=== PATIENT | male | born 1945 | race Caucasian/White ===

== ENCOUNTER 2017-01-24 12:46 | Outpatient (CLI) | payer MEDICARE, OTHER | END 2017-01-24 12:47 | disposition home or self-care (01) | DX: E27.9 Disorder of adrenal gland, unspecified (principal); K86.1 Other chronic pancreatitis; K86.81 Exocrine pancreatic insufficiency ==

== ENCOUNTER 2018-04-06 13:24 | Outpatient (CLI) | payer MEDICARE, OTHER ==
--- NOTE | 2018-04-06 15:23 | XRAY Report ---
Procedure Date: 04/06/2018 Accession Number: [id number] / [id number] Procedure: XRS - Abdomen Acute CPT Code: FULL RESULT: EXAM: Abdomen Acute DATE: 04/06/2018 2:48 PM CLINICAL HISTORY: 4 DAYS OF DIFFUSE ABDPAIN COMPARISON: CT abdomen 01/24/2017. TECHNIQUE: 2 views abdomen and 1 view chest. FINDINGS: CHEST: Lungs/Pleura: No focal opacities. No effusion or pneumothorax. Mediastinum: Within exam limitations, cardiomediastinal contour is normal. ABDOMEN: Bowel Gas Pattern: Within normal limits. No dilated loops or abnormal fluid levels. Free Air: None. Other: None. IMPRESSION: Normal chest. Nonobstructive bowel gas pattern. No definite free air. RADIA
== END 2018-04-06 13:25 | disposition home or self-care (01) ==
LOC: DI.S 13:24
PROVIDERS: ATTEND Family Medicine
DX: R10.84 Generalized abdominal pain (principal)
CPT/HCPCS: 74022

== ENCOUNTER 2018-04-16 11:26 | Outpatient (CLI) | payer MEDICARE, OTHER ==
[2018-04-16] MEDS ORDERED: IOPAMIDOL-300 50 ML VIAL ONE (11:51)
[2018-04-16] MEDS ORDERED: IOPAMIDOL-300 100 ML VIAL ONE (11:51)
[2018-04-16] MEDS ORDERED: IOPAMIDOL-300 50 ML VIAL PO ONE (13:26)
[2018-04-16] MEDS ORDERED: IOPAMIDOL-300 100 ML VIAL IVP ONE (13:38)
--- NOTE | 2018-04-16 14:10 | CT Report ---
Procedure Date: 04/16/2018 Accession Number: [id number] / [id number] Procedure: CT - Abdomen/Pelvis W/ CPT Code: FULL RESULT: EXAM: CT ABDOMEN AND PELVIS EXAM DATE: 04/16/2018 01:39 PM. CLINICAL HISTORY: 3 WEEKS OF SEVERE ABD PAIN. COMPARISONS: 01/24/2017. TECHNIQUE: Routine helical CT imaging was performed through the abdomen and pelvis. IV contrast: ISOVUE 300 100mL. Enteric contrast: Yes. Reconstructions: Coronal and sagittal. In accordance with CT protocol optimization, one or more of the following dose reduction techniques were utilized for this exam: automated exposure control, adjustment of mA and/or KV based on patient size, or use of iterative reconstructive technique. FINDINGS: Lung Bases: Unremarkable. Liver: Tiny cysts or hemangiomata. No suspicious findings. Gallbladder/Bile Ducts: Unremarkable. Spleen: Normal. Pancreas: Numerous calcifications, compatible with chronic pancreatitis. Adrenal Glands: Prominent thickening of left adrenal gland, similar to previous exam. Unremarkable right adrenal. Kidneys: Normal. No masses or hydronephrosis. Peritoneal Cavity/Bowel: Mild to moderate colonic diverticulosis. No free fluid, free air or adenopathy. No masses or acute inflammatory process. Unremarkable region of appendix. Pelvic Organs: Unremarkable urinary bladder. Mild prominence of the prostate with numerous calcifications and slight protrusion into the bladder base. Vasculature: No aneurysms or other significant abnormality. Bones: Degenerative changes. Hypertrophy of the left L5 transverse process with pseudarthrosis to S1 on the left. Other: None. IMPRESSION: 1. Mild to moderate diverticulosis. No definite diverticulitis at this time. 2. Evidence of chronic pancreatitis. 3. Prominent prostate; clinical correlation is suggested. 4. Other chronic or incidental findings. RADIA
== END 2018-04-16 11:27 | disposition home or self-care (01) ==
LOC: DI 11:26
PROVIDERS: ATTEND Registered Nurse
DX: K57.30 Diverticulosis of large intestine without perforation or abscess without bleeding (principal); K86.1 Other chronic pancreatitis; N40.0 Benign prostatic hyperplasia without lower urinary tract symptoms
CPT/HCPCS: 74177; Q9967

== ENCOUNTER 2018-06-07 12:22 | Outpatient (CLI) | payer MEDICARE, OTHER | END 2018-06-07 12:23 | disposition critical access hospital (66) | LOC: EMS 12:22 | PROVIDERS: ATTEND Surgery | DX: R53.1 Weakness (principal); R11.10 Vomiting, unspecified; R19.7 Diarrhea, unspecified; R55 Syncope and collapse | CPT/HCPCS: A0425; A0427 ==

== ENCOUNTER 2018-06-07 12:40 | Inpatient (IN) | payer MEDICARE, OTHER ==
[2018-06-07] MEDS ORDERED: SODIUM CHLORIDE 0.9% 1,000 ML IV ONE ×3 (13:11→14:05)
[2018-06-07] MEDS ORDERED: TRANEXAMIC ACID 1,000 MG in SODIUM CHLORIDE 0.9% 500 ML IV STA (13:30)
[2018-06-07] MEDS ORDERED: FAMOTIDINE 20 MG/50 ML 50 ML IV ONE (13:30)
[2018-06-07] MEDS ORDERED: PANTOPRAZOLE 40 MG VIAL IVP STA ×2 (13:30→14:46)
[2018-06-07 13:34] LABS: BASOPHILS % (AUTO) 0.2 %; EOSINOPHILS % (AUTO) 0.5 %; HGB - HEMOGLOBIN 8.9 g/dL (14.0-18.0); LYMPHOCYTES # (AUTO) 2.5 10^3/uL (1.5-3.5); LYMPHOCYTES % (AUTO) 26.5 %; MEAN CORPUSCULAR HEMOGLOBIN 28.8 pg (27.0-31.0); MEAN CORPUSCULAR HGB CONC 32.5 g/dL (32.0-36.0); MEAN CORPUSCULAR VOLUME 88.5 fL (80.0-94.0); MEAN PLATELET VOLUME 7.9 fL (7.4-11.4); MONOCYTES # (AUTO) 0.5 10^3/uL (0.0-1.0); MONOCYTES % (AUTO) 5.2 %; NEUTROPHILS # (AUTO) 6.5 10^3/uL (1.5-6.6); NEUTROPHILS % (AUTO) 67.6 %; PLT - PLATELET COUNT 241 10^3/uL (130-450); RED BLOOD COUNT 3.11 10^6/uL (4.70-6.10); RED CELL DISTRIBUTION WIDTH 13.6 % (12.0-15.0); WHITE BLOOD COUNT 9.6 x10^3/uL (4.8-10.8)
[2018-06-07 13:42] LABS: PT - PROTHROMBIN TIME 10.8 secs (9.9-12.6)
[2018-06-07] MEDS ORDERED: PANTOPRAZOLE 80 MG in SODIUM CHLORIDE 0.9% 100ML 100 ML IV STA (13:47)
--- NOTE | 2018-06-07 13:47 | ED Physician Documentation ---
History of Present Illness - Stated complaint Stated Complaint: WEAKNESS - Chief complaint Chief Complaint: General - Additonal information Additional information: hx from pt 73 male syncope today states yesterday very weak and vomited some dark material today weaker and black BM went to see PMD BP 110 HR 99 referred to ED POV for GIB work up per clinic note pt started on meloxicam amitryptiline and zenpep 05/30 prior drinker sober for 3-5 months pancreatitis so he drove his car home and his friend agreed to drive him here en route he started vomiting orange material and became unresponsive, friend thinks he was not breathing and pulled over to start CPR but then pt awoke called 911 and pt BIBA and arrive hyotensive and had a large (several hundred cc ) black gelatinous bloody BM denies CP AP SOA feels weak no blood thinners states no prior scopes, no known hx varices or ulcers per clinic note Pmhx: COPD pna, depression, anxiety, insomnia, HTN, HLD, skin cancer, pancreatitis, pancreatic cyst, DM, BPH, diverticulosis Meds: nicotine gum, fluoxetine, simvastatin, metformin, Breo Elliptam fluticasone, HCTZ, asa, pancrelipase, zenpep, amitryptiline, meloxicam - also asa and aleve PRN All NKDA Review of Systems Constitutional: denies: Fever Cardiac: denies: Chest pain / pressure Respiratory: denies: Dyspnea GI: reports: Nausea, Vomiting, Hematemesis, Bloody / black stool. denies: Abdominal Pain Neurologic: reports: Generalized weakness Endocrine: denies: Easy bruising / bleeding Immunocompromised: denies: Immunocompromised PD PAST MEDICAL HISTORY - Past Medical History Cardiovascular: Hypertension, High cholesterol Respiratory: COPD Endocrine/Autoimmune: Type 2 diabetes GI: None : None HEENT: Chronic vision loss, Chronic hearing loss Psych: Depression Musculoskeletal: Osteoarthritis Derm: None - Past Surgical History Past Surgical History: Yes Ortho: Spine surgery - Present Medications Home Medications: Ambulatory Orders Medication Instructions Recorded Confirmed FLUoxetine [PROzac] 10 mg PO DAILY 09/23/15 06/07/18 Aspirin [Aspir-Low] 81 mg PO DAILY 01/18/16 06/07/18 Amitriptyline [Elavil] 25 mg PO HS 06/07/18 06/07/18 Fluticasone/Vilanterol [Breo 1 inh IH DAILY 06/07/18 06/07/18 Ellipta 100-25 Mcg INH] Lipase/Protease/Amylase [Zenpep Dr 1 each PO TIDWM 06/07/18 06/07/18 10,000 Units Capsule] Nicotine Polacrilex [Nicotine Gum] 2 mg BC PRN PRN 06/07/18 06/07/18 Simvastatin 20 mg PO QPM 06/07/18 06/07/18 hydroCHLOROthiazide 25 mg PO DAILY 06/07/18 06/07/18 [Hydrochlorothiazide] metFORMIN [Glucophage] 500 mg PO BIDWM 06/07/18 06/07/18 oxyCODONE [Roxicodone] 5 - 10 mg PO Q6HR PRN 06/07/18 06/07/18 - Allergies Allergies/Adverse Reactions: Allergies Allergy/AdvReac Type Severity Reaction Status Date / Time No Known Drug Allergies Allergy Verified 01/18/16 12:33 - Social History Does the pt smoke?: No Smoking Status: Former smoker Does the pt drink ETOH?: Yes Does the pt have substance abuse?: No - Immunizations Immunizations: TDAP >10years/unknown PD ED PE NORMAL - Vitals Vital signs reviewed: Yes (hypotensive) - General General: Alert and oriented X 3 - HEENT HEENT: Other (white conjunctiva) - Neck Neck: Supple, no meningeal sign - Cardiac Cardiac: RRR - Respiratory Respiratory: No respiratory distress, Clear bilaterally - Abdomen Abdomen: Other (mild distension, soft tissue mass lower abd, NT) - Rectal Rectal: Deferred (passed approx 500 cc black BM upon arrival) - Derm Derm: Other (very pale) - Neuro Neuro: Alert and oriented X 3 Results - Vitals Vitals: Vital Signs - 24 hr 06/07/18 06/07/18 06/07/18 12:46 13:30 13:45 Temperature 37.5 C Heart Rate 91 90 88 Respiratory 22 23 23 Rate Blood Pressure 98/48 L 85/64 L 86/45 L O2 Saturation 100 99 99 06/07/18 06/07/18 06/07/18 13:54 15:13 15:15 Temperature 35.9 C L 36.2 C L Heart Rate 87 83 79 Respiratory 21 16 18 Rate Blood Pressure 88/64 L 140/63 H 136/65 H O2 Saturation 100 100 0906/07/18 06/07/18 15:19 15:24 15:30 Temperature 36.3 C L Heart Rate 80 81 78 Respiratory 20 21 19 Rate Blood Pressure 115/64 125/62 127/61 O2 Saturation 100 100 98 06/07/18 06/07/18 06/07/18 15:34 15:44 15:49 Temperature Heart Rate 79 75 75 Respiratory 20 18 17 Rate Blood Pressure 129/58 L 123/62 129/64 O2 Saturation 97 99 96 Oxygen O2 Source Room air - EKG (time done) 1348 Rate: Rate (enter#) (90) Rhythm: NSR [place]: Normal Intervals: Normal [place], Prolonged QT (borderline) Ischemia: Non specific changes - Labs Labs: Laboratory Tests 06/07/18 06/07/18 06/07/18 13:25 13:25 13:25 WBC 9.6 RBC 3.11 L Hgb 8.9 L Hct 27.5 L MCV 88.5 MCH 28.8 MCHC 32.5 RDW 13.6 Plt Count 241 MPV 7.9 Neut # (Auto) 6.5 Lymph # (Auto) 2.5 [place] # (Auto) 0.5 Eos # (Auto) 0.0 Baso # (Auto) 0.0 Absolute Nucleated RBC 0.00 Nucleated RBC % 0.0 PT 10.8 INR 1.0 Sodium 135 Potassium 3.6 Chloride 99 L Carbon Dioxide 20 L Anion Gap 16.0 H BUN 64 H Creatinine 1.3 H Estimated GFR (MDRD) 54 L Glucose 345 H Lactic Acid Calcium 8.9 Total Bilirubin 0.6 AST 40 ALT 27 Alkaline Phosphatase 61 Troponin I Total Protein 5.3 L Albumin 2.9 L Globulin 2.4 Albumin/Globulin Ratio 1.2 Lipase 29 Blood Type Blood Type Recheck Antibody Screen Crossmatch IS Only 06/07/18 06/07/18 06/07/18 13:25 13:25 13:25 WBC RBC Hgb Hct MCV MCH MCHC RDW Plt Count MPV Neut # (Auto) Lymph # (Auto) [place] # (Auto) Eos # (Auto) Baso # (Auto) Absolute Nucleated RBC Nucleated RBC % PT INR Sodium Potassium Chloride Carbon Dioxide Anion Gap BUN Creatinine Estimated GFR (MDRD) Glucose Lactic Acid 8.1 H* Calcium Total Bilirubin AST ALT Alkaline Phosphatase Troponin I < 0.04 Total Protein Albumin Globulin Albumin/Globulin Ratio Lipase Blood Type O POSITIVE Blood Type Recheck Antibody Screen NEGATIVE Crossmatch IS Only See Detail 06/07/18 13:56 WBC RBC Hgb Hct MCV MCH MCHC RDW Plt Count MPV Neut # (Auto) Lymph # (Auto) [place] # (Auto) Eos # (Auto) Baso # (Auto) Absolute Nucleated RBC Nucleated RBC % PT INR Sodium Potassium Chloride Carbon Dioxide Anion Gap BUN Creatinine Estimated GFR (MDRD) Glucose Lactic Acid Calcium Total Bilirubin AST ALT Alkaline Phosphatase Troponin I Total Protein Albumin Globulin Albumin/Globulin Ratio Lipase Blood Type Blood Type Recheck O POSITIVE Antibody Screen Crossmatch IS Only PD MEDICAL DECISION MAKING - ED course ED course: major GIB likely upper IV X 2 2 L NS 2 units O neg TXA 1 gram protonic and pepcid su[place] Dr Saurav Garay to bedisde and will take pt straight to the OR - Critical Care Time(min): 30 Time Includes: Direct patient care, Review records, Reassess patient, Document care, Coordinate care, Medical consult, Family consult for tx dec, See progress note Data interpretation: See progress note - Sepsis Event Vital Signs: Vital Signs - 24 hr 06/07/18 06/07/18 06/07/18 12:46 13:30 13:45 Temperature 37.5 C Heart Rate 91 90 88 Respiratory 22 23 23 Rate Blood Pressure 98/48 L 85/64 L 86/45 L O2 Saturation 100 99 99 06/07/18 06/07/18 06/07/18 13:54 15:13 15:15 Temperature 35.9 C L 36.2 C L Heart Rate 87 83 79 Respiratory 21 16 18 Rate Blood Pressure 88/64 L 140/63 H 136/65 H O2 Saturation 100 100 06/07/18 06/07/18 06/07/18 15:19 15:24 15:30 Temperature 36.3 C L Heart Rate 80 81 78 Respiratory 20 21 19 Rate Blood Pressure 115/64 125/62 127/61 O2 Saturation 100 100 98 06/07/18 06/07/18 06/07/18 15:34 15:44 15:49 Temperature Heart Rate 79 75 75 Respiratory 20 18 17 Rate Blood Pressure 129/58 L 123/62 129/64 O2 Saturation 97 99 96 Oxygen O2 Source Room air Departure - Departure Disposition: ED Transfer to [facility] Clinical Impression: GI bleed, Hypotension, Syncope, Anemia, Diabetes Condition: Serious Discharge Date/Time: 06/07/18 14:00
--- NOTE | 2018-06-07 13:47 | ANESTHESIA ---
Pre-Anesthesia VS, & Labs - Diagnosis GI Bleed - Procedure EGD Vital Signs: Temp Pulse Resp BP Pulse Ox 37.5 C 91 22 98/48 L 100 06/07/18 12:46 06/07/18 12:46 06/07/18 12:46 06/07/18 12:46 06/07/18 12:46 Height 5 ft 7 in Weight (kg) 61.689 kg Body Mass Index 21.2 - NPO Last Food Intake: 0800 - Lab Results Current Lab Results: Laboratory Tests 06/07/18 13:25: Crossmatch IS Only See Detail 06/07/18 13:25: WBC 9.6, RBC 3.11 L, Hgb 8.9 L, Hct 27.5 L, MCV 88.5, MCH 28.8, MCHC 32.5, RDW 13.6, Plt Count 241, MPV 7.9, Neut # (Auto) 6.5, Lymph # (Auto) 2.5, [place] # (Auto) 0.5, Eos # (Auto) 0.0, Baso # (Auto) 0.0, Absolute Nucleated RBC 0.00, Nucleated RBC % 0.0 Fish Bones: 06/07/18 13:25 Home Medications and Allergies Home Medications: Ambulatory Orders Medication Instructions Recorded Confirmed FLUoxetine [PROzac] 10 mg PO DAILY 09/23/15 09/23/15 A1c Medicine 01/18/16 Aspirin [Aspir-Low] 81 mg DAILY 01/18/16 01/18/16 Blood Pressure 01/18/16 Cholesterol 01/18/16 oxyCODONE/ACET 5/325 [Percocet 5 1 each PO Q4-6H PRN #15 tablet 01/18/16 mg/325 mg] Active Medications Famotidine (Pepcid 20 Mg/50 Ml) 50 mls @ 100 mls/hr IV ONCE ONE Stop: 06/07/18 13:59 FLUoxetine [PROzac] 10 mg PO DAILY 09/23/15 A1c Medicine 01/18/16 Aspirin [Aspir-Low] 81 mg DAILY 01/18/16 Blood Pressure 01/18/16 Cholesterol 01/18/16 Allergies/Adverse Reactions: Allergies Allergy/AdvReac Type Severity Reaction Status Date / Time No Known Drug Allergies Allergy Verified 01/18/16 12:33 Anes History & Medical History - Medical History Cardiovascular: reports: Hypertension, High cholesterol Pulmonary: reports: COPD Gastrointestinal: reports: None Urinary: reports: None, Kidney stones Neuro: reports: None Musculoskeletal: reports: Osteoarthritis Endocrine/Autoimmune: reports: Type 2 diabetes Skin: reports: None Smoking Status: Former smoker Psychosocial: reports: Alcohol (quit 3 mo ago) - Surgical History Urologic: Ureterolithotomy (stones) Orthopedic: Spine surgery (Cervical spine) Exam General: Alert, Oriented x3, Cooperative, No acute distress Dental: Poor dentition Mouth Openin Fingerbreadth Neck Mobility: Reduced Mallampati classification: III Thyromental Distance: 4-6 cm Mental/Cognitive Status: Alert/Oriented X3, Normal for patient Cognitive Status: Within normal limits Plan Anesthesia Type: General Consent for Procedure(s) Verified and Reviewed: Yes Code Status: Attempt Resuscitation ASA classification: 3-Severe systemic disease Is this case an emergency?: Yes
[2018-06-07 13:48] LABS: ALBUMIN 2.9 g/dL (3.2-5.5); ALBUMIN/GLOBULIN RATIO 1.2 (1.0-2.2); BILIRUBIN,TOTAL 0.6 mg/dL (0.2-1.0); CALCIUM 8.9 mg/dL (8.5-10.3); CREATININE 1.3 mg/dL (0.6-1.2); TOTAL PROTEIN 5.3 g/dL (6.7-8.2)
[2018-06-07] MEDS ORDERED: EPINEPHrine 1 MG/ML AMP ONE (13:57)
[2018-06-07] MEDS ORDERED: SODIUM CHLORIDE FLUSH 0.9% 10 ML SYRINGE ONE ×2 (13:58→14:31)
[2018-06-07] MEDS ORDERED: PROPOFOL 200 MG/20 ML VIAL IVP ONE (14:00)
[2018-06-07] MEDS ORDERED: SUCCINYLCHOLINE 200 MG/10 ML VIAL IVP ONE (14:00)
[2018-06-07] MEDS ORDERED: TRANEXAMIC ACID 1,000 MG in SODIUM CHLORIDE 0.9% 100ML 100 ML IV STA (14:00)
[2018-06-07] MEDS ORDERED: PHENYLEPHRINE 50 MG/5 ML VIAL IV ONE (14:00)
[2018-06-07] MEDS ORDERED: fentaNYL 100 MCG/2 ML VIAL IVP ONE (14:00)
[2018-06-07] MEDS ORDERED: ONDANSETRON 4 MG/2 ML VIAL IVP ONE (14:00)
--- NOTE | 2018-06-07 14:11 | CONSULTATION NOTE ---
Referring Provider Name of Referring Provider:: Dr. Verduzco Consult Date: 06/07/18 Chief Complaint - Chief Complaint Chief Complaint: GI bleed History of Present Illness - Admitted From Admitted From:: ER - History Obtained From Records Reviewed: yes History obtained from: pt Exam Limitations: no old records available; limited historian - History of Present Illness HPI Comment/Other: 73 yo male who noted an episode yesterday of coffee ground hematemesis, followed by onset today of large melenic bm associated with a syncopal episode; brought to the ER where he had a second large melenic stool. Denies abdominal pain currently although he has been evaluated for abd pain in March and April with plain films which were neg and an abd/pelvic CT showing changes c/w chronic pancreatitis and diverticulosis. He denies hx prior similar episodes or hx of hepatitis/jaundice or PUD. He has been taking a course of antiinflammatory med (unknown name) for his pancreas, and has a hx of alcoholism but has been abstinent for approximately 3 months. Chronic NSAID use includes 81 mg aspirn daily, plus prn Aleve. Smokes cigars daily. No hx esophageal varices, bleeding diathesis. Pt was hypotensive in the ER with tachycardia and signs of acute volume depletion, and was given IVF, uncross matched PRBCs, pantoprazole bolus and tranexamic acid. History - Past Medical History Cardiovascular: reports: Hypertension, High cholesterol Respiratory: reports: COPD Neuro: reports: None Endocrine/Autoimmune: reports: Type 2 diabetes GI: reports: None : reports: None HEENT: reports: Chronic vision loss, Chronic hearing loss Psych: reports: Depression Musculoskeletal: reports: Osteoarthritis Derm: reports: None MRSA Hx?: No - Past Surgical History Ortho: reports: Spine surgery (cervical) - Substance History Tobacco Details: Other (cigars) - POLST Patient has POLST: No Meds/Allgy - Home Medications Home Medications: Ambulatory Orders Medication Instructions Recorded Confirmed RX: FLUoxetine [PROzac] 10 mg PO DAILY 09/23/15 09/23/15 A1c Medicine 01/18/16 Aspirin [Aspir-Low] 81 mg DAILY 01/18/16 01/18/16 Blood Pressure 01/18/16 Cholesterol 01/18/16 oxyCODONE/ACET 5/325 [Percocet 5 1 each PO Q4-6H PRN #15 tablet 01/18/16 mg/325 mg] - Allergies Allergies/Adverse Reactions: Allergies Allergy/AdvReac Type Severity Reaction Status Date / Time No Known Drug Allergies Allergy Verified 01/18/16 12:33 Review of Systems - Cardiovascular Cariovascular: reports: Lightheadedness, Syncope - Gastrointestinal Gastrointestinal: reports: Abdominal pain, Black stools, Coffee grounds emesis - Hematologic/Lymphatic Hematologic/Lymphatic: denies: Blood clots, Bleeding tendencies Exam - Vital Signs Reviewed Vital Signs: Yes Vital Signs: Vital Signs x48h Temp Pulse Resp BP Pulse Ox 06/07/18 13:54 35.9 C L 87 21 88/64 L 06/07/18 12:46 37.5 C 91 22 98/48 L 100 - Physical Exam General Appearance: positive: Moderate distress, Anxious Eyes Bilateral: positive: Conjunctivae nml, No scleral icterus ENT: positive: Pharynx nml, Dry mucous membranes Neck: positive: Nml inspection, No JVD. negative: Lymphadenopathy (R), Lymphadenopathy (L) Respiratory: positive: Chest non-tender, No respiratory distress, Other (distant breath sounds). negative: Wheezes, Rales, Rhonchi Cardiovascular: positive: No murmur, No gallop, Extrasystoles, Tachycardia Abdomen: positive: Non-tender, Nml bowel sounds, No distention, Hepatomegaly (liver edge readily palpable 3 cm below the RCM) Skin: positive: Dry, Pallor. negative: Cyanosis Extremities: positive: No pedal edema. negative: Calf tenderness Neurologic/Psychiatric: positive: Oriented x3 Conclusion/Plan - Diagnosis Diagnosis: Major UGI bleed with hematemesis, melena, and hypotension; ddx includes PUD, varices, gastritis, GERD, dieulafoy lesion, neoplasm. - Plan Plan: Continue resuscitation with IVF, O-neg blood, pantoprazole bolus and drip; tranexamic acid, and then to the OR for EGD with possible therapy. PAR conference was held with patient, and consent obtained. - Lab Results Lab results reviewed: Yes Fish Bones: 06/07/18 13:25 06/07/18 13:25 - Diagnostic Imaging Results Diagnostic Imaging Results: positive: Final report reviewed Diagnostic Imaging Results Comments: see HPI
[2018-06-07] MEDS ORDERED: EPINEPHrine 1 MG/ML AMP IM ONE ×2 (14:21)
[2018-06-07] MEDS ORDERED: LACTATED RINGERS 1,000 ML IV ONE (14:47)
[2018-06-07] MEDS ORDERED: SODIUM CHLORIDE 0.9% 500 ML IV ONE (15:21)
[2018-06-07] MEDS ORDERED: ONDANSETRON 4 MG/2 ML VIAL IVP PRN (15:21)
[2018-06-07] MEDS ORDERED: PROCHLORPERAZINE 10 MG/2 ML VIAL IVP PRN (15:21)
[2018-06-07] MEDS ORDERED: ACETAMINOPHEN 325 MG TABLET PO PRN (15:21)
[2018-06-07] MEDS ORDERED: PROMETHAZINE 25 MG/1 ML VIAL IM PRN (15:21)
[2018-06-07] MEDS ORDERED: SODIUM CHLORIDE 0.9% 10 ML ONE (15:52)
[2018-06-07 15:59] LABS: MEAN CORPUSCULAR VOLUME 88.7 fL (80.0-94.0); MEAN PLATELET VOLUME 7.6 fL (7.4-11.4); MONOCYTES % (AUTO) 4.3 %
[2018-06-07] MEDS: PANTOPRAZOLE 80 MG in SODIUM CHLORIDE 0.9% 100ML 100 ML IV SCH (16:00)
[2018-06-07] MEDS: SODIUM CHLORIDE 0.9% 1,000 ML IV SCH ×2 (16:00→19:49)
[2018-06-07 16:01] LABS: BASOPHILS % (AUTO) 0.1 %; EOSINOPHILS % (AUTO) 0.1 %; HGB - HEMOGLOBIN 10.6 g/dL (14.0-18.0); LYMPHOCYTES % (AUTO) 6.2 %; MEAN CORPUSCULAR HEMOGLOBIN 29.5 pg (27.0-31.0); MEAN CORPUSCULAR HGB CONC 33.3 g/dL (32.0-36.0); NEUTROPHILS % (AUTO) 89.3 %; PLT - PLATELET COUNT 187 10^3/uL (130-450); RED BLOOD COUNT 3.58 10^6/uL (4.70-6.10); WHITE BLOOD COUNT 20.1 x10^3/uL (4.8-10.8)
[2018-06-07 16:06] LABS: ABNORMAL LYMPHS % (MANUAL) 0 %
[2018-06-07 16:07] LABS: ALBUMIN 2.6 g/dL (3.2-5.5); ALBUMIN/GLOBULIN RATIO 1.2 (1.0-2.2); BILIRUBIN,TOTAL 0.5 mg/dL (0.2-1.0); CALCIUM 8.2 mg/dL (8.5-10.3); CREATININE 1.1 mg/dL (0.6-1.2); TOTAL PROTEIN 4.8 g/dL (6.7-8.2)
[2018-06-07] MEDS ORDERED: MORPHINE 2 MG/ML CARPUJECT IVP PRN (16:11)
[2018-06-07 16:20] LABS: BAND NEUTROPHILS % (MANUAL) 4 %; LYMPHOCYTES % (MANUAL) 5 %; NEUTROPHILS # (MANUAL) 18.1 10^3/uL (1.5-6.6); NEUTROPHILS % (MANUAL) 86 %
[2018-06-07 16:22] LABS: DIFFERENTIAL COMMENT MANUAL DIFFERENTIAL; PLATELET ESTIMATE, MANUAL NORMAL (130-450,000) (NORMAL); PLATELET MORPHOLOGY NORMAL APPEARANCE (NORMAL)
--- NOTE | 2018-06-07 16:22 | HISTORY & PHYSICAL EXAMINATION ---
Chief Complaint - Chief Complaint Chief Complaint: Weakness History of Present Illness - Admitted From Admitted From:: PACU - History Obtained From Records Reviewed: Yes History obtained from: Patient and medical records Exam Limitations: None - History of Present Illness HPI Comment/Other: Patient is a 73-year-old gentleman with a past medical history significant for diabetes, hypertension, hyperlipidemia, COPD, chronic pancreatitis and tobacco abuse who presented to the emergency department with a chief complaint of d izziness. According to the patient he was in his normal state of health about 2 months ago when he began experiencing abdominal pain. He states that the pain was located in the epigastric area and became more and more persistent. He states that due to the pain he had decreased appetite and began eating less and less. He states that he saw his primary care physician and was sent to the hospital for a CT scan. He states that he was told that he had an inflamed pancreas and was started on oxycodone for pain relief. The patient states he was also placed on a liquid diet. The patient states that he was not improving over the course of about a month and then went back to his primary care ph ysician who referred him to Dr. Meehan. He was seen by Dr. Meehan about a week ago and started on a one-week course of NSAIDs and pancreatic enzymes. He states that finally his abdominal pain was improving and over the last week he is finally been able to eat. He states over the course of the last 1-1/2 months he is lost about 30 pounds. He says everything was improving until just 2 days ago when he stopped taking the pain medication. He states that at that time he began feeling weak and then lightheaded. He states that he began feeling nauseated and then vomited what he describes as black tarry emesis. The patient states over the course of the next day he became increasingly dizzy, disoriented and began having sweating. He states that yesterday he had a bout of diarrhea and finally felt a little bit better. He states that this morning he began having some abdominal discomfort and had to go to the bathroom again when he had another bout of diarrhea. He states this time the stool was black and immediately after he felt very dizzy. 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 He states he went to his primary care physician's office where he saw a nurse practitioner and was told to go directly to the emergency department as he could be having a GI bleed. The patient states that he asked his friend to drive him to the emergency department but in route to the emergency department he passed out and according to the friend he was not waking up. The patient's friend called 911 and paramedics brought the patient to the emergency department. Patient denies any headaches, blurred vision, runny nose, sore throat, nasal congestion, difficulty swallowing, chest pain, cough, orthopnea, PND, increased lower extremity swelling, constipation, urinary urgency, urinary frequency, dysuria, joint pain, joint swelling, back pain, neck stiffness, skin rash, hair loss, polyuria, polydipsia, night sweats or any focal neurologic deficits. The patient does admit to chronic shortness of breath and wheezing for which he takes inhalers but has been out of them for the last week. When EMS arrived at the scene the patient was hypotensive, pale and hypoxic. The patient was placed on oxygen and brought to the emergency department. The patient continued to be hypotensive in the emergency department with blood pressure in the 80s systolic. The patient's initial hemoglobin was 8.9 which was down from a baseline of 14.2. The patient had a elevated lactic acid of 8.3 and an elevated blood glucose of 345. While in the emergency department the patient had black tarry stool and the emergency room physician consulted the surgeon business transformation manager Dr. Fabian Garay. Given the patient's ongoing GI bleed and hemodynamic instability the patient was taken directly to the OR for a endoscopy. The patient underwent EGD in the OR which revealed a large duodenal ulcer which was cauterized and clipped by the surgeon. The patient was given 2 units of packed RBCs, 80 mg of IV Protonix and admitted to the intensive care unit with a Protonix drip. History - Past Medical History Cardiovascular: reports: Hypertension, High cholesterol Respiratory: reports: COPD Neuro: reports: None Endocrine/Autoimmune: reports: Type 2 diabetes GI: reports: Pancreatitis (Chronic) : reports: None HEENT: reports: Chronic vision loss, Chronic hearing loss Psych: reports: Depression Musculoskeletal: reports: Osteoarthritis Derm: reports: None MRSA Hx?: No - Past Surgical History Ortho: reports: Spine surgery - Family & Social History Family History: Mother: , Cancer (Mother lung Ca and Dad bladder Ca), Father: , Cancer Living arrangement: At home Living Situation: With family Social History Notes: Patient lives in [place], [place]. He has lived here for 3 years. Prior to that he lived in [place]. He lives with his son. 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 He has 3 sons. He was born and raised in [place]. The patient smokes 2-3 cigars a day. He quit smoking cigarettes one year ago prior to that he smoked 1 pack a day for 57 years. The patient quit drinking about 2-3 months ago he states that he typically was drinking 3 beers a night but would binge drink at times. He states that he has been drinking more heavily for the last 16 years. He denies any illicit drug use. - Substance History Tobacco Details: Other (cigars) - POLST Patient has POLST: No POLST Status: Full Code Meds/Allgy - Home Medications Home Medications: Ambulatory Orders Medication Instructions Recorded Confirmed FLUoxetine [PROzac] 10 mg PO DAILY 09/23/15 06/07/18 Aspirin [Aspir-Low] 81 mg PO DAILY 01/18/16 06/07/18 Amitriptyline [Elavil] 25 mg PO HS 06/07/18 06/07/18 Fluticasone/Vilanterol [Breo 1 inh IH DAILY 06/07/18 06/07/18 Ellipta 100-25 Mcg INH] Lipase/Protease/Amylase [Zenpep Dr 1 each PO TIDWM 06/07/18 06/07/18 10,000 Units Capsule] Nicotine Polacrilex [Nicotine Gum] 2 mg BC PRN PRN 06/07/18 06/07/18 Simvastatin 20 mg PO QPM 06/07/18 06/07/18 hydroCHLOROthiazide 25 mg PO DAILY 06/07/18 06/07/18 [Hydrochlorothiazide] metFORMIN [Glucophage] 500 mg PO BIDWM 06/07/18 06/07/18 oxyCODONE [Roxicodone] 5 - 10 mg PO Q6HR PRN 06/07/18 06/07/18 - Allergies Allergies/Adverse Reactions: Allergies Allergy/AdvReac Type Severity Reaction Status Date / Time No Known Drug Allergies Allergy Verified 01/18/16 12:33 Review of Systems - Other Findings Other Findings: A comprehensive review of systems was performed the pertinent positives and negatives are stated above in the HPI and the remainder of the review of systems is negative. Prior Level of Functionality: Patient is fully independent, still working, lives with his son and does not use any assistance devices. Exam - Vital Signs Reviewed Vital Signs: Yes Vital Signs: Vital Signs x48h Temp Pulse Resp BP Pulse Ox 06/07/18 15:55 78 15 126/67 98 06/07/18 15:49 75 17 129/64 96 06/07/18 15:44 75 18 123/62 99 06/07/18 15:34 79 20 129/58 L 97 06/07/18 15:30 36.3 C L 78 19 127/61 98 06/07/18 15:24 81 21 125/62 100 06/07/18 15:19 80 20 115/64 100 06/07/18 15:15 79 18 136/65 H 100 06/07/18 15:13 36.2 C L 83 16 140/63 H 100 06/07/18 13:54 35.9 C L 87 21 88/64 L 06/07/18 13:45 88 23 86/45 L 99 06/07/18 13:30 90 23 85/64 L 99 06/07/18 12:46 37.5 C 91 22 98/48 L 100 - Physical Exam General Appearance: positive: No acute distress, Alert Eyes Bilateral: positive: Normal inspection, PERRL, EOMI, No lid inflammation, Conjunctivae nml, No scleral icterus ENT: positive: ENT inspection nml, Pharynx nml, Dry mucous membranes. negative: Purulent nasal drainage, Pharyngeal erythema, Oral lesions Neck: positive: Nml inspection, Thyroid nml, No JVD, Trachea midline. negative: Thyromegaly, Lymphadenopathy (R), Lymphadenopathy (L), Carotid bruit, Tracheal deviation Respiratory: positive: Chest non-tender, No respiratory distress, Wheezes (Scattered, expiratory). negative: Rales, Rhonchi Cardiovascular: positive: Regular rate & rhythm, No murmur, No gallop Peripheral Pulses: positive: 2+ Abdomen: positive: Non-tender, No organomegaly, Nml bowel sounds, No distention. negative: Guarding, Rebound, Hepatomegaly Rectal: positive: Black stool Back: positive: Nml inspection. negative: CVA tenderness (R), CVA tenderness (L) Skin: positive: Color nml, No rash, Warm, Dry. negative: Cyanosis, Diaphoresis, Pallor, Skin rash Extremities: positive: Non-tender, Full ROM, Nml appearance, Pedal edema (Mild edema bilateral) Neurologic/Psychiatric: positive: Oriented x3, CN's nml (2-12), Motor nml, Sensation nml, Mood/affect nml Conclusion/Plan - Problem List (1) Upper GI bleed Conclusion/Plan: Patient presented with dizziness and had been having black tarry stools and coffee-ground emesis for 2 days. On presentation patient was hypotensive and had further black tarry stools in the emergency department. Patient's baseline hemoglobin is 14.2 and hemoglobin was down to 8.9 on presentation to the emergency department. Given patient's hemodynamic instability he had to be taken directly to the OR for EGD. On EGD patient was found to have a large duodenal ulcer which was cauterized and clipped by the general surgeon. Plan: Admit to the intensive care unit Monitor closely 2 large-bore IVs IV Protonix drip IV fluids Monitor H&H every 6 N.p.o. Surgery following closely (2) Duodenal ulcer Conclusion/Plan: Patient presented with a GI bleed as above. Patient underwent emergent EGD which showed a large duodenal ulcer that was clipped and cauterized. There is high risk of rebleeding of this ulcer and therefore patient will need to be monitored very closely for the next 24-48 hours. Likely cause of the duodenal u lcer was use of aspirin, NSAIDs, alcohol abuse and tobacco abuse. Plan: Patient placed on Protonix drip in the intensive care unit Monitor H&H every 6 Monitor closely for bleeding IV fluids N.p.o. Hold all NSAIDs and aspirin (3) Hypertension Conclusion/Plan: Patient has a history of hypertension but patient was hypotensive on presentation. Given ongoing GI bleed patient's antihypertensive medications will be held for now and we will continue to monitor the patient's blood pressure if patient's blood pressure does become elevated we will restart his h ome medications. Qualifiers: Hypertension type: essential hypertension Qualified Code(s): I10 - Essential (primary) hypertension (4) Diabetes Conclusion/Plan: The patient has a history of diabetes for which she is only on metformin at home. The patient presented with hyperglycemia as his blood glucose was elevated at 345. This may have been a stress response. Plan: Check hemoglobin A1c Sliding scale insulin n.p.o. Check blood glucose 4 times daily Qualifiers: Diabetes mellitus type: type 2 Diabetes mellitus detention insulin use: without terminal manager use Diabetes mellitus complication status: with hyperglycemi a Qualified Code(s): E11.65 - Type 2 diabetes mellitus with hyperglycemia (5) Tobacco abuse Conclusion/Plan: Patient has a history of tobacco abuse previously he was a heavy smoker of cigarettes currently he smokes 2-3 cigars a day. The patient was advised to quit smoking as a likely contributed to his duodenal ulcer. He was also counseled on all the risk factors involved with continued smoking. The patient will be placed on a nicotine patch while he is hospitalized and does appear to be committed to quit smoking. (6) Alcohol abuse Conclusion/Plan: The patient has a history of alcohol abuse but quit drinking over a month ago. The patient was found to have chronic pancreatitis on the CT scan after which he quit drinking. The patient is not at risk of going through withdrawals. The patient was counseled on the need to continue to keep from drinking. Alcohol abuse likely played some role in the patient's duodenal ulcer. (7) Chronic pancreatitis Conclusion/Plan: Patient is a history of chronic pancreatitis. The patient's lipase on presentation is 29. Patient has been having abdominal pain from pancreatitis for the last several months. While patient is hospitalized he will initially be kept n.p.o. and will be given morphine for pain control. Patient is James quit drinking and was counseled on need to continue to stop drinking. Qualifiers: Pancreatitis type: alcohol induced Qualified Code(s): K86.0 - Alcohol- induced chronic pancreatitis (8) COPD (chronic obstructive pulmonary disease) Conclusion/Plan: Patient is a history of COPD and is on Breo at home. He states he ran out of his inhaler a few days ago. While the patient is hospitalized he will be placed on albuterol nebulizer and ipratropium nebulizer as needed. The patient will not be given inhaled corticosteroids given his ulcer. The patient currently do es not appear to be having a COPD exacerbation. Qualifiers: COPD type: unspecified COPD Qualified Code(s): J44.9 - Chronic obstructive pulmonary disease, unspecified (9) Hyperlipidemia Conclusion/Plan: Patient has a history of hyperlipidemia and is on statin at home. Given the patient's severe GI bleed and large duodenal ulcer the patient is being kept n.p.o. therefore we will hold statin for now. Qualifiers: Hyperlipidemia type: unspecified Qualified Code(s): E78.5 - Hyperlipidemia, unspecified - Lab Results Lab results reviewed: Yes Fish Bones: 06/07/18 15:50 06/07/18 15:50 Other Lab Results: Laboratory Results WBC 20.1 x10^3/uL (4.8-10.8) H 06/07/18 15:50 RBC 3.58 10^6/uL (4.70-6.10) L 06/07/18 15:50 Hgb 10.6 g/dL (14.0-18.0) L 06/07/18 15:50 Hct 31.7 % (42.0-52.0) L 06/07/18 15:50 MCV 88.7 fL (80.0-94.0) 06/07/18 15:50 MCH 29.5 pg (27.0-31.0) 06/07/18 15:50 MCHC 33.3 g/dL (32.0-36.0) 06/07/18 15:50 RDW 14.0 % (12.0-15.0) 06/07/18 15:50 Plt Count 187 10^3/uL (130-450) 06/07/18 15:50 MPV 7.6 fL (7.4-11.4) 06/07/18 15:50 Neut # (Auto) 17.9 10^3/uL (1.5-6.6) H 06/07/18 15:50 Lymph # (Auto) 1.2 10^3/uL (1.5-3.5) L 06/07/18 15:50 [place] # (Auto) 0.9 10^3/uL (0.0-1.0) 06/07/18 15:50 Eos # (Auto) 0.0 10^3/uL (0.0-0.7) 06/07/18 15:50 Baso # (Auto) 0.0 10^3/uL (0.0-0.1) 06/07/18 15:50 Absolute Nucleated RBC 0.01 x10^3/uL 06/07/18 15:50 Nucleated RBC % 0.0 /100WBC 06/07/18 15:50 Manual Slide Review Indicated 06/07/18 15:50 PT 10.8 secs (9.9-12.6) 06/07/18 13:25 INR 1.0 (0.8-1.2) 06/07/18 13:25 Sodium 139 mmol/L (135-145) 06/07/18 15:50 Potassium 3.9 mmol/L (3.5-5.0) 06/07/18 15:50 Chloride 107 mmol/L (101-111) 06/07/18 15:50 Carbon Dioxide 23 mmol/L (21-32) 06/07/18 15:50 Anion Gap 9.0 (6-13) 06/07/18 15:50 BUN 63 mg/dL (6-20) H 06/07/18 15:50 Creatinine 1.1 mg/dL (0.6-1.2) 06/07/18 15:50 Estimated GFR (MDRD) 65 (>89) L 06/07/18 15:50 Glucose 113 mg/dL (70-100) H 06/07/18 15:50 Lactic Acid 8.1 mmol/L (0.5-2.2) H* 06/07/18 13:25 Calcium 8.2 mg/dL (8.5-10.3) L 06/07/18 15:50 Total Bilirubin 0.5 mg/dL (0.2-1.0) 06/07/18 15:50 AST 42 IU/L (10-42) 06/07/18 15:50 ALT 35 IU/L (10-60) 06/07/18 15:50 Alkaline Phosphatase 54 IU/L (42-121) 06/07/18 15:50 Troponin I < 0.04 ng/mL (<0.49) 06/07/18 13:25 Total Protein 4.8 g/dL (6.7-8.2) L 06/07/18 15:50 Albumin 2.6 g/dL (3.2-5.5) L 06/07/18 15:50 Globulin 2.2 g/dL (2.1-4.2) 06/07/18 15:50 Albumin/Globulin Ratio 1.2 (1.0-2.2) 06/07/18 15:50 Lipase 29 U/L (22-51) 06/07/18 13:25 Blood Type O POSITIVE 06/07/18 13:25 Blood Type Recheck O POSITIVE 06/07/18 13:56 Antibody Screen NEGATIVE 06/07/18 13:25 Crossmatch IS Only See Detail 06/07/18 13:25 - EKG Results EKG Interpreted Independently: Yes EKG Findings: No ischemic changes. Core Measures - Anticipated LOS I expect patient to be DC'd or transferred within 96 hours.: Yes - DVT/VTE - Prophylaxis VTE/DVT Device ordered at admit?: Yes
[2018-06-07] MEDS: SODIUM CHLORIDE FLUSH 0.9% 10 ML SYRINGE IVP SCH (17:13)
[2018-06-07] MEDS: INSULIN REGULAR HUMAN 100 UNIT/1 ML 10 ML MDV SUBQ SCH (18:04)
[2018-06-07 18:45] LABS: BILIRUBIN,URINE NEGATIVE (NEGATIVE); GLUCOSE, URINE (UA) NEGATIVE (NEGATIVE); KETONES,URINE (UA) NEGATIVE (NEGATIVE); LEUKOCYTE ESTERASE, URINE TRACE (NEGATIVE); NITRITE,URINE NEGATIVE (NEGATIVE); OCCULT BLOOD,URINE NEGATIVE (NEGATIVE); PH,URINE 5.5 PH (5.0-7.5); PROTEIN,URINE NEGATIVE (NEGATIVE); UROBILINOGEN,URINE 0.2 (NORMAL) E.U./dL (NORMAL)
[2018-06-07 18:47] LABS: CLARITY,URINE CLOUDY (CLEAR)
[2018-06-07 18:59] LABS: BACTERIA,URINE None Seen /HPF (None Seen); CASTS, URINE 3-5 Hyaline Casts /LPF; RBC,URINE 0-5 /HPF (0-5); SQUAMOUS EPITHELIAL CELL,UR NONE SEEN (<= Few)
[2018-06-07] MEDS ORDERED: ALBUTEROL NEB 2.5 MG/3 ML INH SCH (19:00)
[2018-06-07 21:20] LABS: BASOPHILS % (AUTO) 0.1 %; LYMPHOCYTES # (AUTO) 1.1 10^3/uL (1.5-3.5); LYMPHOCYTES % (AUTO) 7.7 %; MEAN CORPUSCULAR HEMOGLOBIN 29.1 pg (27.0-31.0); MEAN CORPUSCULAR VOLUME 88.1 fL (80.0-94.0); MEAN PLATELET VOLUME 7.8 fL (7.4-11.4); MONOCYTES # (AUTO) 0.8 10^3/uL (0.0-1.0); MONOCYTES % (AUTO) 5.8 %; NEUTROPHILS # (AUTO) 12.7 10^3/uL (1.5-6.6); NEUTROPHILS % (AUTO) 86.4 %; PLT - PLATELET COUNT 179 10^3/uL (130-450); RED BLOOD COUNT 3.42 10^6/uL (4.70-6.10); RED CELL DISTRIBUTION WIDTH 13.9 % (12.0-15.0); WHITE BLOOD COUNT 14.7 x10^3/uL (4.8-10.8)
[2018-06-08] MEDS: PANTOPRAZOLE 80 MG in SODIUM CHLORIDE 0.9% 100ML 100 ML IV SCH ×3 (00:08→18:41)
[2018-06-08] MEDS: SODIUM CHLORIDE FLUSH 0.9% 10 ML SYRINGE IVP SCH ×4 (00:09→21:21)
[2018-06-08] MEDS: INSULIN REGULAR HUMAN 100 UNIT/1 ML 10 ML MDV SUBQ SCH ×3 (00:09→12:10)
[2018-06-08 03:32] LABS: BASOPHILS % (AUTO) 0.1 %; EOSINOPHILS # (AUTO) 0.1 10^3/uL (0.0-0.7); EOSINOPHILS % (AUTO) 0.6 %; HGB - HEMOGLOBIN 9.4 g/dL (14.0-18.0); LYMPHOCYTES # (AUTO) 1.2 10^3/uL (1.5-3.5); LYMPHOCYTES % (AUTO) 10.8 %; MEAN CORPUSCULAR HEMOGLOBIN 29.4 pg (27.0-31.0); MEAN CORPUSCULAR HGB CONC 33.7 g/dL (32.0-36.0); MEAN CORPUSCULAR VOLUME 87.4 fL (80.0-94.0); MEAN PLATELET VOLUME 7.7 fL (7.4-11.4); MONOCYTES # (AUTO) 0.5 10^3/uL (0.0-1.0); MONOCYTES % (AUTO) 4.9 %; NEUTROPHILS # (AUTO) 9.2 10^3/uL (1.5-6.6); NEUTROPHILS % (AUTO) 83.6 %; PLT - PLATELET COUNT 169 10^3/uL (130-450); RED BLOOD COUNT 3.18 10^6/uL (4.70-6.10)
[2018-06-08 03:38] LABS: PT - PROTHROMBIN TIME 11.5 secs (9.9-12.6)
[2018-06-08 03:58] LABS: ALBUMIN 2.5 g/dL (3.2-5.5); ALBUMIN/GLOBULIN RATIO 1.1 (1.0-2.2); BILIRUBIN,TOTAL 0.8 mg/dL (0.2-1.0); CALCIUM 7.8 mg/dL (8.5-10.3); CREATININE 1.2 mg/dL (0.6-1.2); MAGNESIUM 1.7 mg/dL (1.7-2.8); PHOSPHORUS 4.1 mg/dL (2.5-4.6); TOTAL PROTEIN 4.7 g/dL (6.7-8.2)
[2018-06-08 04:16] LABS: HB2 TOTAL 9.8 g/dL; HEMOGLOBIN A1C 0.44 g/dL; HEMOGLOBIN A1C % 6.3 % (4.6-6.2)
[2018-06-08] MEDS: SODIUM CHLORIDE 0.9% 1,000 ML IV SCH ×2 (05:43→15:37)
[2018-06-08] MEDS: ALBUTEROL NEB 2.5 MG/3 ML INH PRN ×2 (08:18→14:17)
[2018-06-08] MEDS: IPRATROPIUM 0.2 MG/ML NEB INH PRN ×2 (08:19→14:17)
[2018-06-08 09:18] LABS: BASOPHILS % (AUTO) 0.1 %; EOSINOPHILS % (AUTO) 0.4 %; HGB - HEMOGLOBIN 8.8 g/dL (14.0-18.0); LYMPHOCYTES # (AUTO) 1.1 10^3/uL (1.5-3.5); LYMPHOCYTES % (AUTO) 10.5 %; MEAN CORPUSCULAR HEMOGLOBIN 29.5 pg (27.0-31.0); MEAN CORPUSCULAR VOLUME 86.6 fL (80.0-94.0); MEAN PLATELET VOLUME 7.6 fL (7.4-11.4); MONOCYTES # (AUTO) 0.4 10^3/uL (0.0-1.0); MONOCYTES % (AUTO) 4.4 %; NEUTROPHILS # (AUTO) 8.6 10^3/uL (1.5-6.6); NEUTROPHILS % (AUTO) 84.6 %; PLT - PLATELET COUNT 166 10^3/uL (130-450); RED BLOOD COUNT 2.97 10^6/uL (4.70-6.10); RED CELL DISTRIBUTION WIDTH 13.7 % (12.0-15.0); WHITE BLOOD COUNT 10.2 x10^3/uL (4.8-10.8)
[2018-06-08] MEDS: NICOTINE 21 MG PATCH TOP SCH (10:41)
--- NOTE | 2018-06-08 12:34 | PROVIDER PROGRESS NOTE ---
Subjective - General Admit Date: 06/07/18 Procedure Date: 06/07/18 Post Op Days: 1 Procedure Performed: EGD with hemostatic control of active bleeding - Review of Systems General: positive: No symptoms (Says that his rear hurts from lying in bed so much.) HEENT: positive: No symptoms Pulmonary: positive: No symptoms Cardiovascular: positive: No symptoms Gastrointestinal: positive: No symptoms Genitourinary: positive: No symptoms Musculoskeletal: positive: Other (See above for buttock pain from significant time in bed.) Skin: positive: No symptoms Psychiatric: positive: No symptoms Objective - Patient Data Reviewed Vital Signs: Yes Vital Signs: Vital Signs x48h Temp Pulse Pulse Resp BP Pulse Ox 06/08/18 11:58 36.8 C 88 19 113/66 95 06/08/18 11:00 84 21 115/61 94 06/08/18 10:00 82 22 113/54 L 96 06/08/18 09:00 87 23 121/76 95 06/08/18 08:43 36.7 C 06/08/18 08:18 92 22 06/08/18 08:00 93 20 118/72 95 06/08/18 06:00 91 18 120/76 93 06/08/18 05:00 98 21 112/77 96 Weight: Weight 06/06/18 06/07/18 06/08/18 23:59 23:59 23:59 Weight (kg) 63 kg 64.5 kg Intake & Output: Intake and Output Totals x24h 06/06/18 06/07/18 06/08/18 23:59 23:59 23:59 Intake Total 2451.667 1051.333 Output Total 175 2005 Balance 7726.667 -483.667 - Lab Results Lab Results: 06/08/18 09:10 06/08/18 03:25 Other Lab Results: Lab Results x24hrs 06/08/18 06/08/18 06/08/18 Range/Units 09:10 03:25 03:25 WBC 10.2 (4.8-10.8) x10^3/uL RBC 2.97 L (4.70-6.10) 10^6/uL Hgb 8.8 L (14.0-18.0) g/dL Hct 25.7 L (42.0-52.0) % MCV 86.6 (80.0-94.0) fL MCH 29.5 (27.0-31.0) pg MCHC 34.0 (32.0-36.0) g/dL RDW 13.7 (12.0-15.0) % Plt Count 166 (130-450) 10^3/uL MPV 7.6 (7.4-11.4) fL Neut # (Auto) 8.6 H (1.5-6.6) 10^3/uL Lymph # (Auto) 1.1 L (1.5-3.5) 10^3/uL Finney # (Auto) 0.4 (0.0-1.0) 10^3/uL Eos # (Auto) 0.0 (0.0-0.7) 10^3/uL Baso # (Auto) 0.0 (0.0-0.1) 10^3/uL Absolute Nucleated RBC 0.00 x10^3/uL Total Counted Band Neuts % (Manual) (0 - 10) % Abnorm Lymph % (Manual) % Nucleated RBC % 0.0 /100WBC Neutrophils # (Manual) (1.5-6.6) 10^3/uL Lymphocytes # (Manual) (1.5-3.5) 10^3/uL Monocytes # (Manual) (0.0-1.0) 10^3/uL Eosinophils # (Manual) (0-0.7) 10^3/uL Basophils # (Manual) (0-0.1) 10^3/uL Differential Comment Manual Slide Review Platelet Estimate (NORMAL) Platelet Morphology (NORMAL) RBC Morph Micro Appear (NORMAL) PT (9.9-12.6) secs INR (0.8-1.2) Sodium 136 (135-145) mmol/L Potassium 4.4 (3.5-5.0) mmol/L Chloride 107 (101-111) mmol/L Carbon Dioxide 24 (21-32) mmol/L Anion Gap 5.0 L (6-13) BUN 80 H* (6-20) mg/dL Creatinine 1.2 (0.6-1.2) mg/dL Estimated GFR (MDRD) 59 L (>89) Glucose 122 H (70-100) mg/dL Glycated Hemoglobin 6.3 H (4.6-6.2) % Estim Average Glucose 134 H (70-100) Lactic Acid (0.5-2.2) mmol/L Calcium 7.8 L (8.5-10.3) mg/dL Phosphorus 4.1 (2.5-4.6) mg/dL Magnesium 1.7 (1.7-2.8) mg/dL Total Bilirubin 0.8 (0.2-1.0) mg/dL AST 34 (10-42) IU/L ALT 32 (10-60) IU/L Alkaline Phosphatase 44 (42-121) IU/L Total Creatine Kinase (22-269) IU/L Troponin I (<0.49) ng/mL Total Protein 4.7 L (6.7-8.2) g/dL Albumin 2.5 L (3.2-5.5) g/dL Globulin 2.2 (2.1-4.2) g/dL Albumin/Globulin Ratio 1.1 (1.0-2.2) Lipase (22-51) U/L Urine Color Urine Clarity (CLEAR) Urine pH (5.0-7.5) PH Ur Specific [place] (1.002-1.030) Urine Protein (NEGATIVE) mg/dL Urine Glucose (UA) (NEGATIVE) mg/dL Urine Ketones (NEGATIVE) mg/dL Urine Occult Blood (NEGATIVE) Urine Nitrite (NEGATIVE) Urine Bilirubin (NEGATIVE) Urine Urobilinogen (NORMAL) E.U./dL Ur Leukocyte Esterase (NEGATIVE) Urine RBC (0-5) /HPF Urine WBC (0-3) /HPF Ur Squamous Epith Cells (<= Few) Urine Bacteria (None Seen) /HPF Urine Casts /LPF Ur Microscopic Review Urine Culture Comments Blood Type Blood Type Recheck Antibody Screen Crossmatch IS Only 06/08/18 06/08/18 06/08/18 Range/Units 03:25 03:25 03:20 WBC 11.0 H (4.8-10.8) x10^3/uL RBC 3.18 L (4.70-6.10) 10^6/uL Hgb 9.4 L (14.0-18.0) g/dL Hct 27.8 L (42.0-52.0) % MCV 87.4 (80.0-94.0) fL MCH 29.4 (27.0-31.0) pg MCHC 33.7 (32.0-36.0) g/dL RDW 14.0 (12.0-15.0) % Plt Count 169 (130-450) 10^3/uL MPV 7.7 (7.4-11.4) fL Neut # (Auto) 9.2 H (1.5-6.6) 10^3/uL Lymph # (Auto) 1.2 L (1.5-3.5) 10^3/uL Finney # (Auto) 0.5 (0.0-1.0) 10^3/uL Eos # (Auto) 0.1 (0.0-0.7) 10^3/uL Baso # (Auto) 0.0 (0.0-0.1) 10^3/uL Absolute Nucleated RBC 0.00 x10^3/uL Total Counted Band Neuts % (Manual) (0 - 10) % Abnorm Lymph % (Manual) % Nucleated RBC % 0.0 /100WBC Neutrophils # (Manual) (1.5-6.6) 10^3/uL Lymphocytes # (Manual) (1.5-3.5) 10^3/uL Monocytes # (Manual) (0.0-1.0) 10^3/uL Eosinophils # (Manual) (0-0.7) 10^3/uL Basophils # (Manual) (0-0.1) 10^3/uL Differential Comment Manual Slide Review Platelet Estimate (NORMAL) Platelet Morphology (NORMAL) RBC Morph Micro Appear (NORMAL) PT 11.5 (9.9-12.6) secs INR 1.0 (0.8-1.2) Sodium (135-145) mmol/L Potassium (3.5-5.0) mmol/L Chloride (101-111) mmol/L Carbon Dioxide (21-32) mmol/L Anion Gap (6-13) BUN (6-20) mg/dL Creatinine (0.6-1.2) mg/dL Estimated GFR (MDRD) (>89) Glucose (70-100) mg/dL Glycated Hemoglobin (4.6-6.2) % Estim Average Glucose (70-100) Lactic Acid (0.5-2.2) mmol/L Calcium (8.5-10.3) mg/dL Phosphorus (2.5-4.6) mg/dL Magnesium (1.7-2.8) mg/dL Total Bilirubin (0.2-1.0) mg/dL AST (10-42) IU/L ALT (10-60) IU/L Alkaline Phosphatase (42-121) IU/L Total Creatine Kinase 57 (22-269) IU/L Troponin I (<0.49) ng/mL Total Protein (6.7-8.2) g/dL Albumin (3.2-5.5) g/dL Globulin (2.1-4.2) g/dL Albumin/Globulin Ratio (1.0-2.2) Lipase (22-51) U/L Urine Color Urine Clarity (CLEAR) Urine pH (5.0-7.5) PH Ur Specific [place] (1.002-1.030) Urine Protein (NEGATIVE) mg/dL Urine Glucose (UA) (NEGATIVE) mg/dL Urine Ketones (NEGATIVE) mg/dL Urine Occult Blood (NEGATIVE) Urine Nitrite (NEGATIVE) Urine Bilirubin (NEGATIVE) Urine Urobilinogen (NORMAL) E.U./dL Ur Leukocyte Esterase (NEGATIVE) Urine RBC (0-5) /HPF Urine WBC (0-3) /HPF Ur Squamous Epith Cells (<= Few) Urine Bacteria (None Seen) /HPF Urine Casts /LPF Ur Microscopic Review Urine Culture Comments Blood Type Blood Type Recheck Antibody Screen Crossmatch IS Only 06/07/18 06/07/18 06/07/18 Range/Units 21:05 21:05 18:30 WBC 14.7 H (4.8-10.8) x10^3/uL RBC 3.42 L (4.70-6.10) 10^6/uL Hgb 10.0 L (14.0-18.0) g/dL Hct 30.1 L (42.0-52.0) % MCV 88.1 (80.0-94.0) fL MCH 29.1 (27.0-31.0) pg MCHC 33.0 (32.0-36.0) g/dL RDW 13.9 (12.0-15.0) % Plt Count 179 (130-450) 10^3/uL MPV 7.8 (7.4-11.4) fL Neut # (Auto) 12.7 H (1.5-6.6) 10^3/uL Lymph # (Auto) 1.1 L (1.5-3.5) 10^3/uL Finney # (Auto) 0.8 (0.0-1.0) 10^3/uL Eos # (Auto) 0.0 (0.0-0.7) 10^3/uL Baso # (Auto) 0.0 (0.0-0.1) 10^3/uL Absolute Nucleated RBC 0.01 x10^3/uL Total Counted Band Neuts % (Manual) (0 - 10) % Abnorm Lymph % (Manual) % Nucleated RBC % 0.0 /100WBC Neutrophils # (Manual) (1.5-6.6) 10^3/uL Lymphocytes # (Manual) (1.5-3.5) 10^3/uL Monocytes # (Manual) (0.0-1.0) 10^3/uL Eosinophils # (Manual) (0-0.7) 10^3/uL Basophils # (Manual) (0-0.1) 10^3/uL Differential Comment Manual Slide Review Platelet Estimate (NORMAL) Platelet Morphology (NORMAL) RBC Morph Micro Appear (NORMAL) PT (9.9-12.6) secs INR (0.8-1.2) Sodium (135-145) mmol/L Potassium (3.5-5.0) mmol/L Chloride (101-111) mmol/L Carbon Dioxide (21-32) mmol/L Anion Gap (6-13) BUN (6-20) mg/dL Creatinine (0.6-1.2) mg/dL Estimated GFR (MDRD) (>89) Glucose (70-100) mg/dL Glycated Hemoglobin (4.6-6.2) % Estim Average Glucose (70-100) Lactic Acid 1.5 (0.5-2.2) mmol/L Calcium (8.5-10.3) mg/dL Phosphorus (2.5-4.6) mg/dL Magnesium (1.7-2.8) mg/dL Total Bilirubin (0.2-1.0) mg/dL AST (10-42) IU/L ALT (10-60) IU/L Alkaline Phosphatase (42-121) IU/L Total Creatine Kinase (22-269) IU/L Troponin I (<0.49) ng/mL Total Protein (6.7-8.2) g/dL Albumin (3.2-5.5) g/dL Globulin (2.1-4.2) g/dL Albumin/Globulin Ratio (1.0-2.2) Lipase (22-51) U/L Urine Color YELLOW Urine Clarity CLOUDY (CLEAR) Urine pH 5.5 (5.0-7.5) PH Ur Specific [place] 1.025 (1.002-1.030) Urine Protein NEGATIVE (NEGATIVE) mg/dL Urine Glucose (UA) NEGATIVE (NEGATIVE) mg/dL Urine Ketones NEGATIVE (NEGATIVE) mg/dL Urine Occult Blood NEGATIVE (NEGATIVE) Urine Nitrite NEGATIVE (NEGATIVE) Urine Bilirubin NEGATIVE (NEGATIVE) Urine Urobilinogen 0.2 (NORMAL) (NORMAL) E.U./dL Ur Leukocyte Esterase TRACE H (NEGATIVE) Urine RBC 0-5 (0-5) /HPF Urine WBC 4-5 (0-3) /HPF Ur Squamous Epith Cells NONE SEEN (<= Few) Urine Bacteria None Seen (None Seen) /HPF Urine Casts 3-5 Hyaline Casts /LPF Ur Microscopic Review INDICATED Urine Culture Comments INDICATED Blood Type Blood Type Recheck Antibody Screen Crossmatch IS Only 06/07/18 06/07/18 06/07/18 Range/Units 15:50 15:50 15:50 WBC 20.1 H (4.8-10.8) x10^3/uL RBC 3.58 L (4.70-6.10) 10^6/uL Hgb 10.6 L (14.0-18.0) g/dL Hct 31.7 L (42.0-52.0) % MCV 88.7 (80.0-94.0) fL MCH 29.5 (27.0-31.0) pg MCHC 33.3 (32.0-36.0) g/dL RDW 14.0 (12.0-15.0) % Plt Count 187 (130-450) 10^3/uL MPV 7.6 (7.4-11.4) fL Neut # (Auto) FURNACE SETTER (1.5-6.6) 10^3/uL Lymph # (Auto) FURNACE SETTER (1.5-3.5) 10^3/uL Finney # (Auto) FURNACE SETTER (0.0-1.0) 10^3/uL Eos # (Auto) FURNACE SETTER (0.0-0.7) 10^3/uL Baso # (Auto) FURNACE SETTER (0.0-0.1) 10^3/uL Absolute Nucleated RBC FURNACE SETTER x10^3/uL Total Counted 100 Band Neuts % (Manual) 4 (0 - 10) % Abnorm Lymph % (Manual) 0 % Nucleated RBC % FURNACE SETTER /100WBC Neutrophils # (Manual) 18.1 H (1.5-6.6) 10^3/uL Lymphocytes # (Manual) 1.0 L (1.5-3.5) 10^3/uL Monocytes # (Manual) 1.0 (0.0-1.0) 10^3/uL Eosinophils # (Manual) 0.0 (0-0.7) 10^3/uL Basophils # (Manual) 0.0 (0-0.1) 10^3/uL Differential Comment MANUAL DIFFERENTIAL Manual Slide Review Indicated Platelet Estimate NORMAL (130-450,000) (NORMAL) Platelet Morphology NORMAL APPEARANCE (NORMAL) RBC Morph Micro Appear 1+ KIMBERLY CELLS (NORMAL) PT (9.9-12.6) secs INR (0.8-1.2) Sodium 139 (135-145) mmol/L Potassium 3.9 (3.5-5.0) mmol/L Chloride 107 (101-111) mmol/L Carbon Dioxide 23 (21-32) mmol/L Anion Gap 9.0 (6-13) BUN 63 H (6-20) mg/dL Creatinine 1.1 (0.6-1.2) mg/dL Estimated GFR (MDRD) 65 L (>89) Glucose 113 H (70-100) mg/dL Glycated Hemoglobin (4.6-6.2) % Estim Average Glucose (70-100) Lactic Acid 3.3 H* (0.5-2.2) mmol/L Calcium 8.2 L (8.5-10.3) mg/dL Phosphorus (2.5-4.6) mg/dL Magnesium (1.7-2.8) mg/dL Total Bilirubin 0.5 (0.2-1.0) mg/dL AST 42 (10-42) IU/L ALT 35 (10-60) IU/L Alkaline Phosphatase 54 (42-121) IU/L Total Creatine Kinase (22-269) IU/L Troponin I (<0.49) ng/mL Total Protein 4.8 L (6.7-8.2) g/dL Albumin 2.6 L (3.2-5.5) g/dL Globulin 2.2 (2.1-4.2) g/dL Albumin/Globulin Ratio 1.2 (1.0-2.2) Lipase (22-51) U/L Urine Color Urine Clarity (CLEAR) Urine pH (5.0-7.5) PH Ur Specific [place] (1.002-1.030) Urine Protein (NEGATIVE) mg/dL Urine Glucose (UA) (NEGATIVE) mg/dL Urine Ketones (NEGATIVE) mg/dL Urine Occult Blood (NEGATIVE) Urine Nitrite (NEGATIVE) Urine Bilirubin (NEGATIVE) Urine Urobilinogen (NORMAL) E.U./dL Ur Leukocyte Esterase (NEGATIVE) Urine RBC (0-5) /HPF Urine WBC (0-3) /HPF Ur Squamous Epith Cells (<= Few) Urine Bacteria (None Seen) /HPF Urine Casts /LPF Ur Microscopic Review Urine Culture Comments Blood Type Blood Type Recheck Antibody Screen Crossmatch IS Only 06/07/18 06/07/18 06/07/18 Range/Units 13:56 13:25 13:25 WBC (4.8-10.8) x10^3/uL RBC (4.70-6.10) 10^6/uL Hgb (14.0-18.0) g/dL Hct (42.0-52.0) % MCV (80.0-94.0) fL MCH (27.0-31.0) pg MCHC (32.0-36.0) g/dL RDW (12.0-15.0) % Plt Count (130-450) 10^3/uL MPV (7.4-11.4) fL Neut # (Auto) (1.5-6.6) 10^3/uL Lymph # (Auto) (1.5-3.5) 10^3/uL Finney # (Auto) (0.0-1.0) 10^3/uL Eos # (Auto) (0.0-0.7) 10^3/uL Baso # (Auto) (0.0-0.1) 10^3/uL Absolute Nucleated RBC x10^3/uL Total Counted Band Neuts % (Manual) (0 - 10) % Abnorm Lymph % (Manual) % Nucleated RBC % /100WBC Neutrophils # (Manual) (1.5-6.6) 10^3/uL Lymphocytes # (Manual) (1.5-3.5) 10^3/uL Monocytes # (Manual) (0.0-1.0) 10^3/uL Eosinophils # (Manual) (0-0.7) 10^3/uL Basophils # (Manual) (0-0.1) 10^3/uL Differential Comment Manual Slide Review Platelet Estimate (NORMAL) Platelet Morphology (NORMAL) RBC Morph Micro Appear (NORMAL) PT (9.9-12.6) secs INR (0.8-1.2) Sodium (135-145) mmol/L Potassium (3.5-5.0) mmol/L Chloride (101-111) mmol/L Carbon Dioxide (21-32) mmol/L Anion Gap (6-13) BUN (6-20) mg/dL Creatinine (0.6-1.2) mg/dL Estimated GFR (MDRD) (>89) Glucose (70-100) mg/dL Glycated Hemoglobin (4.6-6.2) % Estim Average Glucose (70-100) Lactic Acid 8.1 H* (0.5-2.2) mmol/L Calcium (8.5-10.3) mg/dL Phosphorus (2.5-4.6) mg/dL Magnesium (1.7-2.8) mg/dL Total Bilirubin (0.2-1.0) mg/dL AST (10-42) IU/L ALT (10-60) IU/L Alkaline Phosphatase (42-121) IU/L Total Creatine Kinase (22-269) IU/L Troponin I (<0.49) ng/mL Total Protein (6.7-8.2) g/dL Albumin (3.2-5.5) g/dL Globulin (2.1-4.2) g/dL Albumin/Globulin Ratio (1.0-2.2) Lipase (22-51) U/L Urine Color Urine Clarity (CLEAR) Urine pH (5.0-7.5) PH Ur Specific [place] (1.002-1.030) Urine Protein (NEGATIVE) mg/dL Urine Glucose (UA) (NEGATIVE) mg/dL Urine Ketones (NEGATIVE) mg/dL Urine Occult Blood (NEGATIVE) Urine Nitrite (NEGATIVE) Urine Bilirubin (NEGATIVE) Urine Urobilinogen (NORMAL) E.U./dL Ur Leukocyte Esterase (NEGATIVE) Urine RBC (0-5) /HPF Urine WBC (0-3) /HPF Ur Squamous Epith Cells (<= Few) Urine Bacteria (None Seen) /HPF Urine Casts /LPF Ur Microscopic Review Urine Culture Comments Blood Type O POSITIVE Blood Type Recheck O POSITIVE Antibody Screen NEGATIVE Crossmatch IS Only See Detail 06/07/18 06/07/18 06/07/18 Range/Units 13:25 13:25 13:25 WBC (4.8-10.8) x10^3/uL RBC (4.70-6.10) 10^6/uL Hgb (14.0-18.0) g/dL Hct (42.0-52.0) % MCV (80.0-94.0) fL MCH (27.0-31.0) pg MCHC (32.0-36.0) g/dL RDW (12.0-15.0) % Plt Count (130-450) 10^3/uL MPV (7.4-11.4) fL Neut # (Auto) (1.5-6.6) 10^3/uL Lymph # (Auto) (1.5-3.5) 10^3/uL Finney # (Auto) (0.0-1.0) 10^3/uL Eos # (Auto) (0.0-0.7) 10^3/uL Baso # (Auto) (0.0-0.1) 10^3/uL Absolute Nucleated RBC x10^3/uL Total Counted Band Neuts % (Manual) (0 - 10) % Abnorm Lymph % (Manual) % Nucleated RBC % /100WBC Neutrophils # (Manual) (1.5-6.6) 10^3/uL Lymphocytes # (Manual) (1.5-3.5) 10^3/uL Monocytes # (Manual) (0.0-1.0) 10^3/uL Eosinophils # (Manual) (0-0.7) 10^3/uL Basophils # (Manual) (0-0.1) 10^3/uL Differential Comment Manual Slide Review Platelet Estimate (NORMAL) Platelet Morphology (NORMAL) RBC Morph Micro Appear (NORMAL) PT 10.8 (9.9-12.6) secs INR 1.0 (0.8-1.2) Sodium 135 (135-145) mmol/L Potassium 3.6 (3.5-5.0) mmol/L Chloride 99 L (101-111) mmol/L Carbon Dioxide 20 L (21-32) mmol/L Anion Gap 16.0 H (6-13) BUN 64 H (6-20) mg/dL Creatinine 1.3 H (0.6-1.2) mg/dL Estimated GFR (MDRD) 54 L (>89) Glucose 345 H (70-100) mg/dL Glycated Hemoglobin (4.6-6.2) % Estim Average Glucose (70-100) Lactic Acid (0.5-2.2) mmol/L Calcium 8.9 (8.5-10.3) mg/dL Phosphorus (2.5-4.6) mg/dL Magnesium (1.7-2.8) mg/dL Total Bilirubin 0.6 (0.2-1.0) mg/dL AST 40 (10-42) IU/L ALT 27 (10-60) IU/L Alkaline Phosphatase 61 (42-121) IU/L Total Creatine Kinase (22-269) IU/L Troponin I < 0.04 (<0.49) ng/mL Total Protein 5.3 L (6.7-8.2) g/dL Albumin 2.9 L (3.2-5.5) g/dL Globulin 2.4 (2.1-4.2) g/dL Albumin/Globulin Ratio 1.2 (1.0-2.2) Lipase 29 (22-51) U/L Urine Color Urine Clarity (CLEAR) Urine pH (5.0-7.5) PH Ur Specific [place] (1.002-1.030) Urine Protein (NEGATIVE) mg/dL Urine Glucose (UA) (NEGATIVE) mg/dL Urine Ketones (NEGATIVE) mg/dL Urine Occult Blood (NEGATIVE) Urine Nitrite (NEGATIVE) Urine Bilirubin (NEGATIVE) Urine Urobilinogen (NORMAL) E.U./dL Ur Leukocyte Esterase (NEGATIVE) Urine RBC (0-5) /HPF Urine WBC (0-3) /HPF Ur Squamous Epith Cells (<= Few) Urine Bacteria (None Seen) /HPF Urine Casts /LPF Ur Microscopic Review Urine Culture Comments Blood Type Blood Type Recheck Antibody Screen Crossmatch IS Only 06/07/18 Range/Units 13:25 WBC 9.6 (4.8-10.8) x10^3/uL RBC 3.11 L (4.70-6.10) 10^6/uL Hgb 8.9 L (14.0-18.0) g/dL Hct 27.5 L (42.0-52.0) % MCV 88.5 (80.0-94.0) fL MCH 28.8 (27.0-31.0) pg MCHC 32.5 (32.0-36.0) g/dL RDW 13.6 (12.0-15.0) % Plt Count 241 (130-450) 10^3/uL MPV 7.9 (7.4-11.4) fL Neut # (Auto) 6.5 (1.5-6.6) 10^3/uL Lymph # (Auto) 2.5 (1.5-3.5) 10^3/uL Finney # (Auto) 0.5 (0.0-1.0) 10^3/uL Eos # (Auto) 0.0 (0.0-0.7) 10^3/uL Baso # (Auto) 0.0 (0.0-0.1) 10^3/uL Absolute Nucleated RBC 0.00 x10^3/uL Total Counted Band Neuts % (Manual) (0 - 10) % Abnorm Lymph % (Manual) % Nucleated RBC % 0.0 /100WBC Neutrophils # (Manual) (1.5-6.6) 10^3/uL Lymphocytes # (Manual) (1.5-3.5) 10^3/uL Monocytes # (Manual) (0.0-1.0) 10^3/uL Eosinophils # (Manual) (0-0.7) 10^3/uL Basophils # (Manual) (0-0.1) 10^3/uL Differential Comment Manual Slide Review Platelet Estimate (NORMAL) Platelet Morphology (NORMAL) RBC Morph Micro Appear (NORMAL) PT (9.9-12.6) secs INR (0.8-1.2) Sodium (135-145) mmol/L Potassium (3.5-5.0) mmol/L Chloride (101-111) mmol/L Carbon Dioxide (21-32) mmol/L Anion Gap (6-13) BUN (6-20) mg/dL Creatinine (0.6-1.2) mg/dL Estimated GFR (MDRD) (>89) Glucose (70-100) mg/dL Glycated Hemoglobin (4.6-6.2) % Estim Average Glucose (70-100) Lactic Acid (0.5-2.2) mmol/L Calcium (8.5-10.3) mg/dL Phosphorus (2.5-4.6) mg/dL Magnesium (1.7-2.8) mg/dL Total Bilirubin (0.2-1.0) mg/dL AST (10-42) IU/L ALT (10-60) IU/L Alkaline Phosphatase (42-121) IU/L Total Creatine Kinase (22-269) IU/L Troponin I (<0.49) ng/mL Total Protein (6.7-8.2) g/dL Albumin (3.2-5.5) g/dL Globulin (2.1-4.2) g/dL Albumin/Globulin Ratio (1.0-2.2) Lipase (22-51) U/L Urine Color Urine Clarity (CLEAR) Urine pH (5.0-7.5) PH Ur Specific [place] (1.002-1.030) Urine Protein (NEGATIVE) mg/dL Urine Glucose (UA) (NEGATIVE) mg/dL Urine Ketones (NEGATIVE) mg/dL Urine Occult Blood (NEGATIVE) Urine Nitrite (NEGATIVE) Urine Bilirubin (NEGATIVE) Urine Urobilinogen (NORMAL) E.U./dL Ur Leukocyte Esterase (NEGATIVE) Urine RBC (0-5) /HPF Urine WBC (0-3) /HPF Ur Squamous Epith Cells (<= Few) Urine Bacteria (None Seen) /HPF Urine Casts /LPF Ur Microscopic Review Urine Culture Comments Blood Type Blood Type Recheck Antibody Screen Crossmatch IS Only - Current Medications Current Medications: Current Medications Generic Name Dose Route Start Last Admin Trade Name Freq PRN Reason Stop Dose Admin Albuterol 2.5 mg 09/27/18 16:08 06/08/18 08:18 INH 2.5 mg RTQ4H PRN Administration Wheezing Sodium Chloride 1,000 mls @ 100 mls/hr 06/07/18 16:00 06/08/18 05:43 Normal Saline 0.9% IV 100 mls/hr .Q10H HEATHER Administration Pantoprazole Sodium 80 mg/ 100 mls @ 10 mls/hr 06/08/18 08:30 06/08/18 09:08 Sodium Chloride IV 10 mls/hr .Q10H HEATHER Administration Insulin Human Regular 1 - 5 unit 06/07/18 18:00 06/08/18 12:10 Novolin R SUBQ Not Given Q6HR [facility] Protocol Ipratropium [place] 0.5 mg 06/07/18 15:21 06/08/18 08:19 Atrovent INH 0.5 mg RTQ6H PRN Administration Shortness of Air/Wheezing Nicotine 1 patch 06/08/18 09:00 06/08/18 10:41 Nicoderm TOP 1 patch DAILY HEATHER Administration Sodium Chloride 10 ml 06/07/18 17:00 06/08/18 10:41 Normal Saline Flush 0.9% IVP 10 ml 0100,0900,1700 HEATHER Administration - Physical Exam General Appearance: positive: No acute distress Eyes Bilateral: positive: No lid inflammation, Conjunctivae nml, No scleral icterus ENT: positive: Dry mucous membranes Neck: positive: Trachea midline Respiratory: positive: Chest non-tender, No respiratory distress, Breath sounds nml Cardiovascular: positive: Regular rate & rhythm Abdomen: positive: Non-tender, No organomegaly, Nml bowel sounds, No distention Skin: positive: Color nml Extremities: positive: Nml appearance Neurologic/Psychiatric: positive: Oriented x3 Impression/Plan - Problem List Problem List: Post procedure day 1 following EGD with control of actively bleeding duodenal ulcer 1) FEN Start clear liquid diet. Hold off on general diet at least for 48 jacki rs just in case intervention is required. 2) DUD Continue IV drip PPI for at least 48 hours before changing to high dose oral PPI. I like the addition of Carafate. Patient will need to be scoped as an outpatient in 6 weeks to check for complete healing. At no time would I recommend that the patient be off PPIs. 3) Follow Will follow peripherally just in case intervention is required but current clinical plan/course suggests that additional surgical intervention may not be required during this hospitalization.
--- NOTE | 2018-06-08 15:07 | PROVIDER PROGRESS NOTE ---
Assessment/Plan - Problem List (1) Upper GI bleed Assessment/Plan: Patient presented with dizziness and had been having black tarry stools and coffee-ground emesis for 2 days. On presentation patient was hypotensive and had further black tarry stools in the emergency department. Patient's baseline hemoglobin is 14.2 and hemoglobin was down to 8.9 on presentation to the emergency department. Given patient's hemodynamic instability he had to be taken directly to the OR for EGD. On EGD patient was found to have a large duodenal ulcer which was cauterized and clipped by the general surgeon. On Protonix drip Hb down from 10.6 to 8.8 but no further black stools Surgery following Will advance to clear liquid diet Continue to monitor closely for bleeding with H&H q6 hours Start carafate Stable Keep in ICU for one more night (2) Duodenal ulcer Conclusion/Plan: Patient presented with a GI bleed as above. Patient underwent emergent EGD which showed a large duodenal ulcer that was clipped and cauterized. There is high risk of rebleeding of this ulcer and therefore patient will need to be monitored very closely for the next 24-48 hours. Likely cause of the duodenal ulcer was use of aspirin, NSAIDs, alcohol abuse and tobacco abuse. Plan: Continue on Protonix drip in the intensive care unit Monitor H&H every 6 Monitor closely for bleeding IV fluids Clear liquid diet Hold all NSAIDs and aspirin (3) Hypertension Conclusion/Plan: Patient has a history of hypertension but patient was hypotensive on pres entation. Patients blood pressure is well controlled without his antihypertensives. Will continue to hold meds and monitor BP. Qualifiers: Hypertension type: essential hypertension Qualified Code(s): I10 - Essential (primary) hypertension (4) Diabetes Conclusion/Plan: The patient has a history of diabetes for which she is only on metformin at home. The patient presented with hyperglycemia as his blood glucose was elevated at 345. This may have been a stress response. 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 The patient was advised to quit smoking as a likely contributed to his duodenal ulcer. He was also counseled on all the risk factors involved with continued smoking. The patient will be placed on a nicotine patch while he is hospitalized and does appear to be committed to quit smoking. (6) Alcohol abuse Conclusion/Plan: The patient has a history of alcohol abuse but quit drinking over a month ago. The patient was found to have chronic pancreatitis on the CT scan after which he quit drinking. The patient is not at risk of going through withdrawals. The patient was counseled on the need to continue to keep from drinking. Alcohol abuse likely played some role in the patient's duodenal ulcer. (7) Chronic pancreatitis Conclusion/Plan: Patient is a history of chronic pancreatitis. The patient's lipase on presentation is 29. Patient has been having abdominal pain from pancreatitis f or the last several months. While patient is hospitalized he will initially be kept n.p.o. and will be given morphine for pain control. Patient has quit drinking and was counseled on need to continue to stop drinking. Patient will be restarted on pancreatic enzymes at discharge Qualifiers: Pancreatitis type: alcohol induced Qualified Code(s): K86.0 - Alcohol- induced chronic pancreatitis (8) COPD (chronic obstructive pulmonary disease) Conclusion/Plan: Patient is a history of COPD and is on Breo at home. He states he ran out of his inhaler a few days ago. While the patient is hospitalized he will be placed on albuterol nebulizer and ipratropium nebulizer as needed. The patient will not be given inhaled corticosteroids given his ulcer. The patient currently does not appear to be having a COPD exacerbation. Qualifiers: COPD type: unspecified COPD Qualified Code(s): J44.9 - Chronic obstructive pulmonary disease, unspecified (9) Hyperlipidemia Conclusion/Plan: Patient has a history of hyperlipidemia and is on statin at home. Stable will restart statin. Qualifiers: Hyperlipidemia type: unspecified Qualified Code(s): E78.5 - Hyperlipidemia, unspecified - Current Meds Current Meds: Current Medications Generic Name Dose Route Start Last Admin Trade Name Freq PRN Reason Stop Dose Admin Albuterol 2.5 mg 06/07/18 16:08 06/08/18 14:17 INH 2.5 mg RTQ4H PRN Administration Wheezing Sodium Chloride 1,000 mls @ 100 mls/hr 06/07/18 16:00 06/08/18 05:43 Normal Saline 0.9% IV 100 mls/hr .Q10H HEATHER Administration Pantoprazole Sodium 80 mg/ 100 mls @ 10 mls/hr 06/08/18 08:30 06/08/18 09:08 Sodium Chloride IV 10 mls/hr .Q10H HEATHER Administration Insulin Human Regular 1 - 5 unit 06/07/18 18:00 06/08/18 12:10 Novolin R SUBQ Not Given Q6HR HEATHER Protocol Ipratropium [place] 0.5 mg 06/07/18 15:21 06/08/18 14:17 Atrovent INH 0.5 mg RTQ6H PRN Administration Shortness of Air/Wheezing Nicotine 1 patch 06/08/18 09:00 06/08/18 10:41 Nicoderm TOP 1 patch DAILY HEATHER Administration Sodium Chloride 10 ml 06/07/18 17:00 06/08/18 10:41 Normal Saline Flush 0.9% IVP 10 ml 0100,0900,1700 HEATHER Administration - Lab Result Fish Bone Diagrams: 06/08/18 09:10 06/08/18 03:25 - Diagnostic Imaging Results Diagnostic Imaging Results: Final report reviewed - Additional Planning Condition/Complexity: Guarded My Orders: My Active Orders 06/07/18 15:13 Sodium Chloride Flush 0.9% [Normal Saline Flush 0.9%] 10 ml IVP PRN PRN 06/07/18 15:14 Activity Orders [RC] Routine Daily Weight [RC] 0600 IO [RC] Q1HR Initiate Bowel Care Protocol [RC] QSHIFT Initiate Hypoglycemia Protocol [RC] .protocol Initiate ICU Electrolyte Prot. [RC] .protocol Initiate Line Care Protocol [RC] .protocol Initiate Personal Care Protoco [RC] .protocol Vital Signs [RC] Q1HR Code Status [OTHERS] Routine Condition of Patient [OTHERS] Routine DVT Prophylaxis [OTHERS] Routine 06/07/18 15:21 Acetaminophen [Tylenol] 650 mg PO Q4HR PRN Ipratropium [Atrovent] 0.5 mg INH RTQ6H PRN Ondansetron Inj [Zofran Inj] 4 mg IVP Q6HR PRN Prochlorperazine Inj [Compazine Inj] 10 mg IVP Q6HR PRN Promethazine Inj [Phenergan Inj] 25 mg IM Q6HR PRN 06/07/18 15:23 Telemetry- [RC] Routine 06/07/18 15:24 SCDs [RC] QSHIFT 06/07/18 15:26 Echo Transthoracic Complete [ECHO] Routine 06/07/18 15:27 General Surgery Consult [CONS] Routine 06/07/18 16:00 Sodium Chloride 0.9% [Normal Saline 0.9%] 1,000 ml IV 100 mls/hr 06/07/18 16:08 Albuterol 2.5 mg INH RTQ4H PRN 06/07/18 16:11 Morphine Inj (Carpuject) [Morphine (Carpuject)] 2 mg IVP Q4H PRN 06/07/18 17:00 Sodium Chloride Flush 0.9% [Normal Saline Flush 0.9%] 10 ml IVP 0100,0900,1700 06/07/18 17:38 Blood Glucose POC [RC] 0000,0600,1200,1800 06/07/18 18:00 Insulin Regular Human [NovoLIN R] 1 - 5 unit SUBQ Q6HR 06/07/18 19:50 Nebulizer [Nebulizer/MDI Tx.] [RC] .Q4prn/Q6prn 06/08/18 08:30 Sodium Chloride 0.9% 100Ml [Normal Saline 0.9% 100Ml] 100 ml Pantoprazole [Protonix] 80 mg IV 10 mls/hr 06/08/18 09:00 Nicotine 21 mg Patch [Nicoderm] 1 patch TOP DAILY 06/08/18 15:15 CBC - COMP BLD CT W/AUTO DIFF [HEME] Q6H 06/08/18 16:00 Sucralfate [Carafate] 1 gm PO 0700,1100,1600,2200 06/08/18 21:15 CBC - COMP BLD CT W/AUTO DIFF [HEME] Q6H 06/08/18 Lunch Clear Liquid Diet [DIET] 06/09/18 03:15 CBC - COMP BLD CT W/AUTO DIFF [HEME] Q6H 06/09/18 05:00 COMPREHENSIVE METABOLIC PANEL [CHEM] DAILYLAB 06/09/18 09:15 CBC - COMP BLD CT W/AUTO DIFF [HEME] Q6H 06/09/18 15:15 CBC - COMP BLD CT W/AUTO DIFF [HEME] Q6H 06/09/18 21:15 CBC - COMP BLD CT W/AUTO DIFF [HEME] Q6H 06/10/18 05:00 COMPREHENSIVE METABOLIC PANEL [CHEM] DAILYLAB 06/11/18 05:00 COMPREHENSIVE METABOLIC PANEL [CHEM] DAILYLAB Consult/Specialty: Surgery Plan Discussed with:: Patient Time Spent: 31-60 minutes Subjective - Subjective Patient Reports: Feeling Better, Resting Comfortably, Other (No BMs last night. No emesis. No abdominal pain. No fevers.) Nursing Reports: No Complaints Objective Vital Signs: Vital Signs - 24 hr 06/07/18 06/07/18 06/07/18 15:13 15:15 15:19 Temperature 36.2 C L Heart Rate 83 79 80 Heart Rate [ Monitoring electrodes] Respiratory 16 18 20 Rate Blood Pressure 140/63 H 136/65 H 115/64 Blood Pressure [Right Brachial artery] O2 Saturation 100 100 100 06/07/18 06/07/18 06/07/18 15:24 15:30 15:34 Temperature 36.3 C L Heart Rate 81 78 79 Heart Rate [ Monitoring electrodes] Respiratory 21 19 20 Rate Blood Pressure 125/62 127/61 129/58 L Blood Pressure [Right Brachial artery] O2 Saturation 100 98 97 06/07/18 06/07/18 06/07/18 15:44 15:49 15:55 Temperature Heart Rate 75 75 78 Heart Rate [ Monitoring electrodes] Respiratory 18 17 15 Rate Blood Pressure 123/62 129/64 126/67 Blood Pressure [Right Brachial artery] O2 Saturation 99 96 98 06/07/18 06/07/18 06/07/18 16:00 17:00 18:00 Temperature 36.4 C L Heart Rate Heart Rate [ 77 77 84 Monitoring electrodes] Respiratory 21 18 16 Rate Blood Pressure Blood Pressure 123/68 123/77 131/77 H [Right Brachial artery] O2 Saturation 93 97 97 06/07/18 06/07/18 06/07/18 19:00 20:00 21:00 Temperature 36.7 C Heart Rate Heart Rate [ 81 89 92 Monitoring electrodes] Respiratory 20 22 24 Rate Blood Pressure Blood Pressure 143/80 H 127/69 145/81 H [Right Brachial artery] O2 Saturation 97 97 96 06/07/18 06/07/18 06/08/18 22:00 23:00 00:00 Temperature 37.1 C Heart Rate Heart Rate [ 92 94 103 H Monitoring electrodes] Respiratory 19 19 16 Rate Blood Pressure Blood Pressure 126/74 114/75 130/79 [Right Brachial artery] O2 Saturation 95 94 96 06/08/18 06/08/18 06/08/18 01:00 02:00 03:00 Temperature Heart Rate Heart Rate [ 97 98 98 Monitoring electrodes] Respiratory 20 20 22 Rate Blood Pressure Blood Pressure 116/72 133/80 H 120/72 [Right Brachial artery] O2 Saturation 93 92 94 06/08/18 06/08/18 06/08/18 04:00 05:00 06:00 Temperature 37.0 C Heart Rate Heart Rate [ 95 98 91 Monitoring electrodes] Respiratory 20 21 18 Rate Blood Pressure Blood Pressure 121/76 112/77 120/76 [Right Brachial artery] O2 Saturation 94 96 93 06/08/18 06/08/18 06/08/18 08:00 08:18 08:43 Temperature 36.7 C Heart Rate 92 Heart Rate [ 93 Monitoring electrodes] Respiratory 20 22 Rate Blood Pressure Blood Pressure 118/72 [Right Brachial artery] O2 Saturation 95 06/08/18 06/08/18 06/08/18 09:00 10:00 11:00 Temperature Heart Rate Heart Rate [ 87 82 84 Monitoring electrodes] Respiratory 23 22 21 Rate Blood Pressure Blood Pressure 121/76 113/54 L 115/61 [Right Brachial artery] O2 Saturation 95 96 94 06/08/18 06/08/18 06/08/18 11:58 13:00 13:38 Temperature 36.8 C 36.8 C Heart Rate 88 Heart Rate [ 88 85 Monitoring electrodes] Respiratory 19 20 19 Rate Blood Pressure Blood Pressure 113/66 108/67 [Right Brachial artery] O2 Saturation 95 97 95 06/08/18 06/08/18 14:00 14:17 Temperature Heart Rate 87 Heart Rate [ 83 Monitoring electrodes] Respiratory 19 15 Rate Blood Pressure Blood Pressure 118/64 [Right Brachial artery] O2 Saturation 97 Oxygen O2 Source Room air I&O (Last 24 Hrs): Intake and Output Totals x24h 06/06/18 06/07/18 06/08/18 23:59 23:59 23:59 Intake Total 2451.667 1651.333 Output Total 175 2105 Balance 1424.957 -624.027 General: Alert, Oriented x3, Cooperative, No acute distress HEENT: Atraumatic, PERRLA, EOMI, Mucous membr. moist/pink Neck: Supple, No JVD, No thyromegaly, +2 carotid pulse wo bruit, No LAD Lymphatic: no adenopathy Neuro: Alert, Non Focal, CN 2-12 Grossly Intact, Oriented Times 3 Cardiovascular: Regular rate, Normal S1, Normal S2, No murmurs Respiratory: Chest non-tender, No respiratory distress, Wheezes (Mild) Abdomen: Normal bowel sounds, Soft, No tenderness, No hepatospenomegaly Extremities: No clubbing, No cyanosis, No edema, Normal pulses Skin: No rashes, No breakdown - Results Results: Laboratory Results WBC 10.2 x10^3/uL (4.8-10.8) 06/08/18 09:10 RBC 2.97 10^6/uL (4.70-6.10) L 06/08/18 09:10 Hgb 8.8 g/dL (14.0-18.0) L 06/08/18 09:10 Hct 25.7 % (42.0-52.0) L 06/08/18 09:10 MCV 86.6 fL (80.0-94.0) 06/08/18 09:10 MCH 29.5 pg (27.0-31.0) 06/08/18 09:10 MCHC 34.0 g/dL (32.0-36.0) 06/08/18 09:10 RDW 13.7 % (12.0-15.0) 06/08/18 09:10 Plt Count 166 10^3/uL (130-450) 06/08/18 09:10 MPV 7.6 fL (7.4-11.4) 06/08/18 09:10 Neut # (Auto) 8.6 10^3/uL (1.5-6.6) H 06/08/18 09:10 Lymph # (Auto) 1.1 10^3/uL (1.5-3.5) L 06/08/18 09:10 Wallace # (Auto) 0.4 10^3/uL (0.0-1.0) 06/08/18 09:10 Eos # (Auto) 0.0 10^3/uL (0.0-0.7) 06/08/18 09:10 Baso # (Auto) 0.0 10^3/uL (0.0-0.1) 06/08/18 09:10 Absolute Nucleated RBC 0.00 x10^3/uL 06/08/18 09:10 Total Counted 100 06/07/18 15:50 Band Neuts % (Manual) 4 % (0-10) 06/07/18 15:50 Abnorm Lymph % (Manual) 0 % 06/07/18 15:50 Nucleated RBC % 0.0 /100WBC 06/08/18 09:10 Neutrophils # (Manual) 18.1 10^3/uL (1.5-6.6) H 06/07/18 15:50 Lymphocytes # (Manual) 1.0 10^3/uL (1.5-3.5) L 06/07/18 15:50 Monocytes # (Manual) 1.0 10^3/uL (0.0-1.0) 06/07/18 15:50 Eosinophils # (Manual) 0.0 10^3/uL (0-0.7) 06/07/18 15:50 Basophils # (Manual) 0.0 10^3/uL (0-0.1) 06/07/18 15:50 Differential Comment MANUAL DIFFERENTIAL 06/07/18 15:50 Manual Slide Review Indicated 06/07/18 15:50 Platelet Estimate NORMAL (130-450,000) (NORMAL) 06/07/18 15:50 Platelet Morphology NORMAL APPEARANCE (NORMAL) 06/07/18 15:50 RBC Morph Micro Appear 1+ HYPOCHROMASIA (NORMAL) 1+ KIMBERLY CELLS (NORMAL) 06/07/18 15:50 RBC Morph Micro Appear 1+ HYPOCHROMASIA (NORMAL) 1+ KIMBERLY CELLS (NORMAL) 06/07/18 15:50 PT 11.5 secs (9.9-12.6) 06/08/18 03:25 INR 1.0 (0.8-1.2) 06/08/18 03:25 Sodium 136 mmol/L (135-145) 06/08/18 03:25 Potassium 4.4 mmol/L (3.5-5.0) 06/08/18 03:25 Chloride 107 mmol/L (101-111) 06/08/18 03:25 Carbon Dioxide 24 mmol/L (21-32) 06/08/18 03:25 Anion Gap 5.0 (6-13) L 06/08/18 03:25 BUN 80 mg/dL (6-20) H* 06/08/18 03:25 Creatinine 1.2 mg/dL (0.6-1.2) 06/08/18 03:25 Estimated GFR (MDRD) 59 (>89) L 06/08/18 03:25 Glucose 122 mg/dL (70-100) H 06/08/18 03:25 Glycated Hemoglobin 6.3 % (4.6-6.2) H 06/08/18 03:25 Estim Average Glucose 134 (70-100) H 06/08/18 03:25 Lactic Acid 1.5 mmol/L (0.5-2.2) 06/07/18 21:05 Calcium 7.8 mg/dL (8.5-10.3) L 06/08/18 03:25 Phosphorus 4.1 mg/dL (2.5-4.6) 06/08/18 03:25 Magnesium 1.7 mg/dL (1.7-2.8) 06/08/18 03:25 Total Bilirubin 0.8 mg/dL (0.2-1.0) 06/08/18 03:25 AST 34 IU/L (10-42) 06/08/18 03:25 ALT 32 IU/L (10-60) 06/08/18 03:25 Alkaline Phosphatase 44 IU/L (42-121) 06/08/18 03:25 Total Creatine Kinase 57 IU/L (22-269) 06/08/18 03:20 Troponin I < 0.04 ng/mL (<0.49) 06/07/18 13:25 Total Protein 4.7 g/dL (6.7-8.2) L 06/08/18 03:25 Albumin 2.5 g/dL (3.2-5.5) L 06/08/18 03:25 Globulin 2.2 g/dL (2.1-4.2) 06/08/18 03:25 Albumin/Globulin Ratio 1.1 (1.0-2.2) 06/08/18 03:25 Lipase 29 U/L (22-51) 06/07/18 13:25 Urine Color YELLOW 06/07/18 18:30 Urine Clarity CLOUDY (CLEAR) 06/07/18 18:30 Urine pH 5.5 PH (5.0-7.5) 06/07/18 18:30 Ur Specific [place] 1.025 (1.002-1.030) 06/07/18 18:30 Urine Protein NEGATIVE mg/dL (NEGATIVE) 06/07/18 18:30 Urine Glucose (UA) NEGATIVE mg/dL (NEGATIVE) 06/07/18 18:30 Urine Ketones NEGATIVE mg/dL (NEGATIVE) 06/07/18 18:30 Urine Occult Blood NEGATIVE (NEGATIVE) 06/07/18 18:30 Urine Nitrite NEGATIVE (NEGATIVE) 06/07/18 18:30 Urine Bilirubin NEGATIVE (NEGATIVE) 06/07/18 18:30 Urine Urobilinogen 0.2 (NORMAL) E.U./dL (NORMAL) 06/07/18 18:30 Ur Leukocyte Esterase TRACE (NEGATIVE) H 06/07/18 18:30 Urine RBC 0-5 /HPF (0-5) 06/07/18 18:30 Urine WBC 4-5 /HPF (0-3) 06/07/18 18:30 Ur Squamous Epith Cells NONE SEEN (<= Few) 06/07/18 18:30 Urine Bacteria None Seen /HPF (None Seen) 06/07/18 18:30 Urine Casts 3-5 Hyaline Casts /LPF 06/07/18 18:30 Ur Microscopic Review INDICATED 06/07/18 18:30 Urine Culture Comments INDICATED 06/07/18 18:30 Blood Type O POSITIVE 06/07/18 13:25 Blood Type Recheck O POSITIVE 06/07/18 13:56 Antibody Screen NEGATIVE 06/07/18 13:25 Crossmatch IS Only See Detail 06/07/18 13:25 - Procedures Procedures: Procedures REPLACEMENT OF RIGHT LENS WITH SYNTH SUB, PERC APPROACH (09/23/15) ABX Reporting Has patient been on IV antibiotics over the past 48 hours?: No Current Medications - Current Medications Current Medications: Active Medications Generic Name Dose Route Start Last Admin Trade Name Freq PRN Reason Stop Dose Admin Acetaminophen 650 mg 06/07/18 15:21 Tylenol PO Q4HR PRN Pain 1 to 4 Albuterol 2.5 mg 06/07/18 16:08 06/08/18 14:17 INH 2.5 mg RTQ4H PRN Administration Wheezing Sodium Chloride 1,000 mls @ 100 mls/hr 06/07/18 16:00 06/08/18 05:43 Normal Saline 0.9% IV 100 mls/hr .Q10H HEATHER Administration Pantoprazole Sodium 80 mg/ 100 mls @ 10 mls/hr 06/08/18 08:30 06/08/18 09:08 Sodium Chloride IV 10 mls/hr .Q10H HEATHER Administration Insulin Aspart 1 - 5 unit 06/08/18 17:00 Novolog SUBQ 0800,1200,1700,2100 [facility] Protocol Ipratropium [place] 0.5 mg 06/07/18 15:21 06/08/18 14:17 Atrovent INH 0.5 mg RTQ6H PRN Administration Shortness of Air/Wheezing Morphine Sulfate 2 mg 06/07/18 16:11 Morphine (Carpuject) IVP Q4H PRN PAIN Nicotine 1 patch 06/08/18 09:00 06/08/18 10:41 Nicoderm TOP 1 patch DAILY HEATHER Administration Ondansetron HCl 4 mg 06/07/18 15:21 Zofran Inj IVP Q6HR PRN Nausea / Vomiting Prochlorperazine Edisylate 10 mg 06/07/18 15:21 Compazine Inj IVP Q6HR PRN Nausea / Vomiting Promethazine HCl 25 mg 06/07/18 15:21 Phenergan Inj IM Q6HR PRN Nausea / Vomiting Sodium Chloride 10 ml 06/07/18 17:00 06/08/18 10:41 Normal Saline Flush 0.9% IVP 10 ml 0100,0900,1700 HEATHER Administration Sodium Chloride 10 ml 06/07/18 15:13 Normal Saline Flush 0.9% IVP PRN PRN NEEDED PER PROVIDER ORDERS Sucralfate 1 gm 06/08/18 16:00 Carafate PO 0700,1100,1600,2200 [facility] FLUoxetine [PROzac] 10 mg PO DAILY 09/23/15 Aspirin [Aspir-Low] 81 mg PO DAILY 01/18/16 Amitriptyline [Elavil] 25 mg PO HS 06/07/18 Fluticasone/Vilanterol [Breo Ellipta 100-25 Mcg INH] 1 inh IH DAILY 06/07/18 Lipase/Protease/Amylase [Zenpep Dr 10,000 Units Capsule] 1 each PO TIDWM 06/07/18 Nicotine Polacrilex [Nicotine Gum] 2 mg BC PRN PRN 06/07/18 Simvastatin 20 mg PO QPM 06/07/18 hydroCHLOROthiazide [Hydrochlorothiazide] 25 mg PO DAILY 06/07/18 metFORMIN [Glucophage] 500 mg PO BIDWM 06/07/18 oxyCODONE [Roxicodone] 5 - 10 mg PO Q6HR PRN 06/07/18
[2018-06-08] MEDS: SUCRALFATE 1 GM/10 ML UDC PO SCH ×2 (15:38→21:21)
[2018-06-08 16:13] LABS: BASOPHILS % (AUTO) 0.3 %; EOSINOPHILS # (AUTO) 0.1 10^3/uL (0.0-0.7); EOSINOPHILS % (AUTO) 0.6 %; HGB - HEMOGLOBIN 8.9 g/dL (14.0-18.0); LYMPHOCYTES # (AUTO) 1.4 10^3/uL (1.5-3.5); LYMPHOCYTES % (AUTO) 14.6 %; MEAN CORPUSCULAR HEMOGLOBIN 29.5 pg (27.0-31.0); MEAN CORPUSCULAR HGB CONC 32.9 g/dL (32.0-36.0); MEAN CORPUSCULAR VOLUME 89.6 fL (80.0-94.0); MEAN PLATELET VOLUME 7.8 fL (7.4-11.4); MONOCYTES # (AUTO) 0.6 10^3/uL (0.0-1.0); MONOCYTES % (AUTO) 6.5 %; NEUTROPHILS # (AUTO) 7.5 10^3/uL (1.5-6.6); PLT - PLATELET COUNT 172 10^3/uL (130-450); RED BLOOD COUNT 3.01 10^6/uL (4.70-6.10); RED CELL DISTRIBUTION WIDTH 14.2 % (12.0-15.0); WHITE BLOOD COUNT 9.6 x10^3/uL (4.8-10.8)
[2018-06-08] MEDS: INSULIN ASPART 300 UNIT/3 ML PEN SUBQ SCH ×2 (17:22→21:25)
[2018-06-08] MEDS ORDERED: COD LIVER OIL/ZINC OXIDE 113 GM TUBE TOP PRN (19:11)
[2018-06-08] MEDS ORDERED: diphenhydrAMINE 25 MG CAPSULE PO PRN (20:24)
[2018-06-08] MEDS ORDERED: MIN OIL/DIMETHICON/COCONUT OIL 92 GM TUBE TOP PRN (20:31)
[2018-06-08 21:25] LABS: BASOPHILS % (AUTO) 0.1 %; EOSINOPHILS # (AUTO) 0.1 10^3/uL (0.0-0.7); EOSINOPHILS % (AUTO) 0.8 %; HGB - HEMOGLOBIN 7.9 g/dL (14.0-18.0); LYMPHOCYTES # (AUTO) 1.6 10^3/uL (1.5-3.5); LYMPHOCYTES % (AUTO) 20.9 %; MEAN CORPUSCULAR HEMOGLOBIN 29.5 pg (27.0-31.0); MEAN CORPUSCULAR HGB CONC 33.5 g/dL (32.0-36.0); MEAN CORPUSCULAR VOLUME 88.1 fL (80.0-94.0); MEAN PLATELET VOLUME 7.6 fL (7.4-11.4); MONOCYTES # (AUTO) 0.4 10^3/uL (0.0-1.0); MONOCYTES % (AUTO) 5.7 %; NEUTROPHILS # (AUTO) 5.6 10^3/uL (1.5-6.6); NEUTROPHILS % (AUTO) 72.5 %; PLT - PLATELET COUNT 163 10^3/uL (130-450); RED CELL DISTRIBUTION WIDTH 13.9 % (12.0-15.0); WHITE BLOOD COUNT 7.8 x10^3/uL (4.8-10.8)
[2018-06-08] MEDS: MAGNESIUM OXIDE 400 MG TABLET PO SCH (22:04)
[2018-06-09] MEDS: SODIUM CHLORIDE 0.9% 1,000 ML IV SCH (01:13)
[2018-06-09] MEDS: ALBUTEROL NEB 2.5 MG/3 ML INH PRN ×2 (02:46→20:01)
[2018-06-09] MEDS: MAGNESIUM OXIDE 400 MG TABLET PO SCH (04:59)
[2018-06-09] MEDS: PANTOPRAZOLE 80 MG in SODIUM CHLORIDE 0.9% 100ML 100 ML IV SCH ×2 (05:48→17:38)
[2018-06-09] MEDS: SUCRALFATE 1 GM/10 ML UDC PO SCH ×4 (06:42→21:29)
[2018-06-09 06:48] LABS: BASOPHILS % (AUTO) 0.7 %; EOSINOPHILS # (AUTO) 0.1 10^3/uL (0.0-0.7); EOSINOPHILS % (AUTO) 1.2 %; HGB - HEMOGLOBIN 9.5 g/dL (14.0-18.0); LYMPHOCYTES # (AUTO) 1.4 10^3/uL (1.5-3.5); LYMPHOCYTES % (AUTO) 22.5 %; MEAN CORPUSCULAR HGB CONC 34.1 g/dL (32.0-36.0); MEAN CORPUSCULAR VOLUME 88.1 fL (80.0-94.0); MEAN PLATELET VOLUME 7.8 fL (7.4-11.4); MONOCYTES # (AUTO) 0.3 10^3/uL (0.0-1.0); MONOCYTES % (AUTO) 5.5 %; NEUTROPHILS # (AUTO) 4.4 10^3/uL (1.5-6.6); NEUTROPHILS % (AUTO) 70.1 %; PLT - PLATELET COUNT 121 10^3/uL (130-450); RED BLOOD COUNT 3.15 10^6/uL (4.70-6.10); WHITE BLOOD COUNT 6.2 x10^3/uL (4.8-10.8)
[2018-06-09 07:30] LABS: ALBUMIN 2.3 g/dL (3.2-5.5); ALBUMIN/GLOBULIN RATIO 1.2 (1.0-2.2); BILIRUBIN,TOTAL 0.8 mg/dL (0.2-1.0); CALCIUM 7.5 mg/dL (8.5-10.3); CREATININE 0.6 mg/dL (0.6-1.2); MAGNESIUM 1.9 mg/dL (1.7-2.8); PHOSPHORUS 3.5 mg/dL (2.5-4.6); TOTAL PROTEIN 4.2 g/dL (6.7-8.2)
[2018-06-09] MEDS: INSULIN ASPART 300 UNIT/3 ML PEN SUBQ SCH ×4 (07:54→20:33)
[2018-06-09] MEDS: SODIUM CHLORIDE FLUSH 0.9% 10 ML SYRINGE IVP SCH ×3 (09:04→19:15)
[2018-06-09] MEDS: NICOTINE 21 MG PATCH TOP SCH (09:04)
[2018-06-09 12:18] LABS: BASOPHILS % (AUTO) 0.2 %; EOSINOPHILS % (AUTO) 0.7 %; HGB - HEMOGLOBIN 10.3 g/dL (14.0-18.0); LYMPHOCYTES # (AUTO) 1.2 10^3/uL (1.5-3.5); LYMPHOCYTES % (AUTO) 19.2 %; MEAN CORPUSCULAR HEMOGLOBIN 30.3 pg (27.0-31.0); MEAN CORPUSCULAR HGB CONC 34.5 g/dL (32.0-36.0); MEAN CORPUSCULAR VOLUME 87.7 fL (80.0-94.0); MEAN PLATELET VOLUME 7.4 fL (7.4-11.4); MONOCYTES # (AUTO) 0.4 10^3/uL (0.0-1.0); MONOCYTES % (AUTO) 6.3 %; NEUTROPHILS # (AUTO) 4.8 10^3/uL (1.5-6.6); NEUTROPHILS % (AUTO) 73.6 %; PLT - PLATELET COUNT 137 10^3/uL (130-450); RED BLOOD COUNT 3.41 10^6/uL (4.70-6.10); RED CELL DISTRIBUTION WIDTH 14.2 % (12.0-15.0); WHITE BLOOD COUNT 6.5 x10^3/uL (4.8-10.8)
[2018-06-09] MEDS ORDERED: SODIUM CHLORIDE 0.9% 1,000 ML IV SCH (14:00)
--- NOTE | 2018-06-09 14:02 | PROVIDER PROGRESS NOTE ---
Assessment/Plan - Problem List (1) Upper GI bleed Assessment/Plan: Patient presented with dizziness and had been having black tarry stools and coffee-ground emesis for 2 days. On presentation patient was hypotensive and had further black tarry stools in the emergency department. Patient's baseline hemoglobin is 14.2 and hemoglobin was down to 8.9 on presentation to the emergency department. Given patient's hemodynamic instability he had to be taken directly to the OR for EGD. On EGD patient was found to have a large duodenal ulcer which was cauterized and clipped by the general surgeon. Patient had BM yesterday with black stools and Hb dropped to 7.9 Patient transfused 2 units PRBCs again for total of 4 units during hospitalization On Protonix drip till this afternoon to complete 48 hours then switch to IV protonix BID Surgery following Will advance to soft diet Continue to monitor closely for bleeding with H&H q6 hours Continue carafate Change to Med/Surg Status (2) Duodenal ulcer Conclusion/Plan: Patient presented with a GI bleed as above. Patient underwent emergent EGD which showed a large duodenal ulcer that was clipped and cauterized. There is high risk of rebleeding of this ulcer and therefore patient will need to be monitored very closely for the next 24-48 hours. Likely cause of the duodenal ulcer was use of aspirin, NSAIDs, alcohol abuse and tobacco abuse. Plan: Continue on Protonix drip to complete 48 hours then IV protonix IV BID Monitor H&H every 6 Monitor closely for bleeding Soft diet Hold all NSAIDs and aspirin (3) Hypertension Conclusion/Plan: Patient has a history of hypertension but patient was hypotensive on presentation. Patients BP meds were held. Today BP is elevated therefore will restart PO BP meds. Qualifiers: Hypertension type: essential hypertension Qualified Code(s): I10 - Essential (primary) hypertension (4) Diabetes Conclusion/Plan: The patient has a history of diabetes for which she is only on metformin at home. The patient presented with hyperglycemia as his blood glucose was elevated at 345. This may have been a stress response. Plan: Hemoglobin A1c is 6.3 Continue nutritional SS insulin Check blood glucose 4 times daily BG well controlled today Qualifiers: Diabetes mellitus type: type 2 Diabetes mellitus car rider insulin use: without car rider use Diabetes mellitus complication status: with hyperglycemia Qualified Code(s): E11.65 - Type 2 diabetes mellitus with hyperglycemia (5) Tobacco abuse Conclusion/Plan: Patient has a history of tobacco abuse previously he was a heavy smoker of cigarettes currently he smokes 2-3 cigars a day. The patient was advised to quit smoking as a likely contributed to his duodenal ulcer. He was also counseled on all the risk factors involved with continued smoking. On nicotine patch and does appear to be committed to quit smoking. (6) Alcohol abuse Conclusion/Plan: The patient has a history of alcohol abuse but quit drinking over a month ago. The patient was found to have chronic pancreatitis on the CT scan after which he quit drinking. The patient is not at risk of going through withdrawals. The patient was counseled on the need to continue to keep from drinking. Alcohol abuse likely played some role in the patient's duodenal ulcer. (7) Chronic pancreatitis Conclusion/Plan: Patient is a history of chronic pancreatitis. The patient's lipase on presentation is 29. Patient has been having abdominal pain from pancreatitis for the last several months. While patient is hospitalized he will initially be kept n.p.o. and will be given morphine for pain control. Patient has quit drinking and was counseled on need to continue to stop drinking. Patient is tolerating food without pancreatic enzymes. Qualifiers: Pancreatitis type: alcohol induced Qualified Code(s): K86.0 - Alcohol- induced chronic pancreatitis (8) COPD (chronic obstructive pulmonary disease) Conclusion/Plan: Patient is a history of COPD and is on Breo at home. He states he ran out of his inhaler a few days ago. While the patient is hospitalized he will be placed on albuterol nebulizer and ipratropium nebulizer as needed. The patient will not be given inhaled corticosteroids given his ulcer. The patient currently does not appear to be having a COPD exacerbation. Qualifiers: COPD type: unspecified COPD Qualified Code(s): J44.9 - Chronic obstructive pulmonary disease, unspecified (9) Hyperlipidemia Conclusion/Plan: Patient has a history of hyperlipidemia and is on statin at home. Stable will restart statin. Qualifiers: Hyperlipidemia type: unspecified Qualified Code(s): E78.5 - Hyperlipidemia, unspecified - Current Meds Current Meds: Current Medications Generic Name Dose Route Start Last Admin Trade Name Freq PRN Reason Stop Dose Admin Albuterol 2.5 mg 06/07/18 16:08 06/09/18 02:46 INH 2.5 mg RTQ4H PRN Administration Wheezing Diphenhydramine HCl 25 mg 06/08/18 20:24 06/08/18 21:21 Benadryl PO 25 mg QPM PRN Administration Insomnia Sodium Chloride 1,000 mls @ 100 mls/hr 06/07/18 16:00 06/09/18 13:00 Normal Saline 0.9% IV 30 mls/hr .Q10H [facility] Infusion Pantoprazole Sodium 80 mg/ 100 mls @ 10 mls/hr 06/08/18 08:30 06/09/18 13:00 Sodium Chloride IV 10 mls/hr .Q10H [facility] Infusion Insulin Aspart 1 - 5 unit 06/08/18 17:00 06/09/18 12:13 Novolog SUBQ Not Given 0800,1200,1700,2100 [facility] Protocol Ipratropium [place] 0.5 mg 06/07/18 15:21 06/08/18 14:17 Atrovent INH 0.5 mg RTQ6H PRN Administration Shortness of Air/Wheezing Mineral Oil 1 applic 06/08/18 20:31 06/08/18 21:21 Cavilon TOP 1 applic PRN PRN Administration Skin Care Nicotine 1 patch 06/08/18 09:00 06/09/18 09:04 Nicoderm TOP 1 patch DAILY [facility] Administration Sodium Chloride 10 ml 06/07/18 17:00 06/09/18 09:04 Normal Saline Flush 0.9% IVP 10 ml 0100,0900,1700 [facility] Administration Sucralfate 1 gm 06/08/18 16:00 06/09/18 11:03 Carafate PO 1 gm 0700,1100,1600,2200 [facility] Administration - Lab Result Lab results reviewed: Yes Fish Bone Diagrams: 06/09/18 12:14 06/09/18 06:38 Other Lab Results: Abnormal Lab Results 06/07/18 06/07/18 06/07/18 13:25 13:25 13:25 WBC RBC 3.11 10^6/uL L 10^6/uL (4.70-6.10) Hgb 8.9 g/dL L g/dL (14.0-18.0) Hct 27.5 % L % (42.0-52.0) Plt Count Neut # (Auto) Lymph # (Auto) Neutrophils # (Manual) Lymphocytes # (Manual) Chloride 99 mmol/L L mmol/L (101-111) Carbon Dioxide 20 mmol/L L mmol/L (21-32) Anion Gap 16.0 H (6-13) BUN 64 mg/dL H mg/dL (6-20) Creatinine 1.3 mg/dL H mg/dL (0.6-1.2) Estimated GFR (MDRD) 54 L (>89) Glucose 345 mg/dL H mg/dL (70-100) POC Whole Bld Glucose Glycated Hemoglobin Estim Average Glucose Lactic Acid 8.1 mmol/L H* mmol/L (0.5-2.2) Calcium Alkaline Phosphatase Total Protein 5.3 g/dL L g/dL (6.7-8.2) Albumin 2.9 g/dL L g/dL (3.2-5.5) Globulin Ur Leukocyte Esterase Crossmatch IS Only 06/07/18 06/07/18 06/07/18 13:25 15:16 15:50 WBC RBC Hgb Hct Plt Count Neut # (Auto) Lymph # (Auto) Neutrophils # (Manual) Lymphocytes # (Manual) Chloride Carbon Dioxide Anion Gap BUN Creatinine Estimated GFR (MDRD) Glucose POC Whole Bld Glucose 118 mg/dL H mg/dL (70 - 100) Glycated Hemoglobin Estim Average Glucose Lactic Acid 3.3 mmol/L H* mmol/L (0.5-2.2) Calcium Alkaline Phosphatase Total Protein Albumin Globulin Ur Leukocyte Esterase Crossmatch IS Only See Detail 06/07/18 06/07/18 06/07/18 15:50 15:50 18:30 WBC 20.1 x10^3/uL H x10^3/uL (4.8-10.8) RBC 3.58 10^6/uL L 10^6/uL (4.70-6.10) Hgb 10.6 g/dL L g/dL (14.0-18.0) Hct 31.7 % L % (42.0-52.0) Plt Count Neut # (Auto) Lymph # (Auto) Neutrophils # (Manual) 18.1 10^3/uL H 10^3/uL (1.5-6.6) Lymphocytes # (Manual) 1.0 10^3/uL L 10^3/uL (1.5-3.5) Chloride Carbon Dioxide Anion Gap BUN 63 mg/dL H mg/dL (6-20) Creatinine Estimated GFR (MDRD) 65 L (>89) Glucose 113 mg/dL H mg/dL (70-100) POC Whole Bld Glucose Glycated Hemoglobin Estim Average Glucose Lactic Acid Calcium 8.2 mg/dL L mg/dL (8.5-10.3) Alkaline Phosphatase Total Protein 4.8 g/dL L g/dL (6.7-8.2) Albumin 2.6 g/dL L g/dL (3.2-5.5) Globulin Ur Leukocyte Esterase TRACE H (NEGATIVE) Crossmatch IS Only 06/07/18 06/07/18 06/08/18 21:05 23:58 03:25 WBC 14.7 x10^3/uL H x10^3/uL 11.0 x10^3/uL H x10^3/uL (4.8-10.8) (4.8-10.8) RBC 3.42 10^6/uL L 10^6/uL 3.18 10^6/uL L 10^6/uL (4.70-6.10) (4.70-6.10) Hgb 10.0 g/dL L g/dL 9.4 g/dL L g/dL (14.0-18.0) (14.0-18.0) Hct 30.1 % L % 27.8 % L % (42.0-52.0) (42.0-52.0) Plt Count Neut # (Auto) 12.7 10^3/uL H 10^3/uL 9.2 10^3/uL H 10^3/uL (1.5-6.6) (1.5-6.6) Lymph # (Auto) 1.1 10^3/uL L 10^3/uL 1.2 10^3/uL L 10^3/uL (1.5-3.5) (1.5-3.5) Neutrophils # (Manual) Lymphocytes # (Manual) Chloride Carbon Dioxide Anion Gap BUN Creatinine Estimated GFR (MDRD) Glucose POC Whole Bld Glucose 111 mg/dL H mg/dL (70 - 100) Glycated Hemoglobin Estim Average Glucose Lactic Acid Calcium Alkaline Phosphatase Total Protein Albumin Globulin Ur Leukocyte Esterase Crossmatch IS Only 06/08/18 06/08/18 06/08/18 03:25 03:25 05:45 WBC RBC Hgb Hct Plt Count Neut # (Auto) Lymph # (Auto) Neutrophils # (Manual) Lymphocytes # (Manual) Chloride Carbon Dioxide Anion Gap 5.0 L (6-13) BUN 80 mg/dL H* mg/dL (6-20) Creatinine Estimated GFR (MDRD) 59 L (>89) Glucose 122 mg/dL H mg/dL (70-100) POC Whole Bld Glucose 124 mg/dL H mg/dL (70 - 100) Glycated Hemoglobin 6.3 % H % (4.6-6.2) Estim Average Glucose 134 H (70-100) Lactic Acid Calcium 7.8 mg/dL L mg/dL (8.5-10.3) Alkaline Phosphatase Total Protein 4.7 g/dL L g/dL (6.7-8.2) Albumin 2.5 g/dL L g/dL (3.2-5.5) Globulin Ur Leukocyte Esterase Crossmatch IS Only 06/08/18 06/08/18 06/08/18 09:10 11:48 16:05 WBC RBC 2.97 10^6/uL L 10^6/uL 3.01 10^6/uL L 10^6/uL (4.70-6.10) (4.70-6.10) Hgb 8.8 g/dL L g/dL 8.9 g/dL L g/dL (14.0-18.0) (14.0-18.0) Hct 25.7 % L % 26.9 % L % (42.0-52.0) (42.0-52.0) Plt Count Neut # (Auto) 8.6 10^3/uL H 10^3/uL 7.5 10^3/uL H 10^3/uL (1.5-6.6) (1.5-6.6) Lymph # (Auto) 1.1 10^3/uL L 10^3/uL 1.4 10^3/uL L 10^3/uL (1.5-3.5) (1.5-3.5) Neutrophils # (Manual) Lymphocytes # (Manual) Chloride Carbon Dioxide Anion Gap BUN Creatinine Estimated GFR (MDRD) Glucose POC Whole Bld Glucose 110 mg/dL H mg/dL (70 - 100) Glycated Hemoglobin Estim Average Glucose Lactic Acid Calcium Alkaline Phosphatase Total Protein Albumin Globulin Ur Leukocyte Esterase Crossmatch IS Only 06/08/18 06/09/18 06/09/18 21:15 06:38 06:38 WBC RBC 2.70 10^6/uL L 10^6/uL 3.15 10^6/uL L 10^6/uL (4.70-6.10) (4.70-6.10) Hgb 7.9 g/dL L g/dL 9.5 g/dL L g/dL (14.0-18.0) (14.0-18.0) Hct 23.7 % L % 27.8 % L % (42.0-52.0) (42.0-52.0) Plt Count 121 10^3/uL L 10^3/uL (130-450) Neut # (Auto) Lymph # (Auto) 1.4 10^3/uL L 10^3/uL (1.5-3.5) Neutrophils # (Manual) Lymphocytes # (Manual) Chloride Carbon Dioxide Anion Gap 5.0 L (6-13) BUN 25 mg/dL H mg/dL (6-20) Creatinine Estimated GFR (MDRD) Glucose 102 mg/dL H mg/dL (70-100) POC Whole Bld Glucose Glycated Hemoglobin Estim Average Glucose Lactic Acid Calcium 7.5 mg/dL L mg/dL (8.5-10.3) Alkaline Phosphatase 38 IU/L L IU/L (42-121) Total Protein 4.2 g/dL L g/dL (6.7-8.2) Albumin 2.3 g/dL L g/dL (3.2-5.5) Globulin 1.9 g/dL L g/dL (2.1-4.2) Ur Leukocyte Esterase Crossmatch IS Only 06/09/18 06/09/18 12:11 12:14 WBC RBC 3.41 10^6/uL L 10^6/uL (4.70-6.10) Hgb 10.3 g/dL L g/dL (14.0-18.0) Hct 29.9 % L % (42.0-52.0) Plt Count Neut # (Auto) Lymph # (Auto) 1.2 10^3/uL L 10^3/uL (1.5-3.5) Neutrophils # (Manual) Lymphocytes # (Manual) Chloride Carbon Dioxide Anion Gap BUN Creatinine Estimated GFR (MDRD) Glucose POC Whole Bld Glucose 112 mg/dL H mg/dL (70 - 100) Glycated Hemoglobin Estim Average Glucose Lactic Acid Calcium Alkaline Phosphatase Total Protein Albumin Globulin Ur Leukocyte Esterase Crossmatch IS Only - Diagnostic Imaging Results Diagnostic Imaging Results: Final report reviewed - Additional Planning Condition/Complexity: Guarded My Orders: My Active Orders 06/08/18 15:01 Blood Glucose Checks - Eating [RC] 0800,1200,1700,209906/08/18 16:00 Sucralfate [Carafate] 1 gm PO 0700,1100,1600,2200 06/08/18 17:00 Insulin Aspart [NovoLOG] 1 - 5 unit SUBQ 0800,1200,1700,2100 06/08/18 19:11 Cod Liver Oil/Zinc Oxide [Desitin] 113 gm TOP PRN PRN 06/08/18 20:31 Min Oil/Dimeth/Coconut Oil Crm [Cavilon] 1 applic TOP PRN PRN 06/09/18 21:15 CBC - COMP BLD CT W/AUTO DIFF [HEME] Q6H 06/09/18 Dinner DIET [Soft (Low Fiber) Diet] [DIET] 06/10/18 05:00 COMPREHENSIVE METABOLIC PANEL [CHEM] DAILYLAB MAGNESIUM [CHEM] DAILYLAB PHOSPHORUS [CHEM] DAILYLAB 06/11/18 05:00 COMPREHENSIVE METABOLIC PANEL [CHEM] DAILYLAB MAGNESIUM [CHEM] DAILYLAB PHOSPHORUS [CHEM] DAILYLAB Consult/Specialty: Surgery Plan Discussed with:: Patient Time Spent: 31-60 minutes Subjective - Subjective Patient Reports: Feeling Better, Resting Comfortably, Other (Black tarry stool yesterday slightly better today) Nursing Reports: No Complaints Objective Vital Signs: Vital Signs - 24 hr 06/08/18 06/08/18 06/08/18 13:38 14:00 14:17 Temperature 36.8 C 36.5 C Heart Rate 88 87 Heart Rate [ 83 Monitoring electrodes] Respiratory 19 19 15 Rate Blood Pressure Blood Pressure 118/64 [Right Brachial artery] Blood Pressure [Right Radial artery] O2 Saturation 95 97 06/08/18 06/08/18 06/08/18 15:00 16:00 17:00 Temperature 37.1 C Heart Rate Heart Rate [ 87 83 88 Monitoring electrodes] Respiratory 20 25 H 24 Rate Blood Pressure Blood Pressure 109/58 L 110/66 [Right Brachial artery] Blood Pressure [Right Radial artery] O2 Saturation 92 97 100 06/08/18 06/08/18 06/08/18 18:00 19:00 19:20 Temperature 37 C Heart Rate Heart Rate [ 91 79 Monitoring electrodes] Respiratory 26 H 21 Rate Blood Pressure Blood Pressure 116/65 146/82 H [Right Brachial artery] Blood Pressure [Right Radial artery] O2 Saturation 94 100 06/08/18 06/08/18 06/08/18 20:00 20:10 21:00 Temperature Heart Rate 82 Heart Rate [ 76 82 Monitoring electrodes] Respiratory 23 18 24 Rate Blood Pressure Blood Pressure 130/66 116/67 [Right Brachial artery] Blood Pressure [Right Radial artery] O2 Saturation 98 98 06/08/18 06/08/18 06/08/18 22:00 23:00 23:05 Temperature 36.8 C 36.9 C Heart Rate Heart Rate [ 76 73 75 Monitoring electrodes] Respiratory 16 23 20 Rate Blood Pressure Blood Pressure 125/61 [Right Brachial artery] Blood Pressure 130/73 140/80 H [Right Radial artery] O2 Saturation 99 98 98 06/08/18 06/08/18 06/09/18 23:06 23:20 00:02 Temperature 36.9 C 36.5 C Heart Rate 75 78 Heart Rate [ 78 72 Monitoring electrodes] Respiratory 20 18 24 Rate Blood Pressure 140/80 H 133/80 H Blood Pressure [Right Brachial artery] Blood Pressure 118/55 L [Right Radial artery] O2 Saturation 95 96 06/09/18 06/09/18 06/09/18 01:00 02:00 02:21 Temperature 36.8 C Heart Rate 74 Heart Rate [ 77 72 74 Monitoring electrodes] Respiratory 19 15 20 Rate Blood Pressure 132/75 H Blood Pressure [Right Brachial artery] Blood Pressure 115/51 L 124/67 132/75 H [Right Radial artery] O2 Saturation 96 98 94 06/09/18 06/09/18 06/09/18 02:34 02:47 02:49 Temperature 36.8 C 36.9 C Heart Rate 74 75 76 Heart Rate [ 76 Monitoring electrodes] Respiratory 20 17 16 Rate Blood Pressure 132/75 H 132/77 H Blood Pressure [Right Brachial artery] Blood Pressure 132/77 H [Right Radial artery] O2 Saturation 95 06/09/18 06/09/18 06/09/18 03:00 04:00 05:00 Temperature Heart Rate Heart Rate [ 74 80 77 Monitoring electrodes] Respiratory 22 21 16 Rate Blood Pressure Blood Pressure [Right Brachial artery] Blood Pressure 129/70 126/60 126/62 [Right Radial artery] O2 Saturation 94 95 94 06/09/18 06/09/18 06/09/18 05:42 06:00 07:00 Temperature 37.2 C Heart Rate 77 Heart Rate [ 73 75 Monitoring electrodes] Respiratory 18 18 16 Rate Blood Pressure 134/79 H Blood Pressure [Right Brachial artery] Blood Pressure 122/61 116/65 [Right Radial artery] O2 Saturation 94 94 06/09/18 06/09/18 06/09/18 08:00 09:00 10:00 Temperature 36.6 C Heart Rate Heart Rate [ 73 71 67 Monitoring electrodes] Respiratory 16 24 19 Rate Blood Pressure Blood Pressure [Right Brachial artery] Blood Pressure 136/79 H 141/92 H 138/76 H [Right Radial artery] O2 Saturation 95 94 95 06/09/18 06/09/18 06/09/18 11:00 12:00 13:00 Temperature 36.6 C Heart Rate Heart Rate [ 66 67 72 Monitoring electrodes] Respiratory 22 18 17 Rate Blood Pressure Blood Pressure [Right Brachial artery] Blood Pressure 150/82 H 146/75 H 155/69 H [Right Radial artery] O2 Saturation 94 94 94 Oxygen O2 Source Room air I&O (Last 24 Hrs): Intake and Output Totals x24h 06/07/18 06/08/18 06/09/18 23:59 23:59 23:59 Intake Total 2451.667 4928.333 3750.833 Output Total 175 3535 1350 Balance 2276.667 6062.419 1139.833 General: Alert, Oriented x3, Cooperative, No acute distress HEENT: Atraumatic, PERRLA, EOMI, Mucous membr. moist/pink Neck: Supple, No JVD, No thyromegaly, +2 carotid pulse wo bruit, No LAD Lymphatic: no adenopathy Neuro: Alert, Non Focal, CN 2-12 Grossly Intact, Oriented Times 3 Cardiovascular: Regular rate, Normal S1, Normal S2, No murmurs Respiratory: Chest non-tender, No respiratory distress, Other (Decreased breath sounds bilaterally) Abdomen: Normal bowel sounds, Soft, No tenderness, No hepatospenomegaly Extremities: No clubbing, No cyanosis, No edema, Normal pulses Skin: No rashes, No breakdown - Results Results: Laboratory Results WBC 6.5 x10^3/uL (4.8-10.8) 06/09/18 12:14 RBC 3.41 10^6/uL (4.70-6.10) L 06/09/18 12:14 Hgb 10.3 g/dL (14.0-18.0) L 06/09/18 12:14 Hct 29.9 % (42.0-52.0) L 06/09/18 12:14 MCV 87.7 fL (80.0-94.0) 06/09/18 12:14 MCH 30.3 pg (27.0-31.0) 06/09/18 12:14 MCHC 34.5 g/dL (32.0-36.0) 06/09/18 12:14 RDW 14.2 % (12.0-15.0) 06/09/18 12:14 Plt Count 137 10^3/uL (130-450) 06/09/18 12:14 MPV 7.4 fL (7.4-11.4) 06/09/18 12:14 Neut # (Auto) 4.8 10^3/uL (1.5-6.6) 06/09/18 12:14 Lymph # (Auto) 1.2 10^3/uL (1.5-3.5) L 06/09/18 12:14 [place] # (Auto) 0.4 10^3/uL (0.0-1.0) 06/09/18 12:14 Eos # (Auto) 0.0 10^3/uL (0.0-0.7) 06/09/18 12:14 Baso # (Auto) 0.0 10^3/uL (0.0-0.1) 06/09/18 12:14 Absolute Nucleated RBC 0.01 x10^3/uL 06/09/18 12:14 Total Counted 100 06/07/18 15:50 Band Neuts % (Manual) 4 % (0-10) 06/07/18 15:50 Abnorm Lymph % (Manual) 0 % 06/07/18 15:50 Nucleated RBC % 0.1 /100WBC 06/09/18 12:14 Neutrophils # (Manual) 18.1 10^3/uL (1.5-6.6) H 06/07/18 15:50 Lymphocytes # (Manual) 1.0 10^3/uL (1.5-3.5) L 06/07/18 15:50 Monocytes # (Manual) 1.0 10^3/uL (0.0-1.0) 06/07/18 15:50 Eosinophils # (Manual) 0.0 10^3/uL (0-0.7) 06/07/18 15:50 Basophils # (Manual) 0.0 10^3/uL (0-0.1) 06/07/18 15:50 Differential Comment MANUAL DIFFERENTIAL 06/07/18 15:50 Manual Slide Review Indicated 06/07/18 15:50 Platelet Estimate NORMAL (130-450,000) (NORMAL) 06/07/18 15:50 Platelet Morphology NORMAL APPEARANCE (NORMAL) 06/07/18 15:50 RBC Morph Micro Appear 1+ HYPOCHROMASIA (NORMAL) 1+ KIMBERLY CELLS (NORMAL) 06/07/18 15:50 RBC Morph Micro Appear 1+ HYPOCHROMASIA (NORMAL) 1+ KIMBERLY CELLS (NORMAL) 06/07/18 15:50 PT 11.5 secs (9.9-12.6) 06/08/18 03:25 INR 1.0 (0.8-1.2) 06/08/18 03:25 Sodium 138 mmol/L (135-145) 06/09/18 06:38 Potassium 3.9 mmol/L (3.5-5.0) 06/09/18 06:38 Chloride 110 mmol/L (101-111) 06/09/18 06:38 Carbon Dioxide 23 mmol/L (21-32) 06/09/18 06:38 Anion Gap 5.0 (6-13) L 06/09/18 06:38 BUN 25 mg/dL (6-20) H 06/09/18 06:38 Creatinine 0.6 mg/dL (0.6-1.2) 06/09/18 06:38 Estimated GFR (MDRD) 132 (>89) 06/09/18 06:38 Glucose 102 mg/dL (70-100) H 06/09/18 06:38 POC Whole Bld Glucose 112 mg/dL (70 - 100) H 06/09/18 12:11 Glycated Hemoglobin 6.3 % (4.6-6.2) H 06/08/18 03:25 Estim Average Glucose 134 (70-100) H 06/08/18 03:25 Lactic Acid 1.5 mmol/L (0.5-2.2) 06/07/18 21:05 Calcium 7.5 mg/dL (8.5-10.3) L 06/09/18 06:38 Phosphorus 3.5 mg/dL (2.5-4.6) 06/09/18 06:38 Magnesium 1.9 mg/dL (1.7-2.8) 06/09/18 06:38 Total Bilirubin 0.8 mg/dL (0.2-1.0) 06/09/18 06:38 AST 22 IU/L (10-42) 06/09/18 06:38 ALT 22 IU/L (10-60) 06/09/18 06:38 Alkaline Phosphatase 38 IU/L (42-121) L 06/09/18 06:38 Total Creatine Kinase 57 IU/L (22-269) 06/08/18 03:20 Troponin I < 0.04 ng/mL (<0.49) 06/07/18 13:25 Total Protein 4.2 g/dL (6.7-8.2) L 06/09/18 06:38 Albumin 2.3 g/dL (3.2-5.5) L 06/09/18 06:38 Globulin 1.9 g/dL (2.1-4.2) L 06/09/18 06:38 Albumin/Globulin Ratio 1.2 (1.0-2.2) 06/09/18 06:38 Lipase 29 U/L (22-51) 06/07/18 13:25 Urine Color YELLOW 06/07/18 18:30 Urine Clarity CLOUDY (CLEAR) 06/07/18 18:30 Urine pH 5.5 PH (5.0-7.5) 06/07/18 18:30 Ur Specific [place] 1.025 (1.002-1.030) 06/07/18 18:30 Urine Protein NEGATIVE mg/dL (NEGATIVE) 06/07/18 18:30 Urine Glucose (UA) NEGATIVE mg/dL (NEGATIVE) 06/07/18 18:30 Urine Ketones NEGATIVE mg/dL (NEGATIVE) 06/07/18 18:30 Urine Occult Blood NEGATIVE (NEGATIVE) 06/07/18 18:30 Urine Nitrite NEGATIVE (NEGATIVE) 06/07/18 18:30 Urine Bilirubin NEGATIVE (NEGATIVE) 06/07/18 18:30 Urine Urobilinogen 0.2 (NORMAL) E.U./dL (NORMAL) 06/07/18 18:30 Ur Leukocyte Esterase TRACE (NEGATIVE) H 06/07/18 18:30 Urine RBC 0-5 /HPF (0-5) 06/07/18 18:30 Urine WBC 4-5 /HPF (0-3) 06/07/18 18:30 Ur Squamous Epith Cells NONE SEEN (<= Few) 06/07/18 18:30 Urine Bacteria None Seen /HPF (None Seen) 06/07/18 18:30 Urine Casts 3-5 Hyaline Casts /LPF 06/07/18 18:30 Ur Microscopic Review INDICATED 06/07/18 18:30 Urine Culture Comments INDICATED 06/07/18 18:30 Blood Type O POSITIVE 06/07/18 13:25 Blood Type Recheck O POSITIVE 06/07/18 13:56 Antibody Screen NEGATIVE 06/07/18 13:25 Crossmatch IS Only See Detail 06/07/18 13:25 - Procedures Procedures: Procedures REPLACEMENT OF RIGHT LENS WITH SYNTH SUB, PERC APPROACH (09/23/15) ABX Reporting Has patient been on IV antibiotics over the past 48 hours?: No Current Medications - Current Medications Current Medications: Active Medications Generic Name Dose Route Start Last Admin Trade Name Freq PRN Reason Stop Dose Admin Acetaminophen 650 mg 06/07/18 15:21 Tylenol PO Q4HR PRN Pain 1 to 4 Albuterol 2.5 mg 06/07/18 16:08 06/09/18 02:46 INH 2.5 mg RTQ4H PRN Administration Wheezing Amitriptyline HCl 25 mg 06/09/18 21:00 Elavil PO HS HEATHER Atorvastatin Calcium 10 mg 06/09/18 21:00 Lipitor PO QPM HEATHER Diphenhydramine HCl 25 mg 06/08/18 20:24 06/08/18 21:21 Benadryl PO 25 mg QPM PRN Administration Insomnia Fluoxetine HCl 10 mg 06/10/18 09:00 Prozac PO DAILY [facility] Hydrochlorothiazide 25 mg 06/10/18 09:00 Hydrodiuril PO DAILY [facility] Pantoprazole Sodium 80 mg/ 100 mls @ 10 mls/hr 06/08/18 08:30 06/09/18 13:00 Sodium Chloride IV 10 mls/hr .Q10H [facility] Infusion Sodium Chloride 1,000 mls @ 0 mls/hr 06/09/18 14:00 Normal Saline 0.9% IV .Q0M [facility] TKO Insulin Aspart 1 - 5 unit 06/08/18 17:00 06/09/18 12:13 Novolog SUBQ Not Given 0800,1200,1700,2100 [facility] Protocol Ipratropium [place] 0.5 mg 06/07/18 15:21 06/08/18 14:17 Atrovent INH 0.5 mg RTQ6H PRN Administration Shortness of Air/Wheezing Mineral Oil 1 applic 06/08/18 20:31 06/08/18 21:21 Cavilon TOP 1 applic PRN PRN Administration Skin Care Morphine Sulfate 2 mg 06/07/18 16:11 Morphine (Carpuject) IVP Q4H PRN PAIN Nicotine 1 patch 06/08/18 09:00 06/09/18 09:04 Nicoderm TOP 1 patch DAILY [facility] Administration Ondansetron HCl 4 mg 06/07/18 15:21 Zofran Inj IVP Q6HR PRN Nausea / Vomiting Pantoprazole Sodium 40 mg 06/09/18 21:00 Protonix IVP BID [facility] Prochlorperazine Edisylate 10 mg 06/07/18 15:21 Compazine Inj IVP Q6HR PRN Nausea / Vomiting Promethazine HCl 25 mg 06/07/18 15:21 Phenergan Inj IM Q6HR PRN Nausea / Vomiting Sodium Chloride 10 ml 06/07/18 17:00 06/09/18 09:04 Normal Saline Flush 0.9% IVP 10 ml 0100,0900,1700 [facility] Administration Sodium Chloride 10 ml 06/07/18 15:13 Normal Saline Flush 0.9% IVP PRN PRN NEEDED PER PROVIDER ORDERS Sucralfate 1 gm 06/08/18 16:00 06/09/18 11:03 Carafate PO 1 gm 0700,1100,1600,2200 [facility] Administration Zinc Oxide 113 gm 06/08/18 19:11 Desitin TOP PRN PRN [facility] FLUoxetine [PROzac] 10 mg PO DAILY 09/23/15 Amitriptyline [Elavil] 25 mg PO HS 06/07/18 Fluticasone/Vilanterol [Breo Ellipta 100-25 Mcg INH] 1 inh IH DAILY 06/07/18 Lipase/Protease/Amylase [Zenpep Dr 10,000 Units Capsule] 1 each PO TIDWM 06/07/18 Nicotine Polacrilex [Nicotine Gum] 2 mg BC PRN PRN 06/07/18 Simvastatin 20 mg PO QPM 06/07/18 hydroCHLOROthiazide [Hydrochlorothiazide] 25 mg PO DAILY 06/07/18 metFORMIN [Glucophage] 500 mg PO BIDWM 06/07/18 oxyCODONE [Roxicodone] 5 - 10 mg PO Q6HR PRN 06/07/18 Meloxicam 15 mg PO DAILY 06/08/18
[2018-06-09 19:01] LABS: BASOPHILS # (AUTO) 0.1 10^3/uL (0.0-0.1); BASOPHILS % (AUTO) 1.9 %; EOSINOPHILS # (AUTO) 0.1 10^3/uL (0.0-0.7); EOSINOPHILS % (AUTO) 1.5 %; HGB - HEMOGLOBIN 10.1 g/dL (14.0-18.0); LYMPHOCYTES # (AUTO) 0.9 10^3/uL (1.5-3.5); LYMPHOCYTES % (AUTO) 15.3 %; MEAN CORPUSCULAR HEMOGLOBIN 30.6 pg (27.0-31.0); MEAN CORPUSCULAR HGB CONC 34.6 g/dL (32.0-36.0); MEAN CORPUSCULAR VOLUME 88.6 fL (80.0-94.0); MEAN PLATELET VOLUME 7.9 fL (7.4-11.4); MONOCYTES # (AUTO) 0.4 10^3/uL (0.0-1.0); MONOCYTES % (AUTO) 6.8 %; NEUTROPHILS # (AUTO) 4.3 10^3/uL (1.5-6.6); NEUTROPHILS % (AUTO) 74.5 %; PLT - PLATELET COUNT 154 10^3/uL (130-450); RED BLOOD COUNT 3.29 10^6/uL (4.70-6.10); RED CELL DISTRIBUTION WIDTH 14.3 % (12.0-15.0); WHITE BLOOD COUNT 5.8 x10^3/uL (4.8-10.8)
[2018-06-09] MEDS: PANTOPRAZOLE 40 MG VIAL IVP SCH (20:28)
[2018-06-09] MEDS: SODIUM CHLORIDE FLUSH 0.9% 10 ML SYRINGE IVP PRN (20:29)
[2018-06-09] MEDS ORDERED: AMITRIPTYLINE 25 MG TABLET PO SCH (21:00)
[2018-06-09] MEDS ORDERED: ATORVASTATIN 10 MG TABLET PO SCH (21:00)
--- NOTE | 2018-06-09 21:41 | PROVIDER PROGRESS NOTE ---
Subjective - General Admit Date: 06/07/18 Procedure Date: 06/07/18 Post Op Days: 2 Procedure Performed: EGD with hemostatic control of active bleeding - Review of Systems General: positive: No symptoms (States that lunch was the best meal of his life and that he could really use a cigar now. Sitting up in chair.) HEENT: positive: No symptoms Pulmonary: positive: No symptoms Cardiovascular: positive: No symptoms Gastrointestinal: positive: No symptoms Genitourinary: positive: No symptoms Musculoskeletal: positive: Other (See above for buttock pain from significant time in bed.) Skin: positive: No symptoms Psychiatric: positive: No symptoms Objective - Patient Data Reviewed Vital Signs: Yes Vital Signs: Vital Signs x48h Temp Pulse Pulse Resp BP Pulse Ox 06/09/18 21:28 37.4 C 79 20 165/86 H 94 06/09/18 20:01 70 18 06/09/18 19:11 37.2 C 75 23 135/79 H 95 06/09/18 17:00 98 C H 75 18 154/78 H 96 Weight: Weight 06/07/18 06/08/18 06/09/18 23:59 23:59 23:59 Weight (kg) 63 kg 64.5 kg 66.5 kg Intake & Output: Intake and Output Totals x24h 06/07/18 06/08/18 06/09/18 23:59 23:59 23:59 Intake Total 2451.667 4928.333 4379.500 Output Total 175 3535 1475 Balance 2276.667 7445.504 3911.500 - Lab Results Lab Results: 06/09/18 18:25 06/09/18 06:38 Other Lab Results: Lab Results x24hrs 06/09/18 06/09/18 06/09/18 Range/Units 20:15 18:25 16:44 WBC 5.8 (4.8-10.8) x10^3/uL RBC 3.29 L (4.70-6.10) 10^6/uL Hgb 10.1 L (14.0-18.0) g/dL Hct 29.1 L (42.0-52.0) % MCV 88.6 (80.0-94.0) fL MCH 30.6 (27.0-31.0) pg MCHC 34.6 (32.0-36.0) g/dL RDW 14.3 (12.0-15.0) % Plt Count 154 (130-450) 10^3/uL MPV 7.9 (7.4-11.4) fL Neut # (Auto) 4.3 (1.5-6.6) 10^3/uL Lymph # (Auto) 0.9 L (1.5-3.5) 10^3/uL Centre # (Auto) 0.4 (0.0-1.0) 10^3/uL Eos # (Auto) 0.1 (0.0-0.7) 10^3/uL Baso # (Auto) 0.1 (0.0-0.1) 10^3/uL Absolute Nucleated RBC 0.00 x10^3/uL Nucleated RBC % 0.1 /100WBC Sodium (135-145) mmol/L Potassium (3.5-5.0) mmol/L Chloride (101-111) mmol/L Carbon Dioxide (21-32) mmol/L Anion Gap (6-13) BUN (6-20) mg/dL Creatinine (0.6-1.2) mg/dL Estimated GFR (MDRD) (>89) Glucose (70-100) mg/dL POC Whole Bld Glucose 121 H 136 H (70 - 100) mg/dL Calcium (8.5-10.3) mg/dL Phosphorus (2.5-4.6) mg/dL Magnesium (1.7-2.8) mg/dL Total Bilirubin (0.2-1.0) mg/dL AST (10-42) IU/L ALT (10-60) IU/L Alkaline Phosphatase (42-121) IU/L Total Protein (6.7-8.2) g/dL Albumin (3.2-5.5) g/dL Globulin (2.1-4.2) g/dL Albumin/Globulin Ratio (1.0-2.2) Blood Type Antibody Screen Crossmatch IS Only 06/09/18 06/09/18 06/09/18 Range/Units 12:14 12:11 06:38 WBC 6.5 (4.8-10.8) x10^3/uL RBC 3.41 L (4.70-6.10) 10^6/uL Hgb 10.3 L (14.0-18.0) g/dL Hct 29.9 L (42.0-52.0) % MCV 87.7 (80.0-94.0) fL MCH 30.3 (27.0-31.0) pg MCHC 34.5 (32.0-36.0) g/dL RDW 14.2 (12.0-15.0) % Plt Count 137 (130-450) 10^3/uL MPV 7.4 (7.4-11.4) fL Neut # (Auto) 4.8 (1.5-6.6) 10^3/uL Lymph # (Auto) 1.2 L (1.5-3.5) 10^3/uL [place] # (Auto) 0.4 (0.0-1.0) 10^3/uL Eos # (Auto) 0.0 (0.0-0.7) 10^3/uL Baso # (Auto) 0.0 (0.0-0.1) 10^3/uL Absolute Nucleated RBC 0.01 x10^3/uL Nucleated RBC % 0.1 /100WBC Sodium 138 (135-145) mmol/L Potassium 3.9 (3.5-5.0) mmol/L Chloride 110 (101-111) mmol/L Carbon Dioxide 23 (21-32) mmol/L Anion Gap 5.0 L (6-13) BUN 25 H (6-20) mg/dL Creatinine 0.6 (0.6-1.2) mg/dL Estimated GFR (MDRD) 132 (>89) Glucose 102 H (70-100) mg/dL POC Whole Bld Glucose 112 H (70 - 100) mg/dL Calcium 7.5 L (8.5-10.3) mg/dL Phosphorus 3.5 (2.5-4.6) mg/dL Magnesium 1.9 (1.7-2.8) mg/dL Total Bilirubin 0.8 (0.2-1.0) mg/dL AST 22 (10-42) IU/L ALT 22 (10-60) IU/L Alkaline Phosphatase 38 L (42-121) IU/L Total Protein 4.2 L (6.7-8.2) g/dL Albumin 2.3 L (3.2-5.5) g/dL Globulin 1.9 L (2.1-4.2) g/dL Albumin/Globulin Ratio 1.2 (1.0-2.2) Blood Type Antibody Screen Crossmatch IS Only 06/09/18 06/08/18 06/08/18 Range/Units 06:38 21:17 16:54 WBC 6.2 (4.8-10.8) x10^3/uL RBC 3.15 L (4.70-6.10) 10^6/uL Hgb 9.5 L (14.0-18.0) g/dL Hct 27.8 L (42.0-52.0) % MCV 88.1 (80.0-94.0) fL MCH 30.0 (27.0-31.0) pg MCHC 34.1 (32.0-36.0) g/dL RDW 14.0 (12.0-15.0) % Plt Count 121 L (130-450) 10^3/uL MPV 7.8 (7.4-11.4) fL Neut # (Auto) 4.4 (1.5-6.6) 10^3/uL Lymph # (Auto) 1.4 L (1.5-3.5) 10^3/uL [place] # (Auto) 0.3 (0.0-1.0) 10^3/uL Eos # (Auto) 0.1 (0.0-0.7) 10^3/uL Baso # (Auto) 0.0 (0.0-0.1) 10^3/uL Absolute Nucleated RBC 0.00 x10^3/uL Nucleated RBC % 0.0 /100WBC Sodium (135-145) mmol/L Potassium (3.5-5.0) mmol/L Chloride (101-111) mmol/L Carbon Dioxide (21-32) mmol/L Anion Gap (6-13) BUN (6-20) mg/dL Creatinine (0.6-1.2) mg/dL Estimated GFR (MDRD) (>89) Glucose (70-100) mg/dL POC Whole Bld Glucose 99 100 (70 - 100) mg/dL Calcium (8.5-10.3) mg/dL Phosphorus (2.5-4.6) mg/dL Magnesium (1.7-2.8) mg/dL Total Bilirubin (0.2-1.0) mg/dL AST (10-42) IU/L ALT (10-60) IU/L Alkaline Phosphatase (42-121) IU/L Total Protein (6.7-8.2) g/dL Albumin (3.2-5.5) g/dL Globulin (2.1-4.2) g/dL Albumin/Globulin Ratio (1.0-2.2) Blood Type Antibody Screen Crossmatch IS Only 06/08/18 06/08/18 06/07/18 Range/Units 11:48 05:45 23:58 WBC (4.8-10.8) x10^3/uL RBC (4.70-6.10) 10^6/uL Hgb (14.0-18.0) g/dL Hct (42.0-52.0) % MCV (80.0-94.0) fL MCH (27.0-31.0) pg MCHC (32.0-36.0) g/dL RDW (12.0-15.0) % Plt Count (130-450) 10^3/uL MPV (7.4-11.4) fL Neut # (Auto) (1.5-6.6) 10^3/uL Lymph # (Auto) (1.5-3.5) 10^3/uL Centre # (Auto) (0.0-1.0) 10^3/uL Eos # (Auto) (0.0-0.7) 10^3/uL Baso # (Auto) (0.0-0.1) 10^3/uL Absolute Nucleated RBC x10^3/uL Nucleated RBC % /100WBC Sodium (135-145) mmol/L Potassium (3.5-5.0) mmol/L Chloride (101-111) mmol/L Carbon Dioxide (21-32) mmol/L Anion Gap (6-13) BUN (6-20) mg/dL Creatinine (0.6-1.2) mg/dL Estimated GFR (MDRD) (>89) Glucose (70-100) mg/dL POC Whole Bld Glucose 110 H 124 H 111 H (70 - 100) mg/dL Calcium (8.5-10.3) mg/dL Phosphorus (2.5-4.6) mg/dL Magnesium (1.7-2.8) mg/dL Total Bilirubin (0.2-1.0) mg/dL AST (10-42) IU/L ALT (10-60) IU/L Alkaline Phosphatase (42-121) IU/L Total Protein (6.7-8.2) g/dL Albumin (3.2-5.5) g/dL Globulin (2.1-4.2) g/dL Albumin/Globulin Ratio (1.0-2.2) Blood Type Antibody Screen Crossmatch IS Only 06/07/18 06/07/18 06/07/18 Range/Units 18:02 15:16 13:25 WBC (4.8-10.8) x10^3/uL RBC (4.70-6.10) 10^6/uL Hgb (14.0-18.0) g/dL Hct (42.0-52.0) % MCV (80.0-94.0) fL MCH (27.0-31.0) pg MCHC (32.0-36.0) g/dL RDW (12.0-15.0) % Plt Count (130-450) 10^3/uL MPV (7.4-11.4) fL Neut # (Auto) (1.5-6.6) 10^3/uL Lymph # (Auto) (1.5-3.5) 10^3/uL Centre # (Auto) (0.0-1.0) 10^3/uL Eos # (Auto) (0.0-0.7) 10^3/uL Baso # (Auto) (0.0-0.1) 10^3/uL Absolute Nucleated RBC x10^3/uL Nucleated RBC % /100WBC Sodium (135-145) mmol/L Potassium (3.5-5.0) mmol/L Chloride (101-111) mmol/L Carbon Dioxide (21-32) mmol/L Anion Gap (6-13) BUN (6-20) mg/dL Creatinine (0.6-1.2) mg/dL Estimated GFR (MDRD) (>89) Glucose (70-100) mg/dL POC Whole Bld Glucose 98 118 H (70 - 100) mg/dL Calcium (8.5-10.3) mg/dL Phosphorus (2.5-4.6) mg/dL Magnesium (1.7-2.8) mg/dL Total Bilirubin (0.2-1.0) mg/dL AST (10-42) IU/L ALT (10-60) IU/L Alkaline Phosphatase (42-121) IU/L Total Protein (6.7-8.2) g/dL Albumin (3.2-5.5) g/dL Globulin (2.1-4.2) g/dL Albumin/Globulin Ratio (1.0-2.2) Blood Type O POSITIVE Antibody Screen NEGATIVE Crossmatch IS Only See Detail - Current Medications Current Medications: Current Medications Generic Name Dose Route Start Last Admin Trade Name Freq PRN Reason Stop Dose Admin Albuterol 2.5 mg 06/07/18 16:08 06/09/18 20:01 INH 2.5 mg RTQ4H PRN Administration Wheezing Amitriptyline HCl 25 mg 06/09/18 21:00 06/09/18 20:28 Elavil PO 25 mg HS HEATHER Administration Atorvastatin Calcium 10 mg 06/09/18 21:00 06/09/18 20:28 Lipitor PO 10 mg QPM HEATHER Administration Diphenhydramine HCl 25 mg 06/08/18 20:24 06/08/18 21:21 Benadryl PO 25 mg QPM PRN Administration Insomnia Sodium Chloride 1,000 mls @ 0 mls/hr 06/09/18 14:00 06/09/18 16:00 Normal Saline 0.9% IV Infused .Q0M HEATHER Infusion TKO Insulin Aspart 1 - 5 unit 06/08/18 17:00 06/09/18 20:33 Novolog SUBQ Not Given 0800,1200,1700,2100 HEATHER Protocol Ipratropium [place] 0.5 mg 06/07/18 15:21 06/08/18 14:17 Atrovent INH 0.5 mg RTQ6H PRN Administration Shortness of Air/Wheezing Mineral Oil 1 applic 06/08/18 20:31 06/08/18 21:21 Cavilon TOP 1 applic PRN PRN Administration Skin Care Nicotine 1 patch 06/08/18 09:00 06/09/18 09:04 Nicoderm TOP 1 patch DAILY HEATHER Administration Pantoprazole Sodium 40 mg 06/09/18 21:00 06/09/18 20:28 Protonix IVP 40 mg BID HEATHER Administration Sodium Chloride 10 ml 06/07/18 17:00 06/09/18 19:15 Normal Saline Flush 0.9% IVP 10 ml 0100,0900,1700 HEATHER Administration Sodium Chloride 10 ml 06/07/18 15:13 06/09/18 20:29 Normal Saline Flush 0.9% IVP 20 ml PRN PRN Administration NEEDED PER PROVIDER ORDERS Sucralfate 1 gm 06/08/18 16:00 06/09/18 21:29 Carafate PO 1 gm 0700,1100,1600,2200 HEATHER Administration - Physical Exam Eyes Bilateral: positive: No lid inflammation, Conjunctivae nml, No scleral icterus ENT: positive: No signs of dehydration Neck: positive: Trachea midline Respiratory: positive: Breath sounds nml Cardiovascular: positive: Regular rate & rhythm Abdomen: positive: Non-tender Skin: positive: Color nml Extremities: positive: Nml appearance Neurologic/Psychiatric: positive: Oriented x3 Impression/Plan - Problem List Problem List: Post procedure day 2 following EGD with control of actively bleeding duodenal ulcer 1) FEN Tolerating a soft diet very well. IV fluids somewhat superfluous. 2) DUD Absolutely no indication that the patient is continuing to bleed. The black stools are just a remnant of his previous GI bleed. He is stable. Patient will need to be scoped as an outpatient in 6 weeks to check for complete healing. At no time would I recommend that the patient be off PPIs. This was discussed at length tonight with the patient. 3) Follow Again, will follow peripherally just in case intervention is required but current clinical plan/course suggests that additional surgical intervention may not be required during this hospitalization.
[2018-06-10 03:32] LABS: BASOPHILS % (AUTO) 0.3 %; EOSINOPHILS # (AUTO) 0.1 10^3/uL (0.0-0.7); EOSINOPHILS % (AUTO) 1.6 %; HGB - HEMOGLOBIN 9.8 g/dL (14.0-18.0); LYMPHOCYTES # (AUTO) 1.4 10^3/uL (1.5-3.5); LYMPHOCYTES % (AUTO) 21.9 %; MEAN CORPUSCULAR HEMOGLOBIN 30.1 pg (27.0-31.0); MEAN CORPUSCULAR HGB CONC 34.4 g/dL (32.0-36.0); MEAN CORPUSCULAR VOLUME 87.4 fL (80.0-94.0); MEAN PLATELET VOLUME 7.4 fL (7.4-11.4); MONOCYTES # (AUTO) 0.4 10^3/uL (0.0-1.0); MONOCYTES % (AUTO) 6.7 %; NEUTROPHILS # (AUTO) 4.5 10^3/uL (1.5-6.6); NEUTROPHILS % (AUTO) 69.5 %; PLT - PLATELET COUNT 144 10^3/uL (130-450); RED BLOOD COUNT 3.24 10^6/uL (4.70-6.10); RED CELL DISTRIBUTION WIDTH 14.1 % (12.0-15.0); WHITE BLOOD COUNT 6.4 x10^3/uL (4.8-10.8)
[2018-06-10 03:44] LABS: ALBUMIN 2.5 g/dL (3.2-5.5); ALBUMIN/GLOBULIN RATIO 1.1 (1.0-2.2); ALKALINE PHOSPHATASE 48 IU/L (42-121); ALT ALANINE AMINOTRANSFERASE 34 IU/L (10-60); AST ASPARTATE AMINOTRANSFERASE 28 IU/L (10-42); BILIRUBIN,TOTAL < 0.2 mg/dL (0.2-1.0); BUN - BLOOD UREA NITROGEN 18 mg/dL (6-20); CALCIUM 8.1 mg/dL (8.5-10.3); CARBON DIOXIDE - CO2 28 mmol/L (21-32); CHLORIDE 105 mmol/L (101-111); CREATININE 0.7 mg/dL (0.6-1.2); GFR - MDRD 110 (>89); GLUCOSE 112 mg/dL (70-100); MAGNESIUM 1.8 mg/dL (1.7-2.8); PHOSPHORUS 3.1 mg/dL (2.5-4.6); SODIUM 139 mmol/L (135-145); TOTAL PROTEIN 4.7 g/dL (6.7-8.2)
[2018-06-10] MEDS: SUCRALFATE 1 GM/10 ML UDC PO SCH ×2 (06:48→11:13)
[2018-06-10] MEDS: SODIUM CHLORIDE FLUSH 0.9% 10 ML SYRINGE IVP PRN ×2 (06:48→09:52)
[2018-06-10] MEDS: INSULIN ASPART 300 UNIT/3 ML PEN SUBQ SCH (08:13)
--- NOTE | 2018-06-10 08:54 | PROVIDER PROGRESS NOTE ---
Subjective - General Admit Date: 06/07/18 Procedure Date: 06/07/18 Post Op Days: 5 Procedure Performed: EGD with hemostatic control of active bleeding - Review of Systems General: positive: No symptoms (States that lunch was the best meal of his life and that he could really use a cigar now. Sitting up in chair.) HEENT: positive: No symptoms Pulmonary: positive: No symptoms Cardiovascular: positive: No symptoms Gastrointestinal: positive: No symptoms Genitourinary: positive: No symptoms Musculoskeletal: positive: Other (See above for buttock pain from significant time in bed.) Skin: positive: No symptoms Psychiatric: positive: No symptoms Objective - Patient Data Reviewed Vital Signs: Yes Vital Signs: Vital Signs x48h Temp Pulse Pulse Resp BP BP Pulse Ox 06/10/18 07:51 37.4 C 68 18 122/64 93 06/10/18 06:46 36.7 C 71 18 138/70 H 93 06/10/18 01:52 37.2 C 69 18 139/72 H 93 06/10/18 01:12 36.7 C 80 18 128/76 93 Weight: Weight 06/08/18 06/09/18 06/10/18 23:59 23:59 23:59 Weight (kg) 64.5 kg 66.5 kg Intake & Output: Intake and Output Totals x24h 06/08/18 06/09/18 06/10/18 23:59 23:59 23:59 Intake Total 4928.333 4379.500 950 Output Total 3535 1475 950 Balance 0980.299 1252.500 0 - Lab Results Lab Results: 06/10/18 09:05 06/10/18 03:25 Other Lab Results: Lab Results x24hrs 06/10/18 06/10/18 06/10/18 Range/Units 07:20 03:25 03:25 WBC 6.4 (4.8-10.8) x10^3/uL RBC 3.24 L (4.70-6.10) 10^6/uL Hgb 9.8 L (14.0-18.0) g/dL Hct 28.4 L (42.0-52.0) % MCV 87.4 (80.0-94.0) fL MCH 30.1 (27.0-31.0) pg MCHC 34.4 (32.0-36.0) g/dL RDW 14.1 (12.0-15.0) % Plt Count 144 (130-450) 10^3/uL MPV 7.4 (7.4-11.4) fL Neut # (Auto) 4.5 (1.5-6.6) 10^3/uL Lymph # (Auto) 1.4 L (1.5-3.5) 10^3/uL [place] # (Auto) 0.4 (0.0-1.0) 10^3/uL Eos # (Auto) 0.1 (0.0-0.7) 10^3/uL Baso # (Auto) 0.0 (0.0-0.1) 10^3/uL Absolute Nucleated RBC 0.01 x10^3/uL Nucleated RBC % 0.2 /100WBC Sodium 139 (135-145) mmol/L Potassium 3.9 (3.5-5.0) mmol/L Chloride 105 (101-111) mmol/L Carbon Dioxide 28 (21-32) mmol/L Anion Gap 6.0 (6-13) BUN 18 (6-20) mg/dL Creatinine 0.7 (0.6-1.2) mg/dL Estimated GFR (MDRD) 110 (>89) Glucose 112 H (70-100) mg/dL POC Whole Bld Glucose 115 H (70 - 100) mg/dL Calcium 8.1 L (8.5-10.3) mg/dL Phosphorus 3.1 (2.5-4.6) mg/dL Magnesium 1.8 (1.7-2.8) mg/dL Total Bilirubin < 0.2 L (0.2-1.0) mg/dL AST 28 (10-42) IU/L ALT 34 (10-60) IU/L Alkaline Phosphatase 48 (42-121) IU/L Total Protein 4.7 L (6.7-8.2) g/dL Albumin 2.5 L (3.2-5.5) g/dL Globulin 2.2 (2.1-4.2) g/dL Albumin/Globulin Ratio 1.1 (1.0-2.2) 06/09/18 06/09/18 06/09/18 Range/Units 20:15 18:25 16:44 WBC 5.8 (4.8-10.8) x10^3/uL RBC 3.29 L (4.70-6.10) 10^6/uL Hgb 10.1 L (14.0-18.0) g/dL Hct 29.1 L (42.0-52.0) % MCV 88.6 (80.0-94.0) fL MCH 30.6 (27.0-31.0) pg MCHC 34.6 (32.0-36.0) g/dL RDW 14.3 (12.0-15.0) % Plt Count 154 (130-450) 10^3/uL MPV 7.9 (7.4-11.4) fL Neut # (Auto) 4.3 (1.5-6.6) 10^3/uL Lymph # (Auto) 0.9 L (1.5-3.5) 10^3/uL [place] # (Auto) 0.4 (0.0-1.0) 10^3/uL Eos # (Auto) 0.1 (0.0-0.7) 10^3/uL Baso # (Auto) 0.1 (0.0-0.1) 10^3/uL Absolute Nucleated RBC 0.00 x10^3/uL Nucleated RBC % 0.1 /100WBC Sodium (135-145) mmol/L Potassium (3.5-5.0) mmol/L Chloride (101-111) mmol/L Carbon Dioxide (21-32) mmol/L Anion Gap (6-13) BUN (6-20) mg/dL Creatinine (0.6-1.2) mg/dL Estimated GFR (MDRD) (>89) Glucose (70-100) mg/dL POC Whole Bld Glucose 121 H 136 H (70 - 100) mg/dL Calcium (8.5-10.3) mg/dL Phosphorus (2.5-4.6) mg/dL Magnesium (1.7-2.8) mg/dL Total Bilirubin (0.2-1.0) mg/dL AST (10-42) IU/L ALT (10-60) IU/L Alkaline Phosphatase (42-121) IU/L Total Protein (6.7-8.2) g/dL Albumin (3.2-5.5) g/dL Globulin (2.1-4.2) g/dL Albumin/Globulin Ratio (1.0-2.2) 06/09/18 06/09/18 06/08/18 Range/Units 12:14 12:11 21:17 WBC 6.5 (4.8-10.8) x10^3/uL RBC 3.41 L (4.70-6.10) 10^6/uL Hgb 10.3 L (14.0-18.0) g/dL Hct 29.9 L (42.0-52.0) % MCV 87.7 (80.0-94.0) fL MCH 30.3 (27.0-31.0) pg MCHC 34.5 (32.0-36.0) g/dL RDW 14.2 (12.0-15.0) % Plt Count 137 (130-450) 10^3/uL MPV 7.4 (7.4-11.4) fL Neut # (Auto) 4.8 (1.5-6.6) 10^3/uL Lymph # (Auto) 1.2 L (1.5-3.5) 10^3/uL [place] # (Auto) 0.4 (0.0-1.0) 10^3/uL Eos # (Auto) 0.0 (0.0-0.7) 10^3/uL Baso # (Auto) 0.0 (0.0-0.1) 10^3/uL Absolute Nucleated RBC 0.01 x10^3/uL Nucleated RBC % 0.1 /100WBC Sodium (135-145) mmol/L Potassium (3.5-5.0) mmol/L Chloride (101-111) mmol/L Carbon Dioxide (21-32) mmol/L Anion Gap (6-13) BUN (6-20) mg/dL Creatinine (0.6-1.2) mg/dL Estimated GFR (MDRD) (>89) Glucose (70-100) mg/dL POC Whole Bld Glucose 112 H 99 (70 - 100) mg/dL Calcium (8.5-10.3) mg/dL Phosphorus (2.5-4.6) mg/dL Magnesium (1.7-2.8) mg/dL Total Bilirubin (0.2-1.0) mg/dL AST (10-42) IU/L ALT (10-60) IU/L Alkaline Phosphatase (42-121) IU/L Total Protein (6.7-8.2) g/dL Albumin (3.2-5.5) g/dL Globulin (2.1-4.2) g/dL Albumin/Globulin Ratio (1.0-2.2) 06/08/18 06/08/18 06/08/18 Range/Units 16:54 11:48 05:45 WBC (4.8-10.8) x10^3/uL RBC (4.70-6.10) 10^6/uL Hgb (14.0-18.0) g/dL Hct (42.0-52.0) % MCV (80.0-94.0) fL MCH (27.0-31.0) pg MCHC (32.0-36.0) g/dL RDW (12.0-15.0) % Plt Count (130-450) 10^3/uL MPV (7.4-11.4) fL Neut # (Auto) (1.5-6.6) 10^3/uL Lymph # (Auto) (1.5-3.5) 10^3/uL [place] # (Auto) (0.0-1.0) 10^3/uL Eos # (Auto) (0.0-0.7) 10^3/uL Baso # (Auto) (0.0-0.1) 10^3/uL Absolute Nucleated RBC x10^3/uL Nucleated RBC % /100WBC Sodium (135-145) mmol/L Potassium (3.5-5.0) mmol/L Chloride (101-111) mmol/L Carbon Dioxide (21-32) mmol/L Anion Gap (6-13) BUN (6-20) mg/dL Creatinine (0.6-1.2) mg/dL Estimated GFR (MDRD) (>89) Glucose (70-100) mg/dL POC Whole Bld Glucose 100 110 H 124 H (70 - 100) mg/dL Calcium (8.5-10.3) mg/dL Phosphorus (2.5-4.6) mg/dL Magnesium (1.7-2.8) mg/dL Total Bilirubin (0.2-1.0) mg/dL AST (10-42) IU/L ALT (10-60) IU/L Alkaline Phosphatase (42-121) IU/L Total Protein (6.7-8.2) g/dL Albumin (3.2-5.5) g/dL Globulin (2.1-4.2) g/dL Albumin/Globulin Ratio (1.0-2.2) 06/07/18 06/07/18 06/07/18 Range/Units 23:58 18:02 15:16 WBC (4.8-10.8) x10^3/uL RBC (4.70-6.10) 10^6/uL Hgb (14.0-18.0) g/dL Hct (42.0-52.0) % MCV (80.0-94.0) fL MCH (27.0-31.0) pg MCHC (32.0-36.0) g/dL RDW (12.0-15.0) % Plt Count (130-450) 10^3/uL MPV (7.4-11.4) fL Neut # (Auto) (1.5-6.6) 10^3/uL Lymph # (Auto) (1.5-3.5) 10^3/uL [place] # (Auto) (0.0-1.0) 10^3/uL Eos # (Auto) (0.0-0.7) 10^3/uL Baso # (Auto) (0.0-0.1) 10^3/uL Absolute Nucleated RBC x10^3/uL Nucleated RBC % /100WBC Sodium (135-145) mmol/L Potassium (3.5-5.0) mmol/L Chloride (101-111) mmol/L Carbon Dioxide (21-32) mmol/L Anion Gap (6-13) BUN (6-20) mg/dL Creatinine (0.6-1.2) mg/dL Estimated GFR (MDRD) (>89) Glucose (70-100) mg/dL POC Whole Bld Glucose 111 H 98 118 H (70 - 100) mg/dL Calcium (8.5-10.3) mg/dL Phosphorus (2.5-4.6) mg/dL Magnesium (1.7-2.8) mg/dL Total Bilirubin (0.2-1.0) mg/dL AST (10-42) IU/L ALT (10-60) IU/L Alkaline Phosphatase (42-121) IU/L Total Protein (6.7-8.2) g/dL Albumin (3.2-5.5) g/dL Globulin (2.1-4.2) g/dL Albumin/Globulin Ratio (1.0-2.2) - Current Medications Current Medications: Current Medications Generic Name Dose Route Start Last Admin Trade Name Freq PRN Reason Stop Dose Admin Albuterol 2.5 mg 06/07/18 16:08 06/09/18 20:01 INH 2.5 mg RTQ4H PRN Administration Wheezing Amitriptyline HCl 25 mg 06/09/18 21:00 06/09/18 20:28 Elavil PO 25 mg HS HEATHER Administration Atorvastatin Calcium 10 mg 06/09/18 21:00 06/09/18 20:28 Lipitor PO 10 mg QPM HEATHER Administration Diphenhydramine HCl 25 mg 06/08/18 20:24 06/08/18 21:21 Benadryl PO 25 mg QPM PRN Administration Insomnia Sodium Chloride 1,000 mls @ 0 mls/hr 06/09/18 14:00 06/09/18 16:00 Normal Saline 0.9% IV Infused .Q0M HEATHER Infusion TKO Insulin Aspart 1 - 5 unit 06/08/18 17:00 06/10/18 08:13 Novolog SUBQ Not Given 0800,1200,1700,2100 [facility] Protocol Ipratropium [place] 0.5 mg 06/07/18 15:21 06/08/18 14:17 Atrovent INH 0.5 mg RTQ6H PRN Administration Shortness of Air/Wheezing Mineral Oil 1 applic 06/08/18 20:31 06/08/18 21:21 Cavilon TOP 1 applic PRN PRN Administration Skin Care Nicotine 1 patch 06/08/18 09:00 06/09/18 09:04 Nicoderm TOP 1 patch DAILY HEATHER Administration Pantoprazole Sodium 40 mg 06/09/18 21:00 06/09/18 20:28 Protonix IVP 40 mg BID HEATHER Administration Sodium Chloride 10 ml 06/07/18 17:00 06/09/18 19:15 Normal Saline Flush 0.9% IVP 10 ml 0100,0900,1700 HEATHER Administration Sodium Chloride 10 ml 06/07/18 15:13 06/10/18 06:48 Normal Saline Flush 0.9% IVP 10 ml PRN PRN Administration NEEDED PER PROVIDER ORDERS Sucralfate 1 gm 06/08/18 16:00 06/10/18 06:48 Carafate PO 1 gm 0700,1100,1600,2200 HEATHER Administration - Physical Exam General Appearance: positive: No acute distress Eyes Bilateral: positive: No lid inflammation, Conjunctivae nml, No scleral icterus ENT: positive: No signs of dehydration Respiratory: positive: Chest non-tender, Breath sounds nml Cardiovascular: positive: Regular rate & rhythm Abdomen: positive: Non-tender, Nml bowel sounds, No distention Skin: positive: Color nml Extremities: positive: Nml appearance Neurologic/Psychiatric: positive: Oriented x3 Impression/Plan - Problem List Problem List: Post procedure day 3 following EGD with control of actively bleeding duodenal ulcer 1) FEN Tolerating a soft diet very well. IV fluids somewhat superfluous. 2) DUD Absolutely no indication that the patient is continuing to bleed. The black stools are just a remnant of his previous GI bleed. He is stable. Patient will need to be scoped as an outpatient in 6 weeks to check for complete healing. At no time would I recommend that the patient be off PPIs. This was discussed at length tonight with the patient. 3) Follow Again, will follow peripherally just in case intervention is required but current clinical plan/course suggests that additional surgical intervention may not be required during this hospitalization.
[2018-06-10] MEDS ORDERED: hydroCHLOROthiazide 25 MG TABLET PO SCH (09:00)
[2018-06-10] MEDS ORDERED: FLUoxetine 10 MG CAPSULE PO SCH (09:00)
[2018-06-10 09:23] LABS: BASOPHILS % (AUTO) 0.3 %; EOSINOPHILS # (AUTO) 0.1 10^3/uL (0.0-0.7); EOSINOPHILS % (AUTO) 1.4 %; HGB - HEMOGLOBIN 9.9 g/dL (14.0-18.0); MEAN CORPUSCULAR HGB CONC 34.1 g/dL (32.0-36.0); MEAN CORPUSCULAR VOLUME 87.9 fL (80.0-94.0); MEAN PLATELET VOLUME 7.6 fL (7.4-11.4); MONOCYTES # (AUTO) 0.4 10^3/uL (0.0-1.0); MONOCYTES % (AUTO) 6.7 %; NEUTROPHILS # (AUTO) 4.9 10^3/uL (1.5-6.6); NEUTROPHILS % (AUTO) 75.6 %; PLT - PLATELET COUNT 145 10^3/uL (130-450); RED BLOOD COUNT 3.31 10^6/uL (4.70-6.10); WHITE BLOOD COUNT 6.5 x10^3/uL (4.8-10.8)
[2018-06-10] MEDS: NICOTINE 21 MG PATCH TOP SCH (09:51)
[2018-06-10] MEDS: SODIUM CHLORIDE FLUSH 0.9% 10 ML SYRINGE IVP SCH (09:52)
[2018-06-10] MEDS: PANTOPRAZOLE 40 MG VIAL IVP SCH (09:52)
[2018-06-10] MEDS: ALBUTEROL NEB 2.5 MG/3 ML INH PRN (10:00)
[2018-06-10 11:33] VITALS: BP 150/80
--- NOTE | 2018-06-10 12:02 | Discharge Plan ---
Discharge Plan Disposition: 01 Home, Self Care Condition: Stable Prescriptions: Pantoprazole [Protonix] 40 mg PO BID #60 tablet Diet: Soft Activity Restrictions: Activity as Tolerated Shower Restrictions: No Instruction Topics: Diabetes Type 2 Coping, Blood Sugar Check, Diabetes Type 2 Oral Meds, Diabetes Healthy Meals, Diabetes Eating Out, Gastric Ulcer Additional Instructions or Follow Up instructions: Resume all your pre-hospital medications EXCEPT STOP USING the Meloxicam; Melixicam is in the category of NSAID medicines like Motrin and Advil and Aspirin and added to your bleeding ulcer. If you need to be on Meloxicam, restart only after it is OKd by your PCP or Dr Fabian Garay. Drink less alcohol, also less coffee and tea. Eat foods that are not acidy or spicy. Avoid orange juice, grapefruit juice, pineapples, tomato products, jalepenos, hot peppers, prepared meats like sausages, salami, ham and cold cuts. See Dr Fabian Garay in 6 weeks in follow-up. Call for an appointment to see him: . Start taking the new prescription for Protonix for at least 1 month. See your PCP for refills and for follow-up of this hospitalization. You should see your PCP in 1-2 weeks. Come back to the ER for new or worsening symptoms. No Smoking: If you smoke, Please STOP! Call for help. Follow-up with: Alcides Villareal MD [Primary Care Provider] - Fabian Garay MD [Provider Admit Priv/Credential] -
--- NOTE | 2018-06-13 14:30 | DISCHARGE SUMMARY ---
Physician: Sarah Riggs MD DATE OF ADMISSION: 06/07/2018 DATE OF DISCHARGE: 06/10/2018 HISTORY OF PRESENT ILLNESS: This is a 73-year-old white male with a history of diabetes, hypertension, COPD, tobacco use. The patient started to feel poorly about a month ago with epigastric pain, worsening appetite, was seen by his primary care physician who ordered a CAT scan and he was told he had an inflamed pancreas and started on oxycodone for pain relief. He was also advised to have a liquid diet. This did not help and he was referred to see Dr. Ho, which was about a week before this admission. He started taking NSAIDs and pancreatic enzymes. Finally, his abdominal pain improved, but he had lost 30 pounds over 1-1/2 months, and when he stopped taking the pain medication he reports starting to feel weak and lightheaded. He remembered having nausea and vomiting of black, tarry emesis, was more dizzy and disoriented, and developed abdominal discomfort, and then black tarry stools. He tried to go to work; however, felt weak and dizzy and asked a coworker to take him to the emergency room, but en route he passed out. The friend called 911 and paramedics arrived to find him hypotensive, pale, and hypoxic. He was placed on oxygen and brought to the emergency room. He had a blood pressure of 80 systolic, hemoglobin of 8.9, down from 14.2 of his baseline, elevated lactic acid level of 8.3, and elevated glucose of 345. He had another black, tarry stool in the emergency room. He was given IV Protonix, resuscitated with IV fluids and taken directly to the operating room for an EGD. HOSPITAL COURSE AND DISCHARGE DIAGNOSES 1. Duodenal ulcer. The endoscopy showed a large bleeding, deep and irregular- shaped ulcer with an adherent clot and heaped up edges as well as a visible vessel with active arterial spurting of blood in the duodenal bulb. Biopsies were taken of the antrum for pathology and IBAN testing. He had submucosal injection of epinephrine around the bleeding site and cautery done which provided complete hemostasis. He was taken to the ICU and put on an IV Protonix drip. He had no further melena or hematochezia. His vital signs stabilized, and he was eventually able to be transferred out of the ICU and was started on a clear liquid diet, which was then advanced. He was kept on IV Protonix during this entire course and advised to take p.o. Protonix at discharge as well as start a low acid, nonspicy, soft diet at discharge. 2. Anemia due to gastrointestinal blood loss. The patient initially received non-crossmatched blood because of his critical condition at presentation. He needed a total of 4 units of packed red blood cells transfused during this admission. His hemoglobin and hematocrit were monitored very closely. His initial hemoglobin of 8.9 improved into the 10.6 range, but did drop again to 7.9. At the time of discharge, his hemoglobin was stable at 9.5, 10.1, and 9.9 for the last 2 days without further transfusion. 3. Hypertension. After the initial hypotension, IV fluids and blood transfusions were given and his blood pressure improved. He required resumption of his antihypertensives later in his hospital stay. 4. Diabetes. The patient's elevated glucose was felt to be from stress. His A1c was measured at 6.3, indicating good glucose control. 5. Chronic pancreatitis. This is obtained from the patient's history, there was no active pancreatitis by lab tests while here. His lipase was 29 on presentation. 6. Tobacco abuse. The patient required a topical nicotine patch while here. He was advised to stop smoking, which also could add to his risk of ulcers. ALLERGIES: NONE. MEDICATIONS AT THE TIME OF DISCHARGE 1. Oxycodone p.r.n. 2. Elavil 25 mg at bedtime. 3. Prozac 10 mg daily. 4. Breo inhaler daily. 5. HCTZ 25 mg daily. 6. Lipase/protease/amylase 1 tablet t.i.d. 7. Glucophage 500 mg b.i.d. 8. Nicotine gum p.r.n. 9. Simvastatin 20 mg every night. 10. Protonix 40 mg p.o. b.i.d. for 1 month. 11. He was told to stop taking his Meloxicam and to avoid NSAIDs and aspirin, drink less alcohol and caffeinated drinks, and avoid acidic or spicy foods. PHYSICAL EXAMINATION AT DISCHARGE VITAL SIGNS: Stable. Blood pressure 115/64, heart rate 80, afebrile, room air saturation 100%. HEENT: Unremarkable. NECK: Without JVD or bruits. CHEST: Clear. HEART: Sounds normal. ABDOMEN: Soft, nontender. No organomegaly. EXTREMITIES: No edema. NEUROLOGIC: Intact. LABORATORY AND IMAGING: The patient had an Echo while here to evaluate shortness of breath. This showed an LVEF of 50-55% and grade 1 diastolic dysfunction, mild mitral regurgitation, mild tricuspid regurgitation, calculated RVSP of 39 mmHg (whicjh is slightly elevated, possibly from his COPD). The RV size and function was normal. The pathology report has returned and it showed moderate chronic gastritis, no neutrophilic inflammation, and no Helicobacter. No metaplasia, dysplasia, or carcinoma. FOLLOWUP: The patient is to see his PCP in [address] Fabian Garay, the surgeon, in 6 weeks in followup. CODE STATUS: FULL CODE. TIME REQUIRED TO COMPLETE THIS ENTIRE DISCHARGE, CHART REVIEW, PATIENT EDUCATION, PRESCRIPTION ORDERS, DICTATION: 30 minutes. cc: Alcides Villareal MD TD: 06/13/2018 14:03 MTDD
== END 2018-06-10 13:04 | disposition home or self-care (01) | DRG 378 ==
LOC: ED 12:40 → SDS 13:45 → ICU 15:13 → MS2 06-10 01:37
PROVIDERS: ADMIT Internal Medicine; ATTEND Internal Medicine
PROC: 0DB98ZX Excision of Duodenum, Via Natural or Artificial Opening Endoscopic, Diagnostic (ICD-10-PCS; 2018-06-07)
PROC: 3E0G8GC Introduction of Other Therapeutic Substance into Upper GI, Via Natural or Artificial Opening Endoscopic (ICD-10-PCS; 2018-06-07)
PROC: 30233N1 Transfusion of Nonautologous Red Blood Cells into Peripheral Vein, Percutaneous Approach (ICD-10-PCS; 2018-06-07)
PROC: 0W3P8ZZ Control Bleeding in Gastrointestinal Tract, Via Natural or Artificial Opening Endoscopic (ICD-10-PCS; principal; 2018-06-07 14:40)
DX: R55 Syncope and collapse (principal); K92.0 Hematemesis; I95.9 Hypotension, unspecified; R11.10 Vomiting, unspecified; K26.4 Chronic or unspecified duodenal ulcer with hemorrhage; K86.1 Other chronic pancreatitis; D50.0 Iron deficiency anemia secondary to blood loss (chronic); Z87.891 Personal history of nicotine dependence; F10.21 Alcohol dependence, in remission; D64.9 Anemia, unspecified; F17.290 Nicotine dependence, other tobacco product, uncomplicated; H54.7 Unspecified visual loss; H91.90 Unspecified hearing loss, unspecified ear; J44.9 Chronic obstructive pulmonary disease, unspecified; I10 Essential (primary) hypertension; E11.9 Type 2 diabetes mellitus without complications
CPT/HCPCS: 36415; 80053; 81001; 81003; 82550; 83036; 83605; 83690; 83735; 84100; 84484; 85025; 85610; 86850; 86900; 86901; 86920; 87040; 87081; 87086; 87150; 93005; 93306; 94640; 96374; 99284; 99285

== ENCOUNTER 2018-06-16 11:04 | Emergency (ER) | payer MEDICARE, OTHER ==
[2018-06-16 11:39] LABS: BASOPHILS # (AUTO) 0.1 10^3/uL (0.0-0.1); BASOPHILS % (AUTO) 0.3 %; EOSINOPHILS % (AUTO) 0.2 %; HGB - HEMOGLOBIN 9.8 g/dL (14.0-18.0); LYMPHOCYTES # (AUTO) 1.2 10^3/uL (1.5-3.5); LYMPHOCYTES % (AUTO) 7.3 %; MEAN CORPUSCULAR HEMOGLOBIN 29.5 pg (27.0-31.0); MEAN CORPUSCULAR HGB CONC 33.2 g/dL (32.0-36.0); MEAN CORPUSCULAR VOLUME 88.9 fL (80.0-94.0); MEAN PLATELET VOLUME 7.6 fL (7.4-11.4); MONOCYTES # (AUTO) 0.9 10^3/uL (0.0-1.0); MONOCYTES % (AUTO) 5.4 %; NEUTROPHILS # (AUTO) 13.8 10^3/uL (1.5-6.6); NEUTROPHILS % (AUTO) 86.8 %; PLT - PLATELET COUNT 323 10^3/uL (130-450); RED BLOOD COUNT 3.31 10^6/uL (4.70-6.10); RED CELL DISTRIBUTION WIDTH 14.2 % (12.0-15.0); WHITE BLOOD COUNT 15.9 x10^3/uL (4.8-10.8)
[2018-06-16 11:52] LABS: ALBUMIN/GLOBULIN RATIO 1.2 (1.0-2.2); BILIRUBIN,TOTAL 0.6 mg/dL (0.2-1.0); CALCIUM 8.6 mg/dL (8.5-10.3); CREATININE 0.9 mg/dL (0.6-1.2); TOTAL PROTEIN 5.5 g/dL (6.7-8.2)
[2018-06-16] MEDS ORDERED: SODIUM CHLORIDE 0.9% 1,000 ML IV ONE (11:53)
--- NOTE | 2018-06-16 11:57 | ED Physician Documentation ---
History of Present Illness - Stated complaint Stated Complaint: WEAK,DIZZY,SOA - Chief complaint Chief Complaint: General - History obtained from History obtained from: Patient, Family - History of Present Illness Timing: Today - Additonal information Additional information: 73-year-old male who was admitted to the hospital last week with an upper GI bleed had a clip placed to the bleed and 4 units transfusion. He had a lot of bleeding with that and a dramatic episode. He improved through the week was still a bit weak but he was able to work the past 2 days. He works laying [employer]. He states this morning woke up feeling dizzy and lightheaded felt nauseous when he headed into the bathroom became severely diaphoretic and then had a bowel movement which she noted to be normal in color. In his past GI bleed this past week he had black stool for 2 days and vomited black material as well. He passed significantly more blood when he was in the emergency department prior to his admission. He states he has not otherwise been ill. PD PAST MEDICAL HISTORY - Past Medical History Cardiovascular: Hypertension, High cholesterol Respiratory: COPD Neuro: None Endocrine/Autoimmune: Type 2 diabetes GI: Pancreatitis : None HEENT: Chronic vision loss, Chronic hearing loss Psych: Depression Musculoskeletal: Osteoarthritis Derm: None - Past Surgical History Past Surgical History: Yes Ortho: Spine surgery - Present Medications Home Medications: Ambulatory Orders Medication Instructions Recorded Confirmed FLUoxetine [PROzac] 10 mg PO DAILY 09/23/15 06/07/18 Amitriptyline [Elavil] 25 mg PO HS 06/07/18 06/07/18 Fluticasone/Vilanterol [Breo 1 inh IH DAILY 06/07/18 06/07/18 Ellipta 100-25 Mcg INH] Lipase/Protease/Amylase [Zenpep Dr 1 each PO TIDWM 06/07/18 06/07/18 10,000 Unit Capsule] Nicotine Polacrilex [Nicotine Gum] 2 mg BC PRN PRN 06/07/18 06/07/18 Simvastatin 20 mg PO QPM 06/07/18 06/07/18 hydroCHLOROthiazide 25 mg PO DAILY 06/07/18 06/07/18 [Hydrochlorothiazide] metFORMIN [Glucophage] 500 mg PO BIDWM 06/07/18 06/07/18 oxyCODONE [Roxicodone] 5 - 10 mg PO Q6HR PRN 06/07/18 06/07/18 Pantoprazole [Protonix] 40 mg PO BID #60 tablet 06/10/18 - Allergies Allergies/Adverse Reactions: Allergies Allergy/AdvReac Type Severity Reaction Status Date / Time No Known Drug Allergies Allergy Verified 06/16/18 11:13 - Social History Does the pt smoke?: No Smoking Status: Never smoker Does the pt drink ETOH?: Yes Does the pt have substance abuse?: No - Immunizations Immunizations are current?: No Immunizations: TDAP >10years/unknown - POLST Patient has POLST: No POLST Status: Full Code PD ED PE NORMAL - Vitals Vital signs reviewed: Yes (tachy) - General General: Alert and oriented X 3, No acute distress, Well developed/nourished, Other (pale appearing male in no distress) - HEENT HEENT: Atraumatic, PERRL, EOMI - Neck Neck: Supple, no meningeal sign, No bony TTP - Cardiac Cardiac: No murmur, Other (tachyt to 110) - Respiratory Respiratory: No respiratory distress, Other (scattered wheezes/rhonchi bilaterally ) - Abdomen Abdomen: Soft, Non tender - Back Back: No CVA TTP, No spinal TTP - Derm Derm: Warm and dry, No rash, Other (pale ) - Neuro Neuro: Alert and oriented X 3, 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 ) Computer interpretation: Agree with computer - Labs Labs: Laboratory Tests 06/16/18 06/16/18 11:28 11:28 WBC 15.9 H RBC 3.31 L Hgb 9.8 L Hct 29.4 L MCV 88.9 MCH 29.5 MCHC 33.2 RDW 14.2 Plt Count 323 MPV 7.6 Neut # (Auto) 13.8 H Lymph # (Auto) 1.2 L Lake # (Auto) 0.9 Eos # (Auto) 0.0 Baso # (Auto) 0.1 Absolute Nucleated RBC 0.00 Nucleated RBC % 0.0 Sodium 138 Potassium 4.8 Chloride 101 Carbon Dioxide 30 Anion Gap 7.0 BUN 37 H Creatinine 0.9 Estimated GFR (MDRD) 82 L Glucose 158 H Calcium 8.6 Total Bilirubin 0.6 AST 15 ALT 20 Alkaline Phosphatase 61 Total Protein 5.5 L Albumin 3.0 L Globulin 2.5 Albumin/Globulin Ratio 1.2 Lipase 23 - Rads (name of study) 2 veiw chest Radiology: Prelim report reviewed (Impression: 1. Moderate to severe upper lung predominant COPD noted. Full no focal airspace consolidation. 2 Subtle density projected in the left midlung field may represent a nipple shadow or pulmonary nodule. Follow-up with a nipple markers could be obtained.), EMP read indepedently, See rad report Procedures - IVC sono (time) 1150 Bedside IVC sono: IVC measures (cm) (1.08), IVC collapsed c insp (cm) (complete), Dehydration (est 1-2 liter deficit) PD MEDICAL DECISION MAKING - ED course Complexity details: reviewed old records, reviewed results, re-evaluated patient, considered differential, d/w patient, d/w family ED course: 73-year-old male with a history of recent upper GI bleed requiring a 4 unit transfusion has developed symptoms of lightheadedness and dizziness and appears pale. He is found to have an elevated BUN and left the hospital with a normal BUN. His blood counts are about what they were when he left the hospital 1 week ago. He is found to be volume depleted as well. He is administered a liter of saline. Today the operating room is out of commission with construction until 7pm. This patient required urgent endoscopy for control of bleeding from a duodenal ulcer last week. This patient needs admission to the hospital for acute GI bleeding. For these reasons [facility] is contacted for transfer for admission. Dr. 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 To reduce out of hospital time the patient is transferred by air. [facility] the patient becomes tachy and his blood pressure drops and he is administered a unit of crossmatched blood for the transfer. - Sepsis Event Vital Signs: Vital Signs - 24 hr 06/16/18 06/16/18 11:10 11:37 Temperature 37.2 C Heart Rate 119 H 108 H Respiratory 16 22 Rate Blood Pressure 99/76 87/65 L O2 Saturation 97 95 Oxygen O2 Source Room air Departure - Departure Disposition: 02 Transfer Acute Care Hosp Clinical Impression: Upper GI bleed Anemia Qualifiers: Anemia type: other cause Other causes of anemia: acute posthemorrhagic Qualified Code(s): D62 - Acute posthemorrhagic anemia Condition: Serious
--- NOTE | 2018-06-16 12:37 | XRAY Report ---
Reason: cough, shortness of air Procedure Date: 06/16/2018 Accession Number: [id number] / [id number] Procedure: XR - Chest 2 View X-Ray CPT Code: 72727 FULL RESULT: EXAM: CHEST RADIOGRAPHY EXAM DATE: 06/16/2018 12:08 PM. CLINICAL HISTORY: Cough, shortness of air. COMPARISON: 01/18/2016. TECHNIQUE: 2 views. FINDINGS: Lungs/Pleura: Hyperlucent upper lungs are compatible with COPD. Subtle density projects at the left midlung which may represent a nipple shadow or possibly pulmonary nodule. Calcified granuloma seen at the lateral aspect of the left lower lobe. No evidence for pleural effusion or pneumothorax. Mediastinum: Heart size and mediastinum are normal. Atheromatous calcification of the aortic arch. Other: None. IMPRESSION: 1. Moderate to severe upper lung predominant COPD noted. No focal airspace consolidation. 2. Subtle density projected in the left midlung may represent a nipple shadow or pulmonary nodule. Follow-up with nipple markers could be obtained. RADIA
[2018-06-16 15:10] LABS: HGB - HEMOGLOBIN 8.6 g/dL (14.0-18.0)
[2018-06-16] MEDS ORDERED: PANTOPRAZOLE 40 MG VIAL IVP STA (15:54)
[2018-06-16 16:40] VITALS: BP 102/57
== END 2018-06-16 17:10 | disposition short-term general hospital (02) ==
LOC: ED 11:04
DX: K92.2 Gastrointestinal hemorrhage, unspecified (principal); D62 Acute posthemorrhagic anemia; R00.0 Tachycardia, unspecified; E86.0 Dehydration; K26.4 Chronic or unspecified duodenal ulcer with hemorrhage; I10 Essential (primary) hypertension; E11.9 Type 2 diabetes mellitus without complications; Z79.84 Long term (current) use of oral hypoglycemic drugs
CPT/HCPCS: 36415; 36430; 71046; 80053; 83690; 84484; 85014; 85018; 85025; 86850; 86900; 86901; 86920; 93005; 96361; 96374; 99284; 99285; P9016

== ENCOUNTER 2022-07-02 04:06 | Emergency (ER) | payer MEDICARE, OTHER ==
[2022-07-02] MEDS ORDERED: DEXAMETHASONE 10 MG/ML VIAL PO STA (04:34)
[2022-07-02] MEDS ORDERED: CHERRY SYRUP 10 ML UDC PO ONE (04:34)
[2022-07-02] MEDS ORDERED: CETIRIZINE 10 MG TABLET PO STA (04:34)
--- NOTE | 2022-07-02 04:39 | ED Physician Documentation ---
PD HPI HEENT - Stated complaint Stated Complaint: L FACIAL SWELLING - Chief complaint Chief Complaint: Wound - History obtained from History obtained from: Patient - History of Present Illness Timing - onset: How many hours ago (4), Today Timing - duration: Hours (4) Timing - details: Abrupt onset (He states he felt well going to bed around 730. Awoke at midnight and rolled to his side and felt a "slapped" feeling on the left side of the face. Soon after he started to have a feeling of swelling in the lip cheek and face. This continued over the next couple of hours despite some ice and cold), Still present Location: Other (left cheek and side of face.) Improves: Medication (He had taken an oxycodone for some back pain a few hours prior, just before going to bed. He has been taking this periodically when worse pain. He also resumed lisinopril blood pressure medicine a couple of weeks ago.) Associated symptoms: No: Fever, Congestion, Rhinorrhea Similar symptoms before: Has not had sx before Recently seen: Clinic (3 weeks ago and resumed a prior BP med, Lisinopril.) Review of Systems Constitutional: denies: Fever, Chills Nose: denies: Rhinorrhea / runny nose, Congestion Throat: denies: Sore throat Cardiac: denies: Chest pain / pressure, Palpitations Respiratory: denies: Dyspnea, Cough GI: denies: Nausea, Vomiting, Diarrhea Musculoskeletal: reports: Back pain. denies: Neck pain Neurologic: denies: Focal weakness, Numbness, Altered mental status, Headache, Head injury PD PAST MEDICAL HISTORY - Past Medical History Past Medical History: Yes Cardiovascular: Hypertension, High cholesterol Respiratory: COPD Neuro: None Endocrine/Autoimmune: Type 2 diabetes GI: GERD, Pancreatitis : None HEENT: Chronic vision loss, Chronic hearing loss Psych: Depression Musculoskeletal: Osteoarthritis Derm: None - Past Surgical History Past Surgical History: Yes Ortho: Spine surgery - Present Medications Home Medications: Ambulatory Orders Medication Instructions Recorded Confirmed Amitriptyline [Elavil] 25 mg PO HS 06/07/18 07/02/22 Fluticasone/Vilanterol [Breo 1 inh IH DAILY 06/07/18 07/02/22 Ellipta 100-25 Mcg INH] Lipase/Protease/Amylase [Zenpep Dr 1 each PO TIDWM 06/07/18 07/02/22 10,000 Unit Capsule] Nicotine Polacrilex [Nicotine Gum] 2 mg BC PRN PRN 06/07/18 07/02/22 Simvastatin 20 mg PO QPM 06/07/18 07/02/22 hydroCHLOROthiazide 25 mg PO DAILY 06/07/18 07/02/22 [Hydrochlorothiazide] metFORMIN [Glucophage] 500 mg PO BIDWM 06/07/18 07/02/22 oxyCODONE [Roxicodone] 5 - 10 mg PO Q6HR PRN 06/07/18 07/02/22 Pantoprazole [Protonix] 40 mg PO BID #60 tablet 06/10/18 07/02/22 Cetirizine [ZyrTEC] 10 mg PO BID #15 tablet 07/02/22 Sertraline [Zoloft] 25 mg PO DAILY 07/02/22 07/02/22 dexAMETHasone [Decadron] 4 mg PO DAILY #5 tablet 07/02/22 lisinopriL [Lisinopril] 20 mg PO DAILY 07/02/22 07/02/22 - Allergies Allergies/Adverse Reactions: Allergies Allergy/AdvReac Type Severity Reaction Status Date / Time No Known Drug Allergies Allergy Verified 07/02/22 04:17 - Social History Does the pt smoke?: No Smoking Status: Never smoker Does the pt drink ETOH?: Yes Does the pt have substance abuse?: No - Immunizations Immunizations are current?: No Immunizations: TDAP >10years/unknown - POLST Patient has POLST: No POLST Status: Full Code PD ED PE NORMAL - Vitals Vital signs reviewed: Yes - General General: Alert and oriented X 3, No acute distress, Well developed/nourished - HEENT HEENT: PERRL, EOMI, Pharynx benign (There is some swelling noted in the inside left cheek. No dental tenderness. No particular tenderness of the parotid.), Other (The left side of the face including the upper and lower lips onto the cheek and down towards the mandible shows edema with some mild firmness. No fluctuance noted. No skin sores.) - Neck Neck: Supple, no meningeal sign, No adenopathy - Cardiac Cardiac: RRR, No murmur - Respiratory Respiratory: Clear bilaterally - Derm Derm: Normal color, Warm and dry, No rash - Extremities Extremities: No tenderness to palpate, Normal ROM s pain, No edema - Neuro Neuro: Alert and oriented X 3, No motor deficit, Normal speech Results - Vitals Vitals: Vital Signs - 24 hr 07/02/22 04:10 Temperature 36.2 C L Heart Rate 79 Respiratory 18 Rate Blood Pressure 149/87 H O2 Saturation 95 Oxygen O2 Source Room air PD MEDICAL DECISION MAKING - ED course Complexity details: considered differential (appearance of angioedema. Prompt onset would be consistent. Not sure about the slapped feeling he had on side of face prior. Can check head CT re: "slapped side of the head" feeling. Otherwise c/w angioedema. ), d/w patient Departure - Departure Disposition: Home, Self Care Clinical Impression: Angioedema due to angiotensin converting enzyme inhibitor (AFUA-I), Left facial swelling Condition: Stable Record reviewed to determine appropriate education?: Yes Instructions: ED Angioedema Prescriptions: dexAMETHasone [Decadron] 4 mg PO DAILY #5 tablet Cetirizine [ZyrTEC] 10 mg PO BID #15 tablet Comments: The facial swelling without obvious signs of infection or injury or other obvious cause would be concerning for an allergic reaction called angioedema. Your recent blood pressure medicine is lisinopril and that is a common cause for angioedema like this. Consideration could be the oxycodone you have taken today as well. I would stop the lisinopril and also if you can, hold the oxycodone until this is improving well. You could then take an oxycodone again in a day or so and see if you get similar symptoms. I would not resume the lisinopril though as that is the more likely cause. Decadron steroid daily for 5 more days. Cetirizine antihistamine twice daily for the next week. Your CT scan does not show any acute bleeding, fluid collection/abscess or other acute abnormalities. I cannot really account for this "slapped" feeling that you had on your face and head at the onset of this. I transmitted your scripts to [facility].
[2022-07-02 05:51] VITALS: BP 160/85
--- NOTE | 2022-07-02 08:26 | CT Report ---
PROCEDURE: HEAD WO INDICATIONS: "slapped" feeling in left head few hours ago TECHNIQUE: Noncontrast 4.5 mm thick angled axial sections acquired from the foramen magnum to the vertex. For r adiation dose reduction, the following was used: automated exposure control, adjustment of mA and/or kV according to patient size. COMPARISON: None. FINDINGS: Image quality: Excellent. CSF spaces: Basal cisterns are patent. No extra-axial fluid collections. Ventricles are normal in size and shape. Brain: No midline shift. No intracranial masses or hemorrhage. There is age-appropriate cortical v olume loss. Minimal periventricular hypodensity. Carlson-white matter interface is normal. Skull and face: There is swelling and soft tissue edema from left temporal region extending caudal t o involve the left malar region. There is slight relative enlargement of left parotid gland. Overlyin g the left masseter muscle, there is a small ovoid fluid collection in the subcutaneous tissues measu ring about 1.7 x 0.9 cm no soft tissue gas or radiodense debris. Calvarium and visualized facial bone s are intact, without suspicious lesions. Sinuses: Visualized sinuses and mastoids are clear. IMPRESSION: 1. No CT evidence of acute intracranial trauma. 2. Age-appropriate intracranial exam. 3. Swelling and soft tissue edema over the left face with a small subcutaneous fluid collection overl mya left masseter region. Consider trauma with small hematoma or cellulitis with small abscess. 4. Final interpretation concordant with preliminary report. Reviewed by: Surekha Montejo MD on 07/02/2022 7:25 AM KATYA Approved by: Surekha Montejo MD on 07/02/2022 7:25 AM KATYA Station ID: [id number]
== END 2022-07-02 05:50 | disposition home or self-care (01) ==
LOC: ED 04:06
DX: T78.3XXA Angioneurotic edema, initial encounter (principal); T46.4X5A Adverse effect of angiotensin-converting-enzyme inhibitors, initial encounter; I10 Essential (primary) hypertension; J44.9 Chronic obstructive pulmonary disease, unspecified; E11.9 Type 2 diabetes mellitus without complications; Z79.84 Long term (current) use of oral hypoglycemic drugs; Z79.899 Other long term (current) drug therapy
CPT/HCPCS: 70450; 99284; A9270

== ENCOUNTER 2024-03-05 18:16 | Outpatient (CLI) | payer MEDICARE | END 2024-03-05 23:59 | disposition critical access hospital (66) | LOC: EMS 18:16 | DX: M25.551 Pain in right hip (principal); S51.011A Laceration without foreign body of right elbow, initial encounter; R55 Syncope and collapse; W18.39XA Other fall on same level, initial encounter; Y93.H2 Activity, gardening and landscaping; Y92.007 Garden or yard of unspecified non-institutional (private) residence as the place of occurrence of the external cause | CPT/HCPCS: A0425; A0427 ==

== ENCOUNTER 2024-03-05 18:53 | Inpatient (IN) | payer MEDICARE ==
--- NOTE | 2024-03-05 19:05 | ED Physician Documentation ---
PD HPI LOWER EXT INJURY - Stated complaint Stated Complaint: SYNCOPE - Chief complaint Chief Complaint: Trauma Ext - History obtained from History obtained from: Patient - Additional information Additional information: 79-year-old gentleman with history of type 2 diabetes, COPD on home oxygen, hypertension. He presents by ambulance. He says he was having a great day having drank a few beers and then he went outside to pick strawberries. He ended up passing out and falling. He has a laceration of the right elbow and more significantly right hip pain which only really hurts if he moves it or t soila to walk on it which she is unable to do. He does not think he hit his head. PD PAST MEDICAL HISTORY - Past Medical History Past Medical History: Yes Cardiovascular: Hypertension, High cholesterol Respiratory: COPD Neuro: None Endocrine/Autoimmune: Type 2 diabetes GI: GERD, Pancreatitis : None HEENT: Chronic vision loss, Chronic hearing loss Psych: Depression Musculoskeletal: Osteoarthritis Derm: None - Past Surgical History Past Surgical History: Yes Ortho: Spine surgery - Present Medications Home Medications: Ambulatory Orders Medication Instructions Recorded Confirmed Amitriptyline [Elavil] 25 mg PO HS 06/07/18 07/02/22 Fluticasone/Vilanterol [Breo 1 inh IH DAILY 06/07/18 07/02/22 Ellipta 100-25 Mcg Inhalr] Lipase/Protease/Amylase [Zenpep Dr 1 each PO TIDWM 06/07/18 07/02/22 10,000 Unit Capsule] Nicotine Polacrilex [Nicotine Gum] 2 mg BC PRN PRN 06/07/18 07/02/22 Simvastatin 20 mg PO QPM 06/07/18 07/02/22 hydroCHLOROthiazide 25 mg PO DAILY 06/07/18 07/02/22 [Hydrochlorothiazide] metFORMIN [Glucophage] 500 mg PO BIDWM 06/07/18 07/02/22 oxyCODONE [Roxicodone] 5 - 10 mg PO Q6HR PRN 06/07/18 07/02/22 Pantoprazole [Protonix] 40 mg PO BID #60 tablet 06/10/18 07/02/22 Cetirizine [ZyrTEC] 10 mg PO BID #15 tablet 07/02/22 Sertraline [Zoloft] 25 mg PO DAILY 07/02/22 07/02/22 dexAMETHasone [Decadron] 4 mg PO DAILY #5 tablet 07/02/22 lisinopriL [Lisinopril] 20 mg PO DAILY 07/02/22 07/02/22 - Allergies Allergies/Adverse Reactions: Allergies Allergy/AdvReac Type Severity Reaction Status Date / Time No Known Drug Allergies Allergy Verified 03/05/24 18:56 - Social History Does the pt smoke?: No Smoking Status: Never smoker Does the pt drink ETOH?: Yes Does the pt have substance abuse?: No - Immunizations Immunizations are current?: No Immunizations: TDAP >10years/unknown - POLST Patient has POLST: No POLST Status: Full Code PD ED PE NORMAL - Vitals Vital signs reviewed: Yes - General General: Alert and oriented X 3, No acute distress - HEENT HEENT: PERRL, EOMI - Neck Neck: Supple, no meningeal sign, No bony TTP, Other (On arrival he was in a c- collar. He really wanted it off and he was nontender so I did discontinue it but will still image.) - Cardiac Cardiac: RRR, No murmur - Respiratory Respiratory: No respiratory distress, Clear bilaterally - Abdomen Abdomen: Non tender - Back Back: No CVA TTP, No spinal TTP - Derm Derm: Normal color, Warm and dry - Extremities Extremities: Other (There is a 6 or so centimeter laceration over the right elbow, with full range of motion and nontender of the right elbow. Distal neurovascular status is normal. He is severely tender over the right hip and has severe pain with rotation of the hip.) - Neuro Neuro: Alert and oriented X 3, No motor deficit, No sensory deficit, Normal speech Eye Opening: Spontaneous Motor: Obeys Commands Verbal: Oriented GCS Score: 15 Results - Vitals Vitals: Vital Signs - 24 hr 03/05/24 03/05/24 18:56 20:54 Temperature 36.8 C Heart Rate 78 70 Respiratory 18 20 Rate Blood Pressure 160/80 H 162/92 H O2 Saturation 100 100 If not protocol 2 : Oxygen Flow, liters/minute Oxygen O2 Source Nasal cannula - EKG (time done) 2126 EKG releavant findings:: EKG personally interpreted by author of this note. Relevant findings are: Rate: Rate (enter#) (67) Rhythm: NSR Shock: Normal Intervals: Normal DE QRS: Normal Ischemia: Non specific changes. No: ST elevation c/w ischemia, ST depression - Labs Labs: Laboratory Tests 03/05/24 03/05/24 03/05/24 19:03 19:03 19:18 WBC 10.6 RBC 3.89 L Hgb 9.7 L Hct 30.7 L MCV 78.9 L MCH 24.9 L MCHC 31.6 L RDW 15.5 H Plt Count 277 MPV 8.5 Neut # (Auto) 9.4 H Lymph # (Auto) 0.7 L [place] # (Auto) 0.4 Eos # (Auto) 0.1 Baso # (Auto) 0.0 Absolute Nucleated RBC 0.00 Nucleated RBC % 0.0 PT 11.5 INR 1.0 Sodium 121 L Potassium 4.0 Chloride 88 L Carbon Dioxide 21 Anion Gap 12.0 BUN 14 Creatinine 1.0 Estimated GFR (MDRD) 72 L Glucose 89 Calcium 8.7 Total Bilirubin 0.5 AST 16 ALT 12 Alkaline Phosphatase 81 Total Protein 6.2 L Albumin 3.5 Globulin 2.7 Albumin/Globulin Ratio 1.3 Ethyl Alcohol 110.5 - Rads (name of study) CT of the head is negative for acute trauma. CT C-spine with DDD, no trauma. CT of the head without acute disease. CT C-spine with DDD, no trauma. Relevant Findings:: Final report received, EMP independent interpretation of test X-ray right elbow Neg Relevant Findings:: Final report received, EMP independent interpretation of test X-ray right hip showing an acute comminuted and displaced right femoral neck fracture Relevant Findings:: Final report received, EMP independent interpretation of test Procedures - Laceration (location) R elbow Length in cm: 6 Wound type: Linear, Into subcut fat Anesthesia: Lidocaine 1% with epi Wound preparation: Irrigated copiously NS Skin layer closure: [place] Other: Patient tolerated well, No complications, Neurovascular intact, Tetanus booster given PD Medical Decision Making - ED course ED course: 79-year-old gentleman with COPD on oxygen, diabetes, hypertension had some drinks tonight and then fell in the yard. Cranial and cervical spine imaging was negative for trauma. He did have a laceration over the right elbow which was closed primarily after copious irrigation and a hip fracture. Discussed case by phone with our on-call orthopedist, Dr Espinal who is agreeable to his admission here, given his comorbidities I also did discuss the case with MANUEL Dong who agrees there is no reason the patient would to be transferred to higher level of care for operative fixation. Telehealth consultation placed at 8:34 PM. I did order thiamine and hypertonic saline, small dose as he will need to be tuned up prior to surgery. Spoke with [facility] telehealth hospitalist for admit at 2103. Departure - Departure Disposition: 66 [facility] DC/Xfer Clinical Impression: Alcohol abuse, Hyponatremia COPD (chronic obstructive pulmonary disease) Qualifiers: COPD type: unspecified COPD Qualified Code(s): J44.9 - Chronic obstructive pulmonary disease, unspecified Femoral neck fracture Qualifiers: Encounter type: initial encounter Fracture type: closed Laterality: right Qualified Code(s): S72.001A - Fracture of unspecified part of neck of right f emur, initial encounter for closed fracture Condition: Serious Forms: PCP List
[2024-03-05] MEDS: LIDOCAINE 1%-EPI 1:100000 20 ML MDV SUBQ STA (19:15)
[2024-03-05] MEDS: TETANUS/DIPHTHERIA/PERTUSSIS 0.5 ML SYRINGE IM ONE (19:15)
[2024-03-05 19:25] LABS: BASOPHILS % (AUTO) 0.1 %; EOSINOPHILS # (AUTO) 0.1 10^3/uL (0.0-0.7); HCT - HEMATOCRIT 30.7 % (42.0-52.0); HGB - HEMOGLOBIN 9.7 g/dL (14.0-18.0); LYMPHOCYTES # (AUTO) 0.7 10^3/uL (1.5-3.5); LYMPHOCYTES % (AUTO) 6.4 %; MEAN CORPUSCULAR HEMOGLOBIN 24.9 pg (27.0-31.0); MEAN CORPUSCULAR HGB CONC 31.6 g/dL (32.0-36.0); MEAN CORPUSCULAR VOLUME 78.9 fL (80.0-94.0); MEAN PLATELET VOLUME 8.5 fL (7.4-11.4); MONOCYTES # (AUTO) 0.4 10^3/uL (0.0-1.0); MONOCYTES % (AUTO) 3.6 %; NEUTROPHILS # (AUTO) 9.4 10^3/uL (1.5-6.6); NEUTROPHILS % (AUTO) 88.4 %; PLT - PLATELET COUNT 277 10^3/uL (130-450); RED BLOOD COUNT 3.89 10^6/uL (4.70-6.10); RED CELL DISTRIBUTION WIDTH 15.5 % (12.0-15.0); WHITE BLOOD COUNT 10.6 x10^3/uL (4.8-10.8)
[2024-03-05 19:29] LABS: PT - PROTHROMBIN TIME 11.5 secs (9.9-12.6)
[2024-03-05 20:04] LABS: ALBUMIN 3.5 g/dL (3.2-5.5); ALBUMIN/GLOBULIN RATIO 1.3 (1.0-2.2); BILIRUBIN,TOTAL 0.5 mg/dL (0.2-1.0); CALCIUM 8.7 mg/dL (8.5-10.3); ETOH - ETHANOL 110.5 mg/dL; TOTAL PROTEIN 6.2 g/dL (6.4-8.9)
--- NOTE | 2024-03-05 20:14 | XRAY Report ---
PROCEDURE: Elbow 3+V RT INDICATIONS: elbow inj TECHNIQUE: 3 views of the elbow were acquired. COMPARISON: None. FINDINGS: Bones: No fractures or dislocations. No suspicious bony lesions. Soft tissues: No effusion. Skin lorraine are noted along dorsal aspect of right proximal forearm ove r the olecranon. No suspicious soft tissue calcifications or masses. IMPRESSION: No acute bony abnormality or significant joint effusion. Soft tissue swelling and skin lorraine over d orsal aspect of proximal olecranon. Reviewed by: Tye Barry MD on 03/05/2024 8:13 PM PDT Approved by: Tye Barry MD on 03/05/2024 8:13 PM PDT Station ID: [id number]
--- NOTE | 2024-03-05 20:14 | CT Report ---
PROCEDURE: Head WO INDICATIONS: head inj TECHNIQUE: Noncontrast 4.5 mm thick angled axial sections acquired from the foramen magnum to the vertex. For r adiation dose reduction, the following was used: automated exposure control, adjustment of mA and/or kV according to patient size. COMPARISON: 07/02/2022 FINDINGS: Image quality: Excellent. CSF spaces: Basal cisterns are patent. No extra-axial fluid collections. The ventricles are symmet deepak in size and shape. Brain: No intracranial bleeds or masses. There is cerebral volume loss for age, with resultant vent ricular and sulcal prominence. There are periventricular and deep white matter chronic small vessel ischemic changes. There is intracranial internal carotid artery atherosclerosis. Skull and face: Calvarium and visualized facial bones appear intact, without suspicious lesions. Sinuses: Visualized sinuses and mastoids are clear. IMPRESSION: No acute intracranial pathology. No acute skull fracture. Reviewed by: Tye Barry MD on 03/05/2024 8:13 PM PDT Approved by: Tye Barry MD on 03/05/2024 8:13 PM PDT Station ID: [id number]
--- NOTE | 2024-03-05 20:16 | CT Report ---
PROCEDURE: Cervical Spine WO INDICATIONS: syndope w poss inj TECHNIQUE: Noncontrast 3 mm thick sections acquired from the skull base to the T4 level. Sagittal and coronal r eformats were then constructed. For radiation dose reduction, the following was used: automated exp osure control, adjustment of mA and/or kV according to patient size. COMPARISON: None. FINDINGS: Image quality: Excellent. Bones: Straightening of normal cervical lordosis is seen. No fractures or dislocations. Degenerativ e endplate changes and loss of disc height throughout cervical spine is seen. Dorsal disc osteophyte complex formation throughout cervical spine with bilateral uncovertebral hypertrophic changes causing [id number]-[id number] central canal stenosis and bilateral neural foraminal narrowing. Visualized superio r ribs are intact. Soft tissues: Prevertebral soft tissues are normal in thickness. No paravertebral hematomas. No ap ical pneumothoraces. IMPRESSION: 1. No acute cervical spine fracture or dislocation. 2. [id number]-[id number] degenerative disc disease throughout cervical spine as above. Reviewed by: Tye Choi MD on 03/05/2024 8:14 PM PDT Approved by: Tye Choi MD on 03/05/2024 8:14 PM PDT Station ID: [id number]
[2024-03-05] MEDS ORDERED: THIAMINE 100 MG/1 ML 2 ML MDV ONE (20:23)
[2024-03-05] MEDS: THIAMINE INJ 100 MG in SODIUM CHLORIDE 0.9% 50 ML IV STA (20:27)
--- NOTE | 2024-03-05 20:31 | XRAY Report ---
PROCEDURE: Hip w/Pelvis 2-3V RT INDICATIONS: hip inj TECHNIQUE: 2 views of the hip were acquired. COMPARISON: CT of abdomen and pelvis dated 04/16/2018. FINDINGS: Bones: Acute slightly comminuted fractures involving right femoral neck is seen with fracture line l ikely extending to involve greater trochanter and superior migration of proximal femur in relation to the right femoral head. No suspicious bony lesions. Soft tissues: No suspicious soft tissue calcifications or masses. IMPRESSION: Acute comminuted and displaced right femoral neck fracture as above. Reviewed by: Tye Barry MD on 03/05/2024 8:30 PM PDT Approved by: Tye Barry MD on 03/05/2024 8:30 PM PDT Station ID: [id number]
[2024-03-05] MEDS: HYDROmorphone 1 MG/ML CARPUJECT IVP STA (20:37)
[2024-03-05] MEDS: SODIUM CHLORIDE 3% HYPERTONIC 50 ML IV SCH (21:18)
--- NOTE | 2024-03-05 21:25 | CT Report ---
PROCEDURE: Pelvis WO INDICATIONS: R hip frx, surgeon request TECHNIQUE: Noncontrast 3 mm axial sections acquired through the bony pelvis, with coronal and sagittal reformatt ing. For radiation dose reduction, the following was used: automated exposure control, adjustment of mA and/or kV according to patient size. COMPARISON: Right hip radiograph dated 03/05/2024. FINDINGS: Image quality: Excellent. Bones: As seen on the right hip radiograph, there is an acute comminuted fractures involving subcapi mag region of right femoral neck with fracture line extending to involve superior aspect of greater t rochanter. There is superior and anterior migration of proximal femur in relation to right femoral he ad. Bilateral moderate hip joint osteoarthritic changes are seen. No evidence of avascular necrosis o f femoral head. No other fracture or dislocation. No suspicious bony lesions. Degenerative disc disea se in visualized lower lumbar spine is seen. Soft tissues: There is soft tissue swelling and edema surrounding right femoral neck fracture site. Small to moderate right hip joint effusion is likely present. No calcified intra-articular loose bodi es. Asymmetrically enlarged right iliopsoas muscle is seen suggestive of small intramuscular hematoma . No abnormal soft tissue calcifications. No calcified intra-articular loose bodies. There is no pelv ic free fluid of free air. No abnormal bowel wall thickening or bladder wall thickening. Left inguina l hernia is seen containing fat only. IMPRESSION: 1. Acute comminuted, displaced right femoral neck fracture extending to involve superior portion of r ight greater trochanter. No other fracture or dislocation. Osteoarthritis throughout the bony pelvis. No evidence of avascular necrosis of femoral head. Degenerative disc disease in visualized lower lum bar spine. 2. Soft tissue swelling and edema surrounding right hip fracture site. Small to moderate right hip dwaine int effusion, no calcified intra-articular loose bodies. Suggestion of small intramuscular hematoma i nvolving right iliopsoas muscle. No pelvic free fluid of free air. Reviewed by: Tye Choi MD on 03/05/2024 9:24 PM PDT Approved by: Tye Choi MD on 03/05/2024 9:24 PM PDT Station ID: [id number]
--- NOTE | 2024-03-05 21:39 | HISTORY & PHYSICAL EXAMINATION ---
Chief Complaint - Chief Complaint Chief Complaint: Right hip pain History of Present Illness - History of Present Illness HPI Comment/Other: 79 y OLD with PMH HTN, DM 2, Hyperlipidemia, COPD on home oxygen, GERD, Chronic pancreatitis presents by ambulance. He says he was having a great day having drank a few beers and then he went outside to pick strawberries. He ended up passing out and falling. He has a laceration of the right elbow and more significantly right hip pain which only really hurts if he moves it or tries to walk on it which she is unable to do. He does not think he hit his head. Denies headache, chest pain, SOB, nausea, vomiting, diarrhea, constipation, symptoms On presentation, pt was afebrile. Sao2 100 % on 2L Labs showed normal WBC, Hb 9.7, sodium 121, Alcohol level 110 CT head and C spine showed no acute abnormalities X ray right hip showed femoral neck fracture As per ER physician ( Dr Montenegro), he gave 50 ml of 3 % saline due to hyponatremia and also consulted with orthopedic who recommended to admit for surgery tomorrow Pt is admitted due to right hip fracture, syncope, hyponatremia, alcohol int oxixation History - Past Medical History Cardiovascular: reports: Hypertension, High cholesterol Respiratory: reports: COPD Neuro: reports: None Endocrine/Autoimmune: reports: Type 2 diabetes GI: reports: GERD, Pancreatitis : reports: None HEENT: reports: Chronic vision loss, Chronic hearing loss Psych: reports: Depression Musculoskeletal: reports: Osteoarthritis Derm: reports: None MRSA Hx?: No - Past Surgical History Ortho: reports: Spine surgery - Family & Social History Family History: Mother: , Cancer (Mother lung Ca and Dad bladder Ca), Father: , Cancer Social History Notes: Patient lives in [place], [place]. He has lived here for 3 years. Prior to that he lived in [place]. He lives with his son. 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 He has 3 sons. He was born and raised in [place]. The patient smokes 2-3 cigars a day. He quit smoking cigarettes one year ago prior to that he smoked 1 pack a day for 57 years. The patient quit drinking about 2-3 months ago he states that he typically was drinking 3 beers a night but would binge drink at times. He states that he has been drinking more heavily for the last 16 years. He denies any illicit drug use. - POLST Patient has POLST: No POLST Status: Full Code Meds/Allgy - Home Medications Home Medications: Ambulatory Orders Medication Instructions Recorded Confirmed Amitriptyline [Elavil] 25 mg PO HS 06/07/18 07/02/22 Fluticasone/Vilanterol [Breo 1 inh IH DAILY 06/07/18 07/02/22 Ellipta 100-25 Mcg Inhalr] Lipase/Protease/Amylase [Zenpep Dr 1 each PO TIDWM 06/07/18 07/02/22 10,000 Unit Capsule] Nicotine Polacrilex [Nicotine Gum] 2 mg BC PRN PRN 06/07/18 07/02/22 Simvastatin 20 mg PO QPM 06/07/18 07/02/22 hydroCHLOROthiazide 25 mg PO DAILY 06/07/18 07/02/22 [Hydrochlorothiazide] metFORMIN [Glucophage] 500 mg PO BIDWM 06/07/18 07/02/22 oxyCODONE [Roxicodone] 5 - 10 mg PO Q6HR PRN 06/07/18 07/02/22 Pantoprazole [Protonix] 40 mg PO BID #60 tablet 06/10/18 07/02/22 Cetirizine [ZyrTEC] 10 mg PO BID #15 tablet 07/02/22 Sertraline [Zoloft] 25 mg PO DAILY 07/02/22 07/02/22 dexAMETHasone [Decadron] 4 mg PO DAILY #5 tablet 07/02/22 lisinopriL [Lisinopril] 20 mg PO DAILY 07/02/22 07/02/22 - Allergies Allergies/Adverse Reactions: Allergies Allergy/AdvReac Type Severity Reaction Status Date / Time No Known Drug Allergies Allergy Verified 03/05/24 18:56 Review of Systems - Other Findings Other Findings: 10 points systems were reviewed and were negative except mentioned in HPI Exam - Vital Signs Vital Signs: Vital Signs x48h Temp Pulse Resp BP Pulse Ox O2 Flow Rate 03/05/24 20:54 70 20 162/92 H 100 2 03/05/24 18:56 36.8 C 78 18 160/80 H 100 - Physical Exam General Appearance: positive: Mild distress Eyes Bilateral: positive: Normal inspection ENT: positive: ENT inspection nml Neck: positive: Nml inspection Respiratory: positive: Chest non-tender, No respiratory distress Cardiovascular: positive: Regular rate & rhythm Abdomen: positive: Non-tender, Nml bowel sounds Skin: positive: No rash Extremities: positive: No pedal edema Neurologic/Psychiatric: positive: Oriented x3, Motor nml Conclusion/Plan - Lab Results Fish Bones: 03/05/24 19:03 03/05/24 19:18 - Other Other Results/Comments: A: Right hip fracture Syncope Hyponatremia Alcohol intoxication Anemia of chronic disease HTN DM 2, Hyperlipidemia COPD on home oxygen GERD Chronic pancreatitis Plan; Admit in ICU for closer monitoring NPO As per ER physician, he consulted ortho commission auditor for possible surgery in am [place] prn Dilaudid iv prn Cardiac monitoring Seriel cardiac enzymes Echo Start NS @ 80 cc/h. Check Seroum sodium q6h. Correction of sodium should not exceed more than 0.5 MEQ per hour Neuro check q4h Start CIWA protocol Hold HCTZ Cont lisinopril Hold metformin Start sliding scale insulin Cont protonix DVT prophylaxic: SCD. Hold anticoagulation due to possible surgery in am Full code Pt is admitted as inpatient as more than 2 midnight stay is expected
--- NOTE | 2024-03-05 21:50 | HISTORY & PHYSICAL EXAMINATION ---
HPI - History Obtained From History obtained from: Patient Exam limitations: Clinical condition - History of Present Illness HPI Comment/Other: This is an 79-year-old gentleman who took a fall earlier this evening and was unable to bear weight on the right leg. He had pain to the right hip and upper thigh. The fall occurred when he was going from his house outdoors to the garden to pick some fresh strawberries. He admits to having been drinking a few beers which she enjoys doing off-and-on on a regular basis. He felt lightheaded when he fell. He normally ambulates but does have some history of falls in the past. He denies previous problems with right hip. PMH/PSH - Past Medical History Cardiovascular: positive: Hypertension, High cholesterol Respiratory: positive: COPD Neuro: positive: None Endocrine/Autoimmune: positive: Type 2 diabetes GI: positive: GERD, Pancreatitis : positive: None HEENT: positive: Chronic vision loss, Chronic hearing loss Psych: positive: Depression Musculoskeletal: positive: Osteoarthritis Derm: positive: None MRSA Hx?: No - Past Surgical History Ortho: positive: Spine surgery Social & Family Hx - Social History Does the pt smoke?: No Smoking Status: Never smoker Does the pt drink ETOH?: Yes Does the pt have substance abuse?: No - POLST Patient has POLST: No POLST Status: Full Code Meds/Allgy - Home Medications Home Medications: Ambulatory Orders Medication Instructions Recorded Confirmed Amitriptyline [Elavil] 25 mg PO HS 06/07/18 07/02/22 Fluticasone/Vilanterol [Breo 1 inh IH DAILY 06/07/18 07/02/22 Ellipta 100-25 Mcg Inhalr] Lipase/Protease/Amylase [Zenpep Dr 1 each PO TIDWM 06/07/18 07/02/22 10,000 Unit Capsule] Nicotine Polacrilex [Nicotine Gum] 2 mg BC PRN PRN 06/07/18 07/02/22 Simvastatin 20 mg PO QPM 06/07/18 07/02/22 hydroCHLOROthiazide 25 mg PO DAILY 06/07/18 07/02/22 [Hydrochlorothiazide] metFORMIN [Glucophage] 500 mg PO BIDWM 06/07/18 07/02/22 oxyCODONE [Roxicodone] 5 - 10 mg PO Q6HR PRN 06/07/18 07/02/22 Pantoprazole [Protonix] 40 mg PO BID #60 tablet 06/10/18 07/02/22 Cetirizine [ZyrTEC] 10 mg PO BID #15 tablet 07/02/22 Sertraline [Zoloft] 25 mg PO DAILY 07/02/22 07/02/22 dexAMETHasone [Decadron] 4 mg PO DAILY #5 tablet 07/02/22 lisinopriL [Lisinopril] 20 mg PO DAILY 07/02/22 07/02/22 - Allergies Allergies/Adverse Reactions: Allergies Allergy/AdvReac Type Severity Reaction Status Date / Time No Known Drug Allergies Allergy Verified 03/05/24 18:56 Exam - Vital Signs Vital Signs: Vital Signs x48h Temp Pulse Resp BP Pulse Ox O2 Flow Rate 03/05/24 20:54 70 20 162/92 H 100 2 03/05/24 18:56 36.8 C 78 18 160/80 H 100 - Physical Exam General Appearance: positive: Mild distress Respiratory: positive: Chest non-tender, No respiratory distress Cardiovascular: positive: Regular rate & rhythm Peripheral Pulses: positive: 2+ Abdomen: positive: Non-tender Skin: positive: Other (Repair laceration right elbow, moves right elbow well without pain) Neurologic/Psychiatric: positive: Oriented x3, Motor nml, Sensation nml Comments/Other: Right leg is shortened, externally rotated and very painful with any attempted passive motion of the right hip. Neurovascular status is intact right leg. There is no sign of hematoma and the skin is intact about right hip Results - Lab Results Fish Bones: 03/05/24 19:03 03/05/24 19:18 Other Lab Results: Lab Results x24hrs 03/05/24 03/05/24 03/05/24 Range/Units 19:18 19:03 19:03 WBC 10.6 (4.8-10.8) x10^3/uL RBC 3.89 L (4.70-6.10) 10^6/uL Hgb 9.7 L (14.0-18.0) g/dL Hct 30.7 L (42.0-52.0) % MCV 78.9 L (80.0-94.0) fL MCH 24.9 L (27.0-31.0) pg MCHC 31.6 L (32.0-36.0) g/dL RDW 15.5 H (12.0-15.0) % Plt Count 277 (130-450) 10^3/uL MPV 8.5 (7.4-11.4) fL Neut # (Auto) 9.4 H (1.5-6.6) 10^3/uL Lymph # (Auto) 0.7 L (1.5-3.5) 10^3/uL [place] # (Auto) 0.4 (0.0-1.0) 10^3/uL Eos # (Auto) 0.1 (0.0-0.7) 10^3/uL Baso # (Auto) 0.0 (0.0-0.1) 10^3/uL Absolute Nucleated RBC 0.00 x10^3/uL Nucleated RBC % 0.0 /100WBC PT 11.5 (9.9-12.6) secs INR 1.0 (0.8-1.2) Sodium 121 L (135-145) mmol/L Potassium 4.0 (3.5-4.5) mmol/L Chloride 88 L (101-111) mmol/L Carbon Dioxide 21 (21-32) mmol/L Anion Gap 12.0 (6-13) BUN 14 (6-20) mg/dL Creatinine 1.0 (0.6-1.3) mg/dL Estimated GFR (MDRD) 72 L (>89) Glucose 89 (74-104) mg/dL Calcium 8.7 (8.5-10.3) mg/dL Total Bilirubin 0.5 (0.2-1.0) mg/dL AST 16 (10-42) IU/L ALT 12 (10-60) IU/L Alkaline Phosphatase 81 (42-121) IU/L Total Protein 6.2 L (6.4-8.9) g/dL Albumin 3.5 (3.2-5.5) g/dL Globulin 2.7 (2.1-4.2) g/dL Albumin/Globulin Ratio 1.3 (1.0-2.2) Ethyl Alcohol 110.5 mg/dL - Diagnostic Imaging Results Diagnostic Imaging Results: positive: Read independently (X-rays and CT suggest displaced femoral neck fracture right hip) Impression/Plan - Problem List Problem List: 1. Displaced femoral neck fracture right hip 2. Multiple medical problems including diabetes mellitus, anemia, hyponatremia, COPD, chronic alcohol use and past heavy use of cigarettes The risks, goals and likelihood of achieving goals, alternatives to surgery and consequences, disability and occasionally were discussed. No matter how this was treated surgically or nonoperatively, there is significant risk. these risks include myocardial infarction, stroke, pulmonary embolism, bleeding, infection, periprosthetic fracture, dislocation and revision surgery As well as injury to adjacent structures such as nerve or artery about the right hip Most of these type of fractures are treated operatively because there are risk are generally lower than nonoperative treatment. He is in agreement to proceeding with surgery which would consist of a hemiarthroplasty to the right hip pending further medical evaluation. The goal will try to be able to do his surgery within 48 hours of admission.Patient is agreement to proceeding with surgery.
[2024-03-05 22:25] LABS: BASOPHILS % (AUTO) 0.1 %; EOSINOPHILS % (AUTO) 0.4 %; HCT - HEMATOCRIT 31.2 % (42.0-52.0); HGB - HEMOGLOBIN 9.8 g/dL (14.0-18.0); LYMPHOCYTES # (AUTO) 0.9 10^3/uL (1.5-3.5); MEAN CORPUSCULAR HEMOGLOBIN 24.8 pg (27.0-31.0); MEAN CORPUSCULAR HGB CONC 31.4 g/dL (32.0-36.0); MEAN PLATELET VOLUME 8.5 fL (7.4-11.4); MONOCYTES # (AUTO) 0.4 10^3/uL (0.0-1.0); MONOCYTES % (AUTO) 3.9 %; NEUTROPHILS # (AUTO) 9.7 10^3/uL (1.5-6.6); NEUTROPHILS % (AUTO) 87.2 %; PLT - PLATELET COUNT 279 10^3/uL (130-450); RED BLOOD COUNT 3.95 10^6/uL (4.70-6.10); RED CELL DISTRIBUTION WIDTH 15.3 % (12.0-15.0); WHITE BLOOD COUNT 11.2 x10^3/uL (4.8-10.8)
[2024-03-05 22:34] LABS: INR 1.1 (0.8-1.2); PT - PROTHROMBIN TIME 11.7 secs (9.9-12.6)
[2024-03-05] MEDS: HYDROmorphone 0.5 MG/0.5 ML SYRINGE IVP PRN (22:43)
[2024-03-05] MEDS: SODIUM CHLORIDE 0.9% 1,000 ML IV SCH (22:44)
[2024-03-05 23:32] LABS: ALBUMIN 3.4 g/dL (3.2-5.5); ALBUMIN/GLOBULIN RATIO 1.4 (1.0-2.2); BILIRUBIN,TOTAL 0.6 mg/dL (0.2-1.0); CALCIUM 8.6 mg/dL (8.5-10.3); POTASSIUM 4.4 mmol/L (3.5-4.5); TOTAL PROTEIN 5.8 g/dL (6.4-8.9)
[2024-03-06] MEDS: INSULIN REGULAR, HUMAN 300 UNIT/3 ML PEN SUBQ SCH (00:34)
[2024-03-06] MEDS: LORazepam 2 MG/ML VIAL IVP PRN (00:40)
[2024-03-06] MEDS: SODIUM CHLORIDE FLUSH 0.9% 10 ML SYRINGE IVP SCH (00:40)
[2024-03-06] MEDS: SODIUM CHLORIDE FLUSH 0.9% 10 ML SYRINGE IVP PRN (04:27)
[2024-03-06 04:53] LABS: BASOPHILS % (AUTO) 0.2 %; CALCIUM, IONIZED 1.06 mmol/L (1.15-1.33); EOSINOPHILS % (AUTO) 0.2 %; HCT - HEMATOCRIT 30.1 % (42.0-52.0); HGB - HEMOGLOBIN 9.5 g/dL (14.0-18.0); LYMPHOCYTES # (AUTO) 0.6 10^3/uL (1.5-3.5); LYMPHOCYTES % (AUTO) 5.7 %; MEAN CORPUSCULAR HEMOGLOBIN 24.9 pg (27.0-31.0); MEAN CORPUSCULAR HGB CONC 31.6 g/dL (32.0-36.0); MEAN PLATELET VOLUME 8.8 fL (7.4-11.4); MONOCYTES # (AUTO) 0.5 10^3/uL (0.0-1.0); MONOCYTES % (AUTO) 4.6 %; NEUTROPHILS % (AUTO) 88.9 %; PLT - PLATELET COUNT 258 10^3/uL (130-450); RED BLOOD COUNT 3.81 10^6/uL (4.70-6.10); RED CELL DISTRIBUTION WIDTH 15.3 % (12.0-15.0); VBG PH 7.428 (7.31-7.41); WHITE BLOOD COUNT 10.1 x10^3/uL (4.8-10.8)
[2024-03-06 05:12] LABS: CALCIUM 8.5 mg/dL (8.5-10.3); MAGNESIUM 1.6 mg/dL (1.7-2.3); POTASSIUM 4.8 mmol/L (3.5-4.5)
[2024-03-06] MEDS: CALCIUM GLUC 1,000MG/50ML-NACL 1,000 MG/50 ML BAG IV ONE (06:37)
[2024-03-06] MEDS: MAGNESIUM SULFATE 2 GRAM 2 GM/50 ML BAG IV ONE (06:37)
[2024-03-06] MEDS: THIAMINE 100 MG TABLET PO SCH (08:37)
[2024-03-06] MEDS: lisinopriL 5 MG TABLET PO SCH (08:37)
[2024-03-06] MEDS: FOLIC ACID 1 MG TABLET PO SCH (08:38)
[2024-03-06] MEDS: PANTOPRAZOLE 40 MG TABLET PO SCH (08:38)
[2024-03-06 10:09] LABS: CALCIUM, IONIZED 1.16 mmol/L (1.15-1.33); VBG PH 7.376 (7.31-7.41)
[2024-03-06] MEDS ORDERED: ROPIVACAINE 0.5% PF 20 ML VIAL ONE (11:48)
[2024-03-06] MEDS ORDERED: DEXAMETHASONE 4 MG/ML VIAL ONE (11:48)
[2024-03-06] MEDS ORDERED: ACETAMINOPHEN 1,000 MG/100 ML 1,000 MG/100 ML BAG IV PRN (12:09)
--- NOTE | 2024-03-06 14:40 | PROVIDER PROGRESS NOTE ---
Subjective - General Admit Date: 03/05/24 - Other Other Information/Narrative: The patient was admitted to the intensive care unit last night for medical evaluation and treatment. He has a displaced femoral neck fracture of the right hip associated with several comorbidities including hyponatremia, chronic anemia, oxygen dependent chronic obstructive pulmonary disease, prediabetes, alcoholism with a history of pancreatitis and upper GI bleed associated with a duodenal ulcer, debility of age. He has been ambulatory His pain seems to be under good control to right hip. His pain is centered about the right groin and upper thigh. Objective - Patient Data Vital Signs: Vital Signs x48h Temp Pulse Resp BP Pulse Ox O2 Flow Rate 03/06/24 14:00 82 17 126/68 95 2 03/06/24 13:00 91 17 115/65 92 2 03/06/24 12:00 90 16 133/64 H 93 2 03/06/24 11:00 96 21 97/65 93 2 03/06/24 10:00 98 16 115/71 95 2 03/06/24 09:00 102 H 14 125/77 92 2 03/06/24 08:00 36.9 C 101 H 19 152/90 H 96 2 03/06/24 07:00 99 16 136/86 H 91 L 3 Weight: Weight 03/04/24 03/05/24 03/06/24 23:59 23:59 23:59 Weight (kg) 74.2 kg 70.5 kg Intake & Output: Intake and Output Totals x24h 03/04/24 03/05/24 03/06/24 23:59 23:59 23:59 Intake Total 101 1100 Output Total 110 Balance 101 990 - Lab Results Lab Results: 03/06/24 04:26 03/06/24 04:26 Other Lab Results: Lab Results x24hrs 03/06/24 03/06/24 03/06/24 Range/Units 11:51 10:10 09:58 WBC (4.8-10.8) x10^3/uL RBC (4.70-6.10) 10^6/uL Hgb (14.0-18.0) g/dL Hct (42.0-52.0) % MCV (80.0-94.0) fL MCH (27.0-31.0) pg MCHC (32.0-36.0) g/dL RDW (12.0-15.0) % Plt Count (130-450) 10^3/uL MPV (7.4-11.4) fL Neut # (Auto) (1.5-6.6) 10^3/uL Lymph # (Auto) (1.5-3.5) 10^3/uL Reagan # (Auto) (0.0-1.0) 10^3/uL Eos # (Auto) (0.0-0.7) 10^3/uL Baso # (Auto) (0.0-0.1) 10^3/uL Absolute Nucleated RBC x10^3/uL Nucleated RBC % /100WBC PT (9.9-12.6) secs INR (0.8-1.2) VBG pH 7.376 (7.31-7.41) Ionized Calcium 1.16 (1.15-1.33) mmol/L Sodium (135-145) mmol/L Potassium (3.5-4.5) mmol/L Chloride (101-111) mmol/L Carbon Dioxide (21-32) mmol/L Anion Gap (6-13) BUN (6-20) mg/dL Creatinine (0.6-1.3) mg/dL Estimated GFR (MDRD) (>89) Glucose (74-104) mg/dL POC Whole Bld Glucose 113 H (70 - 100) mg/dL Calcium (8.5-10.3) mg/dL Phosphorus (2.5-5.0) mg/dL Magnesium 2.0 (1.7-2.3) mg/dL Total Bilirubin (0.2-1.0) mg/dL AST (10-42) IU/L ALT (10-60) IU/L Alkaline Phosphatase (42-121) IU/L Troponin I High Sens (2.3-19.7) ng/L Total Protein (6.4-8.9) g/dL Albumin (3.2-5.5) g/dL Globulin (2.1-4.2) g/dL Albumin/Globulin Ratio (1.0-2.2) Vitamin B12 (180-914) pg/mL Folate (5.90 - >24.8) ng/mL Nasal Screen MRSA (PCR) (NEGATIVE) Ethyl Alcohol mg/dL 03/06/24 03/06/24 03/06/24 Range/Units 05:58 04:26 04:26 WBC (4.8-10.8) x10^3/uL RBC (4.70-6.10) 10^6/uL Hgb (14.0-18.0) g/dL Hct (42.0-52.0) % MCV (80.0-94.0) fL MCH (27.0-31.0) pg MCHC (32.0-36.0) g/dL RDW (12.0-15.0) % Plt Count (130-450) 10^3/uL MPV (7.4-11.4) fL Neut # (Auto) (1.5-6.6) 10^3/uL Lymph # (Auto) (1.5-3.5) 10^3/uL Reagan # (Auto) (0.0-1.0) 10^3/uL Eos # (Auto) (0.0-0.7) 10^3/uL Baso # (Auto) (0.0-0.1) 10^3/uL Absolute Nucleated RBC x10^3/uL Nucleated RBC % /100WBC PT (9.9-12.6) secs INR (0.8-1.2) VBG pH 7.428 H (7.31-7.41) Ionized Calcium 1.06 L (1.15-1.33) mmol/L Sodium (135-145) mmol/L Potassium (3.5-4.5) mmol/L Chloride (101-111) mmol/L Carbon Dioxide (21-32) mmol/L Anion Gap (6-13) BUN (6-20) mg/dL Creatinine (0.6-1.3) mg/dL Estimated GFR (MDRD) (>89) Glucose (74-104) mg/dL POC Whole Bld Glucose 104 H (70 - 100) mg/dL Calcium (8.5-10.3) mg/dL Phosphorus (2.5-5.0) mg/dL Magnesium (1.7-2.3) mg/dL Total Bilirubin (0.2-1.0) mg/dL AST (10-42) IU/L ALT (10-60) IU/L Alkaline Phosphatase (42-121) IU/L Troponin I High Sens (2.3-19.7) ng/L Total Protein (6.4-8.9) g/dL Albumin (3.2-5.5) g/dL Globulin (2.1-4.2) g/dL Albumin/Globulin Ratio (1.0-2.2) Vitamin B12 189 (180-914) pg/mL Folate 8.4 (5.90 - >24.8) ng/mL Nasal Screen MRSA (PCR) (NEGATIVE) Ethyl Alcohol mg/dL 03/06/24 03/06/24 03/06/24 Range/Units 04:26 04:26 04:26 WBC 10.1 (4.8-10.8) x10^3/uL RBC 3.81 L (4.70-6.10) 10^6/uL Hgb 9.5 L (14.0-18.0) g/dL Hct 30.1 L (42.0-52.0) % MCV 79.0 L (80.0-94.0) fL MCH 24.9 L (27.0-31.0) pg MCHC 31.6 L (32.0-36.0) g/dL RDW 15.3 H (12.0-15.0) % Plt Count 258 (130-450) 10^3/uL MPV 8.8 (7.4-11.4) fL Neut # (Auto) 9.0 H (1.5-6.6) 10^3/uL Lymph # (Auto) 0.6 L (1.5-3.5) 10^3/uL Reagan # (Auto) 0.5 (0.0-1.0) 10^3/uL Eos # (Auto) 0.0 (0.0-0.7) 10^3/uL Baso # (Auto) 0.0 (0.0-0.1) 10^3/uL Absolute Nucleated RBC 0.00 x10^3/uL Nucleated RBC % 0.0 /100WBC PT (9.9-12.6) secs INR (0.8-1.2) VBG pH (7.31-7.41) Ionized Calcium (1.15-1.33) mmol/L Sodium 124 L (135-145) mmol/L Potassium 4.8 H (3.5-4.5) mmol/L Chloride 92 L (101-111) mmol/L Carbon Dioxide 25 (21-32) mmol/L Anion Gap 7.0 (6-13) BUN 15 (6-20) mg/dL Creatinine 1.0 (0.6-1.3) mg/dL Estimated GFR (MDRD) 72 L (>89) Glucose 99 (74-104) mg/dL POC Whole Bld Glucose (70 - 100) mg/dL Calcium 8.5 (8.5-10.3) mg/dL Phosphorus 4.0 (2.5-5.0) mg/dL Magnesium 1.6 L (1.7-2.3) mg/dL Total Bilirubin (0.2-1.0) mg/dL AST (10-42) IU/L ALT (10-60) IU/L Alkaline Phosphatase (42-121) IU/L Troponin I High Sens (2.3-19.7) ng/L Total Protein (6.4-8.9) g/dL Albumin (3.2-5.5) g/dL Globulin (2.1-4.2) g/dL Albumin/Globulin Ratio (1.0-2.2) Vitamin B12 (180-914) pg/mL Folate (5.90 - >24.8) ng/mL Nasal Screen MRSA (PCR) (NEGATIVE) Ethyl Alcohol mg/dL 03/06/24 03/06/24 03/05/24 Range/Units 00:28 00:28 23:10 WBC (4.8-10.8) x10^3/uL RBC (4.70-6.10) 10^6/uL Hgb (14.0-18.0) g/dL Hct (42.0-52.0) % MCV (80.0-94.0) fL MCH (27.0-31.0) pg MCHC (32.0-36.0) g/dL RDW (12.0-15.0) % Plt Count (130-450) 10^3/uL MPV (7.4-11.4) fL Neut # (Auto) (1.5-6.6) 10^3/uL Lymph # (Auto) (1.5-3.5) 10^3/uL Reagan # (Auto) (0.0-1.0) 10^3/uL Eos # (Auto) (0.0-0.7) 10^3/uL Baso # (Auto) (0.0-0.1) 10^3/uL Absolute Nucleated RBC x10^3/uL Nucleated RBC % /100WBC PT (9.9-12.6) secs INR (0.8-1.2) VBG pH (7.31-7.41) Ionized Calcium (1.15-1.33) mmol/L Sodium (135-145) mmol/L Potassium (3.5-4.5) mmol/L Chloride (101-111) mmol/L Carbon Dioxide (21-32) mmol/L Anion Gap (6-13) BUN (6-20) mg/dL Creatinine (0.6-1.3) mg/dL Estimated GFR (MDRD) (>89) Glucose (74-104) mg/dL POC Whole Bld Glucose 111 H (70 - 100) mg/dL Calcium (8.5-10.3) mg/dL Phosphorus (2.5-5.0) mg/dL Magnesium (1.7-2.3) mg/dL Total Bilirubin (0.2-1.0) mg/dL AST (10-42) IU/L ALT (10-60) IU/L Alkaline Phosphatase (42-121) IU/L Troponin I High Sens 7.7 (2.3-19.7) ng/L Total Protein (6.4-8.9) g/dL Albumin (3.2-5.5) g/dL Globulin (2.1-4.2) g/dL Albumin/Globulin Ratio (1.0-2.2) Vitamin B12 (180-914) pg/mL Folate (5.90 - >24.8) ng/mL Nasal Screen MRSA (PCR) NEGATIVE (NEGATIVE) Ethyl Alcohol mg/dL 03/05/24 03/05/24 03/05/24 Range/Units 23:10 22:12 22:12 WBC 11.2 H (4.8-10.8) x10^3/uL RBC 3.95 L (4.70-6.10) 10^6/uL Hgb 9.8 L (14.0-18.0) g/dL Hct 31.2 L (42.0-52.0) % MCV 79.0 L (80.0-94.0) fL MCH 24.8 L (27.0-31.0) pg MCHC 31.4 L (32.0-36.0) g/dL RDW 15.3 H (12.0-15.0) % Plt Count 279 (130-450) 10^3/uL MPV 8.5 (7.4-11.4) fL Neut # (Auto) 9.7 H (1.5-6.6) 10^3/uL Lymph # (Auto) 0.9 L (1.5-3.5) 10^3/uL Reagan # (Auto) 0.4 (0.0-1.0) 10^3/uL Eos # (Auto) 0.0 (0.0-0.7) 10^3/uL Baso # (Auto) 0.0 (0.0-0.1) 10^3/uL Absolute Nucleated RBC 0.00 x10^3/uL Nucleated RBC % 0.0 /100WBC PT 11.7 (9.9-12.6) secs INR 1.1 (0.8-1.2) VBG pH (7.31-7.41) Ionized Calcium (1.15-1.33) mmol/L Sodium 124 L (135-145) mmol/L Potassium 4.4 (3.5-4.5) mmol/L Chloride 91 L (101-111) mmol/L Carbon Dioxide 22 (21-32) mmol/L Anion Gap 11.0 (6-13) BUN 13 (6-20) mg/dL Creatinine 1.0 (0.6-1.3) mg/dL Estimated GFR (MDRD) 72 L (>89) Glucose 93 (74-104) mg/dL POC Whole Bld Glucose (70 - 100) mg/dL Calcium 8.6 (8.5-10.3) mg/dL Phosphorus (2.5-5.0) mg/dL Magnesium (1.7-2.3) mg/dL Total Bilirubin 0.6 (0.2-1.0) mg/dL AST 17 (10-42) IU/L ALT 12 (10-60) IU/L Alkaline Phosphatase 80 (42-121) IU/L Troponin I High Sens (2.3-19.7) ng/L Total Protein 5.8 L (6.4-8.9) g/dL Albumin 3.4 (3.2-5.5) g/dL Globulin 2.4 (2.1-4.2) g/dL Albumin/Globulin Ratio 1.4 (1.0-2.2) Vitamin B12 (180-914) pg/mL Folate (5.90 - >24.8) ng/mL Nasal Screen MRSA (PCR) (NEGATIVE) Ethyl Alcohol mg/dL 03/05/24 03/05/24 03/05/24 Range/Units 19:18 19:03 19:03 WBC 10.6 (4.8-10.8) x10^3/uL RBC 3.89 L (4.70-6.10) 10^6/uL Hgb 9.7 L (14.0-18.0) g/dL Hct 30.7 L (42.0-52.0) % MCV 78.9 L (80.0-94.0) fL MCH 24.9 L (27.0-31.0) pg MCHC 31.6 L (32.0-36.0) g/dL RDW 15.5 H (12.0-15.0) % Plt Count 277 (130-450) 10^3/uL MPV 8.5 (7.4-11.4) fL Neut # (Auto) 9.4 H (1.5-6.6) 10^3/uL Lymph # (Auto) 0.7 L (1.5-3.5) 10^3/uL Reagan # (Auto) 0.4 (0.0-1.0) 10^3/uL Eos # (Auto) 0.1 (0.0-0.7) 10^3/uL Baso # (Auto) 0.0 (0.0-0.1) 10^3/uL Absolute Nucleated RBC 0.00 x10^3/uL Nucleated RBC % 0.0 /100WBC PT 11.5 (9.9-12.6) secs INR 1.0 (0.8-1.2) VBG pH (7.31-7.41) Ionized Calcium (1.15-1.33) mmol/L Sodium 121 L (135-145) mmol/L Potassium 4.0 (3.5-4.5) mmol/L Chloride 88 L (101-111) mmol/L Carbon Dioxide 21 (21-32) mmol/L Anion Gap 12.0 (6-13) BUN 14 (6-20) mg/dL Creatinine 1.0 (0.6-1.3) mg/dL Estimated GFR (MDRD) 72 L (>89) Glucose 89 (74-104) mg/dL POC Whole Bld Glucose (70 - 100) mg/dL Calcium 8.7 (8.5-10.3) mg/dL Phosphorus (2.5-5.0) mg/dL Magnesium (1.7-2.3) mg/dL Total Bilirubin 0.5 (0.2-1.0) mg/dL AST 16 (10-42) IU/L ALT 12 (10-60) IU/L Alkaline Phosphatase 81 (42-121) IU/L Troponin I High Sens (2.3-19.7) ng/L Total Protein 6.2 L (6.4-8.9) g/dL Albumin 3.5 (3.2-5.5) g/dL Globulin 2.7 (2.1-4.2) g/dL Albumin/Globulin Ratio 1.3 (1.0-2.2) Vitamin B12 (180-914) pg/mL Folate (5.90 - >24.8) ng/mL Nasal Screen MRSA (PCR) (NEGATIVE) Ethyl Alcohol 110.5 mg/dL - Current Medications Current Medications: Current Medications Generic Name Dose Route Start Last Admin Trade Name Radha PRN Reason Stop Dose Admin Folic Acid 1 mg 03/06/24 09:00 03/06/24 08:38 Folic Acid 1 Mg Tablet PO 1 mg DAILY HEATHER Administration Sodium Chloride 1,000 mls @ 80 mls/hr 03/05/24 22:00 03/06/24 11:24 Normal Saline 0.9% IV 80 mls/hr .[id number] HEATHER Administration Insulin Human Regular 1 - 5 unit 03/06/24 00:00 03/06/24 11:53 Insulin Regular, Human 300 Unit/3 Ml Pen SUBQ Not Given Q6HR [facility] Protocol Lisinopril 10 mg 06/26/24 09:00 03/06/24 08:37 Lisinopril 5 Mg Tablet PO 10 mg DAILY HEATHER Administration Lorazepam 1 mg 03/05/24 21:27 03/06/24 00:40 Lorazepam 2 Mg/Ml Vial IVP 1 mg Q30M PRN Administration CIWA >8 Protocol Pantoprazole Sodium 40 mg 03/06/24 09:00 03/06/24 08:38 Pantoprazole 40 Mg Tablet PO 40 mg DAILY HEATHER Administration Sodium Chloride 10 ml 03/06/24 01:00 03/06/24 07:49 Sodium Chloride Flush 0.9% 10 Ml Syringe IVP 10 ml [id number],[id number],1700 HEATHER Administration Sodium Chloride 10 ml 03/05/24 21:20 03/06/24 11:01 Sodium Chloride Flush 0.9% 10 Ml Syringe IVP 10 ml PRN PRN Administration NEEDED PER PROVIDER ORDERS Thiamine HCl 100 mg 03/06/24 09:00 03/06/24 08:37 Thiamine 100 Mg Tablet PO 100 mg DAILY HEATHER Administration - Physical Exam General Appearance: positive: Mild distress Neurologic/Psychiatric: positive: Oriented x3, Motor nml, Sensation nml Comments/Other: The right leg is shortened and externally rotated. Neurovascular is intact. Impression/Plan - Problem List Problem List: The plan is comanaged care. He has a displaced femoral neck fracture. The patient and family is in agreement to hemiarthroplasty of the right hip. Tentatively, this will be performed tomorrow. He will receive a unit of blood, treatment for hyponatremia and further evaluation of his cardiopulmonary status. The decision for doing his surgery tomorrow was some discussion with [facility], institute director and myself. I spoke to Kt Gonzales, [phone]; this is his son. The patient resides with his son. I discussed with him his treatment and evaluation as it stands at this time. The seriousness of this hip fracture and associated comorbidities was discussed.
[2024-03-06] MEDS: HYDROcod/ACETAM 5/325 MG TABLET PO PRN (15:11)
[2024-03-06] MEDS: ACETAMINOPHEN 325 MG TABLET PO ONE (15:12)
--- NOTE | 2024-03-06 16:10 | PROVIDER PROGRESS NOTE ---
Subjective - Prog Note Date Prog Note Date: 03/06/24 Prog Note Time: 16:15 - Subjective Pt reports feeling: No change Current Medications - Current Medications Current Medications: Tylenol 1000 mg IV every 6 hours as needed [place] 5/325 mg 1 p.o. every 4 hours as needed Folic acid 1 mg daily Hydromorphone 0.5 mg IV every 4 hours as needed severe pain Regular insulin sliding scale Lisinopril 10 mg daily Lorazepam 1 mg IV every 30 minutes as needed agitation Ondansetron 4 mg IV every 6 hours as needed Protonix 40 mg daily Thiamine 100 mg p.o. daily Objective - Vital Signs/Intake & Output Reviewed Vital Signs: Yes Vital Signs: Vital Signs x48h Temp Pulse Resp BP Pulse Ox O2 Flow Rate 03/06/24 16:00 37.1 C 83 15 128/70 94 2 03/06/24 15:00 87 15 140/81 H 94 2 03/06/24 14:00 82 17 126/68 95 2 03/06/24 13:00 91 17 115/65 92 2 03/06/24 12:00 90 16 133/64 H 93 2 03/06/24 11:00 96 21 97/65 93 2 03/06/24 10:00 98 16 115/71 95 2 03/06/24 09:00 102 H 14 125/77 92 2 Intake & Output: Intake & Output 03/03/24 03/04/24 03/05/24 03/06/24 23:59 23:59 23:59 23:59 Intake Total 101 1100 Output Total 110 Balance 101 990 - Objective General Appearance: positive: Mild distress, Lethargic Eyes Bilateral: positive: Normal inspection ENT: positive: ENT inspection nml Neck: positive: Nml inspection Respiratory: positive: Chest non-tender, No respiratory distress, Breath sounds nml Cardiovascular: positive: No murmur, No gallop, Tachycardia. negative: Friction rub Abdomen: positive: Non-tender, No organomegaly, Nml bowel sounds Skin: positive: Color nml, No rash, Warm, Dry Extremities: positive: Other (Patient he has pulses in both of his lower extremities. Severe pain if he tries to move or roll over at this point especially in his right hip) Neurologic/Psychiatric: positive: Oriented x3, CN's nml (2-12) - Lab Results Fish Bones: 03/06/24 04:26 03/06/24 04:26 Other Labs: Lab Results x24hrs 03/06/24 03/06/24 03/06/24 Range/Units 14:44 11:51 10:10 WBC (4.8-10.8) x10^3/uL RBC (4.70-6.10) 10^6/uL Hgb (14.0-18.0) g/dL Hct (42.0-52.0) % MCV (80.0-94.0) fL MCH (27.0-31.0) pg MCHC (32.0-36.0) g/dL RDW (12.0-15.0) % Plt Count (130-450) 10^3/uL MPV (7.4-11.4) fL Neut # (Auto) (1.5-6.6) 10^3/uL Lymph # (Auto) (1.5-3.5) 10^3/uL [place] # (Auto) (0.0-1.0) 10^3/uL Eos # (Auto) (0.0-0.7) 10^3/uL Baso # (Auto) (0.0-0.1) 10^3/uL Absolute Nucleated RBC x10^3/uL Nucleated RBC % /100WBC PT (9.9-12.6) secs INR (0.8-1.2) VBG pH (7.31-7.41) Ionized Calcium (1.15-1.33) mmol/L Sodium (135-145) mmol/L Potassium (3.5-4.5) mmol/L Chloride (101-111) mmol/L Carbon Dioxide (21-32) mmol/L Anion Gap (6-13) BUN (6-20) mg/dL Creatinine (0.6-1.3) mg/dL Estimated GFR (MDRD) (>89) Glucose (74-104) mg/dL POC Whole Bld Glucose 113 H (70 - 100) mg/dL Calcium (8.5-10.3) mg/dL Phosphorus (2.5-5.0) mg/dL Magnesium 2.0 (1.7-2.3) mg/dL Total Bilirubin (0.2-1.0) mg/dL AST (10-42) IU/L ALT (10-60) IU/L Alkaline Phosphatase (42-121) IU/L Troponin I High Sens (2.3-19.7) ng/L Total Protein (6.4-8.9) g/dL Albumin (3.2-5.5) g/dL Globulin (2.1-4.2) g/dL Albumin/Globulin Ratio (1.0-2.2) Vitamin B12 (180-914) pg/mL Folate (5.90 - >24.8) ng/mL Nasal Screen MRSA (PCR) (NEGATIVE) Ethyl Alcohol mg/dL Blood Type O POSITIVE Antibody Screen NEGATIVE Crossmatch IS Only See Detail 03/06/24 03/06/24 03/06/24 Range/Units 09:58 05:58 04:26 WBC (4.8-10.8) x10^3/uL RBC (4.70-6.10) 10^6/uL Hgb (14.0-18.0) g/dL Hct (42.0-52.0) % MCV (80.0-94.0) fL MCH (27.0-31.0) pg MCHC (32.0-36.0) g/dL RDW (12.0-15.0) % Plt Count (130-450) 10^3/uL MPV (7.4-11.4) fL Neut # (Auto) (1.5-6.6) 10^3/uL Lymph # (Auto) (1.5-3.5) 10^3/uL [place] # (Auto) (0.0-1.0) 10^3/uL Eos # (Auto) (0.0-0.7) 10^3/uL Baso # (Auto) (0.0-0.1) 10^3/uL Absolute Nucleated RBC x10^3/uL Nucleated RBC % /100WBC PT (9.9-12.6) secs INR (0.8-1.2) VBG pH 7.376 (7.31-7.41) Ionized Calcium 1.16 (1.15-1.33) mmol/L Sodium (135-145) mmol/L Potassium (3.5-4.5) mmol/L Chloride (101-111) mmol/L Carbon Dioxide (21-32) mmol/L Anion Gap (6-13) BUN (6-20) mg/dL Creatinine (0.6-1.3) mg/dL Estimated GFR (MDRD) (>89) Glucose (74-104) mg/dL POC Whole Bld Glucose 104 H (70 - 100) mg/dL Calcium (8.5-10.3) mg/dL Phosphorus (2.5-5.0) mg/dL Magnesium (1.7-2.3) mg/dL Total Bilirubin (0.2-1.0) mg/dL AST (10-42) IU/L ALT (10-60) IU/L Alkaline Phosphatase (42-121) IU/L Troponin I High Sens (2.3-19.7) ng/L Total Protein (6.4-8.9) g/dL Albumin (3.2-5.5) g/dL Globulin (2.1-4.2) g/dL Albumin/Globulin Ratio (1.0-2.2) Vitamin B12 189 (180-914) pg/mL Folate 8.4 (5.90 - >24.8) ng/mL Nasal Screen MRSA (PCR) (NEGATIVE) Ethyl Alcohol mg/dL Blood Type Antibody Screen Crossmatch IS Only 03/06/24 03/06/24 03/06/24 Range/Units 04:26 04:26 04:26 WBC (4.8-10.8) x10^3/uL RBC (4.70-6.10) 10^6/uL Hgb (14.0-18.0) g/dL Hct (42.0-52.0) % MCV (80.0-94.0) fL MCH (27.0-31.0) pg MCHC (32.0-36.0) g/dL RDW (12.0-15.0) % Plt Count (130-450) 10^3/uL MPV (7.4-11.4) fL Neut # (Auto) (1.5-6.6) 10^3/uL Lymph # (Auto) (1.5-3.5) 10^3/uL [place] # (Auto) (0.0-1.0) 10^3/uL Eos # (Auto) (0.0-0.7) 10^3/uL Baso # (Auto) (0.0-0.1) 10^3/uL Absolute Nucleated RBC x10^3/uL Nucleated RBC % /100WBC PT (9.9-12.6) secs INR (0.8-1.2) VBG pH 7.428 H (7.31-7.41) Ionized Calcium 1.06 L (1.15-1.33) mmol/L Sodium 124 L (135-145) mmol/L Potassium 4.8 H (3.5-4.5) mmol/L Chloride 92 L (101-111) mmol/L Carbon Dioxide 25 (21-32) mmol/L Anion Gap 7.0 (6-13) BUN 15 (6-20) mg/dL Creatinine 1.0 (0.6-1.3) mg/dL Estimated GFR (MDRD) 72 L (>89) Glucose 99 (74-104) mg/dL POC Whole Bld Glucose (70 - 100) mg/dL Calcium 8.5 (8.5-10.3) mg/dL Phosphorus 4.0 (2.5-5.0) mg/dL Magnesium 1.6 L (1.7-2.3) mg/dL Total Bilirubin (0.2-1.0) mg/dL AST (10-42) IU/L ALT (10-60) IU/L Alkaline Phosphatase (42-121) IU/L Troponin I High Sens (2.3-19.7) ng/L Total Protein (6.4-8.9) g/dL Albumin (3.2-5.5) g/dL Globulin (2.1-4.2) g/dL Albumin/Globulin Ratio (1.0-2.2) Vitamin B12 (180-914) pg/mL Folate (5.90 - >24.8) ng/mL Nasal Screen MRSA (PCR) (NEGATIVE) Ethyl Alcohol mg/dL Blood Type Antibody Screen Crossmatch IS Only 03/06/24 03/06/24 03/06/24 Range/Units 04:26 00:28 00:28 WBC 10.1 (4.8-10.8) x10^3/uL RBC 3.81 L (4.70-6.10) 10^6/uL Hgb 9.5 L (14.0-18.0) g/dL Hct 30.1 L (42.0-52.0) % MCV 79.0 L (80.0-94.0) fL MCH 24.9 L (27.0-31.0) pg MCHC 31.6 L (32.0-36.0) g/dL RDW 15.3 H (12.0-15.0) % Plt Count 258 (130-450) 10^3/uL MPV 8.8 (7.4-11.4) fL Neut # (Auto) 9.0 H (1.5-6.6) 10^3/uL Lymph # (Auto) 0.6 L (1.5-3.5) 10^3/uL [place] # (Auto) 0.5 (0.0-1.0) 10^3/uL Eos # (Auto) 0.0 (0.0-0.7) 10^3/uL Baso # (Auto) 0.0 (0.0-0.1) 10^3/uL Absolute Nucleated RBC 0.00 x10^3/uL Nucleated RBC % 0.0 /100WBC PT (9.9-12.6) secs INR (0.8-1.2) VBG pH (7.31-7.41) Ionized Calcium (1.15-1.33) mmol/L Sodium (135-145) mmol/L Potassium (3.5-4.5) mmol/L Chloride (101-111) mmol/L Carbon Dioxide (21-32) mmol/L Anion Gap (6-13) BUN (6-20) mg/dL Creatinine (0.6-1.3) mg/dL Estimated GFR (MDRD) (>89) Glucose (74-104) mg/dL POC Whole Bld Glucose 111 H (70 - 100) mg/dL Calcium (8.5-10.3) mg/dL Phosphorus (2.5-5.0) mg/dL Magnesium (1.7-2.3) mg/dL Total Bilirubin (0.2-1.0) mg/dL AST (10-42) IU/L ALT (10-60) IU/L Alkaline Phosphatase (42-121) IU/L Troponin I High Sens (2.3-19.7) ng/L Total Protein (6.4-8.9) g/dL Albumin (3.2-5.5) g/dL Globulin (2.1-4.2) g/dL Albumin/Globulin Ratio (1.0-2.2) Vitamin B12 (180-914) pg/mL Folate (5.90 - >24.8) ng/mL Nasal Screen MRSA (PCR) NEGATIVE (NEGATIVE) Ethyl Alcohol mg/dL Blood Type Antibody Screen Crossmatch IS Only 03/05/24 03/05/24 03/05/24 Range/Units 23:10 23:10 22:12 WBC (4.8-10.8) x10^3/uL RBC (4.70-6.10) 10^6/uL Hgb (14.0-18.0) g/dL Hct (42.0-52.0) % MCV (80.0-94.0) fL MCH (27.0-31.0) pg MCHC (32.0-36.0) g/dL RDW (12.0-15.0) % Plt Count (130-450) 10^3/uL MPV (7.4-11.4) fL Neut # (Auto) (1.5-6.6) 10^3/uL Lymph # (Auto) (1.5-3.5) 10^3/uL [place] # (Auto) (0.0-1.0) 10^3/uL Eos # (Auto) (0.0-0.7) 10^3/uL Baso # (Auto) (0.0-0.1) 10^3/uL Absolute Nucleated RBC x10^3/uL Nucleated RBC % /100WBC PT 11.7 (9.9-12.6) secs INR 1.1 (0.8-1.2) VBG pH (7.31-7.41) Ionized Calcium (1.15-1.33) mmol/L Sodium 124 L (135-145) mmol/L Potassium 4.4 (3.5-4.5) mmol/L Chloride 91 L (101-111) mmol/L Carbon Dioxide 22 (21-32) mmol/L Anion Gap 11.0 (6-13) BUN 13 (6-20) mg/dL Creatinine 1.0 (0.6-1.3) mg/dL Estimated GFR (MDRD) 72 L (>89) Glucose 93 (74-104) mg/dL POC Whole Bld Glucose (70 - 100) mg/dL Calcium 8.6 (8.5-10.3) mg/dL Phosphorus (2.5-5.0) mg/dL Magnesium (1.7-2.3) mg/dL Total Bilirubin 0.6 (0.2-1.0) mg/dL AST 17 (10-42) IU/L ALT 12 (10-60) IU/L Alkaline Phosphatase 80 (42-121) IU/L Troponin I High Sens 7.7 (2.3-19.7) ng/L Total Protein 5.8 L (6.4-8.9) g/dL Albumin 3.4 (3.2-5.5) g/dL Globulin 2.4 (2.1-4.2) g/dL Albumin/Globulin Ratio 1.4 (1.0-2.2) Vitamin B12 (180-914) pg/mL Folate (5.90 - >24.8) ng/mL Nasal Screen MRSA (PCR) (NEGATIVE) Ethyl Alcohol mg/dL Blood Type Antibody Screen Crossmatch IS Only 03/05/24 03/05/24 03/05/24 Range/Units 22:12 19:18 19:03 WBC 11.2 H (4.8-10.8) x10^3/uL RBC 3.95 L (4.70-6.10) 10^6/uL Hgb 9.8 L (14.0-18.0) g/dL Hct 31.2 L (42.0-52.0) % MCV 79.0 L (80.0-94.0) fL MCH 24.8 L (27.0-31.0) pg MCHC 31.4 L (32.0-36.0) g/dL RDW 15.3 H (12.0-15.0) % Plt Count 279 (130-450) 10^3/uL MPV 8.5 (7.4-11.4) fL Neut # (Auto) 9.7 H (1.5-6.6) 10^3/uL Lymph # (Auto) 0.9 L (1.5-3.5) 10^3/uL [place] # (Auto) 0.4 (0.0-1.0) 10^3/uL Eos # (Auto) 0.0 (0.0-0.7) 10^3/uL Baso # (Auto) 0.0 (0.0-0.1) 10^3/uL Absolute Nucleated RBC 0.00 x10^3/uL Nucleated RBC % 0.0 /100WBC PT 11.5 (9.9-12.6) secs INR 1.0 (0.8-1.2) VBG pH (7.31-7.41) Ionized Calcium (1.15-1.33) mmol/L Sodium 121 L (135-145) mmol/L Potassium 4.0 (3.5-4.5) mmol/L Chloride 88 L (101-111) mmol/L Carbon Dioxide 21 (21-32) mmol/L Anion Gap 12.0 (6-13) BUN 14 (6-20) mg/dL Creatinine 1.0 (0.6-1.3) mg/dL Estimated GFR (MDRD) 72 L (>89) Glucose 89 (74-104) mg/dL POC Whole Bld Glucose (70 - 100) mg/dL Calcium 8.7 (8.5-10.3) mg/dL Phosphorus (2.5-5.0) mg/dL Magnesium (1.7-2.3) mg/dL Total Bilirubin 0.5 (0.2-1.0) mg/dL AST 16 (10-42) IU/L ALT 12 (10-60) IU/L Alkaline Phosphatase 81 (42-121) IU/L Troponin I High Sens (2.3-19.7) ng/L Total Protein 6.2 L (6.4-8.9) g/dL Albumin 3.5 (3.2-5.5) g/dL Globulin 2.7 (2.1-4.2) g/dL Albumin/Globulin Ratio 1.3 (1.0-2.2) Vitamin B12 (180-914) pg/mL Folate (5.90 - >24.8) ng/mL Nasal Screen MRSA (PCR) (NEGATIVE) Ethyl Alcohol 110.5 mg/dL Blood Type Antibody Screen Crossmatch IS Only 06/25/24 Range/Units 19:03 WBC 10.6 (4.8-10.8) x10^3/uL RBC 3.89 L (4.70-6.10) 10^6/uL Hgb 9.7 L (14.0-18.0) g/dL Hct 30.7 L (42.0-52.0) % MCV 78.9 L (80.0-94.0) fL MCH 24.9 L (27.0-31.0) pg MCHC 31.6 L (32.0-36.0) g/dL RDW 15.5 H (12.0-15.0) % Plt Count 277 (130-450) 10^3/uL MPV 8.5 (7.4-11.4) fL Neut # (Auto) 9.4 H (1.5-6.6) 10^3/uL Lymph # (Auto) 0.7 L (1.5-3.5) 10^3/uL [place] # (Auto) 0.4 (0.0-1.0) 10^3/uL Eos # (Auto) 0.1 (0.0-0.7) 10^3/uL Baso # (Auto) 0.0 (0.0-0.1) 10^3/uL Absolute Nucleated RBC 0.00 x10^3/uL Nucleated RBC % 0.0 /100WBC PT (9.9-12.6) secs INR (0.8-1.2) VBG pH (7.31-7.41) Ionized Calcium (1.15-1.33) mmol/L Sodium (135-145) mmol/L Potassium (3.5-4.5) mmol/L Chloride (101-111) mmol/L Carbon Dioxide (21-32) mmol/L Anion Gap (6-13) BUN (6-20) mg/dL Creatinine (0.6-1.3) mg/dL Estimated GFR (MDRD) (>89) Glucose (74-104) mg/dL POC Whole Bld Glucose (70 - 100) mg/dL Calcium (8.5-10.3) mg/dL Phosphorus (2.5-5.0) mg/dL Magnesium (1.7-2.3) mg/dL Total Bilirubin (0.2-1.0) mg/dL AST (10-42) IU/L ALT (10-60) IU/L Alkaline Phosphatase (42-121) IU/L Troponin I High Sens (2.3-19.7) ng/L Total Protein (6.4-8.9) g/dL Albumin (3.2-5.5) g/dL Globulin (2.1-4.2) g/dL Albumin/Globulin Ratio (1.0-2.2) Vitamin B12 (180-914) pg/mL Folate (5.90 - >24.8) ng/mL Nasal Screen MRSA (PCR) (NEGATIVE) Ethyl Alcohol mg/dL Blood Type Antibody Screen Crossmatch IS Only ABX Reporting Has patient been on IV antibiotics over the past 48 hours?: No Sepsis Event Note (H) - Evaluation Current Stage of Sepsis: Ruled out Assessment/Plan - Problem List (1) Pathologic fracture of neck of right femur Impression: The patient had a right femoral neck fracture due to a ground-level fall. This orthopedics plans to take the patient to the operating room tomorrow morning. We are going to try to improve his sodium level today a bit. (2) Acute hyponatremia Impression: Patient received hypertonic saline in the emergency room. There was no improvement with his sodium level which remained at 124. The patient is a heavy drinker and likely has beer potomania. Will recheck a chemistry panel first thing in the morning. Orthopedic surgery would like to get his sodium level up to 129 if possible but will proceed with surgery unless he clinically worsens overnight. (3) Chronic respiratory failure Impression: Secondary to COPD. Continue oxygen at 2 L via nasal cannula for now. He is at his baseline (4) COPD (chronic obstructive pulmonary disease) Impression: No evidence of exacerbation Qualifiers: COPD type: unspecified COPD Qualified Code(s): J44.9 - Chronic obstructive pulmonary disease, unspecified (5) Alcohol use disorder Impression: The patient drinks about 5 drinks a day he tells me. He has IV Ativan available as needed. He will need to be monitored closely for signs of alcohol withdrawal (6) Hyperlipidemia Impression: Pharmacy has not yet reviewed his medications. Will start him back on his usual medications once they review (7) Moderate major depression Impression: The patient takes sertraline at home however it is not yet been reviewed by the clinical pharmacist. He will resume his sertraline at the correct dose once I do this (8) Hyperkalemia Impression: Quite mild. He will have a chemistry panel in the morning. Continue IV fluids Disposition: Inpatient hospitalization remains necessary. Overall the patient is going to the operating room tomorrow. He likely will need subacute rehabilitation at discharge Time spent: 35 minutes
[2024-03-06] MEDS: diphenhydrAMINE INJ 50 MG/ML VIAL IVP ONE (16:22)
--- NOTE | 2024-03-06 17:05 | PHARMACY PROGRESS NOTE ---
- Best Possible Medication History Admit Date and Time: 03/05/242119 Processed by: Pharmacy Medications reviewed in ED?: No Medication History completed: Yes Patient Interview: Completed Secondary Source(s): Written medication list, Pharmacy records, Insurance records As the person ultimately responsible for medication therapy, providers are able to order a medication from an existing home medication list in [facility] via the "Reconcile Routine" prior to Confirmation of that medication by direct support worker. Such practice is discouraged except when the physician, in their clinical judgment, deems that a medical need exists for a medication without regard to previous use.
[2024-03-06 17:22] LABS: CALCIUM 8.8 mg/dL (8.5-10.3); CREATININE 1.2 mg/dL (0.6-1.3); POTASSIUM 5.1 mmol/L (3.5-4.5)
[2024-03-06] MEDS: HYDROmorphone 0.5 MG/0.5 ML SYRINGE IVP PRN (18:02)
[2024-03-06] MEDS: ONDANSETRON 4 MG/2 ML VIAL IVP PRN (21:37)
[2024-03-07 04:38] LABS: BASOPHILS % (AUTO) 0.1 %; EOSINOPHILS # (AUTO) 0.1 10^3/uL (0.0-0.7); EOSINOPHILS % (AUTO) 0.4 %; HCT - HEMATOCRIT 32.5 % (42.0-52.0); HGB - HEMOGLOBIN 10.2 g/dL (14.0-18.0); LYMPHOCYTES # (AUTO) 0.5 10^3/uL (1.5-3.5); LYMPHOCYTES % (AUTO) 3.7 %; MEAN CORPUSCULAR HEMOGLOBIN 26.1 pg (27.0-31.0); MEAN CORPUSCULAR HGB CONC 31.4 g/dL (32.0-36.0); MEAN CORPUSCULAR VOLUME 83.1 fL (80.0-94.0); MEAN PLATELET VOLUME 9.1 fL (7.4-11.4); MONOCYTES # (AUTO) 0.5 10^3/uL (0.0-1.0); MONOCYTES % (AUTO) 3.8 %; NEUTROPHILS # (AUTO) 12.7 10^3/uL (1.5-6.6); NEUTROPHILS % (AUTO) 91.2 %; PLT - PLATELET COUNT 230 10^3/uL (130-450); RED BLOOD COUNT 3.91 10^6/uL (4.70-6.10); RED CELL DISTRIBUTION WIDTH 16.3 % (12.0-15.0); WHITE BLOOD COUNT 13.9 x10^3/uL (4.8-10.8)
[2024-03-07 04:41] LABS: VBG PH 7.348 (7.31-7.41)
[2024-03-07 04:42] LABS: CALCIUM, IONIZED 1.12 mmol/L (1.15-1.33)
[2024-03-07 04:56] LABS: ALBUMIN 3.1 g/dL (3.2-5.5); BILIRUBIN,DIRECT 0.18 mg/dL (0.03-0.18); BILIRUBIN,TOTAL 0.9 mg/dL (0.2-1.0); CALCIUM 8.6 mg/dL (8.5-10.3); CREATININE 1.1 mg/dL (0.6-1.3); MAGNESIUM 1.8 mg/dL (1.7-2.3); POTASSIUM 5.1 mmol/L (3.5-4.5); TOTAL PROTEIN 5.6 g/dL (6.4-8.9)
[2024-03-07] MEDS: SERTRALINE 25 MG TABLET PO SCH (08:09)
[2024-03-07] MEDS: FERROUS SULFATE 325 MG TABLET PO SCH (08:09)
[2024-03-07] MEDS: SODIUM ZIRCONIUM CYCLOSILICATE 5 GM PACKET PO STA (08:09)
[2024-03-07] MEDS: PANTOPRAZOLE 40 MG TABLET PO SCH (08:10)
[2024-03-07] MEDS ORDERED: [UNRECOGNIZED DRUG - OTHER] IH SCH (09:00)
[2024-03-07] MEDS: IPRATROPIUM/ALBUTEROL 3 ML NEB INH SCH (09:17)
--- NOTE | 2024-03-07 11:15 | PROVIDER PROGRESS NOTE ---
Subjective - Prog Note Date Prog Note Date: 03/07/24 Prog Note Time: 11:15 - Subjective Pt reports feeling: No change Subjective: The patient did fairly well overnight. His pain is adequately controlled on the current regimen. He is scheduled for his surgery at about 1:00 this afternoon. Today he denies fever or shaking chills. No chest pain, shortness of breath or cough. No nausea vomiting or diarrhea. No urinary complaints. He does complain of pain in his hip and he states it is very difficult to move in the bed. Current Medications - Current Medications Current Medications: Tylenol 1000 mg IV every 6 hours as needed [place] 5/325 mg 1 p.o. every 4 hours as needed Folic acid 1 mg daily Hydromorphone 0.5 mg IV every 4 hours as needed severe pain Regular insulin sliding scale Lisinopril 10 mg daily Lorazepam 1 mg IV every 30 minutes as needed agitation Ondansetron 4 mg IV every 6 hours as needed Protonix 40 mg daily Thiamine 100 mg p.o. daily Objective - Vital Signs/Intake & Output Reviewed Vital Signs: Yes Vital Signs: Vital Signs x48h Temp Pulse Pulse Resp BP Pulse Ox O2 Flow Rate 03/07/24 11:00 68 12 111/49 L 93 2 03/07/24 10:00 68 13 120/53 L 95 2 03/07/24 09:20 68 20 4 03/07/24 09:00 66 11 L 120/53 L 97 4 03/07/24 08:00 36.8 C 66 14 134/72 H 98 4 03/07/24 07:00 80 14 132/66 H 94 4 03/07/24 06:03 77 13 110/68 97 4 03/07/24 05:00 71 13 139/75 H 95 4 03/07/24 04:00 70 16 138/62 H 96 4 Intake & Output: Intake & Output 03/04/24 03/05/24 03/06/24 03/07/24 23:59 23:59 23:59 23:59 Intake Total 101 1788 568 Output Total 405 505 Balance 101 1383 63 - Objective General Appearance: positive: No acute distress, Alert, Mild distress Eyes Bilateral: positive: Normal inspection ENT: positive: ENT inspection nml Neck: positive: Nml inspection Respiratory: positive: Chest non-tender, No respiratory distress, Breath sounds nml Cardiovascular: positive: Regular rate & rhythm, No murmur, No gallop. negative: Friction rub Abdomen: positive: Non-tender, No organomegaly, Nml bowel sounds Skin: positive: Color nml, No rash, Warm, Dry Extremities: positive: Non-tender, Full ROM Neurologic/Psychiatric: positive: Oriented x3, CN's nml (2-12) - Lab Results Fish Bones: 03/07/24 04:15 03/07/24 04:15 Other Labs: Lab Results x24hrs 03/07/24 03/07/24 03/07/24 Range/Units 06:00 04:15 04:15 WBC 13.9 H (4.8-10.8) x10^3/uL RBC 3.91 L (4.70-6.10) 10^6/uL Hgb 10.2 L (14.0-18.0) g/dL Hct 32.5 L (42.0-52.0) % MCV 83.1 (80.0-94.0) fL MCH 26.1 L (27.0-31.0) pg MCHC 31.4 L (32.0-36.0) g/dL RDW 16.3 H (12.0-15.0) % Plt Count 230 (130-450) 10^3/uL MPV 9.1 (7.4-11.4) fL Neut # (Auto) 12.7 H (1.5-6.6) 10^3/uL Lymph # (Auto) 0.5 L (1.5-3.5) 10^3/uL [place] # (Auto) 0.5 (0.0-1.0) 10^3/uL Eos # (Auto) 0.1 (0.0-0.7) 10^3/uL Baso # (Auto) 0.0 (0.0-0.1) 10^3/uL Absolute Nucleated RBC 0.00 x10^3/uL Nucleated RBC % 0.0 /100WBC VBG pH (7.31-7.41) Ionized Calcium (1.15-1.33) mmol/L Sodium 126 L (135-145) mmol/L Potassium 5.1 H (3.5-4.5) mmol/L Chloride 95 L (101-111) mmol/L Carbon Dioxide 25 (21-32) mmol/L Anion Gap 6.0 (6-13) BUN 19 (6-20) mg/dL Creatinine 1.1 (0.6-1.3) mg/dL Estimated GFR (MDRD) 64 L (>89) Glucose 110 H (74-104) mg/dL POC Whole Bld Glucose 90 (70 - 100) mg/dL Calcium 8.6 (8.5-10.3) mg/dL Phosphorus 5.0 (2.5-5.0) mg/dL Magnesium 1.8 (1.7-2.3) mg/dL Total Bilirubin 0.9 (0.2-1.0) mg/dL Direct Bilirubin 0.18 (0.03-0.18) mg/dL AST 16 (10-42) IU/L ALT 12 (10-60) IU/L Alkaline Phosphatase 74 (42-121) IU/L Total Protein 5.6 L (6.4-8.9) g/dL Albumin 3.1 L (3.2-5.5) g/dL Globulin 2.5 (2.1-4.2) g/dL Blood Type Antibody Screen Crossmatch IS Only 03/07/24 03/07/24 03/06/24 Range/Units 04:15 00:23 16:55 WBC (4.8-10.8) x10^3/uL RBC (4.70-6.10) 10^6/uL Hgb (14.0-18.0) g/dL Hct (42.0-52.0) % MCV (80.0-94.0) fL MCH (27.0-31.0) pg MCHC (32.0-36.0) g/dL RDW (12.0-15.0) % Plt Count (130-450) 10^3/uL MPV (7.4-11.4) fL Neut # (Auto) (1.5-6.6) 10^3/uL Lymph # (Auto) (1.5-3.5) 10^3/uL [place] # (Auto) (0.0-1.0) 10^3/uL Eos # (Auto) (0.0-0.7) 10^3/uL Baso # (Auto) (0.0-0.1) 10^3/uL Absolute Nucleated RBC x10^3/uL Nucleated RBC % /100WBC VBG pH 7.348 (7.31-7.41) Ionized Calcium 1.12 L (1.15-1.33) mmol/L Sodium 124 L (135-145) mmol/L Potassium 5.1 H (3.5-4.5) mmol/L Chloride 93 L (101-111) mmol/L Carbon Dioxide 23 (21-32) mmol/L Anion Gap 8.0 (6-13) BUN 17 (6-20) mg/dL Creatinine 1.2 (0.6-1.3) mg/dL Estimated GFR (MDRD) 58 L (>89) Glucose 114 H (74-104) mg/dL POC Whole Bld Glucose 121 H (70 - 100) mg/dL Calcium 8.8 (8.5-10.3) mg/dL Phosphorus (2.5-5.0) mg/dL Magnesium (1.7-2.3) mg/dL Total Bilirubin (0.2-1.0) mg/dL Direct Bilirubin (0.03-0.18) mg/dL AST (10-42) IU/L ALT (10-60) IU/L Alkaline Phosphatase (42-121) IU/L Total Protein (6.4-8.9) g/dL Albumin (3.2-5.5) g/dL Globulin (2.1-4.2) g/dL Blood Type Antibody Screen Crossmatch IS Only 03/06/24 03/06/24 03/06/24 Range/Units 16:47 14:44 11:51 WBC (4.8-10.8) x10^3/uL RBC (4.70-6.10) 10^6/uL Hgb (14.0-18.0) g/dL Hct (42.0-52.0) % MCV (80.0-94.0) fL MCH (27.0-31.0) pg MCHC (32.0-36.0) g/dL RDW (12.0-15.0) % Plt Count (130-450) 10^3/uL MPV (7.4-11.4) fL Neut # (Auto) (1.5-6.6) 10^3/uL Lymph # (Auto) (1.5-3.5) 10^3/uL Motley # (Auto) (0.0-1.0) 10^3/uL Eos # (Auto) (0.0-0.7) 10^3/uL Baso # (Auto) (0.0-0.1) 10^3/uL Absolute Nucleated RBC x10^3/uL Nucleated RBC % /100WBC VBG pH (7.31-7.41) Ionized Calcium (1.15-1.33) mmol/L Sodium (135-145) mmol/L Potassium (3.5-4.5) mmol/L Chloride (101-111) mmol/L Carbon Dioxide (21-32) mmol/L Anion Gap (6-13) BUN (6-20) mg/dL Creatinine (0.6-1.3) mg/dL Estimated GFR (MDRD) (>89) Glucose (74-104) mg/dL POC Whole Bld Glucose 121 H 113 H (70 - 100) mg/dL Calcium (8.5-10.3) mg/dL Phosphorus (2.5-5.0) mg/dL Magnesium (1.7-2.3) mg/dL Total Bilirubin (0.2-1.0) mg/dL Direct Bilirubin (0.03-0.18) mg/dL AST (10-42) IU/L ALT (10-60) IU/L Alkaline Phosphatase (42-121) IU/L Total Protein (6.4-8.9) g/dL Albumin (3.2-5.5) g/dL Globulin (2.1-4.2) g/dL Blood Type O POSITIVE Antibody Screen NEGATIVE Crossmatch IS Only See Detail ABX Reporting Has patient been on IV antibiotics over the past 48 hours?: No Sepsis Event Note (H) - Evaluation Current Stage of Sepsis: Ruled out Assessment/Plan - Problem List (1) Pathologic fracture of neck of right femur Impression: The patient is going for surgical repair today at about 1 PM. Continue current pain regimen. (2) Acute hyponatremia Impression: His hyponatremia is likely due to beer Potomania. Also it appears that at home the patient was on hydrochlorothiazide which of course has been held. He should avoid this medication in the future. Sodium level is up to 126 today. (3) Chronic respiratory failure Impression: He is at his baseline 2 L of oxygen (4) COPD (chronic obstructive pulmonary disease) Impression: Today there is no evidence of exacerbation. Qualifiers: COPD type: unspecified COPD Qualified Code(s): J44.9 - Chronic obstructive pulmonary disease, unspecified (5) Alcohol use disorder Impression: No evidence of alcohol withdrawal. He has as needed Ativan available as needed. (6) Hyperlipidemia Impression: Continue atorvastatin 10 mg daily (7) Moderate major depression Impression: Continue sertraline 25 mg daily (8) Hyperkalemia Impression: His potassium deven slightly overnight . I am going to hold his home dose of lisinopril. Will give him a one-time dose of Lokelma (9) Hypertension Impression: I am going to hold his home dose of lisinopril due to his hyperkalemia. Systolic pressures are between 110 and 120. Will add a different agent if his blood pressures begin to rise. (10) Ambulatory dysfunction Impression: Following surgery he will begin PT and OT. He likely will need subacute rehabilitation at discharge Disposition: The patient will be postoperative day 0 today. He will need to stay in the hospital for 2-3 more days postsurgery and then be discharged to subacute rehabilitation Time spent: 35 minutes
--- NOTE | 2024-03-07 11:27 | ADVANCE CARE PLANNING NOTE ---
Advance Care Planning - Planning Encounter Date: 03/07/24 Time: 11:00 Purpose: Discuss goals of care Parties in Attendance: The patient who is alert and oriented x 3 Decisional Capacity of the Patient: He is competant to make decisions for himself - Diagnosis for Encounter (4) COPD (chronic obstructive pulmonary disease) Qualifiers: COPD type: unspecified COPD Qualified Code(s): J44.9 - Chronic obstructive pulmonary disease, unspecified - Encounter Subjective/Patient's Story: The patient is an 79 -year-old gentleman with past medical history significant for chronic respiratory failure on 2 L of oxygen at baseline due to underlying COPD. He has history of heavy alcohol use as well. Objective/Medical Story: The patient was admitted to the hospital with a right femoral neck fracture. He is going for surgical repair today. Goals of Care: Goals of care were discussed today. The patient states that he definitely wants to have surgery on his hip and would like us to treat him with IV antibiotics and IV fluids. However he states that if he got sick enough that his heart stopped beating or he quit breathing he would not want chest compressions or intubation or his care escalated to the ICU for heroic measures. Otherwise he would like all treatment up until that point for now. He is quite adamant about this. His wishes will be honored and his code status will be updated in the medical record and a POLST was filled out Code Status: Do Not Attempt Resuscitation Time spent on advance care plannin minutes
--- NOTE | 2024-03-07 11:40 | ANESTHESIA ---
Pre-Anesthesia VS, & Labs - Diagnosis R hip fracture - Procedure R hip hemiprosthesis Vital Signs: Temp Pulse Resp BP Pulse Ox O2 Flow Rate 36.8 C 68 12 111/49 L 93 2 03/07/24 08:00 03/07/24 11:00 03/07/24 11:00 03/07/24 11:00 03/07/24 11:00 03/07/24 11:00 Height: 5 ft 7 in Weight (kg): 70.5 kg Body Mass Index: 24.3 BMI Classification: Normal - NPO >8 hours - Lab Results Current Lab Results: Laboratory Tests 03/07/24 06:00: POC Whole Bld Glucose 90 03/07/24 04:15: Sodium 126 L, Potassium 5.1 H, Chloride 95 L, Carbon Dioxide 25, Anion Gap 6.0, BUN 19, Creatinine 1.1, Estimated GFR (MDRD) 64 L, Glucose 110 H, Calcium 8.6, Phosphorus 5.0, Magnesium 1.8, Total Bilirubin 0.9, Direct Bilirubin 0.18, AST 16, ALT 12, Alkaline Phosphatase 74, Total Protein 5.6 L, Albumin 3.1 L, Globulin 2.5 03/07/24 04:15: WBC 13.9 H, RBC 3.91 L, Hgb 10.2 L, Hct 32.5 L, MCV 83.1, MCH 26.1 L, MCHC 31.4 L, RDW 16.3 H, Plt Count 230, MPV 9.1, Neut # (Auto) 12.7 H, Lymph # (Auto) 0.5 L, [place] # (Auto) 0.5, Eos # (Auto) 0.1, Baso # (Auto) 0.0, Absolute Nucleated RBC 0.00, Nucleated RBC % 0.0 03/07/24 04:15: VBG pH 7.348, Ionized Calcium 1.12 L 03/07/24 00:23: POC Whole Bld Glucose 121 H 03/06/24 16:55: Sodium 124 L, Potassium 5.1 H, Chloride 93 L, Carbon Dioxide 23, Anion Gap 8.0, BUN 17, Creatinine 1.2, Estimated GFR (MDRD) 58 L, Glucose 114 H, Calcium 8.8 03/06/24 16:47: POC Whole Bld Glucose 121 H 03/06/24 14:44: Blood Type O POSITIVE, Antibody Screen NEGATIVE, Crossmatch IS Only See Detail 03/06/24 11:51: POC Whole Bld Glucose 113 H 03/06/24 10:10: Magnesium 2.0 03/06/24 09:58: VBG pH 7.376, Ionized Calcium 1.16 03/06/24 05:58: POC Whole Bld Glucose 104 H 03/06/24 04:26: Vitamin B12 189, Folate 8.4 03/06/24 04:26: VBG pH 7.428 H, Ionized Calcium 1.06 L 03/06/24 04:26: Phosphorus 4.0, Magnesium 1.6 L 03/06/24 04:26: Sodium 124 L, Potassium 4.8 H, Chloride 92 L, Carbon Dioxide 25, Anion Gap 7.0, BUN 15, Creatinine 1.0, Estimated GFR (MDRD) 72 L, Glucose 99, Calcium 8.5 03/06/24 04:26: WBC 10.1, RBC 3.81 L, Hgb 9.5 L, Hct 30.1 L, MCV 79.0 L, MCH 24.9 L, MCHC 31.6 L, RDW 15.3 H, Plt Count 258, MPV 8.8, Neut # (Auto) 9.0 H, Lymph # (Auto) 0.6 L, [place] # (Auto) 0.5, Eos # (Auto) 0.0, Baso # (Auto) 0.0, Absolute Nucleated RBC 0.00, Nucleated RBC % 0.0 03/06/24 00:28: POC Whole Bld Glucose 111 H 03/05/24 23:10: Troponin I High Sens 7.7 03/05/24 23:10: Sodium 124 L, Potassium 4.4, Chloride 91 L, Carbon Dioxide 22, Anion Gap 11.0, BUN 13, Creatinine 1.0, Estimated GFR (MDRD) 72 L, Glucose 93, Calcium 8.6, Total Bilirubin 0.6, AST 17, ALT 12, Alkaline Phosphatase 80, Total Protein 5.8 L, Albumin 3.4, Globulin 2.4, Albumin/Globulin Ratio 1.4 03/05/24 22:12: PT 11.7, INR 1.1 03/05/24 22:12: WBC 11.2 H, RBC 3.95 L, Hgb 9.8 L, Hct 31.2 L, MCV 79.0 L, MCH 24.8 L, MCHC 31.4 L, RDW 15.3 H, Plt Count 279, MPV 8.5, Neut # (Auto) 9.7 H, Lymph # (Auto) 0.9 L, [place] # (Auto) 0.4, Eos # (Auto) 0.0, Baso # (Auto) 0.0, Absolute Nucleated RBC 0.00, Nucleated RBC % 0.0 03/05/24 19:18: Sodium 121 L, Potassium 4.0, Chloride 88 L, Carbon Dioxide 21, Anion Gap 12.0, BUN 14, Creatinine 1.0, Estimated GFR (MDRD) 72 L, Glucose 89, Calcium 8.7, Total Bilirubin 0.5, AST 16, ALT 12, Alkaline Phosphatase 81, Total Protein 6.2 L, Albumin 3.5, Globulin 2.7, Albumin/Globulin Ratio 1.3, Ethyl A lcohol 110.5 03/05/24 19:03: PT 11.5, INR 1.0 03/05/24 19:03: WBC 10.6, RBC 3.89 L, Hgb 9.7 L, Hct 30.7 L, MCV 78.9 L, MCH 24.9 L, MCHC 31.6 L, RDW 15.5 H, Plt Count 277, MPV 8.5, Neut # (Auto) 9.4 H, Lymph # (Auto) 0.7 L, [place] # (Auto) 0.4, Eos # (Auto) 0.1, Baso # (Auto) 0.0, Absolute Nucleated RBC 0.00, Nucleated RBC % 0.0 Fish Bones: 03/07/24 04:15 03/07/24 04:15 Home Medications and Allergies Home Medications: Ambulatory Orders Ferrous Sulfate 325 mg PO Q48H 03/06/24 Ipratropium/Albuterol [Duoneb] 1 neb PO QID PRN 03/06/24 Active Medications Hydrocodone Bitart/Acetaminophen (Hydrocod/Acetam 5/325 Mg Tablet) 1 tab PO Q4HR PRN PRN Reason: Pain 5 to 7 Last Admin: 03/07/24 08:11 Dose: 1 tab Albuterol/Ipratropium (Ipratropium/Albuterol 3 Ml Neb) 3 ml INH RTQID [facility] Last Admin: 03/07/24 09:17 Dose: 3 ml Atorvastatin Calcium (Atorvastatin 10 Mg Tablet) 10 mg PO QPM [facility] Budesonide (Budesonide 0.5 Mg/2 Ml Neb) 0.5 mg INH RTBID HEATHER Ferrous Sulfate (Ferrous Sulfate 325 Mg Tablet) 325 mg PO Q48H [facility] Last Admin: 03/07/24 08:09 Dose: 325 mg Folic Acid (Folic Acid 1 Mg Tablet) 1 mg PO DAILY [facility] Last Admin: 03/07/24 08:09 Dose: 1 mg Formoterol Fumarate (Formoterol Fumarate Neb 20 Mcg/2 Ml) 20 mcg INH RTBID HEATHER Hydromorphone HCl (Hydromorphone 0.5 Mg/0.5 Ml Syringe) 0.5 mg IVP Q4H PRN PRN Reason: Pain 8 to 10 Last Admin: 03/07/24 09:49 Dose: 0.5 mg Sodium Chloride (Normal Saline 0.9%) 1,000 mls @ 80 mls/hr IV .[id number] [facility] Last Admin: 03/07/24 01:59 Dose: 80 mls/hr Acetaminophen (Acetaminophen) 1,000 mg in 100 mls @ 400 mls/hr IV Q6HR PRN PRN Reason: Moderate Pain (Level 4-6) Insulin Human Regular (Insulin Regular, Human 300 Unit/3 Ml Pen) 1 - 5 unit SUBQ Q6HR [facility]; Protocol Last Admin: 03/07/24 06:03 Dose: Not Given Lorazepam (Lorazepam 2 Mg/Ml Vial) 1 mg IVP Q30M PRN; Protocol PRN Reason: CIWA >8 Last Admin: 03/06/24 00:40 Dose: 1 mg Ondansetron HCl (Ondansetron 4 Mg/2 Ml Vial) 4 mg IVP Q6HR PRN PRN Reason: Nausea / Vomiting Last Admin: 03/06/24 21:37 Dose: 4 mg Pantoprazole Sodium (Pantoprazole 40 Mg Tablet) 40 mg PO BID [facility] Last Admin: 03/07/24 08:10 Dose: 40 mg Sertraline HCl (Sertraline 25 Mg Tablet) 25 mg PO DAILY [facility] Last Admin: 03/07/24 08:09 Dose: 25 mg Sodium Chloride (Sodium Chloride Flush 0.9% 10 Ml Syringe) 10 ml IVP 0100,0900,1700 [facility] Last Admin: 03/07/24 08:10 Dose: 10 ml Sodium Chloride (Sodium Chloride Flush 0.9% 10 Ml Syringe) 10 ml IVP PRN PRN PRN Reason: NEEDED PER PROVIDER ORDERS Last Admin: 03/07/24 09:49 Dose: 10 ml Thiamine HCl (Thiamine 100 Mg Tablet) 100 mg PO DAILY [facility] Last Admin: 03/07/24 08:09 Dose: 100 mg Fluticasone/Vilanterol [Breo Ellipta 100-25 Mcg Inhalr] 1 inh IH DAILY 06/07/18 Nicotine Polacrilex [Nicotine Gum] 2 mg BC PRN PRN 06/07/18 Simvastatin 20 mg PO QPM 06/07/18 hydroCHLOROthiazide [Hydrochlorothiazide] 25 mg PO DAILY 06/07/18 metFORMIN [Glucophage] 500 mg PO BIDWM 06/07/18 Sertraline [Zoloft] 25 mg PO DAILY 07/02/22 Ferrous Sulfate 325 mg PO Q48H 03/06/24 Ipratropium/Albuterol [Duoneb] 1 neb PO QID PRN 03/06/24 Allergies/Adverse Reactions: Allergies Allergy/AdvReac Type Severity Reaction Status Date / Time No Known Drug Allergies Allergy Verified 03/05/24 18:56 Anes History & Medical History - Anesthetic History Anesthesia Complications: reports: No previous complications Family history of Anesthesia Complications: Denies Family history of Malignant Hyperthermia: Denies - Medical History Cardiovascular: reports: Hypertension, High cholesterol Pulmonary: reports: COPD Gastrointestinal: reports: GERD, Pancreatitis Urinary: reports: None Neuro: reports: None Musculoskeletal: reports: Osteoarthritis Endocrine/Autoimmune: reports: Type 2 diabetes Blood Disorders: reports: None Skin: reports: None Smoking Status: Former smoker Psychosocial: reports: Alcohol (5 beers per day) History of Cancer?: No - Surgical History Urologic: reports: Ureterolithotomy (stones) Orthopedic: reports: Spine surgery Results - EKG Results EKG Comparison: Reviewed EKG Exam General: Alert, Oriented x3, Cooperative, No acute distress Dental: Poor dentition Mouth Openin Fingerbreadth Neck Mobility: Limited (previous surgery) Mallampati classification: III Thyromental Distance: 4-6 cm Cardiovascular: Regular rate, Normal S1, Normal S2, No murmurs Mental/Cognitive Status: Alert/Oriented X3, Normal for patient Cognitive Status: Within normal limits Plan Anesthesia Type: Spinal (with sedation; general as backup) Consent for Procedure(s) Verified and Reviewed: Yes Code Status: Attempt Resuscitation ASA classification: 3-Severe systemic disease Is this case an emergency?: No
[2024-03-07] MEDS ORDERED: BUPIVACAINE 0.25% PF 30 ML VIAL ONE (12:16)
[2024-03-07] MEDS ORDERED: VANCOMYCIN 1 GM VIAL ONE (12:16)
[2024-03-07] MEDS ORDERED: DEXAMETHASONE 4 MG/ML VIAL ONE (12:20)
[2024-03-07] MEDS ORDERED: KETAMINE 200 MG/20 ML VIAL ONE (12:20)
[2024-03-07] MEDS ORDERED: ONDANSETRON 4 MG/2 ML VIAL ONE (12:20)
[2024-03-07] MEDS ORDERED: MIDAZOLAM 2 MG/2 ML VIAL ONE (12:20)
[2024-03-07] MEDS ORDERED: PROPOFOL 500 MG/50 ML 500 MG/50 ML VIAL ONE (12:20)
[2024-03-07] MEDS ORDERED: LIDOCAINE-PF 2% 10 ML AMP SUBQ ONE (12:20)
[2024-03-07 12:54] LABS: CALCIUM 8.7 mg/dL (8.5-10.3); CREATININE 1.1 mg/dL (0.6-1.3); POTASSIUM 4.8 mmol/L (3.5-4.5)
[2024-03-07] MEDS ORDERED: PHENYLEPHRINE 10 MG/ML VIAL ONE (13:49)
[2024-03-07] MEDS ORDERED: ceFAZolin 1 GM VIAL ONE (13:57)
[2024-03-07] MEDS ORDERED: TRANEXAMIC ACID 1,000 MG/10 ML VIAL ONE (13:57)
[2024-03-07] MEDS: BUPIVACAINE 0.25% PF 30 ML VIAL SUBQ ONE (14:10)
[2024-03-07] MEDS: VANCOMYCIN 1 GM VIAL MC ONE (14:10)
[2024-03-07] MEDS ORDERED: PROPOFOL 200 MG/20 ML VIAL IVP ONE (14:21)
--- NOTE | 2024-03-07 15:04 | OPERATIVE REPORT ---
Operative Report - General Admit Date: 03/05/24 Procedure Date: 03/07/24 Planned Procedure: Right hip hemiarthroplasty Pre-Op Diagnosis: Displaced femoral neck fracture right hip Procedure Performed: Right hip hemiarthroplasty: Cemented Synergy collared standard offset femoral component with 47 mm unipolar +0 femoral head Post Op Diagnosis: Same as preoperative diagnosis - Procedure Note Primary Surgeon: Ronen Espinal MD Secondary Surgeon: Iwona Oconnor PAC Anesthesia Provider: Oscar Palmer CRNA Anesthesia Technique: Spinal Estimated Blood Loss (mL): 75 Indications: This is an 79-year-old ambulatory gentleman who took a fall prior to admission outdoors, ground-level fall. He had been drinking beers prior to the fall and does have a history of regular alcohol use in the past. He has multiple medical problems and was evaluated preoperatively in the intensive care unit. He has shortening and external rotation deformity of the right leg, pain with passive motion. His routine x-rays and CT scan were consistent with a displaced femoral neck fracture of the right hip. Shared decision-making was performed, informed consent was obtained for right hip hemiarthroplasty. Comanaged care suggested that it was relatively safe to proceed with surgery today. He did receive blood transfusion in efforts to correct both his anemia and hyponatremia have been done. Findings: Right hip: acetabular cartilage appeared normal. There is no abnormality upon inspection of the femoral head other than the fracture which was mildly comminuted and displaced, unstable Complications: None - Other Other Information/Narrative: The patient was brought to the operating room, given a general anesthetic. The patient was placed on the operating table initially supine, then turned to a lateral decubitus position with the Right hip facing superiorly. The patient was secured in the lateral decubitus position using the pegboard and PEG holders to pelvis and torso. The Right hip and lower extremity were prepped and draped in a sterile manner in the usual fashion. A timeout procedure was performed by the entire operating room team and all were in agreement. A longitudinal incision was made over the lateral aspect of the Right hip, centered about the greater trochanter. The skin, subcutaneous tissue and fascia melinda were split. A self-retaining retractor was inserted. The myotendinous junction of the anterior one third of the gluteus medius was released. The anterior hip capsule was exposed split longitudinally and then divided transversely in a T-shaped fashion. Part of the anterior hip capsule was exposed. The femoral head was removed using a corkscrew and bone hook, measured 47 mm in diameter with calipers. The acetabulum was cleared of some small capsular fracture fragments. The left leg was placed in an anterior pocket. The femoral canal was opened with a box osteotome, starting reamer and then b roaching up to a 14 mm broach. The broaching was done in 1 mm increments. The broach was inserted with slight anteversion. Because of her thin cortex, a cemented technique was elected. A canal plug was inserted distally, approximately 18 cm distal to the osteotomy. The canal was cleaned with a brush and pulsatile lavage, dried with a suction pad and lap pad. A 13 Synergy component was then inserted after using a Tobramycin cement With gun to insert the cement, pressurizing the cement. The proximal portion of the stem was pushed laterally to provide some valgus, set flush with femoral neck cortex. Trial reduction was performed with the 47 mm +0 unipolar head and was found to be stable and had good leg length tension. A permanent 47 mm unipolar head was then impacted on the femoral trunnion, reduced, taken through range of motion is found to have good motion and good stability as well as leg length tension. The wound was irrigated with dilute Betadine followed by saline irrigation. Vancomycin powder 2 g was placed before the deep closure The anterior capsule and gluteus medius were both repaired with #1 strata fix suture, fascia melinda closed with #1 strata fix suture, subcutaneous tissue closed with 2 O strata fix suture, subcuticular closure with 3 O strata fix suture. Finally, Dermabond was applied to the skin, silver impregnated dressing after the Dermabond had harde frieda. She received 2 g of Ancef and 1 g of tranxemic acid, tolerated procedure well. . Irrigation with Irrisept was done intermittently throughout the procedure. Physician assistant oceanographer was utilized, medically necessary, to provide the necessary exposure, protection of vital structures, facilitate with dislocation and reduction of the hip, wound closure and dressing.
[2024-03-07] MEDS: LACTATED RINGERS 750 ML IV ONE ×2 (15:44→16:02)
[2024-03-07] MEDS ORDERED: NALOXONE 0.4 MG/ML VIAL IVP PRN (15:50)
[2024-03-07] MEDS ORDERED: ATROPINE ABBOJECT 1 MG/10 ML SYRINGE IVP PRN (15:50)
[2024-03-07] MEDS ORDERED: MORPHINE 2 MG/ML CARPUJECT IVP PRN (15:50)
[2024-03-07] MEDS ORDERED: HYDROmorphone 0.5 MG/0.5 ML SYRINGE IVP PRN (15:50)
[2024-03-07] MEDS ORDERED: fentaNYL 100 MCG/2 ML VIAL IVP PRN (15:50)
[2024-03-07] MEDS ORDERED: ePHEDrine 50 MG/ML VIAL IVP PRN (15:50)
[2024-03-07] MEDS ORDERED: ONDANSETRON 4 MG/2 ML VIAL IVP PRN (15:50)
[2024-03-07] MEDS ORDERED: METOCLOPRAMIDE 10 MG/2 ML VIAL IVP PRN (15:50)
[2024-03-07] MEDS ORDERED: LACTATED RINGERS 1,000 ML IV SCH (16:00)
[2024-03-07] MEDS ORDERED: NS W/20 MEQ KCL 1,000 ML IV SCH (16:00)
--- NOTE | 2024-03-07 16:07 | ANESTHESIA POST OP EVALUATION ---
Anesthesia Post Eval - Post Anesthesia Eval Vitals: Last Vital Signs Temp 36.0 C L 03/07/24 15:58 Pulse 77 03/07/24 15:58 Resp 16 03/07/24 15:58 BP 96/69 03/07/24 15:58 Pulse Ox 92 03/07/24 15:58 O2 Flow Rate 2 03/07/24 12:00 CV Function Including HR & BP: Stable Pain Control: Satisfactory Nausea & Vomiting: Negative Mental Status: Baseline Respiratory Status: Airway Patent Hydration Status: Satisfactory Anesthesia Complications: None
[2024-03-07] MEDS: oxyCODONE 5 MG TABLET PO PRN (16:16)
--- NOTE | 2024-03-07 16:40 | XRAY Report ---
PROCEDURE: Pelvis 1-2V INDICATIONS: post operative imaging TECHNIQUE: 1 view(s) of the pelvis acquired. COMPARISON: 03/05/2024. FINDINGS: Bones: Expected postoperative appearance of right hip arthroplasty. The hardware appears intact with out strain fracture lucency. No suspicious bony lesions. Soft tissues: Overlying postsurgical changes. IMPRESSION: Expected postoperative appearance of right hip arthroplasty. Reviewed by: Greg Connors MD on 03/07/2024 4:38 PM PDT Approved by: Greg Connors MD on 03/07/2024 4:38 PM PDT Station ID: [id number]
[2024-03-07] MEDS: INSULIN LISPRO 300 UNIT/3 ML PEN SUBQ SCH (17:07)
[2024-03-07] MEDS: NICOTINE 14 MG PATCH TOP STA (17:38)
[2024-03-07] MEDS: BUDESONIDE 0.5 MG/2 ML NEB INH SCH (18:58)
[2024-03-07] MEDS ORDERED: FORMOTEROL FUMARATE NEB 20 MCG/2 ML INH SCH (19:00)
[2024-03-07] MEDS: ACETAMINOPHEN 500 MG TABLET PO SCH (20:08)
[2024-03-07] MEDS: ATORVASTATIN 10 MG TABLET PO SCH (20:09)
[2024-03-07] MEDS: ceFAZolin (2G) 2 GM in SODIUM CHLORIDE 0.9% MINIBAG 100 ML IV SCH (20:11)
[2024-03-07] MEDS: CELECOXIB 100 MG CAPSULE PO SCH (20:13)
[2024-03-08] MEDS: fentaNYL 250 MCG/5 ML VIAL IVP PRN (02:12)
[2024-03-08 04:46] LABS: BASOPHILS % (AUTO) 0.1 %; EOSINOPHILS % (AUTO) 0.1 %; HCT - HEMATOCRIT 27.3 % (42.0-52.0); HGB - HEMOGLOBIN 8.3 g/dL (14.0-18.0); LYMPHOCYTES # (AUTO) 0.3 10^3/uL (1.5-3.5); LYMPHOCYTES % (AUTO) 2.5 %; MEAN CORPUSCULAR HEMOGLOBIN 25.5 pg (27.0-31.0); MEAN CORPUSCULAR HGB CONC 30.4 g/dL (32.0-36.0); MEAN PLATELET VOLUME 9.6 fL (7.4-11.4); MONOCYTES # (AUTO) 0.4 10^3/uL (0.0-1.0); MONOCYTES % (AUTO) 3.7 %; NEUTROPHILS # (AUTO) 9.8 10^3/uL (1.5-6.6); PLT - PLATELET COUNT 210 10^3/uL (130-450); RED BLOOD COUNT 3.25 10^6/uL (4.70-6.10); RED CELL DISTRIBUTION WIDTH 16.2 % (12.0-15.0); WHITE BLOOD COUNT 10.5 x10^3/uL (4.8-10.8)
[2024-03-08 05:06] LABS: ALBUMIN 2.7 g/dL (3.2-5.5); ALKALINE PHOSPHATASE 63 IU/L (42-121); ALT ALANINE AMINOTRANSFERASE 12 IU/L (10-60); AST ASPARTATE AMINOTRANSFERASE 19 IU/L (10-42); BILIRUBIN,DIRECT < 0.10 mg/dL (0.03-0.18); BILIRUBIN,TOTAL 0.3 mg/dL (0.2-1.0); BUN - BLOOD UREA NITROGEN 26 mg/dL (6-20); CALCIUM 8.3 mg/dL (8.5-10.3); CARBON DIOXIDE - CO2 25 mmol/L (21-32); CHLORIDE 102 mmol/L (101-111); CREATININE 1.2 mg/dL (0.6-1.3); GFR - MDRD 58 (>89); GLUCOSE 174 mg/dL (74-104); MAGNESIUM 1.7 mg/dL (1.7-2.3); PHOSPHORUS 3.5 mg/dL (2.5-5.0); POTASSIUM 4.8 mmol/L (3.5-4.5); SODIUM 130 mmol/L (135-145); TOTAL PROTEIN 4.9 g/dL (6.4-8.9)
[2024-03-08] MEDS: ENOXAPARIN 40 MG/0.4 ML SYRINGE SUBQ SCH (08:09)
[2024-03-08] MEDS: NICOTINE 14 MG PATCH TOP SCH (08:09)
--- NOTE | 2024-03-08 08:47 | PROVIDER PROGRESS NOTE ---
Subjective - General Admit Date: 03/05/24 Procedure Date: 03/07/24 Post Op Days: 1 Procedure Performed: Right hip hemiarthroplasty - Review of Systems Wound/Incisions: positive: Dressing dry and intact - Other Other Information/Narrative: He has moderate pain to the right hip. It is being controlled with pain medication. He denies fever or chills, chest pain, shortness of breath, nausea or vomiting. Objective - Patient Data Vital Signs: Vital Signs x48h Temp Pulse Pulse Resp BP Pulse Ox O2 Flow Rate 03/08/24 08:39 36.7 C 75 12 138/63 H 98 2 03/08/24 07:03 62 16 2 03/08/24 04:08 36.5 C 69 13 155/85 H 98 3 Weight: Weight 03/06/24 03/07/24 03/08/24 23:59 23:59 23:59 Weight (kg) 70.5 kg 70.5 kg 71 kg Intake & Output: Intake and Output Totals x24h 03/06/24 03/07/24 03/08/24 23:59 23:59 23:59 Intake Total 1788 2088 480 Output Total 405 780 425 Balance 1383 1308 55 - Lab Results Lab Results: 03/08/24 04:24 03/08/24 04:24 Other Lab Results: Lab Results x24hrs 03/08/24 03/08/24 03/08/24 Range/Units 07:45 04:24 04:24 WBC 10.5 (4.8-10.8) x10^3/uL RBC 3.25 L (4.70-6.10) 10^6/uL Hgb 8.3 L (14.0-18.0) g/dL Hct 27.3 L (42.0-52.0) % MCV 84.0 (80.0-94.0) fL MCH 25.5 L (27.0-31.0) pg MCHC 30.4 L (32.0-36.0) g/dL RDW 16.2 H (12.0-15.0) % Plt Count 210 (130-450) 10^3/uL MPV 9.6 (7.4-11.4) fL Neut # (Auto) 9.8 H (1.5-6.6) 10^3/uL Lymph # (Auto) 0.3 L (1.5-3.5) 10^3/uL [place] # (Auto) 0.4 (0.0-1.0) 10^3/uL Eos # (Auto) 0.0 (0.0-0.7) 10^3/uL Baso # (Auto) 0.0 (0.0-0.1) 10^3/uL Absolute Nucleated RBC 0.00 x10^3/uL Nucleated RBC % 0.0 /100WBC Sodium 130 L (135-145) mmol/L Potassium 4.8 H (3.5-4.5) mmol/L Chloride 102 (101-111) mmol/L Carbon Dioxide 25 (21-32) mmol/L Anion Gap 3.0 L (6-13) BUN 26 H (6-20) mg/dL Creatinine 1.2 (0.6-1.3) mg/dL Estimated GFR (MDRD) 58 L (>89) Glucose 174 H (74-104) mg/dL POC Whole Bld Glucose 160 H (70 - 100) mg/dL Calcium 8.3 L (8.5-10.3) mg/dL Phosphorus 3.5 (2.5-5.0) mg/dL Magnesium 1.7 (1.7-2.3) mg/dL Total Bilirubin 0.3 (0.2-1.0) mg/dL Direct Bilirubin < 0.10 (0.03-0.18) mg/dL AST 19 (10-42) IU/L ALT 12 (10-60) IU/L Alkaline Phosphatase 63 (42-121) IU/L Total Protein 4.9 L (6.4-8.9) g/dL Albumin 2.7 L (3.2-5.5) g/dL Globulin 2.2 (2.1-4.2) g/dL 03/07/24 03/07/24 03/07/24 Range/Units 20:21 16:19 12:01 WBC (4.8-10.8) x10^3/uL RBC (4.70-6.10) 10^6/uL Hgb (14.0-18.0) g/dL Hct (42.0-52.0) % MCV (80.0-94.0) fL MCH (27.0-31.0) pg MCHC (32.0-36.0) g/dL RDW (12.0-15.0) % Plt Count (130-450) 10^3/uL MPV (7.4-11.4) fL Neut # (Auto) (1.5-6.6) 10^3/uL Lymph # (Auto) (1.5-3.5) 10^3/uL [place] # (Auto) (0.0-1.0) 10^3/uL Eos # (Auto) (0.0-0.7) 10^3/uL Baso # (Auto) (0.0-0.1) 10^3/uL Absolute Nucleated RBC x10^3/uL Nucleated RBC % /100WBC Sodium 127 L (135-145) mmol/L Potassium 4.8 H (3.5-4.5) mmol/L Chloride 96 L (101-111) mmol/L Carbon Dioxide 25 (21-32) mmol/L Anion Gap 6.0 (6-13) BUN 21 H (6-20) mg/dL Creatinine 1.1 (0.6-1.3) mg/dL Estimated GFR (MDRD) 64 L (>89) Glucose 99 (74-104) mg/dL POC Whole Bld Glucose 337 H 101 H (70 - 100) mg/dL Calcium 8.7 (8.5-10.3) mg/dL Phosphorus (2.5-5.0) mg/dL Magnesium (1.7-2.3) mg/dL Total Bilirubin (0.2-1.0) mg/dL Direct Bilirubin (0.03-0.18) mg/dL AST (10-42) IU/L ALT (10-60) IU/L Alkaline Phosphatase (42-121) IU/L Total Protein (6.4-8.9) g/dL Albumin (3.2-5.5) g/dL Globulin (2.1-4.2) g/dL 03/07/24 Range/Units 11:49 WBC (4.8-10.8) x10^3/uL RBC (4.70-6.10) 10^6/uL Hgb (14.0-18.0) g/dL Hct (42.0-52.0) % MCV (80.0-94.0) fL MCH (27.0-31.0) pg MCHC (32.0-36.0) g/dL RDW (12.0-15.0) % Plt Count (130-450) 10^3/uL MPV (7.4-11.4) fL Neut # (Auto) (1.5-6.6) 10^3/uL Lymph # (Auto) (1.5-3.5) 10^3/uL [place] # (Auto) (0.0-1.0) 10^3/uL Eos # (Auto) (0.0-0.7) 10^3/uL Baso # (Auto) (0.0-0.1) 10^3/uL Absolute Nucleated RBC x10^3/uL Nucleated RBC % /100WBC Sodium (135-145) mmol/L Potassium (3.5-4.5) mmol/L Chloride (101-111) mmol/L Carbon Dioxide (21-32) mmol/L Anion Gap (6-13) BUN (6-20) mg/dL Creatinine (0.6-1.3) mg/dL Estimated GFR (MDRD) (>89) Glucose (74-104) mg/dL POC Whole Bld Glucose 109 H (70 - 100) mg/dL Calcium (8.5-10.3) mg/dL Phosphorus (2.5-5.0) mg/dL Magnesium (1.7-2.3) mg/dL Total Bilirubin (0.2-1.0) mg/dL Direct Bilirubin (0.03-0.18) mg/dL AST (10-42) IU/L ALT (10-60) IU/L Alkaline Phosphatase (42-121) IU/L Total Protein (6.4-8.9) g/dL Albumin (3.2-5.5) g/dL Globulin (2.1-4.2) g/dL - Current Medications Current Medications: Current Medications Generic Name Dose Route Start Last Admin Trade Name Freq PRN Reason Stop Dose Admin Acetaminophen 1,000 mg 03/07/24 20:00 03/08/24 03:38 Acetaminophen 500 Mg Tablet PO 1,000 mg Q8H HEATHER Administration Albuterol/Ipratropium 3 ml 03/07/24 07:27 03/08/24 07:02 Ipratropium/Albuterol 3 Ml Neb INH 3 ml RTQID HEATHER Administration Atorvastatin Calcium 10 mg 03/07/24 21:00 03/07/24 20:09 Atorvastatin 10 Mg Tablet PO 10 mg QPM HEATHER Administration Budesonide 0.5 mg 03/07/24 19:00 03/08/24 07:02 Budesonide 0.5 Mg/2 Ml Neb INH 0.5 mg RTBID HEATHER Administration Celecoxib 200 mg 03/07/24 21:00 03/08/24 08:05 Celecoxib 100 Mg Capsule PO 200 mg BID HEATHER Administration Enoxaparin Sodium 40 mg 03/08/24 09:00 03/08/24 08:09 Enoxaparin 40 Mg/0.4 Ml Syringe SUBQ 40 mg DAILY HEATHER Administration Fentanyl 25 mcg 03/07/24 15:25 03/08/24 02:12 Fentanyl 250 Mcg/5 Ml Vial IVP 25 mcg Q2HR PRN Administration Severe Breakthrough pain(8-10) Ferrous Sulfate 325 mg 03/07/24 08:00 03/07/24 08:09 Ferrous Sulfate 325 Mg Tablet PO 325 mg Q48H HEATHER Administration Folic Acid 1 mg 03/06/24 09:00 03/08/24 08:04 Folic Acid 1 Mg Tablet PO 1 mg DAILY HEATHER Administration Sodium Chloride 1,000 mls @ 80 mls/hr 03/05/24 22:00 03/08/24 02:16 Normal Saline 0.9% IV 80 mls/hr .[id number] HEATHER Administration Insulin Human Lispro 1 - 5 unit 03/07/24 17:00 03/08/24 07:51 Insulin Lispro 300 Unit/3 Ml Pen SUBQ 1 unit 0800,1200,1700,2100 HEATHER Administration Protocol Lorazepam 1 mg 03/05/24 21:27 03/06/24 00:40 Lorazepam 2 Mg/Ml Vial IVP 1 mg Q30M PRN Administration CIWA >8 Protocol Nicotine 1 patch 03/08/24 09:00 03/08/24 08:09 Nicotine 14 Mg Patch TOP 1 patch DAILY HEATHER Administration Ondansetron HCl 4 mg 03/05/24 21:20 03/06/24 21:37 Ondansetron 4 Mg/2 Ml Vial IVP 4 mg Q6HR PRN Administration Nausea / Vomiting Oxycodone HCl 5 mg 06/27/24 15:25 03/08/24 07:53 Oxycodone 5 Mg Tablet PO 5 mg Q6HR PRN Administration Severe Breakthrough pain(8-10) Pantoprazole Sodium 40 mg 03/07/24 09:00 03/08/24 08:04 Pantoprazole 40 Mg Tablet PO 40 mg BID HEATHER Administration Sertraline HCl 25 mg 03/07/24 09:00 03/08/24 08:05 Sertraline 25 Mg Tablet PO 25 mg DAILY HEATHER Administration Sodium Chloride 10 ml 03/06/24 01:00 03/08/24 08:10 Sodium Chloride Flush 0.9% 10 Ml Syringe IVP 10 ml 0100,0900,1700 HEATHER Administration Sodium Chloride 10 ml 03/05/24 21:20 03/07/24 09:49 Sodium Chloride Flush 0.9% 10 Ml Syringe IVP 10 ml PRN PRN Administration NEEDED PER PROVIDER ORDERS Thiamine HCl 100 mg 03/06/24 09:00 03/08/24 08:04 Thiamine 100 Mg Tablet PO 100 mg DAILY HEATHER Administration - Physical Exam Wound/Incisions: positive: Dressing dry and intact Comments/Other: Patient is sitting up in bed, eating comfortably and talking comfortably. He is alert and oriented. His right hip dressings are dry and intact. Neurovascular is intact right leg. There is no clinical deformity to right leg Impression/Plan - Problem List Problem List: Status post right hip hemiarthroplasty Begin occupational and physical therapy and progress with weightbearing as tolerated right leg using walker. Lovenox is being used for deep venous thrombosis prophylaxis.
[2024-03-08] MEDS ORDERED: ASPIRIN EC 81 MG TABLET PO SCH (09:00)
--- NOTE | 2024-03-08 11:21 | PROVIDER PROGRESS NOTE ---
Subjective - Prog Note Date Prog Note Date: 03/08/24 Prog Note Time: 11:20 - Subjective Pt reports feeling: Improved Subjective: The patient is postoperative day 1 from surgical repair of his hip fracture. He tolerated the procedure well. He does have some pain but it is adequately controlled on the current regimen. He is scheduled to work with physical therapy and Occupational Therapy today. He denies fever or shaking chills. No chest pain, shortness of breath or cough. No nausea vomiting or diarrhea. No urinary complaints The patient is agreeable to going to subacute rehabilitation at discharge Current Medications - Current Medications Current Medications: Tylenol 1000 mg IV every 6 hours as needed [place] 5/325 mg 1 p.o. every 4 hours as needed Folic acid 1 mg daily Hydromorphone 0.5 mg IV every 4 hours as needed severe pain Regular insulin sliding scale Lisinopril 10 mg daily Lorazepam 1 mg IV every 30 minutes as needed agitation Ondansetron 4 mg IV every 6 hours as needed Protonix 40 mg daily Thiamine 100 mg p.o. daily Objective - Vital Signs/Intake & Output Reviewed Vital Signs: Yes Vital Signs: Vital Signs x48h Temp Pulse Pulse Resp BP Pulse Ox O2 Flow Rate 03/08/24 08:39 36.7 C 75 12 138/63 H 98 2 03/08/24 07:03 62 16 2 03/08/24 04:08 36.5 C 69 13 155/85 H 98 3 Intake & Output: Intake & Output 03/05/24 03/06/24 03/07/24 03/08/24 23:59 23:59 23:59 23:59 Intake Total 101 1788 2088 480 Output Total 405 780 425 Balance 101 1383 1308 55 - Objective General Appearance: positive: No acute distress, Alert Eyes Bilateral: positive: Normal inspection ENT: positive: ENT inspection nml Neck: positive: Nml inspection Respiratory: positive: Chest non-tender, No respiratory distress, Breath sounds nml Cardiovascular: positive: Regular rate & rhythm, No murmur, No gallop. negative: Friction rub Abdomen: positive: Non-tender, No organomegaly, Nml bowel sounds Skin: positive: Color nml, No rash, Warm, Dry Extremities: positive: Other (Surgical incision has a dressing in place that was not removed at the time of this dictation. There is no drainage or evidence of infection) Neurologic/Psychiatric: positive: Oriented x3, CN's nml (2-12) - Lab Results Fish Bones: 03/08/24 04:24 03/08/24 04:24 Other Labs: Lab Results x24hrs 03/08/24 03/08/24 03/08/24 Range/Units 07:45 04:24 04:24 WBC 10.5 (4.8-10.8) x10^3/uL RBC 3.25 L (4.70-6.10) 10^6/uL Hgb 8.3 L (14.0-18.0) g/dL Hct 27.3 L (42.0-52.0) % MCV 84.0 (80.0-94.0) fL MCH 25.5 L (27.0-31.0) pg MCHC 30.4 L (32.0-36.0) g/dL RDW 16.2 H (12.0-15.0) % Plt Count 210 (130-450) 10^3/uL MPV 9.6 (7.4-11.4) fL Neut # (Auto) 9.8 H (1.5-6.6) 10^3/uL Lymph # (Auto) 0.3 L (1.5-3.5) 10^3/uL [place] # (Auto) 0.4 (0.0-1.0) 10^3/uL Eos # (Auto) 0.0 (0.0-0.7) 10^3/uL Baso # (Auto) 0.0 (0.0-0.1) 10^3/uL Absolute Nucleated RBC 0.00 x10^3/uL Nucleated RBC % 0.0 /100WBC Sodium 130 L (135-145) mmol/L Potassium 4.8 H (3.5-4.5) mmol/L Chloride 102 (101-111) mmol/L Carbon Dioxide 25 (21-32) mmol/L Anion Gap 3.0 L (6-13) BUN 26 H (6-20) mg/dL Creatinine 1.2 (0.6-1.3) mg/dL Estimated GFR (MDRD) 58 L (>89) Glucose 174 H (74-104) mg/dL POC Whole Bld Glucose 160 H (70 - 100) mg/dL Calcium 8.3 L (8.5-10.3) mg/dL Phosphorus 3.5 (2.5-5.0) mg/dL Magnesium 1.7 (1.7-2.3) mg/dL Total Bilirubin 0.3 (0.2-1.0) mg/dL Direct Bilirubin < 0.10 (0.03-0.18) mg/dL AST 19 (10-42) IU/L ALT 12 (10-60) IU/L Alkaline Phosphatase 63 (42-121) IU/L Total Protein 4.9 L (6.4-8.9) g/dL Albumin 2.7 L (3.2-5.5) g/dL Globulin 2.2 (2.1-4.2) g/dL 03/07/24 03/07/24 03/07/24 Range/Units 20:21 16:19 12:01 WBC (4.8-10.8) x10^3/uL RBC (4.70-6.10) 10^6/uL Hgb (14.0-18.0) g/dL Hct (42.0-52.0) % MCV (80.0-94.0) fL MCH (27.0-31.0) pg MCHC (32.0-36.0) g/dL RDW (12.0-15.0) % Plt Count (130-450) 10^3/uL MPV (7.4-11.4) fL Neut # (Auto) (1.5-6.6) 10^3/uL Lymph # (Auto) (1.5-3.5) 10^3/uL [place] # (Auto) (0.0-1.0) 10^3/uL Eos # (Auto) (0.0-0.7) 10^3/uL Baso # (Auto) (0.0-0.1) 10^3/uL Absolute Nucleated RBC x10^3/uL Nucleated RBC % /100WBC Sodium 127 L (135-145) mmol/L Potassium 4.8 H (3.5-4.5) mmol/L Chloride 96 L (101-111) mmol/L Carbon Dioxide 25 (21-32) mmol/L Anion Gap 6.0 (6-13) BUN 21 H (6-20) mg/dL Creatinine 1.1 (0.6-1.3) mg/dL Estimated GFR (MDRD) 64 L (>89) Glucose 99 (74-104) mg/dL POC Whole Bld Glucose 337 H 101 H (70 - 100) mg/dL Calcium 8.7 (8.5-10.3) mg/dL Phosphorus (2.5-5.0) mg/dL Magnesium (1.7-2.3) mg/dL Total Bilirubin (0.2-1.0) mg/dL Direct Bilirubin (0.03-0.18) mg/dL AST (10-42) IU/L ALT (10-60) IU/L Alkaline Phosphatase (42-121) IU/L Total Protein (6.4-8.9) g/dL Albumin (3.2-5.5) g/dL Globulin (2.1-4.2) g/dL 03/07/24 Range/Units 11:49 WBC (4.8-10.8) x10^3/uL RBC (4.70-6.10) 10^6/uL Hgb (14.0-18.0) g/dL Hct (42.0-52.0) % MCV (80.0-94.0) fL MCH (27.0-31.0) pg MCHC (32.0-36.0) g/dL RDW (12.0-15.0) % Plt Count (130-450) 10^3/uL MPV (7.4-11.4) fL Neut # (Auto) (1.5-6.6) 10^3/uL Lymph # (Auto) (1.5-3.5) 10^3/uL [place] # (Auto) (0.0-1.0) 10^3/uL Eos # (Auto) (0.0-0.7) 10^3/uL Baso # (Auto) (0.0-0.1) 10^3/uL Absolute Nucleated RBC x10^3/uL Nucleated RBC % /100WBC Sodium (135-145) mmol/L Potassium (3.5-4.5) mmol/L Chloride (101-111) mmol/L Carbon Dioxide (21-32) mmol/L Anion Gap (6-13) BUN (6-20) mg/dL Creatinine (0.6-1.3) mg/dL Estimated GFR (MDRD) (>89) Glucose (74-104) mg/dL POC Whole Bld Glucose 109 H (70 - 100) mg/dL Calcium (8.5-10.3) mg/dL Phosphorus (2.5-5.0) mg/dL Magnesium (1.7-2.3) mg/dL Total Bilirubin (0.2-1.0) mg/dL Direct Bilirubin (0.03-0.18) mg/dL AST (10-42) IU/L ALT (10-60) IU/L Alkaline Phosphatase (42-121) IU/L Total Protein (6.4-8.9) g/dL Albumin (3.2-5.5) g/dL Globulin (2.1-4.2) g/dL ABX Reporting Has patient been on IV antibiotics over the past 48 hours?: No Sepsis Event Note (H) - Evaluation Current Stage of Sepsis: Ruled out Assessment/Plan - Problem List (1) Pathologic fracture of neck of right femur Impression: He is postoperative day #1 from surgical repair. Plan of care per orthopedic surgery. He will start physical therapy and Occupational Therapy today. He will need subacute rehabilitation at discharge (2) Acute hyponatremia Impression: Likely multifactorial secondary to his hydrochlorothiazide as well as beer Potomania. Sodium level is up to 130 today and much improved (3) Chronic respiratory failure Impression: He is at his baseline (4) COPD (chronic obstructive pulmonary disease) Impression: No evidence of exacerbation Qualifiers: COPD type: unspecified COPD Qualified Code(s): J44.9 - Chronic obstructive pulmonary disease, unspecified (5) Alcohol use disorder Impression: No evidence no evidence of alcohol withdrawal (7) Moderate major depression Impression: Continue home regimen (8) Hyperkalemia Impression: Improved since yesterday. However his level is still a little high at 4.8. (9) Hypertension Impression: Stable (10) Ambulatory dysfunction Impression: The patient presented with a mechanical fall and hip fracture. He will need physical therapy and Occupational Therapy who will evaluate him today. He will need subacute rehabilitation at discharge Disposition: The patient will need subacute rehabilitation at discharge. He is postoperative day 1 from surgical repair and role require further monitoring in the hospital until cleared by orthopedic surgery Time spent: 35 minutes
[2024-03-08] MEDS: CYANOCOBALAMIN 500 MCG TABLET PO SCH (11:46)
[2024-03-08] MEDS: CALCIUM CARBONATE CHEW 500 MG TABLET PO SCH (11:46)
[2024-03-08] MEDS: CHOLECALCIFEROL 25 MCG TABLET PO SCH (11:46)
[2024-03-08] MEDS: INSULIN GLARGINE-YFGN 300 UNIT/3 ML PEN SUBQ SCH (20:43)
[2024-03-09 06:19] LABS: BASOPHILS % (AUTO) 0.1 %; EOSINOPHILS # (AUTO) 0.2 10^3/uL (0.0-0.7); EOSINOPHILS % (AUTO) 1.8 %; HCT - HEMATOCRIT 26.8 % (42.0-52.0); HGB - HEMOGLOBIN 8.2 g/dL (14.0-18.0); LYMPHOCYTES % (AUTO) 10.3 %; MEAN CORPUSCULAR HEMOGLOBIN 25.5 pg (27.0-31.0); MEAN CORPUSCULAR HGB CONC 30.6 g/dL (32.0-36.0); MEAN CORPUSCULAR VOLUME 83.2 fL (80.0-94.0); MEAN PLATELET VOLUME 8.9 fL (7.4-11.4); MONOCYTES # (AUTO) 0.5 10^3/uL (0.0-1.0); MONOCYTES % (AUTO) 5.2 %; NEUTROPHILS # (AUTO) 7.9 10^3/uL (1.5-6.6); NEUTROPHILS % (AUTO) 82.2 %; PLT - PLATELET COUNT 191 10^3/uL (130-450); RED BLOOD COUNT 3.22 10^6/uL (4.70-6.10); RED CELL DISTRIBUTION WIDTH 16.6 % (12.0-15.0); WHITE BLOOD COUNT 9.7 x10^3/uL (4.8-10.8)
[2024-03-09 07:03] LABS: ALBUMIN 2.7 g/dL (3.2-5.5); BILIRUBIN,DIRECT 0.11 mg/dL (0.03-0.18); BILIRUBIN,TOTAL 0.4 mg/dL (0.2-1.0); CALCIUM 8.6 mg/dL (8.5-10.3); MAGNESIUM 1.5 mg/dL (1.7-2.3); PHOSPHORUS 2.8 mg/dL (2.5-5.0); POTASSIUM 4.5 mmol/L (3.5-4.5)
[2024-03-09] MEDS ORDERED: SODIUM CHLORIDE 0.9% 50 ML IV ONE (08:02)
--- NOTE | 2024-03-09 09:51 | PROVIDER PROGRESS NOTE ---
Subjective - General Admit Date: 03/05/24 Procedure Date: 03/07/24 Post Op Days: 2 Procedure Performed: Right hip hemiarthroplasty - Review of Systems Wound/Incisions: positive: Dressing dry and intact - Other Other Information/Narrative: His pain appears to be well-controlled. He is sitting and talking comfortably. His appetite seems to be relatively good. He has started physical and Occupational Therapy. He notes improvement on his second therapy visit. He denies chest pain, shortness of breath, nausea or vomiting. Objective - Patient Data Vital Signs: Vital Signs x48h Temp Pulse Pulse Resp BP Pulse Ox O2 Flow Rate 03/09/24 08:08 36.5 C 63 18 154/74 H 96 2 03/09/24 05:25 60 16 2 03/09/24 05:00 36.7 C 67 20 150/82 H 96 2 Weight: Weight 03/07/24 03/08/24 03/09/24 23:59 23:59 23:59 Weight (kg) 70.5 kg 71 kg 71 kg Intake & Output: Intake and Output Totals x24h 03/07/24 03/08/24 03/09/24 23:59 23:59 23:59 Intake Total 2088 1306 240 Output Total 780 775 700 Balance 1308 531 460 - Lab Results Lab Results: 03/09/24 05:32 03/09/24 06:00 Other Lab Results: Lab Results x24hrs 03/09/24 03/09/24 03/09/24 Range/Units 07:31 06:00 05:32 WBC 9.7 (4.8-10.8) x10^3/uL RBC 3.22 L (4.70-6.10) 10^6/uL Hgb 8.2 L (14.0-18.0) g/dL Hct 26.8 L (42.0-52.0) % MCV 83.2 (80.0-94.0) fL MCH 25.5 L (27.0-31.0) pg MCHC 30.6 L (32.0-36.0) g/dL RDW 16.6 H (12.0-15.0) % Plt Count 191 (130-450) 10^3/uL MPV 8.9 (7.4-11.4) fL Neut # (Auto) 7.9 H (1.5-6.6) 10^3/uL Lymph # (Auto) 1.0 L (1.5-3.5) 10^3/uL [place] # (Auto) 0.5 (0.0-1.0) 10^3/uL Eos # (Auto) 0.2 (0.0-0.7) 10^3/uL Baso # (Auto) 0.0 (0.0-0.1) 10^3/uL Absolute Nucleated RBC 0.00 x10^3/uL Nucleated RBC % 0.0 /100WBC Sodium 132 L (135-145) mmol/L Potassium 4.5 (3.5-4.5) mmol/L Chloride 103 (101-111) mmol/L Carbon Dioxide 25 (21-32) mmol/L Anion Gap 4.0 L (6-13) BUN 22 H (6-20) mg/dL Creatinine 1.0 (0.6-1.3) mg/dL Estimated GFR (MDRD) 72 L (>89) Glucose 98 (74-104) mg/dL POC Whole Bld Glucose 90 (70 - 100) mg/dL Calcium 8.6 (8.5-10.3) mg/dL Phosphorus 2.8 (2.5-5.0) mg/dL Magnesium 1.5 L (1.7-2.3) mg/dL Total Bilirubin 0.4 (0.2-1.0) mg/dL Direct Bilirubin 0.11 (0.03-0.18) mg/dL AST 19 (10-42) IU/L ALT 8 L (10-60) IU/L Alkaline Phosphatase 62 (42-121) IU/L Total Protein 5.0 L (6.4-8.9) g/dL Albumin 2.7 L (3.2-5.5) g/dL Globulin 2.3 (2.1-4.2) g/dL 03/08/24 03/08/24 03/08/24 Range/Units 20:32 16:44 11:43 WBC (4.8-10.8) x10^3/uL RBC (4.70-6.10) 10^6/uL Hgb (14.0-18.0) g/dL Hct (42.0-52.0) % MCV (80.0-94.0) fL MCH (27.0-31.0) pg MCHC (32.0-36.0) g/dL RDW (12.0-15.0) % Plt Count (130-450) 10^3/uL MPV (7.4-11.4) fL Neut # (Auto) (1.5-6.6) 10^3/uL Lymph # (Auto) (1.5-3.5) 10^3/uL [place] # (Auto) (0.0-1.0) 10^3/uL Eos # (Auto) (0.0-0.7) 10^3/uL Baso # (Auto) (0.0-0.1) 10^3/uL Absolute Nucleated RBC x10^3/uL Nucleated RBC % /100WBC Sodium (135-145) mmol/L Potassium (3.5-4.5) mmol/L Chloride (101-111) mmol/L Carbon Dioxide (21-32) mmol/L Anion Gap (6-13) BUN (6-20) mg/dL Creatinine (0.6-1.3) mg/dL Estimated GFR (MDRD) (>89) Glucose (74-104) mg/dL POC Whole Bld Glucose 135 H 241 H 160 H (70 - 100) mg/dL Calcium (8.5-10.3) mg/dL Phosphorus (2.5-5.0) mg/dL Magnesium (1.7-2.3) mg/dL Total Bilirubin (0.2-1.0) mg/dL Direct Bilirubin (0.03-0.18) mg/dL AST (10-42) IU/L ALT (10-60) IU/L Alkaline Phosphatase (42-121) IU/L Total Protein (6.4-8.9) g/dL Albumin (3.2-5.5) g/dL Globulin (2.1-4.2) g/dL - Current Medications Current Medications: Current Medications Generic Name Dose Route Start Last Admin Trade Name Freq PRN Reason Stop Dose Admin Acetaminophen 1,000 mg 03/07/24 20:00 03/09/24 05:30 Acetaminophen 500 Mg Tablet PO 1,000 mg Q8H HEATHER Administration Albuterol/Ipratropium 3 ml 03/07/24 07:27 03/09/24 05:22 Ipratropium/Albuterol 3 Ml Neb INH 3 ml RTQID HEATHER Administration Atorvastatin Calcium 10 mg 03/07/24 21:00 03/08/24 20:41 Atorvastatin 10 Mg Tablet PO 10 mg QPM HEATHER Administration Budesonide 0.5 mg 03/07/24 19:00 03/09/24 05:22 Budesonide 0.5 Mg/2 Ml Neb INH 0.5 mg RTBID HEATHER Administration Calcium Carbonate/Glycine 500 mg 03/08/24 09:00 03/08/24 20:41 Calcium Carbonate Chew 500 Mg Tablet PO 500 mg BID HEATHER Administration Cholecalciferol 50 mcg 03/08/24 09:00 03/08/24 11:46 Cholecalciferol 25 Mcg Tablet PO 50 mcg DAILY HEATHER Administration Cyanocobalamin 500 mcg 03/08/24 09:00 03/08/24 11:46 Cyanocobalamin 500 Mcg Tablet PO 500 mcg DAILY HEATHER Administration Enoxaparin Sodium 40 mg 03/08/24 09:00 03/08/24 08:09 Enoxaparin 40 Mg/0.4 Ml Syringe SUBQ 40 mg DAILY [facility] Administration Fentanyl 25 mcg 03/07/24 15:25 03/08/24 02:12 Fentanyl 250 Mcg/5 Ml Vial IVP 25 mcg Q2HR PRN Administration Severe Breakthrough pain(8-10) Ferrous Sulfate 325 mg 03/07/24 08:00 03/07/24 08:09 Ferrous Sulfate 325 Mg Tablet PO 325 mg Q48H HEATHER Administration Folic Acid 1 mg 03/06/24 09:00 03/08/24 08:04 Folic Acid 1 Mg Tablet PO 1 mg DAILY [facility] Administration Insulin Glargine-yfgn 10 unit 03/08/24 21:00 03/08/24 20:43 Insulin Glargine-Yfgn 300 Unit/3 Ml Pen SUBQ 10 unit QPM HEATHER Administration Insulin Human Lispro 1 - 5 unit 03/07/24 17:00 03/08/24 20:46 Insulin Lispro 300 Unit/3 Ml Pen SUBQ Not Given 0800,1200,1700,2100 [facility] Protocol Lorazepam 1 mg 03/05/24 21:27 03/06/24 00:40 Lorazepam 2 Mg/Ml Vial IVP 1 mg Q30M PRN Administration CIWA >8 Protocol Nicotine 1 patch 03/08/24 09:00 03/08/24 08:09 Nicotine 14 Mg Patch TOP 1 patch DAILY [facility] Administration Ondansetron HCl 4 mg 03/05/24 21:20 03/06/24 21:37 Ondansetron 4 Mg/2 Ml Vial IVP 4 mg Q6HR PRN Administration Nausea / Vomiting Oxycodone HCl 5 mg 03/07/24 15:25 03/09/24 02:37 Oxycodone 5 Mg Tablet PO 5 mg Q6HR PRN Administration Severe Breakthrough pain(8-10) Pantoprazole Sodium 40 mg 03/07/24 09:00 03/08/24 20:41 Pantoprazole 40 Mg Tablet PO 40 mg BID HEATHER Administration Sertraline HCl 25 mg 03/07/24 09:00 03/08/24 08:05 Sertraline 25 Mg Tablet PO 25 mg DAILY HEATHER Administration Sodium Chloride 10 ml 03/06/24 01:00 03/09/24 02:38 Sodium Chloride Flush 0.9% 10 Ml Syringe IVP 10 ml 0100,0900,1700 [facility]ATHER Administration Sodium Chloride 10 ml 03/05/24 21:20 03/07/24 09:49 Sodium Chloride Flush 0.9% 10 Ml Syringe IVP 10 ml PRN PRN Administration NEEDED PER PROVIDER ORDERS Thiamine HCl 100 mg 03/06/24 09:00 03/08/24 08:04 Thiamine 100 Mg Tablet PO 100 mg DAILY HEATHER Administration - Physical Exam Neurologic/Psychiatric: positive: Oriented x3, Motor nml, Sensation nml Comments/Other: He is sitting comfortably. His pain is well-controlled. Dressings are dry and intact. There is no hematoma about the hip. Neurovascular is intact right leg. There is no clinical deformity right leg. Gentle movement does not cause pain to right leg. Impression/Plan - Problem List Problem List: 1. Status post right hip hemiarthroplasty He is making progress with his gait training. His incision is clean and dry seems to be healing well. 2. Multiple comorbidities including anemia, hyponatremia, Decreased nutritional indices, Glucose intolerance Overall he is making very good progress. Continue comanaged care. I will be signing off as he is making very good progress. He will need to be on anticoagulation for approximately 6 weeks. I would continue Lovenox until discharge to home, then aspirin 81 mg twice daily for up to 6 weeks from the time of surgery. He may need physical and Occupational Therapy but should stay with a walker, weightbearing as tolerated right leg. He should use a walker full-time to prevent future falls. He may shower with dressing in place. There are no sutures to be removed. The dressing may be removed within a week of surgery. He should have a follow-up within 6 weeks from the time of surgery. The only precaution is to avoid crossing legs; avoid crossing right leg over left leg during the first 2 months to prevent hip dislocation. An anterolateral surgical approach was utilized
[2024-03-09] MEDS: DOCUSATE SODIUM 100 MG CAPSULE PO PRN (10:22)
[2024-03-09] MEDS: MAGNESIUM SULFATE 2 GRAM 2 GM/50 ML BAG IV ONE (10:23)
--- NOTE | 2024-03-09 10:25 | PROVIDER PROGRESS NOTE ---
Subjective - Prog Note Date Prog Note Date: 03/09/24 Prog Note Time: 10:25 - Subjective Pt reports feeling: Improved Subjective: The patient is resting in his bed. He is awake alert and answering questions appropriately. He worked with physical therapy and Occupational Therapy yesterday and did quite well. He currently is waiting transfer to a skilled facility. Today he denies fever or shaking chills. No chest pain, shortness of breath or cough. No nausea vomiting or diarrhea. No urinary complaints. Pain is adequately controlled on the current regimen Current Medications - Current Medications Current Medications: Tylenol 1000 mg IV every 6 hours as needed [place] 5/325 mg 1 p.o. every 4 hours as needed Folic acid 1 mg daily Hydromorphone 0.5 mg IV every 4 hours as needed severe pain Regular insulin sliding scale Lisinopril 10 mg daily Lorazepam 1 mg IV every 30 minutes as needed agitation Ondansetron 4 mg IV every 6 hours as needed Protonix 40 mg daily Thiamine 100 mg p.o. daily Objective - Vital Signs/Intake & Output Reviewed Vital Signs: Yes Vital Signs: Vital Signs x48h Temp Pulse Pulse Resp BP Pulse Ox O2 Flow Rate 03/09/24 08:08 36.5 C 63 18 154/74 H 96 2 03/09/24 05:25 60 16 2 03/09/24 05:00 36.7 C 67 20 150/82 H 96 2 Intake & Output: Intake & Output 03/06/24 03/07/24 03/08/24 03/09/24 23:59 23:59 23:59 23:59 Intake Total 1788 2088 1306 240 Output Total 405 780 775 700 Balance 1383 1308 531 -460 - Objective General Appearance: positive: No acute distress, Alert Eyes Bilateral: positive: Normal inspection ENT: positive: ENT inspection nml Neck: positive: Nml inspection Respiratory: positive: Chest non-tender, No respiratory distress, Breath sounds nml Cardiovascular: positive: Regular rate & rhythm, No murmur, No gallop. negative: Friction rub Abdomen: positive: Non-tender, No organomegaly, Nml bowel sounds Skin: positive: Color nml, No rash, Warm Extremities: positive: Non-tender, Full ROM, Nml appearance Neurologic/Psychiatric: positive: Oriented x3, CN's nml (2-12) - Lab Results Fish Bones: 03/09/24 05:32 03/09/24 06:00 Other Labs: Lab Results x24hrs 03/09/24 03/09/24 03/09/24 Range/Units 07:31 06:00 05:32 WBC 9.7 (4.8-10.8) x10^3/uL RBC 3.22 L (4.70-6.10) 10^6/uL Hgb 8.2 L (14.0-18.0) g/dL Hct 26.8 L (42.0-52.0) % MCV 83.2 (80.0-94.0) fL MCH 25.5 L (27.0-31.0) pg MCHC 30.6 L (32.0-36.0) g/dL RDW 16.6 H (12.0-15.0) % Plt Count 191 (130-450) 10^3/uL MPV 8.9 (7.4-11.4) fL Neut # (Auto) 7.9 H (1.5-6.6) 10^3/uL Lymph # (Auto) 1.0 L (1.5-3.5) 10^3/uL [place] # (Auto) 0.5 (0.0-1.0) 10^3/uL Eos # (Auto) 0.2 (0.0-0.7) 10^3/uL Baso # (Auto) 0.0 (0.0-0.1) 10^3/uL Absolute Nucleated RBC 0.00 x10^3/uL Nucleated RBC % 0.0 /100WBC Sodium 132 L (135-145) mmol/L Potassium 4.5 (3.5-4.5) mmol/L Chloride 103 (101-111) mmol/L Carbon Dioxide 25 (21-32) mmol/L Anion Gap 4.0 L (6-13) BUN 22 H (6-20) mg/dL Creatinine 1.0 (0.6-1.3) mg/dL Estimated GFR (MDRD) 72 L (>89) Glucose 98 (74-104) mg/dL POC Whole Bld Glucose 90 (70 - 100) mg/dL Calcium 8.6 (8.5-10.3) mg/dL Phosphorus 2.8 (2.5-5.0) mg/dL Magnesium 1.5 L (1.7-2.3) mg/dL Total Bilirubin 0.4 (0.2-1.0) mg/dL Direct Bilirubin 0.11 (0.03-0.18) mg/dL AST 19 (10-42) IU/L ALT 8 L (10-60) IU/L Alkaline Phosphatase 62 (42-121) IU/L Total Protein 5.0 L (6.4-8.9) g/dL Albumin 2.7 L (3.2-5.5) g/dL Globulin 2.3 (2.1-4.2) g/dL 03/08/24 03/08/24 03/08/24 Range/Units 20:32 16:44 11:43 WBC (4.8-10.8) x10^3/uL RBC (4.70-6.10) 10^6/uL Hgb (14.0-18.0) g/dL Hct (42.0-52.0) % MCV (80.0-94.0) fL MCH (27.0-31.0) pg MCHC (32.0-36.0) g/dL RDW (12.0-15.0) % Plt Count (130-450) 10^3/uL MPV (7.4-11.4) fL Neut # (Auto) (1.5-6.6) 10^3/uL Lymph # (Auto) (1.5-3.5) 10^3/uL [place] # (Auto) (0.0-1.0) 10^3/uL Eos # (Auto) (0.0-0.7) 10^3/uL Baso # (Auto) (0.0-0.1) 10^3/uL Absolute Nucleated RBC x10^3/uL Nucleated RBC % /100WBC Sodium (135-145) mmol/L Potassium (3.5-4.5) mmol/L Chloride (101-111) mmol/L Carbon Dioxide (21-32) mmol/L Anion Gap (6-13) BUN (6-20) mg/dL Creatinine (0.6-1.3) mg/dL Estimated GFR (MDRD) (>89) Glucose (74-104) mg/dL POC Whole Bld Glucose 135 H 241 H 160 H (70 - 100) mg/dL Calcium (8.5-10.3) mg/dL Phosphorus (2.5-5.0) mg/dL Magnesium (1.7-2.3) mg/dL Total Bilirubin (0.2-1.0) mg/dL Direct Bilirubin (0.03-0.18) mg/dL AST (10-42) IU/L ALT (10-60) IU/L Alkaline Phosphatase (42-121) IU/L Total Protein (6.4-8.9) g/dL Albumin (3.2-5.5) g/dL Globulin (2.1-4.2) g/dL ABX Reporting Has patient been on IV antibiotics over the past 48 hours?: No Sepsis Event Note (H) - Evaluation Current Stage of Sepsis: Ruled out Assessment/Plan - Problem List (1) Pathologic fracture of neck of right femur Impression: This is postoperative day #2 from surgical repair. He is working with physical therapy and Occupational Therapy and progressing nicely. He is stable for transfer to a facility as soon as a bed is found. (2) Acute hyponatremia Impression: Secondary to thiazide diuretic as well as beer potomania. His sodium level continues to improve. Would recommend avoiding thiazide diuretics going forward (3) Chronic respiratory failure Impression: He is at his baseline. This is due to underlying COPD (4) COPD (chronic obstructive pulmonary disease) Impression: No evidence of exacerbation. Stable Qualifiers: COPD type: unspecified COPD Qualified Code(s): J44.9 - Chronic obstructive pulmonary disease, unspecified (5) Alcohol use disorder Impression: No evidence of alcohol withdrawal. Would recommend abstinence going forward (6) Hyperlipidemia Impression: This is a continue atorvastatin 10 mg daily (7) Moderate major depression Impression: Continue sertraline 25 mg daily (8) Hyperkalemia Impression: Resolved (9) Hypertension Impression: Stable (10) Ambulatory dysfunction Impression: The patient will need placement for subacute rehabilitation. Continue working with physical therapy and Occupational Therapy. Disposition: The patient will be transferred to a skilled facility as soon as a bed is found for subacute rehabilitation Time spent: 35 minutes
[2024-03-09] MEDS: MAGNESIUM SULFATE 2 GM in SODIUM CHLORIDE 0.9% 50 ML IV ONE (11:38)
[2024-03-09] MEDS: MAGNESIUM SULFATE 3 GM in SODIUM CHLORIDE 0.9% 50 ML IV ONE (12:17)
[2024-03-10 05:34] LABS: BASOPHILS % (AUTO) 0.3 %; EOSINOPHILS # (AUTO) 0.3 10^3/uL (0.0-0.7); HCT - HEMATOCRIT 27.6 % (42.0-52.0); HGB - HEMOGLOBIN 8.6 g/dL (14.0-18.0); LYMPHOCYTES # (AUTO) 0.8 10^3/uL (1.5-3.5); LYMPHOCYTES % (AUTO) 9.4 %; MEAN CORPUSCULAR HEMOGLOBIN 25.9 pg (27.0-31.0); MEAN CORPUSCULAR HGB CONC 31.2 g/dL (32.0-36.0); MEAN CORPUSCULAR VOLUME 83.1 fL (80.0-94.0); MONOCYTES # (AUTO) 0.6 10^3/uL (0.0-1.0); NEUTROPHILS # (AUTO) 6.3 10^3/uL (1.5-6.6); NEUTROPHILS % (AUTO) 78.9 %; PLT - PLATELET COUNT 198 10^3/uL (130-450); RED BLOOD COUNT 3.32 10^6/uL (4.70-6.10)
[2024-03-10 05:50] LABS: ALBUMIN 2.7 g/dL (3.2-5.5); CALCIUM 8.6 mg/dL (8.5-10.3); CREATININE 0.9 mg/dL (0.6-1.3); MAGNESIUM 1.6 mg/dL (1.7-2.3); PHOSPHORUS 2.9 mg/dL (2.5-5.0); POTASSIUM 4.6 mmol/L (3.5-4.5)
[2024-03-10] MEDS: MAGNESIUM OXIDE 400 MG TABLET PO SCH (09:07)
[2024-03-10] MEDS: MAGNESIUM SULFATE 2 GRAM 2 GM/50 ML BAG IV ONE (09:08)
[2024-03-10] MEDS: polyethylene glycoL 3350 17 GM PACKET PO SCH (09:09)
--- NOTE | 2024-03-10 13:59 | PROVIDER PROGRESS NOTE ---
Subjective - Prog Note Date Prog Note Date: 03/10/24 Prog Note Time: 14:00 - Subjective Pt reports feeling: No change Subjective: The patient is an 79-year-old male with a past medical history significant for hypertension, type 2 diabetes, hyperlipidemia and oxygen dependent COPD. He also has a history of GERD and chronic pancreatitis in the setting of heavy alcohol use. The patient presented to the emergency room after having a mechanical fall and had a right femoral hip fracture. He is status postrepair and doing well. Currently awaiting placement for rehab. When I went to see the patient this morning he is resting comfortably in the bed. He has no complaints other than some pain when he moves in his right hip. He denies fever or chills. No chest pain, shortness of breath or cough. No nausea vomiting or diarrhea. No urinary complaints Current Medications - Current Medications Current Medications: Tylenol 1000 mg IV every 6 hours as needed [place] 5/325 mg 1 p.o. every 4 hours as needed Folic acid 1 mg daily Hydromorphone 0.5 mg IV every 4 hours as needed severe pain Regular insulin sliding scale Lisinopril 10 mg daily Lorazepam 1 mg IV every 30 minutes as needed agitation Ondansetron 4 mg IV every 6 hours as needed Protonix 40 mg daily Thiamine 100 mg p.o. daily Sertraline 25 mg daily Objective - Vital Signs/Intake & Output Reviewed Vital Signs: Yes Vital Signs: Vital Signs x48h Temp Pulse Resp BP Pulse Ox O2 Flow Rate 03/10/24 08:21 36.6 C 67 18 156/82 H 96 2 Intake & Output: Intake & Output 03/07/24 03/08/24 03/09/24 03/10/24 23:59 23:59 23:59 23:59 Intake Total 2086 1306 1270 530 Output Total 829 702 0786 900 Balance [facility] 531 -[phone] -370 - Objective General Appearance: positive: No acute distress Eyes Bilateral: positive: Normal inspection ENT: positive: ENT inspection nml Neck: positive: Nml inspection Respiratory: positive: Chest non-tender, No respiratory distress Cardiovascular: positive: Regular rate & rhythm, No murmur, No gallop. negative: Friction rub Abdomen: positive: Non-tender, No organomegaly, Nml bowel sounds Skin: positive: Color nml, No rash, Warm, Dry Extremities: positive: Other (Patient surgical wound has no surrounding erythema or evidence of drainage. He does have some swelling in his right lower extremity) - Lab Results Fish Bones: 03/10/24 05:19 03/10/24 05:19 Other Labs: Lab Results x24hrs 03/10/24 03/10/24 Range/Units 05:19 05:19 WBC 8.0 (4.8-10.8) x10^3/uL RBC 3.32 L (4.70-6.10) 10^6/uL Hgb 8.6 L (14.0-18.0) g/dL Hct 27.6 L (42.0-52.0) % MCV 83.1 (80.0-94.0) fL MCH 25.9 L (27.0-31.0) pg MCHC 31.2 L (32.0-36.0) g/dL RDW 17.0 H (12.0-15.0) % Plt Count 198 (130-450) 10^3/uL MPV 9.0 (7.4-11.4) fL Neut # (Auto) 6.3 (1.5-6.6) 10^3/uL Lymph # (Auto) 0.8 L (1.5-3.5) 10^3/uL [place] # (Auto) 0.6 (0.0-1.0) 10^3/uL Eos # (Auto) 0.3 (0.0-0.7) 10^3/uL Baso # (Auto) 0.0 (0.0-0.1) 10^3/uL Absolute Nucleated RBC 0.00 x10^3/uL Nucleated RBC % 0.0 /100WBC Sodium 133 L (135-145) mmol/L Potassium 4.6 H (3.5-4.5) mmol/L Chloride 102 (101-111) mmol/L Carbon Dioxide 27 (21-32) mmol/L Anion Gap 4.0 L (6-13) BUN 25 H (6-20) mg/dL Creatinine 0.9 (0.6-1.3) mg/dL Estimated GFR (MDRD) 81 L (>89) Glucose 110 H (74-104) mg/dL Calcium 8.6 (8.5-10.3) mg/dL Phosphorus 2.9 (2.5-5.0) mg/dL Magnesium 1.6 L (1.7-2.3) mg/dL Albumin 2.7 L (3.2-5.5) g/dL ABX Reporting Has patient been on IV antibiotics over the past 48 hours?: No Sepsis Event Note (H) - Evaluation Current Stage of Sepsis: Ruled out Assessment/Plan - Problem List (1) Pathologic fracture of neck of right femur Impression: The patient is postoperative day #3 from surgical repair. He does have some swelling in his right lower extremity and venous Dopplers of been ordered. Continue to work with physical therapy and Occupational Therapy. Hopefully he can go to rehab tomorrow. (2) Acute hyponatremia Impression: Secondary to thiazide diuretic as well as beer [place]. Improving. Currently his sodium level is up to 133. Would recommend avoiding thiazide diuretics in the future (3) Chronic respiratory failure Impression: The patient is at his baseline oxygen requirements (4) COPD (chronic obstructive pulmonary disease) Impression: No evidence of exacerbation Qualifiers: COPD type: unspecified COPD Qualified Code(s): J44.9 - Chronic obstructive pulmonary disease, unspecified (5) Alcohol use disorder Impression: No evidence of alcohol withdrawal. Would recommend cessation (7) Moderate major depression Impression: Continue sertraline 25 mg daily (8) Hyperkalemia Impression: Only slightly elevated today. Will repeat a chemistry panel in the morning (9) Hypertension Impression: Stable (10) Ambulatory dysfunction Impression: Continue physical therapy and Occupational Therapy. Currently waiting on placement for subacute rehabilitation Disposition: The patient is currently waiting on placement in a retirement facility for rehab. He has had a hip fracture with surgical repair and is unable to go back to the home setting and we are trying to get him into rehab. He is stable for transfer whenever a bed is found. Time spent: 35 minutes
--- NOTE | 2024-03-10 14:52 | Ultrasound Report ---
PROCEDURE: Duplex Ext Veins Right INDICATIONS: Swelling pain, r/o DVT TECHNIQUE: Real-time imaging, as well as color and pulse Doppler interrogation, were performed of the lower extr emity deep veins from the inguinal ligament to the popliteal fossa. Attempted visualization of the ca lf veins was performed. COMPARISON: None. FINDINGS: The deep veins are normally compressible, and free of intraluminal thrombus. Color and pu lse Doppler demonstrate normal phasic intraluminal flow. There is normal augmentation response to di stal compression maneuver. IMPRESSION: No deep venous thrombosis of the visualized lower extremity. Agree with preliminary interpretation provided to the ordering provider by the ultrasound technologis t. Reviewed by: Adam Marlow MD on 03/10/2024 2:51 PM PDT Approved by: Adam Marlow MD on 03/10/2024 2:51 PM PDT Station ID: [id number]
[2024-03-11 06:00] LABS: BASOPHILS % (AUTO) 0.2 %; EOSINOPHILS # (AUTO) 0.2 10^3/uL (0.0-0.7); EOSINOPHILS % (AUTO) 2.2 %; HCT - HEMATOCRIT 26.7 % (42.0-52.0); HGB - HEMOGLOBIN 8.1 g/dL (14.0-18.0); LYMPHOCYTES % (AUTO) 12.4 %; MEAN CORPUSCULAR HGB CONC 30.3 g/dL (32.0-36.0); MEAN CORPUSCULAR VOLUME 82.4 fL (80.0-94.0); MEAN PLATELET VOLUME 9.2 fL (7.4-11.4); MONOCYTES # (AUTO) 0.6 10^3/uL (0.0-1.0); MONOCYTES % (AUTO) 7.2 %; NEUTROPHILS # (AUTO) 6.5 10^3/uL (1.5-6.6); NEUTROPHILS % (AUTO) 77.4 %; PLT - PLATELET COUNT 201 10^3/uL (130-450); RED BLOOD COUNT 3.24 10^6/uL (4.70-6.10); RED CELL DISTRIBUTION WIDTH 16.7 % (12.0-15.0); WHITE BLOOD COUNT 8.4 x10^3/uL (4.8-10.8)
[2024-03-11 06:17] LABS: ALBUMIN 2.7 g/dL (3.2-5.5); CALCIUM 8.6 mg/dL (8.5-10.3); CREATININE 0.9 mg/dL (0.6-1.3); MAGNESIUM 1.7 mg/dL (1.7-2.3); PHOSPHORUS 2.8 mg/dL (2.5-5.0); POTASSIUM 4.5 mmol/L (3.5-4.5)
[2024-03-11] MEDS: IPRATROPIUM/ALBUTEROL 3 ML NEB INH PRN (07:06)
--- NOTE | 2024-03-11 08:20 | PROVIDER PROGRESS NOTE ---
Subjective - Prog Note Date Prog Note Date: 03/11/24 Prog Note Time: 08:20 - Subjective Pt reports feeling: No change Subjective: The patient is an 79-year-old male with a past medical history significant for hypertension, type 2 diabetes, hyperlipidemia and oxygen dependent COPD. He also has a history of GERD and chronic pancreatitis in the setting of heavy alcohol use. The patient presented to the emergency room after having a mechanical fall and had a right femoral hip fracture. He is status postrepair and doing well. Currently awaiting placement for rehab. Resting comfortably this morning. He has no pain at rest states he has a lot of pain when he does move his right hip. He is on oxygen at baseline remains on 2 L nasal cannula with sats in the mid 90s. Otherwise he is without complaints. Relates that at the time he fell he had had 5 beers and went outside to go pick some strawberries. Lives with his son. Will need more help that can be given at home. Current Medications - Current Medications Current Medications: Medications Acetaminophen (Acetaminophen 500 Mg Tablet) 1,000 mg PO Q8H [facility] Last Admin: 03/11/24 02:21 Dose: 1,000 mg Enoxaparin Sodium (Enoxaparin 40 Mg/0.4 Ml Syringe) 40 mg SUBQ DAILY [facility] Last Admin: 03/11/24 08:25 Dose: 40 mg Fentanyl (Fentanyl 250 Mcg/5 Ml Vial) 25 mcg IVP Q2HR PRN PRN Reason: Severe Breakthrough pain(8-10) Last Admin: 03/09/24 15:04 Dose: 25 mcg Folic Acid (Folic Acid 1 Mg Tablet) 1 mg PO DAILY [facility] Last Admin: 03/11/24 08:24 Dose: 1 mg Sertraline HCl (Sertraline 25 Mg Tablet) 25 mg PO DAILY [facility] Last Admin: 03/10/24 09:07 Dose: 25 mg Lorazepam (Lorazepam 2 Mg/Ml Vial) 1 mg IVP Q30M PRN; Protocol PRN Reason: CIWA >8 Last Admin: 03/06/24 00:40 Dose: 1 mg Magnesium Oxide (Magnesium Oxide 400 Mg Tablet) 400 mg PO DAILYWM [facility] Last Admin: 03/11/24 08:25 Dose: 400 mg Albuterol/Ipratropium (Ipratropium/Albuterol 3 Ml Neb) 3 ml INH Q4HR PRN PRN Reason: Wheezing Last Admin: 03/11/24 07:06 Dose: 3 ml Atorvastatin Calcium (Atorvastatin 10 Mg Tablet) 10 mg PO QPM [facility] Last Admin: 03/10/24 19:56 Dose: 10 mg Budesonide (Budesonide 0.5 Mg/2 Ml Neb) 0.5 mg INH RTBID [facility] Last Admin: 03/11/24 07:06 Dose: 0.5 mg Calcium Carbonate/Glycine (Calcium Carbonate Chew 500 Mg Tablet) 500 mg PO BID [facility] Last Admin: 03/11/24 08:25 Dose: 500 mg Cholecalciferol (Cholecalciferol 25 Mcg Tablet) 50 mcg PO DAILY [facility] Last Admin: 03/11/24 08:24 Dose: 50 mcg Cyanocobalamin (Cyanocobalamin 500 Mcg Tablet) 500 mcg PO DAILY [facility] Last Admin: 03/11/24 08:25 Dose: 500 mcg Docusate Sodium (Docusate Sodium 100 Mg Capsule) 100 mg PO BID PRN PRN Reason: Constipation Last Admin: 03/09/24 10:22 Dose: 100 mg Ferrous Sulfate (Ferrous Sulfate 325 Mg Tablet) 325 mg PO Q48H [facility] Last Admin: 03/11/24 08:29 Dose: 325 mg Nicotine (Nicotine 14 Mg Patch) 1 patch TOP DAILY [facility] Last Admin: 03/11/24 08:25 Dose: Not Given Ondansetron HCl (Ondansetron 4 Mg/2 Ml Vial) 4 mg IVP Q6HR PRN PRN Reason: Nausea / Vomiting Last Admin: 03/06/24 21:37 Dose: 4 mg Oxycodone HCl (Oxycodone 5 Mg Tablet) 5 mg PO Q6HR PRN PRN Reason: Severe Breakthrough pain(8-10) Last Admin: 03/10/24 18:13 Dose: 5 mg Pantoprazole Sodium (Pantoprazole 40 Mg Tablet) 40 mg PO BID [facility] Last Admin: 03/11/24 08:24 Dose: 40 mg Polyethylene Glycol (Polyethylene Glycol 3350 17 Gm Packet) 17 gm PO DAILY [facility] Last Admin: 03/11/24 08:25 Dose: Not Given Thiamine HCl (Thiamine 100 Mg Tablet) 100 mg PO DAILY [facility] Last Admin: 03/11/24 08:25 Dose: 100 mg Objective - Vital Signs/Intake & Output Vital Signs: Vital Signs x48h Temp Pulse Pulse Resp BP Pulse Ox O2 Flow Rate 03/11/24 07:37 36.5 C 71 18 159/82 H 94 2 03/11/24 07:07 78 20 2 Intake & Output: Intake & Output 03/08/24 03/09/24 03/10/24 03/11/24 23:59 23:59 23:59 23:59 Intake Total 1306 1270 1360 100 Output Total 775 1700 1100 950 Balance 531 -430 260 -850 - Objective General Appearance: positive: No acute distress Eyes Bilateral: positive: Normal inspection ENT: positive: ENT inspection nml Neck: positive: Nml inspection Respiratory: positive: No respiratory distress, Rhonchi Cardiovascular: positive: Regular rate & rhythm Abdomen: positive: Nml bowel sounds, No distention Skin: positive: Color nml Extremities: positive: Non-tender, Full ROM, Other (mild RLE swelling) Neurologic/Psychiatric: positive: Oriented x3 - Lab Results Fish Bones: 03/11/24 05:15 03/11/24 05:15 Other Labs: Lab Results x24hrs 03/11/24 03/11/24 Range/Units 05:15 05:15 WBC 8.4 (4.8-10.8) x10^3/uL RBC 3.24 L (4.70-6.10) 10^6/uL Hgb 8.1 L (14.0-18.0) g/dL Hct 26.7 L (42.0-52.0) % MCV 82.4 (80.0-94.0) fL MCH 25.0 L (27.0-31.0) pg MCHC 30.3 L (32.0-36.0) g/dL RDW 16.7 H (12.0-15.0) % Plt Count 201 (130-450) 10^3/uL MPV 9.2 (7.4-11.4) fL Neut # (Auto) 6.5 (1.5-6.6) 10^3/uL Lymph # (Auto) 1.0 L (1.5-3.5) 10^3/uL [place] # (Auto) 0.6 (0.0-1.0) 10^3/uL Eos # (Auto) 0.2 (0.0-0.7) 10^3/uL Baso # (Auto) 0.0 (0.0-0.1) 10^3/uL Absolute Nucleated RBC 0.00 x10^3/uL Nucleated RBC % 0.0 /100WBC Sodium 133 L (135-145) mmol/L Potassium 4.5 (3.5-4.5) mmol/L Chloride 100 L (101-111) mmol/L Carbon Dioxide 30 (21-32) mmol/L Anion Gap 3.0 L (6-13) BUN 24 H (6-20) mg/dL Creatinine 0.9 (0.6-1.3) mg/dL Estimated GFR (MDRD) 81 L (>89) Glucose 119 H (74-104) mg/dL Calcium 8.6 (8.5-10.3) mg/dL Phosphorus 2.8 (2.5-5.0) mg/dL Magnesium 1.7 (1.7-2.3) mg/dL Albumin 2.7 L (3.2-5.5) g/dL - Diagnostic Imaging Diagnostic Imaging Results: positive: Final report reviewed Diagnostic Imaging Comments: Right lower extremity venous duplex study is negative. Sepsis Event Note (H) - Evaluation Current Stage of Sepsis: Ruled out Assessment/Plan - Problem List (1) Femoral neck fracture Impression: The patient is postoperative day #4 from surgical repair. negative DVT study of the right lower extremity. has some post operative extremity edema Continue to work with physical therapy and Occupational Therapy. He has been accepted to SNF, awaiting bed. (2) Acute hyponatremia Impression: Secondary to thiazide diuretic as well as beer [place]. Improving. Currently his sodium level is up to 133 two days in a row. repeat labs in AM. I will not restart thiazide diuretic on discharge. (3) Chronic respiratory failure Impression: He is on 2 L of oxygen at home. He is currently on 2 L of oxygen with maintaining sats in the mid 90s. He denies tobacco use, remote smoking history. (4) COPD (chronic obstructive pulmonary disease) Impression: No evidence of exacerbation. See above Qualifiers: COPD type: unspecified COPD Qualified Code(s): J44.9 - Chronic obstructive pulmonary disease, unspecified (5) Alcohol use disorder Impression: No evidence of alcohol withdrawal.I have counseled the patient on his alcohol use. He states that on the date that he fell he had been on the phone with his son who was having some emotional difficulties. He states he therefore drank more beer than he normally does. (7) Moderate major depression Impression: Continue sertraline 25 mg daily (8) Hyperkalemia Impression: 4.6 yesterday upper limits of normal today at 4.5. Repeat chemistry panel in AM. (9) Hypertension Impression: Stable. . 159/82 today. This is acceptable given his age. (10) Ambulatory dysfunction Impression: Continue physical therapy and Occupational Therapy. Currently waiting on placement for subacute rehabilitation Disposition: The patient is currently waiting on placement in a [facility] facility for rehab. He has had a hip fracture with surgical repair and is unable to go back to the home setting and we are trying to get him into rehab. He is stable for transfer whenever a bed is found. Time spent: 35 minutes Qualifiers: Qualified Code(s): S72.001A - Fracture of unspecified part of neck of right femur, initial encounter for closed fracture (2) Postoperative anemia due to acute blood loss Impression: Hemoglobin 8.1 today. At the time of admission was 9.7. Will add iron supplementation to his medications. Low hemoglobin at the time of admission probably due to chronic disease.
[2024-03-11] MEDS ORDERED: GLYCOPYRROLATE 1 MG/5 ML VIAL ONE (08:24)
[2024-03-11] MEDS ORDERED: NEOSTIGMINE 1 MG/1 ML 10 ML MDV ONE (08:24)
[2024-03-11] MEDS: SERTRALINE 25 MG TABLET PO ONE (08:39)
[2024-03-12 08:39] VITALS: O2SAT 94
--- NOTE | 2024-03-12 10:22 | Discharge Plan ---
Discharge Plan Problem Reviewed?: Yes Disposition: 03 SNF DC/Xfer Condition: Good Prescriptions: oxyCODONE [Roxicodone] 5 mg PO Q6HR PRN #20 tab PRN Reason: Severe Breakthrough pain(8-10) Aspirin EC [Ecotrin] 81 mg PO BID #84 tablet Nicotine 7 mg Patch [Nicoderm] 1 each TOP Q24H #90 patch Diet: Regular Activity Restrictions: Wt Bearing as Tolerated Shower Restrictions: No (leave dressing in place) Driving Restrictions: No Assistance Devices: Walker Weight Bearing: Full Weight Instruction Topics: Fx Hip, Fx Hip Surg Home Recovery Health Concerns: you were admitted after a fall at home resulting in a hip fracture. After surgery you need certain things to help your hip heal. We have put you on vitamin D and calcium supplements. We also want to prevent blood clots and for this reason you should take a baby aspirin twice a day. You should do this for 6 weeks. You need to continue to take your home medications including your breathing medicines. It would be a good idea for you to stop using all tobacco products. We are continuing with nicotine replacement therapy to try to help you do this. Tobacco use contributes to decreased bone health. Additionally you should stop drinking alcohol as it almost certainly contributed to your fall. Plan of Treatment: therapy at rehab facility. Pain control Care Goals: return home to independent living. Assessment: hip fracture after fall at home. No Smoking: If you smoke, Please STOP! Call for help. Follow-up with: MALAIKA MARTINEZ MD [Primary Care Provider] -
--- NOTE | 2024-03-12 12:32 | DISCHARGE SUMMARY ---
"Discharge Summary Admit Date: 03/05/24 Discharge Date: 03/12/24 Discharging Provider: Gregoria Ramos PA-C Primary Care Provider: Frankie Meehan Code Status: Attempt Resuscitation Condition at Discharge: Good Discharge Disposition: SNF DC/Xfer Discharge Facility Name: [facility] - DIAGNOSES Admission Diagnoses: Right femoral neck fracture Alcohol intoxication Syncope Hyponatremia Anemia of chronic disease Hypertension Diabetes mellitus type 2 Hyperlipidemia COPD on home oxygen therapy GERD History of chronic pancreatitis Discharge Diagnoses with Status of Each Condition: Right femoral neck fracture underwent operative repair on 03/07/2024 with right hip hemiarthroplasty. Has be en working with physical and Occupational Therapy. Pain has been controlled with oral pain medications. Original incisional dressing is intact and should be left in place until 10 days postop.He is instructed to follow-up with Dr. Espinal in clinic about 6 weeks postop. There are no sutures to be removed. Acute hyponatremia Likely secondary to thiazide diuretic which was discontinued on admission also secondary to beer potomania. Sodium level on admission 121. Improved to 133 prior to discharge. Chronic respiratory failure secondary to COPD. No exacerbation while admitted. Maintained on 2 L of oxygen via nasal cannula which is his home regimen. Was also given long and short acting bronchodilators as well as inhaled corticosteroids while here. Will be discharged to SNF with similar regimen. Alcohol use disorder No evidence of alcohol withdrawal while here. Has been counseled on his alcohol use and encouraged to cut down or stop drinking as this most certainly contributed to his fall. Depression He was continued on his home sertraline 25 mg daily. Hyperkalemia Resolved. Had a potassium as high as 5.1 which resolved with treatment. Potassium levels 4.5 on the day prior to discharge. Hypertension. Stable blood pressures were maintained under 160 systolic during the course of his admission. His home medication of hydrochlorothiazide was discontinued secondary to hyponatremia. Recommend monitoring blood pressure as an outpatient and considering restarting treatment with something other than a thiazide diuretic if indicated. Postoperative anemia due to acute blood loss Admission hemoglobin was 9.7. Dropped to 8.1 postoperatively. He was given iron supplementation this will be continued as an outpatient. Recommend repeat CBC in several weeks at the time of primary care follow-up. - HPI History of Present Illness: From telehealth admission H&P: 79 y OLD with PMH HTN, DM 2, Hyperlipidemia, COPD on home oxygen, GERD, Chronic pancreatitis presents by ambulance. He says he was having a great day having drank a few beers and then he went outside to pick strawberries. He ended up passing out and falling. He has a laceration of the right elbow and more significantly right hip pain which only really hurts if he moves it or tries to walk on it which she is unable to do. He does not think he hit his head. Denies headache, chest pain, SOB, nausea, vomiting, diarrhea, constipation, symptoms On presentation, pt was afebrile. Sao2 100 % on 2L Labs showed normal WBC, Hb 9.7, sodium 121, Alcohol level 110 CT head and C spine showed no acute abnormalities X ray right hip showed femoral neck fracture As per ER physician ( Dr Montenegro), he gave 50 ml of 3 % saline due to hyponatremia and also consulted with orthopedic who recommended to admit for surgery tomorrow Pt is admitted due to right hip fracture, syncope, hyponatremia, alcohol intoxixation - CONSULTS | PROCEDURES Consultations: orthopedics, Dr Espinal - HOSPITAL COURSE Hospital Course: Admitted with alcohol intoxication, hyponatremia, and ground-level fall resulting in right femoral neck fracture. Was taken to the operating room on hospital day 3 for repair of femoral neck fracture via right hip hemiarthroplasty. His surgery was delayed by 1 hospital day secondary to his hyponatremia which was corrected via hypertonic saline in the emergency room, abstention from beer and discontinuation of his thiazide diuretic. His COPD remained stable is maintained on inhaled steroids and bronchodilators as well as his home oxygen. He had no symptoms of alcohol withdrawal while here. On postoperative day 3 right lower extremity DVT study which was ordered secondary to diffuse edema in the right lower extremity. This was negative.He was maintained on Lovenox for DVT prophylaxis while inpatient and will be discharged to SNF on 6 weeks of aspirin 81 mg twice daily. Postoperatively he did well but it was recommended that [facility] go [facility]. He had several hospital days awaiting rehab bed placement. He was discharged to [facility] in stable condition. On postoperative day 5. - ALLERGIES Allergies/Adverse Reactions: Allergies Allergy/AdvReac Type Severity Reaction Status Date / Time No Known Drug Allergies Allergy Verified 03/05/24 18:56 - MEDICATIONS Home Medications: Ambulatory Orders Medication Instructions Recorded Confirmed RX: Simvastatin 20 mg PO QPM 06/07/18 03/06/24 RX: Ipratropium/Albuterol [Duoneb] 1 neb PO QID PRN 03/06/24 03/06/24 Nicotine 7 mg Patch [Nicoderm] 1 each TOP Q24H #90 patch 03/12/24 RX: Acetaminophen [Tylenol] 1,000 mg PO Q8H tab 03/12/24 RX: Aspirin EC [Ecotrin] 81 mg PO BID #84 tablet 03/12/24 RX: Budesonide [Pulmicort] 0.5 mg INH RTBID ml 03/12/24 RX: Calcium Carbonate [Tums 500 mg PO BID tab 03/12/24 (Calcium Carbonate 500mg)] RX: Cholecalciferol [Vitamin D3] 50 mcg PO DAILY tab 03/12/24 RX: Cyanocobalamin [Vitamin B-12] 500 mcg PO DAILY tab 03/12/24 RX: Docusate Sodium 100Mg Capsule 100 mg PO BID PRN cap 03/12/24 [Colace 100Mg Capsule] RX: Ferrous Sulfate 325 mg PO Q48H #0 03/12/24 03/06/24 RX: Folic Acid 1 mg PO DAILY tab 03/12/24 RX: Magnesium Oxide [Mag Ox] 400 mg PO DAILYWM tab 03/12/24 RX: Pantoprazole [Protonix] 40 mg PO BID #60 tablet 03/12/24 03/06/24 RX: Sertraline [Zoloft] 25 mg PO DAILY #0 03/12/24 03/06/24 RX: Thiamine [Vitamin B-1] 100 mg PO DAILY tab 03/12/24 RX: metFORMIN [Glucophage] 500 mg PO BIDWM #0 03/12/24 03/06/24 RX: oxyCODONE [Roxicodone] 5 mg PO Q6HR PRN #20 tab 03/12/24 RX: polyethylene glycoL 3350 17 gm PO DAILY packet 03/12/24 [Miralax] - PHYSICAL EXAM AT DISCHARGE General Appearance: positive: No acute distress Eyes Bilateral: positive: Normal inspection ENT: positive: ENT inspection nml Neck: positive: Nml inspection Respiratory: positive: No respiratory distress, Rhonchi (occasional) Cardiovascular: positive: Regular rate & rhythm Abdomen: positive: No distention Back: positive: Nml inspection Skin: positive: Color nml, No rash Extremities: positive: Non-tender, Other (incisional dressing intact without erythema) Neurologic/Psychiatric: positive: Oriented x3 - LABS Result Diagrams: 03/11/24 05:15 03/11/24 05:15 - SEPSIS Current Stage of Sepsis: Ruled out - FOLLOW UP Follow Up: Dr Espinal, 6 weeeks post op [address]CP Dr Meehan, on SNF discharge - TIME SPENT Time Spent in Discharge (Minutes): 45"
--- NOTE | 2024-03-12 13:02 | Discharge Plan ---
"Discharge Plan for SNF / [facility] - Discharge Plan And Transition Orders Problem Reviewed?: Yes Disposition: 03 SNF DC/Xfer Condition: Good Allergies and Adverse Reactions: Allergies Allergy/AdvReac Type Severity Reaction Status Date / Time No Known Drug Allergies Allergy Verified 03/05/24 18:56 Health Concerns: you were admitted after a fall at home resulting in a hip fracture. After surgery you need certain things to help your hip heal. We have put you on vitamin D and calcium supplements. We also want to prevent blood clots and for this reason you should take a baby aspirin twice a day. You should do this for 6 weeks. You need to continue to take your home medications including your breathing medicines. It would be a good idea for you to stop using all tobacco products. We are continuing with nicotine replacement therapy to try to help you do this. Tobacco use contributes to decreased bone health. Additionally you should stop drinking alcohol as it almost certainly contributed to your f all. Plan of Treatment: therapy at rehab facility. Pain control Care Goals: return home to independent living. Assessment: hip fracture after fall at home. - SNF / [facility] Transition Orders Admit to (Facility): [facility] Discharge Diagnosis: right femoral neck fracture Medicare Certification Statement: I certify that Post Hospital custodial care is medically necessary on a continuing basis for any of the conditions for which she/he is receiving care during hospitalization. Notify PCP of admission and forward orders to primary provider for signature. Weight on admission and: Weekly Other Notification Orders: Call PCP immediately if patient develops dyspnea, chest pain/tightness or edema. House Bowel Program: Yes Additional Bowel Program Orders: If no BM after 2 days, nurse may give M.O.M. 30ml PO PRN and/or ducolax Supp 1 OR and/or LIANE 250mg P.O., and/or senna 1-2 tabs PO. On day 3 nurse may give repeat above order until residents constipation is resolved. Annual Influenza Vaccine (between May 12 and December 09): Yes Oxygen Orders: 2L [place] Orthopedic Orders: walker for ambulation. WBAT Medication Orders: PLEASE REFER TO THE DISCHARGE MEDICATION LIST. Insulin Orders?: No - Medications New Prescriptions: RX: oxyCODONE [Roxicodone] 5 mg PO Q6HR PRN #20 tab PRN Reason: Severe Breakthrough pain(8-10) RX: Aspirin EC [Ecotrin] 81 mg PO BID #84 tablet Nicotine 7 mg Patch [Nicoderm] 1 each TOP Q24H #90 patch - Diet Type: Geriatric Texture: Regular Liquids: Thin May have monthly special meal: Yes - Therapies | Activity Therapy: Evaluation | Treat if indicated: PT, OT Rehabilitation Potential: Return to independent living Activity: Wt Bearing as Tolerated Weight Bearing: Full Weight Assistance Devices: Walker Follow Up: Dr Espinal, 6 weeks. Dressing off in 10 days, no sutures to remove"
[2024-03-12 13:52] VITALS: BP 125/68
== END 2024-03-12 14:05 | DRG 522 ==
LOC: EDUNIT# → ED 18:53 → ICU 21:20 → MS2 03-08 23:06
PROVIDERS: ADMIT Internal Medicine; ATTEND Physician Assistant Medical
PROC: 30233N1 Transfusion of Nonautologous Red Blood Cells into Peripheral Vein, Percutaneous Approach (ICD-10-PCS; 2024-03-06)
PROC: 0SRR0J9 Replacement of Right Hip Joint, Femoral Surface with Synthetic Substitute, Cemented, Open Approach (ICD-10-PCS; principal; 2024-03-07 13:00)
DX: S72.001A Fracture of unspecified part of neck of right femur, initial encounter for closed fracture (principal); S51.011A Laceration without foreign body of right elbow, initial encounter; S09.90XA Unspecified injury of head, initial encounter; M84.451A Pathological fracture, right femur, initial encounter for fracture; D62 Acute posthemorrhagic anemia; E87.1 Hypo-osmolality and hyponatremia; J96.10 Chronic respiratory failure, unspecified whether with hypoxia or hypercapnia; K86.1 Other chronic pancreatitis; R55 Syncope and collapse; F10.10 Alcohol abuse, uncomplicated; D63.8 Anemia in other chronic diseases classified elsewhere; I10 Essential (primary) hypertension; Z99.81 Dependence on supplemental oxygen; E11.9 Type 2 diabetes mellitus without complications; J44.9 Chronic obstructive pulmonary disease, unspecified; K21.9 Gastro-esophageal reflux disease without esophagitis; F10.129 Alcohol abuse with intoxication, unspecified; E87.5 Hyperkalemia; W18.30XA Fall on same level, unspecified, initial encounter; Y93.H2 Activity, gardening and landscaping; Y92.007 Garden or yard of unspecified non-institutional (private) residence as the place of occurrence of the external cause; Y90.5 Blood alcohol level of 100-119 mg/100 ml; E78.00 Pure hypercholesterolemia, unspecified; F17.290 Nicotine dependence, other tobacco product, uncomplicated; M19.90 Unspecified osteoarthritis, unspecified site; F32.9 Major depressive disorder, single episode, unspecified; Z79.84 Long term (current) use of oral hypoglycemic drugs; Z79.899 Other long term (current) drug therapy
CPT/HCPCS: 12002; 36415; 70450; 72125; 72170; 72192; 73080; 73502; 80048; 80053; 80069; 80076; 82330; 82607; 82746; 83735; 84100; 84484; 85025; 85610; 86850; 86900; 86901; 86920; 87150; 90471; 90715; 93005; 93307; 93971; 94640; 96365; 96375; 97110; 97116; 97162; 97166; 97530; 97535; 99285; A9270; C1713; G0480; J1170; J1200; J1650; J1815; J2060; J2795; J3010; J3370; J3411; J3490; J7040; J7120; J7626; P9016; 82077

== ENCOUNTER 2024-03-23 08:00 | Outpatient (CLI) | payer MEDICARE ==
[2024-03-23 20:11] LABS: CALCIUM 8.8 mg/dL (8.5-10.3); POTASSIUM 4.8 mmol/L (3.5-4.5)
== END 2024-03-23 23:59 | disposition home or self-care (01) ==
LOC: LAB.R 08:00
PROVIDERS: ATTEND Registered Nurse
DX: I10 Essential (primary) hypertension (principal)
CPT/HCPCS: 80048

== ENCOUNTER 2024-12-20 13:17 | Observation (INO) ==
--- NOTE | 2024-12-20 13:30 | ED Physician Documentation ---
PD HPI URI Stated complaint Stated Complaint: SOA Chief complaint Chief Complaint: Resp History obtained from History obtained from: Patient and EMS History of Present Illness Timing - onset: How many days ago (3-4) Timing duration: Days (3-4) Timing details: Gradual onset and Still present Associated symptoms: Fever (Has felt feverish at times without measuring is temperature. Noted to be 100.9 at the walk-in clinic.), Chills, Rhinorrhea, Dry cough and Dyspnea; No Sore throat, Hemoptysis or Chest pain Contributing factors: COPD / asthma; No Sick contact Improves by: MDI/nebulizer (only briefly and inconsistently. Feeling more short of breath still and today so went to walk-in clinic. Noted to be hypoxemic and chest x-ray concerning for pneumonia. They sent the patient to the ER by the EMS.) Similar symptoms before: Diagnosis (History of COPD and does get more trouble breathing with infections etc. Had been on home oxygen at night and as needed but had not used it for many months as his sats had been adequate. He had it given back to [facility] 3 months ago.) Recently seen: Clinic (Walk-in clinic this morning and noted to be work of breathing with wheezing and hypoxia and chest x-ray concerning for pneumonia.) Meds/Allgy Home Medications Ambulatory Orders Medication Instructions Recorded Confirmed simvastatin 20 mg tablet 20 mg PO QPM 06/07/18 07/29/24 ipratropium 0.5 mg-albuterol 3 mg 1 neb PO QID PRN Shortness Of 03/06/24 07/29/24 (2.5 mg base)/3 mL nebulization Air/Wheezing soln acetaminophen 500 mg tablet 1,000 mg (2 x 500 mg) PO Q8H for 03/12/24 07/29/24 pain calcium carbonate 500 mg (2.5 x 200 mg calcium (500 03/12/24 07/29/24 mg)) PO BID healing after hip fracture cholecalciferol (vitamin D3) 25 50 mcg (2 x 25 mcg (1,000 unit)) 03/12/24 07/29/24 mcg (1,000 unit) tablet PO DAILY healing after hip fracture cyanocobalamin (vitamin B-12) 500 500 mcg PO DAILY anemia 03/12/24 07/29/24 mcg tablet ferrous sulfate 325 mg (65 mg 325 mg PO Q48H anemia ##0 03/12/24 07/29/24 iron) tablet,delayed release folic acid 1 mg tablet 1 mg PO DAILY anemia 03/12/24 07/29/24 magnesium oxide 400 mg (241.3 mg 400 mg PO DAILYWM keep magnesium 03/12/24 07/29/24 magnesium) tablet level normal metformin 500 mg tablet 500 mg PO BIDWM diabetes ##0 03/12/24 07/29/24 pantoprazole 40 mg tablet,delayed 40 mg PO BID GERD #60 tabs 03/12/24 07/29/24 release sertraline 25 mg tablet 25 mg PO DAILY depression ##0 03/12/24 07/29/24 thiamine mononitrate (vit B1) 100 100 mg PO DAILY anemia 03/12/24 07/29/24 mg tablet (Vitamin B-1 (mononitrate)) Allergies Allergies Allergy/AdvReac Type Severity Reaction Status Date / Time No Known Drug Allergies Allergy Verified 12/20/24 11:03 PFS Active Problems All Active Problems (Updated 12/20/24 @ 15:19 by Chiki Castillo MD) COPD with hypoxia (Acute) Acute exacerbation of chronic obstructive pulmonary disease (Acute) Pneumonia (Acute) Poor dentition (Acute) Disease of gingiva due to infection (Acute) COPD exacerbation (Acute) Cough (Acute) Postoperative anemia due to acute blood loss (Acute) Ambulatory dysfunction (Acute) Hypertension (Acute) Hyperkalemia (Acute) Moderate major depression (Acute) Acute hyponatremia (Acute) Hyperlipidemia (Acute) Alcohol use disorder (Acute) Chronic respiratory failure (Acute) Pathologic fracture of neck of right femur (Acute) Femoral neck fracture (Acute) Hyponatremia (Acute) Chronic pancreatitis (Acute) Alcohol abuse (Acute) Tobacco abuse (Acute) COPD (chronic obstructive pulmonary disease) (Acute) Hyperlipidemia (Acute) Hypertension (Acute) Duodenal ulcer (Acute) Upper GI bleed (Acute) Diabetes (Acute) Anemia (Acute) Syncope (Acute) Hypotension (Acute) GI bleed (Acute) Social History Social History Smoking Status: Former smoker If you are a former smoker, when did you quit? (Date/Year): 09/04/2019 Number of Years Smoked: 50 How many cigarettes a day do you smoke? (20 cigarettes=1 Pk): 20 Do you dip or chew tobacco?: No Patient requests smoking cessation consult: No Initiate information on smoking cessation: No Living arrangement: At home Living Condition: With family Relationship: Child Level: Independent Do you feel safe in your home environment?: Yes Suffered physical, verbal, emotional, or financial abuse?: No History of Abuse: No Frequency: Occasional POLST Patient has POLST: No POLST Status: Full Code Exam Exam Vital Signs: Vital Signs x48h Temp Pulse Resp BP Pulse Ox O2 Flow Rate 12/20/24 14:57 80 26 H 12/20/24 13:56 2 12/20/24 13:55 94 29 H 12/20/24 13:51 94 2 12/20/24 13:31 37.7 C 94 20 170/88 H 89 L Constitutional normal general appearance, distress noted (mild) and average body habitus HENMT oropharynx normal Neck/C-Spine visual inspection normal and supple Lymph no lymphadenopathy noted Respiratory breath sounds unequal (some decreased right base with some coarse sounds. ), abnormal respiratory effort (labored), wheezing noted (expiratory wheezes), no rales and use of accessory muscles noted (mild at this point, reported worse enroute and at clinic) Cardiovascular normal heart rate noted, regular rhythm noted and no edema Gastrointestinal abdomen soft to palpation and nontender to palpation Extremities no tenderness and full ROM Psychiatry mental status grossly normal, oriented x3, thought process normal and cooperative Skin skin color normal Results Vitals Vitals: Vital Signs - 24 hr 12/20/24 13:31 12/20/24 13:51 12/20/24 13:55 Temperature 37.7 C Temperature Source Oral Pulse Rate 94 94 Respiratory Rate 20 29 H Blood Pressure 170/88 H O2 Saturation 89 L 94 Oxygen Delivery Method O2 Source Room air Nasal cannula If not protocol: Oxygen Flow, liters/minute 2 Pain Intensity 0 12/20/24 13:56 12/20/24 14:57 Temperature Temperature Source Pulse Rate 80 Respiratory Rate 26 H Blood Pressure O2 Saturation Oxygen Delivery Method Nasal Cannula O2 Source If not protocol: Oxygen Flow, liters/minute 2 Pain Intensity Oxygen O2 Source Nasal cannula Labs Labs: Laboratory Tests 12/20/24 13:47 WBC 15.6 H RBC 3.56 L Hgb 9.3 L Hct 30.1 L MCV 84.6 MCH 26.1 L MCHC 30.9 L RDW 15.7 H Plt Count 295 MPV 10.4 Neut # (Auto) 14.4 H Lymph # (Auto) 0.5 L [place] # (Auto) 0.5 Eos # (Auto) 0.0 Baso # (Auto) 0.1 Absolute Nucleated RBC 0.00 Nucleated RBC % 0.0 Sodium 133 L Potassium 4.9 H Chloride 97 L Carbon Dioxide 26 Anion Gap 10.0 BUN 32 H Creatinine 1.3 Estimated GFR (MDRD) 53 L Glucose 122 H Lactic Acid 0.9 Calcium 9.1 Magnesium 1.7 Total Bilirubin 0.4 AST 20 ALT 14 Alkaline Phosphatase 92 B-Natriuretic Peptide 92 Total Protein 6.8 Albumin 3.4 Globulin 3.4 Albumin/Globulin Ratio 1.0 Lipase < 10 L Nasal Adenovirus (PCR) NOT DETECTED Nasal B. parapertussis DNA (PCR) NOT DETECTED Nasal Coronavir 229E PCR NOT DETECTED Nasal Coronavir HKU1 PCR NOT DETECTED Nasal Coronavir NL63 PCR NOT DETECTED Nasal Coronavir OC43 PCR NOT DETECTED Nasal Enterovir/Rhinovir PCR NOT DETECTED Nasal Influenza B PCR NOT DETECTED Nasal Influenza A PCR NOT DETECTED Nasal Parainfluen 1 PCR NOT DETECTED Nasal Parainfluen 2 PCR NOT DETECTED Nasal Parainfluen 3 PCR NOT DETECTED Nasal Parainfluen 4 PCR NOT DETECTED Nasal RSV (PCR) NOT DETECTED Nasal B.pertussis DNA PCR NOT DETECTED Nasal C.pneumoniae (PCR) NOT DETECTED Elvin Human Metapneumo PCR NOT DETECTED Nasal M.pneumoniae (PCR) NOT DETECTED Nasal SARS-CoV-2 (PCR) NOT DETECTED PD Medical Decision Making ED course Complexity details: reviewed results, re-evaluated patient (Decreased work of breathing and less wheezing after nebulizer x 2 along with 1 prehospital for total of 3. However still has very slight work of breathing and is feeling short of breath. I feel of person with COPD and likely pneumonia with his symptoms that is going to need more extended Tx.), considered differential (History of COPD with coughing chills and increased wheezing and work of breathing. His chest x-ray at the clinic showed likely infiltrates versus scarring. However clinically seems like pneumonia. Respiratory panel test is negative for viral type illness more concerning for bacterial. ) and d/w patient ED course: He was given steroids and repeat nebulizers and antibiotics here in the ER for concern of bacterial and pneumonia. He is still was only 92% on 2 to 3 L nasal cannula with the wheezing still though improved. He had been hypoxic at 86 to 89% on room air. He states he has an oximeter at home and typically is in the 92 to 95% range recently. Lower this week. I talked with the hospitalist who agrees the patient can be admitted for further extended care. Discharge Plan Discharge Patient Disposition: ED Place in Observation Condition: Stable Clinical Impression: Pneumonia, Acute exacerbation of chronic obstructive pulmonary disease, COPD with hypoxia
--- OUTSIDE RECORDS SUMMARY | 2024-12-20 13:44 | EXTERNAL MEDICAL SUMMARY RPT | Continuity of Care Document ---
Author Organization [facility] Address [address] [place] [address] Phone Problems date description facility 2024-12-20 11:39 Cough, unspecified [facility] 2024-12-20 11:53 Cough, unspecified [facility] 2024-12-20 12:11 Cough, unspecified [facility] 2024-12-20 12:36 Cough, unspecified [facility] Social History date description facility
[2024-12-20 13:54] LABS: BASOPHILS # (AUTO) 0.1 10^3/uL (0.0-0.1); BASOPHILS % (AUTO) 0.4 %; EOSINOPHILS % (AUTO) 0.1 %; HCT - HEMATOCRIT 30.1 % (42.0-52.0); HGB - HEMOGLOBIN 9.3 g/dL (14.0-18.0); LYMPHOCYTES # (AUTO) 0.5 10^3/uL (1.5-3.5); LYMPHOCYTES % (AUTO) 3.4 %; MEAN CORPUSCULAR HEMOGLOBIN 26.1 pg (27.0-31.0); MEAN CORPUSCULAR HGB CONC 30.9 g/dL (32.0-36.0); MEAN CORPUSCULAR VOLUME 84.6 fL (80.0-94.0); MEAN PLATELET VOLUME 10.4 fL (7.4-11.4); MONOCYTES # (AUTO) 0.5 10^3/uL (0.0-1.0); MONOCYTES % (AUTO) 3.3 %; NEUTROPHILS # (AUTO) 14.4 10^3/uL (1.5-6.6); NEUTROPHILS % (AUTO) 92.4 %; PLT - PLATELET COUNT 295 10^3/uL (130-450); RED BLOOD COUNT 3.56 10^6/uL (4.70-6.10); RED CELL DISTRIBUTION WIDTH 15.7 % (12.0-15.0); WHITE BLOOD COUNT 15.6 x10^3/uL (4.8-10.8)
[2024-12-20] MEDS: IPRATROPIUM/ALBUTEROL 3 ML NEB INH STA (13:54)
[2024-12-20 14:04] LABS: ALBUMIN 3.4 g/dL (3.2-5.5); BILIRUBIN,TOTAL 0.4 mg/dL (0.2-1.0); CALCIUM 9.1 mg/dL (8.5-10.3); CARBON DIOXIDE - CO2 26 mmol/L (21-32); CHLORIDE 97 mmol/L (101-111); MAGNESIUM 1.7 mg/dL (1.7-2.3); POTASSIUM 4.9 mmol/L (3.5-4.5); SODIUM 133 mmol/L (135-145)
[2024-12-20] MEDS: cefTRIAXone 1 GM VIAL IVP STA (14:05)
[2024-12-20] MEDS: AZITHROMYCIN INJ 500 MG in SODIUM CHLORIDE 0.9% 250 ML IV STA (14:05)
[2024-12-20] MEDS: DEXAMETHASONE 10 MG/ML VIAL IVP STA (14:05)
[2024-12-20 14:12] LABS: ALKALINE PHOSPHATASE 92 IU/L (42-121); ALT ALANINE AMINOTRANSFERASE 14 IU/L (10-60); AST ASPARTATE AMINOTRANSFERASE 20 IU/L (10-42); BUN - BLOOD UREA NITROGEN 32 mg/dL (6-20); CREATININE 1.3 mg/dL (0.6-1.3); GFR - MDRD 53 (>89); GLUCOSE 122 mg/dL (74-104); LIPASE < 10 U/L (11-82); TOTAL PROTEIN 6.8 g/dL (6.4-8.9)
[2024-12-20 14:42] LABS: B. PARAPERTUSSIS- RESP PCR PAN NOT DETECTED; B. PERTUSSIS- RESP PCR PANEL NOT DETECTED; C. PNEUMONIAE- RESP PCR PANEL NOT DETECTED; CORONAVIRUS 229E-RESP PCR NOT DETECTED; CORONAVIRUS HKU1-RESP PCR NOT DETECTED; CORONAVIRUS NL63-RESP PCR NOT DETECTED; CORONAVIRUS OC43-RESP PCR NOT DETECTED; HUMAN METAPNEUMOVIRUS NOT DETECTED; INFLUENZA A- RESP PCR PANEL NOT DETECTED; INFLUENZA B - RESP PCR PANEL NOT DETECTED; M. PNEUMONIAE- RESP PCR PANEL NOT DETECTED; PARAINFLUENZA VIRUS 1 NOT DETECTED; PARAINFLUENZA VIRUS 2 NOT DETECTED; PARAINFLUENZA VIRUS 4 NOT DETECTED; RHINOVIRUS/ENTEROVIRUS NOT DETECTED; RSV- RESP PCR PANEL NOT DETECTED; SARS-CoV-2 -RESP PCR PANEL NOT DETECTED
[2024-12-20] MEDS: ALBUTEROL NEB 2.5 MG/3 ML INH STA (14:56)
[2024-12-20] MEDS: LIDOCAINE PATCH 4% TOP STA (15:33)
[2024-12-20] MEDS ORDERED: ACETAMINOPHEN 325 MG TABLET PO PRN (16:50)
[2024-12-20] MEDS ORDERED: SODIUM CHLORIDE FLUSH 0.9% 10 ML SYRINGE IVP PRN (16:50)
[2024-12-20] MEDS ORDERED: ONDANSETRON ODT 4 MG TABLET TL PRN (16:50)
[2024-12-20] MEDS ORDERED: ONDANSETRON 4 MG/2 ML VIAL IVP PRN (16:50)
[2024-12-20] MEDS: SODIUM CHLORIDE FLUSH 0.9% 10 ML SYRINGE IVP SCH (17:22)
--- NOTE | 2024-12-20 18:35 | HISTORY & PHYSICAL EXAMINATION ---
Chief Complaint Chief Complaint Chief Complaint: Hypoxia History of Present Illness Admitted From Admitted From:: Home History Obtained From History obtained from: Patient interview Exam Limitations: None History of Present Illness HPI Comment/Other: 79-year-old male H significant for upper GI bleed, COPD, diabetes managed with metformin presents with shortness of breath by EMS. Over the past 3 to 4 days he has been gradually getting more hypoxic. He used to be on home oxygen, but just went through the process of returning to supplier as he had not needed it for some time. He checked his pulse oximeter at home and found his oxygen to be around 85%. He went to the [facility] earlier today, where he says they noted him to be febrile. He states he has been feverish at home. He reports wheezing and productive cough, but does note that he has those at baseline and this is somewhat worse. In the ER, workup was significant for a chest x-ray which shows some bibasilar opacities. Hospitalist was contacted by ER physician for admission for acute hypoxic respiratory failure on 2 L O2 secondary to COPD exacerbation and community-acquired pneumonia Meds/Allgy Home Medications Ambulatory Orders Medication Instructions Recorded Confirmed simvastatin 20 mg tablet 20 mg PO QPM 06/07/18 12/20/24 ipratropium 0.5 mg-albuterol 3 mg 1 neb PO QID PRN Shortness Of 03/06/24 12/20/24 (2.5 mg base)/3 mL nebulization Air/Wheezing soln acetaminophen 500 mg tablet 1,000 mg (2 x 500 mg) PO Q8H for 03/12/24 12/20/24 pain cholecalciferol (vitamin D3) 25 50 mcg (2 x 25 mcg (1,000 unit)) 03/12/24 12/20/24 mcg (1,000 unit) tablet PO DAILY healing after hip fracture cyanocobalamin (vitamin B-12) 500 500 mcg PO DAILY anemia 03/12/24 12/20/24 mcg tablet ferrous sulfate 325 mg (65 mg 325 mg PO Q48H anemia ##0 03/12/24 12/20/24 iron) tablet,delayed release folic acid 1 mg tablet 1 mg PO DAILY anemia 03/12/24 12/20/24 magnesium oxide 400 mg (241.3 mg 400 mg PO DAILYWM keep magnesium 03/12/24 12/20/24 magnesium) tablet level normal metformin 500 mg tablet 500 mg PO BIDWM diabetes ##0 03/12/24 12/20/24 pantoprazole 40 mg tablet,delayed 40 mg PO BID GERD #60 tabs 03/12/24 12/20/24 release sertraline 25 mg tablet 25 mg PO DAILY depression ##0 03/12/24 12/20/24 Allergies Allergies Allergy/AdvReac Type Severity Reaction Status Date / Time No Known Drug Allergies Allergy Verified 12/20/24 11:03 [facility] Active Problems All Active Problems (Updated 12/20/24 @ 18:28 by Lemuel Copeland DNP) Acute on chronic hypoxic respiratory failure (Acute) Type 2 diabetes mellitus (Acute) Community acquired pneumonia (Acute) COPD with hypoxia (Acute) Acute exacerbation of chronic obstructive pulmonary disease (Acute) Pneumonia (Acute) Poor dentition (Acute) Disease of gingiva due to infection (Acute) COPD exacerbation (Acute) Cough (Acute) Postoperative anemia due to acute blood loss (Acute) Ambulatory dysfunction (Acute) Hypertension (Acute) Hyperkalemia (Acute) Moderate major depression (Acute) Acute hyponatremia (Acute) Hyperlipidemia (Acute) Alcohol use disorder (Acute) Chronic respiratory failure (Acute) Pathologic fracture of neck of right femur (Acute) Femoral neck fracture (Acute) Hyponatremia (Acute) Chronic pancreatitis (Acute) Alcohol abuse (Acute) Tobacco abuse (Acute) COPD (chronic obstructive pulmonary disease) (Acute) Hyperlipidemia (Acute) Hypertension (Acute) Duodenal ulcer (Acute) Upper GI bleed (Acute) Diabetes (Acute) Anemia (Acute) Syncope (Acute) Hypotension (Acute) GI bleed (Acute) Social History Social History Smoking Status: Former smoker If you are a former smoker, when did you quit? (Date/Year): 5 years ago Number of Years Smoked: 50 How many cigarettes a day do you smoke? (20 cigarettes=1 Pk): 20 Do you dip or chew tobacco?: No Do you vape?: No Patient requests smoking cessation consult: No Initiate information on smoking cessation: No Living arrangement: At home Living Condition: With family Relationship: Child Level: Independent Home Mobility Equipment: Cane Do you feel safe in your home environment?: Yes Suffered physical, verbal, emotional, or financial abuse?: No History of Abuse: No Frequency: Occasional POLST Patient has POLST: No POLST Status: Full Code Review of Systems Status of ROS: 10 or more systems reviewed and unremarkable except as noted in history and below Constitutional Reports: Fever and Chills Ears, nose, mouth, and throat Reports: Nasal discharge Cardiovascular Reports: shortness of breath with exertion; Denies: chest pain Respiratory Reports: Shortness of breath, Cough, Sputum production and Wheezing Gastrointestinal Denies: Abdominal pain Allergic/Immunologic Reports: Wheezing Exam Exam Vital Signs: Vital Signs x48h Temp Pulse Pulse Resp BP BP Pulse Ox 12/20/24 16:57 37.2 C 105 H 18 152/86 H 92 12/20/24 15:22 98 20 167/92 H 99 12/20/24 14:57 80 26 H 12/20/24 13:56 12/20/24 13:55 94 29 H 12/20/24 13:51 94 12/20/24 13:31 37.7 C 94 20 170/88 H 89 L O2 Flow Rate 12/20/24 16:57 2 12/20/24 15:22 2 12/20/24 14:57 12/20/24 13:56 2 12/20/24 13:55 12/20/24 13:51 2 12/20/24 13:31 Constitutional normal general appearance and no apparent distress HENMT normocephalic and head/scalp atraumatic Eyes PERRL Neck/C-Spine visual inspection normal Lymph no lymphadenopathy noted Chest inspection of chest normal Respiratory breath sounds equal bilaterally and wheezing noted (expiratory wheezes) Cardiovascular normal heart rate noted Gastrointestinal abdomen normal to inspection, abdomen soft to palpation and normoactive bowel sounds Extremities normal to inspection Neurology GCS 15 Psychiatry oriented x3 Skin skin color normal Conclusion/Plan Problem List (1) Acute on chronic hypoxic respiratory failure: Plan: Due to combination of COPD and pneumonia, manage as below O2 as needed (2) Acute exacerbation of chronic obstructive pulmonary disease: Plan: On Breo as well as 4 times daily ipratropium at home He received 10 mg IV push Decadron in the ER as well as a gram of Rocephin and 500 of azithromycin I am ordering DuoNebs RT 4 times daily scheduled, prednisone 40 mg p.o. daily starting tomorrow, as well as antibiotics as below (3) Community acquired pneumonia: Plan: Noted to be febrile at the clinic today. Also reports fevers and chills Chest x-ray suspicious for pneumonia I am covering her with Rocephin and azithromycin She will received 1 dose of each in the ER (4) Type 2 diabetes mellitus: Plan: He reports he is only managed with metformin at home Holding metformin while inpatient SSI Plan Placed in observation as he is only requiring 2 L O2 and is already feeling much better after dose of steroid Patient is okay with CPR, but does not want to be intubated He has a POLST form on file that is DNR/DNI, I will be assisting him with an updated form He names his son Jimbo is a surrogate decision maker Lab Results Lab results reviewed: Yes 12/20/24 13:47 12/20/24 13:47
--- NOTE | 2024-12-20 18:40 | PHARMACY PROGRESS NOTE ---
Best Possible Medication History Admit Date and Time: 12/20/24 [id number] Home Medications Medication Instructions Recorded Confirmed Type simvastatin 20 mg tablet 20 mg PO QPM 06/07/18 12/20/24 History ipratropium 0.5 mg-albuterol 3 mg 1 neb PO QID PRN Shortness Of 03/06/24 12/20/24 History (2.5 mg base)/3 mL nebulization Air/Wheezing soln acetaminophen 500 mg tablet 1,000 mg (2 x 500 mg) PO Q8H for 03/12/24 12/20/24 Rx pain cholecalciferol (vitamin D3) 25 50 mcg (2 x 25 mcg (1,000 unit)) 03/12/24 12/20/24 Rx mcg (1,000 unit) tablet PO DAILY healing after hip fracture cyanocobalamin (vitamin B-12) 500 500 mcg PO DAILY anemia 03/12/24 12/20/24 Rx mcg tablet ferrous sulfate 325 mg (65 mg 325 mg PO Q48H anemia ##0 03/12/24 12/20/24 Rx iron) tablet,delayed release folic acid 1 mg tablet 1 mg PO DAILY anemia 03/12/24 12/20/24 Rx magnesium oxide 400 mg (241.3 mg 400 mg PO DAILYWM keep magnesium 03/12/24 12/20/24 Rx magnesium) tablet level normal metformin 500 mg tablet 500 mg PO BIDWM diabetes ##0 03/12/24 12/20/24 Rx pantoprazole 40 mg tablet,delayed 40 mg PO BID GERD #60 tabs 03/12/24 12/20/24 Rx release sertraline 25 mg tablet 25 mg PO DAILY depression ##0 03/12/24 12/20/24 Rx fluticasone furoate 100 1 inh inhalation Q24H 12/20/24 12/20/24 History mcg-vilanterol 25 mcg/dose inhalation powder (Breo Ellipta) Processed by: Pharmacy Medications reviewed in ED?: No Medication History completed: Yes Patient Interview: Completed Secondary Source(s): Insurance records [facility] Statement: Per patient interview with pharmacist and review of [employer] insurance records. As the person ultimately responsible for medication therapy, providers are able to order a medication from an existing home medication list in [facility] via the "Reconcile Routine" prior to Confirmation of that medication by direct support staff member. Such practice is discouraged except when the physician, in their clinical judgment, deems that a medical need exists for a medication without regard to previous use.
[2024-12-20] MEDS: IPRATROPIUM/ALBUTEROL 3 ML NEB INH SCH (20:15)
[2024-12-21 04:37] LABS: BASOPHILS % (AUTO) 0.3 %; HCT - HEMATOCRIT 30.7 % (42.0-52.0); LYMPHOCYTES # (AUTO) 0.5 10^3/uL (1.5-3.5); LYMPHOCYTES % (AUTO) 5.9 %; MEAN CORPUSCULAR HEMOGLOBIN 25.8 pg (27.0-31.0); MEAN CORPUSCULAR HGB CONC 29.3 g/dL (32.0-36.0); MONOCYTES # (AUTO) 0.1 10^3/uL (0.0-1.0); MONOCYTES % (AUTO) 1.4 %; NEUTROPHILS # (AUTO) 8.5 10^3/uL (1.5-6.6); NEUTROPHILS % (AUTO) 91.7 %; PLT - PLATELET COUNT 290 10^3/uL (130-450); RED BLOOD COUNT 3.49 10^6/uL (4.70-6.10); RED CELL DISTRIBUTION WIDTH 15.9 % (12.0-15.0); WHITE BLOOD COUNT 9.2 x10^3/uL (4.8-10.8)
[2024-12-21 04:52] LABS: CALCIUM 8.9 mg/dL (8.5-10.3); CREATININE 1.2 mg/dL (0.6-1.3); POTASSIUM 4.5 mmol/L (3.5-4.5)
[2024-12-21] MEDS: cefTRIAXone 1 GM VIAL IVP SCH (08:22)
[2024-12-21] MEDS: AZITHROMYCIN 250 MG TABLET PO SCH (08:22)
[2024-12-21] MEDS: predniSONE 20 MG TABLET PO SCH (08:22)
[2024-12-21] MEDS: ENOXAPARIN 40 MG/0.4 ML SYRINGE SUBQ SCH (08:23)
[2024-12-21 09:21] VITALS: O2SAT 93
--- NOTE | 2024-12-21 11:52 | Discharge Summary ---
Discharge Summary Admit Date: 12/20/24 Discharge Date: 12/21/24 Discharging Provider: Lemuel Copeland NP Primary Care Provider: Damion Terrell Code Status: Attempt Resuscitation DIAGNOSES Admission Diagnoses: Acute on chronic hypoxic respiratory failure COPD with acute exacerbation Community-acquired pneumonia Type 2 diabetes mellitus HPI History of Present Illness: 79-year-old male H significant for upper GI bleed, COPD, diabetes managed with metformin presents with shortness of breath by EMS. Over the past 3 to 4 days he has been gradually getting more hypoxic. He used to be on home oxygen, but just went through the process of returning to supplier as he had not needed it for some time. He checked his pulse oximeter at home and found his oxygen to be around 85%. He went to the [facility] [place] earlier today, where he says they noted him to be febrile. He states he has been feverish at home. He reports wheezing and productive cough, but does note that he has those at baseline and this is somewhat worse. In the ER, workup was significant for a chest x-ray which shows some bibasilar opacities. Hospitalist was contacted by ER physician for admission for acute hypoxic respiratory failure on 2 L O2 secondary to COPD exacerbation and community-acquired pneumonia HOSPITAL COURSE Hospital Course: Patient was placed in observation after receiving high-dose steroid, Rocephin, Zithromax in the ER. This morning, he feels much better. Since he was already on home O2 at a prior time, he was sent home with supplemental oxygen to finish out a course of steroids and antibiotics at home ALLERGIES Allergies Allergy/AdvReac Type Severity Reaction Status Date / Time No Known Drug Allergies Allergy Verified 12/20/24 11:03 MEDICATIONS Ambulatory Orders Medication Instructions Recorded Confirmed simvastatin 20 mg tablet 20 mg PO QPM 06/07/18 12/20/24 ipratropium 0.5 mg-albuterol 3 mg 1 neb PO QID PRN Shortness Of 03/06/24 12/20/24 (2.5 mg base)/3 mL nebulization Air/Wheezing soln acetaminophen 500 mg tablet 1,000 mg (2 x 500 mg) PO Q8H for 03/12/24 12/20/24 pain cholecalciferol (vitamin D3) 25 50 mcg (2 x 25 mcg (1,000 unit)) 03/12/24 12/20/24 mcg (1,000 unit) tablet PO DAILY healing after hip fracture cyanocobalamin (vitamin B-12) 500 500 mcg PO DAILY anemia 03/12/24 12/20/24 mcg tablet ferrous sulfate 325 mg (65 mg 325 mg PO Q48H anemia ##0 03/12/24 12/20/24 iron) tablet,delayed release folic acid 1 mg tablet 1 mg PO DAILY anemia 03/12/24 12/20/24 magnesium oxide 400 mg (241.3 mg 400 mg PO DAILYWM keep magnesium 03/12/24 12/20/24 magnesium) tablet level normal metformin 500 mg tablet 500 mg PO BIDWM diabetes ##0 03/12/24 12/20/24 pantoprazole 40 mg tablet,delayed 40 mg PO BID GERD #60 tabs 03/12/24 12/20/24 release sertraline 25 mg tablet 25 mg PO DAILY depression ##0 03/12/24 12/20/24 fluticasone furoate 100 1 inh inhalation Q24H 12/20/24 12/20/24 mcg-vilanterol 25 mcg/dose inhalation powder (Breo Ellipta) amoxicillin 875 mg-potassium 1 tab PO BID 3 days #6 tabs 12/21/24 clavulanate 125 mg tablet azithromycin 250 mg tablet 500 mg (2 x 250 mg) PO DAILY 1 day 12/21/24 #2 tabs prednisone 20 mg tablet 40 mg (2 x 20 mg) PO DAILYWM 3 12/21/24 days #6 tabs PHYSICAL EXAM AT DISCHARGE Vital Signs: Vital Signs x48h Temp Pulse Pulse Resp BP Pulse Ox O2 Flow Rate 12/21/24 13:00 36.6 C 76 16 140/69 H 93 2 12/21/24 11:00 84 20 1 12/21/24 09:00 36.5 C 80 20 137/66 H 93 2 12/21/24 07:10 1 12/21/24 07:09 88 22 2 General Appearance: positive No acute distress and Alert Eyes Bilateral: positive Normal inspection and PERRL ENT: positive ENT inspection nml Neck: positive Nml inspection Respiratory: positive Chest non-tender and Other (Diminished breath sounds) Cardiovascular: positive Regular rate & rhythm Peripheral Pulses: positive 2+ Abdomen: positive Non-tender Back: positive Nml inspection Skin: positive Color nml Extremities: positive Non-tender Neurologic/Psychiatric: positive Oriented x3 LABS 12/21/24 04:13 12/21/24 04:13 FOLLOW UP Follow Up: With PCP TIME SPENT Time Spent in Discharge (Minutes): 35 Discharge Plan Discharge Patient Disposition: 01 Home, Self Care Condition: Stable Medically Cleared Date:: 12/21/24 Prescriptions: New azithromycin 250 mg Tablet 500 mg PO DAILY 1 Days Qty: 2 0RF prednisone 20 mg Tablet 40 mg PO DAILYWM 3 Days Qty: 6 0RF amoxicillin-pot clavulanate 875-125 mg tablet 1 tab PO BID 3 Days Qty: 6 0RF Continued simvastatin 20 MG tablet 20 mg PO QPM ipratropium-albuterol 3 ML solution for nebulization 1 neb PO QID PRN (Reason: Shortness Of Air/Wheezing) acetaminophen 500 MG tablet 1,000 mg PO Q8H 0RF magnesium oxide 400 MG tablet 400 mg PO DAILYWM 0RF cyanocobalamin (vitamin B-12) 500 MCG tablet 500 mcg PO DAILY 0RF folic acid 1 MG tablet 1 mg PO DAILY 0RF cholecalciferol (vitamin D3) 25 MCG tablet 50 mcg PO DAILY 0RF metformin 500 MG tablet 500 mg PO BIDWM Qty: 0 0RF pantoprazole 40 MG tablet,delayed release (DR/EC) 40 mg PO BID Qty: 60 0RF sertraline 25 MG tablet 25 mg PO DAILY Qty: 0 0RF ferrous sulfate 325 MG tablet,delayed release (DR/EC) 325 mg PO Q48H Qty: 0 0RF fluticasone furoate-vilanterol [Breo Ellipta] 100-25 mcg/dose blister with device 1 inh INHALATION Q24H Patient Comments: USE 1 INHALATION BY MOUTH INTO THE LUNGS ONCE DAILY FOR COPD Diet: Regular Interventions: Discharge Last Done: 12/21/24 13:57 Discharge Checklist - Nursing Last Done: 12/21/24 13:57 Health Concerns: He came into the hospital with difficulty breathing and low oxygen levels. You were held overnight so that we can give you IV antibiotics and steroids. You are feeling much better today, so I am sending you home. I am sending in prescriptions for 2 antibiotics and a steroid. I would like for you to take 1 dose of azithromycin tomorrow, which will complete your course of azithromycin. Your Augmentin will be 3 days total starting tomorrow. Your prednisone will be 3 days starting tomorrow. Take as directed by pharmacist. I am setting you up with home oxygen. I would like for you to follow-up with your primary care provider regarding your hospitalization. Please remain as active as possible, as this will help keep your lungs optimized Print Language: Tajik Patient Instructions: COPD Dc Stand Alone Forms: PCP List Follow-up Care: MALAIKA TERRELL MD [Primary Care Provider] -
[2024-12-21 13:40] VITALS: BP 140/69; TEMP 97.9
== END 2024-12-21 14:36 | disposition home or self-care (01) ==
LOC: ED 13:17 → MS3 13:17
PROVIDERS: ADMIT Nurse Practitioner Acute Care; ATTEND Nurse Practitioner Acute Care